=== PATIENT | female | born 1960 | race Caucasian/White ===

== ENCOUNTER → 2016-06-21 | Outpatient (CLI) | payer OTHER ==
[2016-06-21 13:00] LABS: INR 2.33
== END ==
LOC: M LAB 12:28
PROVIDERS: ATTEND Physician Assistant
DX: I48.4 Atypical atrial flutter (principal); Z51.81 Encounter for therapeutic drug level monitoring; Z79.01 Long term (current) use of anticoagulants

== ENCOUNTER → 2016-07-22 | Outpatient (CLI) | payer OTHER ==
[2016-07-22 12:26] LABS: INR 3.17
== END ==
LOC: M LAB 11:38
PROVIDERS: ATTEND Physician Assistant
DX: I48.4 Atypical atrial flutter (principal); Z51.81 Encounter for therapeutic drug level monitoring; Z79.01 Long term (current) use of anticoagulants

== ENCOUNTER → 2016-08-25 | Outpatient (CLI) | payer OTHER ==
[2016-08-25 11:58] LABS: INR 3.76
== END ==
LOC: M LAB 11:05
PROVIDERS: ATTEND Nurse Practitioner Family
DX: I48.4 Atypical atrial flutter (principal)

== ENCOUNTER → 2016-09-07 | Outpatient (CLI) | payer OTHER ==
[2016-09-07 10:10] LABS: INR 2.37
== END ==
LOC: M LAB 09:21
PROVIDERS: ATTEND Physician Assistant
DX: Z79.899 Other long term (current) drug therapy (principal)

== ENCOUNTER → 2016-10-06 | Outpatient (CLI) | payer OTHER ==
[2016-10-06 09:27] LABS: INR 2.83
== END ==
LOC: M LAB 08:21
PROVIDERS: ATTEND Nurse Practitioner Family
DX: I48.4 Atypical atrial flutter (principal)

== ENCOUNTER → 2016-10-13 | Outpatient (REF) | payer OTHER | LOC: M LAB REF 16:21 | PROVIDERS: ATTEND Surgery | DX: L03.031 Cellulitis of right toe (principal) ==

== ENCOUNTER → 2016-10-31 | Outpatient (CLI) | payer OTHER ==
[2016-10-31 12:32] LABS: INR 2.29
== END ==
LOC: M LAB 11:38
PROVIDERS: ATTEND Nurse Practitioner Family
DX: I48.4 Atypical atrial flutter (principal); Z51.81 Encounter for therapeutic drug level monitoring; Z79.01 Long term (current) use of anticoagulants

== ENCOUNTER 2016-11-09 22:07 | Inpatient (IN) | payer OTHER ==
[~2016-11-09] VITALS: Ht 162.6 cm; Wt 81.2 kg
[2016-11-09] MEDS ORDERED: AMIO200T PO (22:16)
[2016-11-09] MEDS ORDERED: ASPI1TAB15 (22:16)
[2016-11-09] MEDS ORDERED: SPIR25TA2 PO (22:16)
[2016-11-09] MEDS ORDERED: FURO20TA2 PO (22:16)
[2016-11-09] MEDS ORDERED: WARF-58 PO (22:16)
[2016-11-09] MEDS ORDERED: NITR0.4S14 SL (22:16)
[2016-11-09] MEDS ORDERED: LISI-538 PO (22:16)
[2016-11-09] MEDS ORDERED: CARV6.25 PO (22:16)
[2016-11-09] MEDS ORDERED: ATOR80TA59 PO (22:16)
[2016-11-09] MEDS ORDERED: IPRATROPIUM 0.5MG/ALBUTEROL 2.5MG INH SOL UD 3ML (DUONEB)(J7620) NEB ONE (23:00)
[2016-11-09] MEDS ORDERED: NS 500 ML IV ONE (23:00)
[2016-11-09 23:10] LABS: VENOUS BASE EXCESS -9.4 (-2.0-2.0); VENOUS O2 SATURATION 72.2 % (60.0-80.0); VENOUS PARTIAL PRESSURE CO2 40.2 mmHg (38.0-50.0); VENOUS PARTIAL PRESSURE O2 42.1 mmHg (30.0-50.0); VENOUS STANDARD HCO3 16.5 MEQ/L; VENOUS TOTAL CO2 18.5 MEQ/L (24.0-28.0)
[2016-11-09 23:12] LABS: BASO % 0.3 % (0.0-1.0); EOS % 0.2 % (0.0-3.0); LARGE UNSTAINED CELL # 0.2 K/mm3 (0.0-0.4); LARGE UNSTAINED CELL % 1.3 % (0.0-4.0); LYMPH # 1.9 K/mm3 (1.5-4.5); LYMPH % 13.3 % (24.0-44.0); MEAN CORPUSCULAR HEMOGLOBIN 30.7 pg (27.0-33.0); MEAN CORPUSCULAR HGB CONC 32.4 g/dl (32.0-36.5); MONO # 1.1 K/mm3 (0.0-0.8); MONO % 7.3 % (0.0-5.0); NEUTROPHILS # 11.2 K/mm3 (1.8-7.7); NEUTROPHILS % 77.6 % (36.0-66.0); PLATELET COUNT, AUTOMATED 220 k/mm3 (150-450); RED CELL DISTRIBUTION WIDTH 13.1 % (11.5-14.5); WHITE BLOOD COUNT 14.5 K/mm3 (4.0-10.0)
[2016-11-09 23:35] LABS: CALCIUM LEVEL 8.7 MG/DL (8.5-10.1); CREATININE FOR GFR 2.72 MG/DL (0.55-1.02); GLOMERULAR FILTRATION RATE 19.1 (>51)
[2016-11-10] VITALS (34 sets, daily range): BP systolic 66–123; BP diastolic 30–57
[2016-11-10 00:13] LABS: POTASSIUM SERUM 5.8 MEQ/L (3.5-5.1)
--- NOTE | 2016-11-10 01:08 | REP ---
Clinical: Dyspnea and cough. Comparison: 07/06/2015. Technique: PA and lateral. Findings: Mediastinum and cardiac silhouette are stable with pacemaker in satisfactory position. Subtle right lower lobe atelectasis cannot be excluded and should be correlated with auscultation and presentation. No effusion. No pneumothorax. Skeletal structures intact. Impression: Cannot exclude subtle right lower lobe atelectasis. Signed by Juve Myles MD 11/10/2016 12:59 A
[2016-11-10] MEDS ORDERED: methylPREDNISolone INJ 125 MG/2 ML VIAL (J2930) IV ONE (02:30)
[2016-11-10] MEDS ORDERED: COUM1TAB19 PO (03:14)
[2016-11-10] MEDS ORDERED: ASPI81TAEC PO (03:14)
[2016-11-10] MEDS ORDERED: NITROGLYCERIN 0.4 MG SUBL TABLET SL PRN (03:15)
[2016-11-10] MEDS ORDERED: BISACODYL 5 MG TAB PO PRN (03:30)
[2016-11-10] MEDS ORDERED: SOD POLYSTYRENE SULFONATE SUSP 15 GM/60 ML UD PO ONE (03:30)
[2016-11-10] MEDS ORDERED: ONDANSETRON 4MG/2ML VIAL (J2405) IV PRN (03:30)
[2016-11-10] MEDS ORDERED: IPRATROPIUM 0.5MG/ALBUTEROL 2.5MG INH SOL UD 3ML (DUONEB)(J7620) NEB PRN (03:30)
--- NOTE | 2016-11-10 04:30 | REPUSA ---
CLINICAL HISTORY: Acute renal failure. TECHNIQUE: Realtime sonographic images were obtained in multiple projections. COMMENTS: The right kidney measures 9.1x5.1x5.5 cm and the left kidney measures 10.8x5.3x5 cm. Both kidneys are free of hydronephrosis. There is no evidence of solid or cystic mass. There is no perinephric fluid. There is no left renal calculus. Simple cyst in the upper pole of the right kidney measuring 1.9 cm. 7 mm nonobstructing stone of the right kidney. There is a large complex cystic lesion in the midline arising from the pelvis measuring 5.6x10.7x11.9 cm. This can be arising from the ovaries. IMPRESSION: No evidence hydronephrosis. Right renal simple cyst. Nonobstructing right nephrolithiasis. Complex cystic lesion arising from the pelvis. Possibly from the ovaries. Thank you for your kind referral of this patient.
[2016-11-10] MEDS ORDERED: NS 500 ML IV ONE (05:00)
[2016-11-10 05:54] LABS: INR 3.9
[2016-11-10 05:59] LABS: RETIC HEMOGLOBIN CONTENT CHr 30.3 PG (24-36); RETICULOCYTE % 2.2 % (0.5-1.5)
[2016-11-10 06:25] LABS: CALCIUM LEVEL 7.6 MG/DL (8.5-10.1); CREATININE FOR GFR 2.68 MG/DL (0.55-1.02); GLOMERULAR FILTRATION RATE 19.4 (>51); MAGNESIUM LEVEL 1.6 MG/DL (1.8-2.4); PERCENT SATURATION 4.8 % (13.2-37.4)
[2016-11-10] MEDS: NS 1,000 ML IV SCH ×4 (06:29→20:14)
[2016-11-10] MEDS ORDERED: NS 1,000 ML IV ONE (06:30)
[2016-11-10] MEDS: PIPERACILLIN/TAZOBACTAM SOD 3.375 GM in D5W MINI-BAG PLUS 50 ML IV SCH ×3 (06:34→21:47)
[2016-11-10] MEDS ORDERED: DEXTROSE 50% 50 ML SYRINGE IV STA (07:31)
[2016-11-10] MEDS ORDERED: HumuLIN R (REGULAR) INSULIN (NovoLIN R) **100U/ML** PER UNIT SC STA (07:31)
[2016-11-10] MEDS ORDERED: ALBUTEROL SULFATE 2.5 MG/0.5 ML INH NEB SOLN NEB ONE (08:00)
[2016-11-10] MEDS: IPRATROPIUM 0.5MG/ALBUTEROL 2.5MG INH SOL UD 3ML (DUONEB)(J7620) NEB SCH ×3 (08:17→19:34)
[2016-11-10 08:22] LABS: DIGOXIN LEVEL 0.2 NG/ML (0.5-2.0)
[2016-11-10] MEDS: AMIODARONE 200 MG TAB (PACERONE) PO SCH (08:41)
[2016-11-10] MEDS: ASPIRIN 81 MG ENTERIC TAB PO SCH (08:41)
[2016-11-10] MEDS ORDERED: CARVedilol 6.25 MG TAB PO SCH (09:00)
--- NOTE | 2016-11-10 09:05 | ECGEPIP ---
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
[2016-11-10] MEDS: VANCOMYCIN HCL 750 MG, VIAL MATE ADAPTER 1 EACH in D5W 250 ML IV SCH ×2 (10:04→20:14)
[2016-11-10] MEDS: methylPREDNISolone INJ 125 MG/2 ML VIAL (J2930) IV SCH ×2 (10:05→17:50)
[2016-11-10 10:38] LABS: ALBUMIN 2.4 GM/DL (3.2-5.2); ALBUMIN/GLOBULIN RATIO 0.77 (1.00-1.93); BILIRUBIN,TOTAL 0.2 MG/DL (0.2-1.0); CALCIUM LEVEL 6.8 MG/DL (8.5-10.1); CREATININE FOR GFR 2.31 MG/DL (0.55-1.02); GLOMERULAR FILTRATION RATE 23.1 (>51); POTASSIUM SERUM 5.1 MEQ/L (3.5-5.1); TOTAL PROTEIN 5.5 GM/DL (6.4-8.2)
[2016-11-10] MEDS ORDERED: MAG SULF 1GM/100ML (MAG RUN) 1 GM in APPROPRIATE DILUENT 1 EA IV ONE (11:30)
[2016-11-10] MEDS ORDERED: CALCIUM GLUCONATE 1,000 MG in D5W MINI-BAG PLUS 100 ML IV ONE (11:30)
--- NOTE | 2016-11-10 13:34 | CR ---
DATE OF CONSULTATION: 11/10/2016 REQUESTING PHYSICIAN: Dr. Ulices Carcamo CONSULTING PHYSICIAN: Dr. Rendon REASON FOR CONSULTATION: Management of acute kidney injury and hyperkalemia. CHIEF COMPLAINT: The patient presented to the emergency room overnight with a runny nose, diarrhea and weakness. HISTORY OF PRESENT ILLNESS: Celina Vallejo is a 56-year-old female with past medical history of ischemic cardiomyopathy, paroxysmal atrial fibrillation, systolic congestive heart failure, and hypertension. Apparently, she has a normal renal function as of labs done at the hospital last year. She presented to the emergency room overnight with a runny nose, cough, some shortness of breath, pain in abdomen, loose stools for the last two days. The patient kept on taking her carvedilol, lisinopril and spironolactone at home while she was having diarrhea. She had about 3 episodes of diarrhea every day. It was all watery. When the patient arrived in the emergency room she was found to be hypotensive, systolic blood pressure was in the 80s, along with leukocytosis. The patient was aggressively hydrated with IV fluids. She was empirically covered with vancomycin and Zosyn. On initial labs, she was found to have a creatinine of 2.7 with a potassium of 5.8. Later on, her potassium got worse despite aggressive hydration. Her potassium was 6 this morning. Bicarbonate had dropped to 19. Nephrology service was called for further help in the management of this patient with acute kidney injury along with hyperkalemia and metabolic acidosis. When I examined the patient, she was in the intensive care unit (ICU). She was being hydrated. Her systolic blood pressure was 190s. She was otherwise awake, alert and oriented times three in no apparent distress. PAST MEDICAL HISTORY: 1. History of ischemic cardiomyopathy. 2. Chronic systolic congestive heart failure. 3. Paroxysmal atrial fibrillation. 4. Hypertension. 5. Hyperlipidemia. PAST SURGICAL HISTORY: The patient reports that she has a defibrillator. No other significant past surgical history. ALLERGIES: No known drug allergies. FAMILY HISTORY: No significant family history of end stage renal disease requiring hemodialysis. SOCIAL HISTORY: The patient denies any smoking, alcohol abuse or illicit drug abuse. HOME MEDICATIONS: - amiodarone 100 mg by mouth daily - aspirin 81 mg by mouth daily - atorvastatin 80 mg at bedtime - Coreg 6.25 mg by mouth twice a day - Lasix 10 mg by mouth twice a day - lisinopril 20 mg by mouth daily - nitroglycerin 0.4 mg sublingual as needed - spironolactone 37.5 mg by mouth daily - warfarin 3 mg by mouth three times a week and 4.5 mg by mouth four times a week REVIEW OF SYSTEMS: Constitutional: The patient reports some chills, feeling weak and tired. Eyes: She denies any blurry vision or double vision. ENT: She denies any dysphagia or ear discharge. She does report nasal discharge and some cough with no phlegm. Cardiovascular: She denies any chest pain or palpitations, but she does report history of congestive heart failure. Respiratory: She denies any shortness of breath or wheezing. Gastrointestinal (GI): The patient reports nausea, decreased appetite and loose watery stools. Genitourinary: She denies any dysuria, hematuria or cloudy urine, but she does report that her urine output is decreased. Musculoskeletal: She denies any muscle aches and pains. Central Nervous System (PRECISION LATHE OPERATOR): She denies any history of strokes or seizures. Psychiatric: She denies any history of depression or anxiety. Skin: She denies any rashes or ulcers. Hematologic/Oncologic: She denies any easy bruising or anemia in the past. All other review of systems is negative. PHYSICAL EXAMINATION: General: The patient is awake, alert, oriented times three, sitting in the bed in no apparent distress at this time. Vital Signs: Temperature 98.7 degrees Fahrenheit, blood pressure 90/46, pulse 71, respiratory rate 16, saturating 93% on nasal cannula. Intake and Output: Urine output recorded so far is only 25 mL. Weight on the bed scale is 73.6 kg. Head and Neck Exam: Extraocular muscles intact. Pupils equally round and reactive to light. Mucous membranes are moist. Neck is supple. There is no jugular venous distention (JVD). Cardiovascular: S1, S2. No murmur, rub or gallop. Respiratory: Chest is clear to auscultation bilaterally. Bilaterally equal air entry. No rales or rhonchi. Abdomen: Soft. Positive bowel sounds. Nontender. No ascites. No organomegaly. Extremities: No clubbing or cyanosis. Pulses are 2+. Central Nervous System (PRECISION LATHE OPERATOR): No focal neurological deficit. Power is 5/5 in all extremities. Skin: No rashes or ulcers. Psychiatric: Normal mood and affect. Lymph Nodes: No supraclavicular, axillary, or inguinal lymphadenopathy. LAB REVIEW: CBC showed a WBC of 14.5, hemoglobin 9.5 and platelets of 220. Urinalysis showed it was cloudy, protein 1+, 3+ leukocyte esterase, 81 WBCs, RBCs 5. ABG done yesterday showed a venous pH of 7.25. BMP done today morning showed sodium 139, potassium 6, chloride 110, bicarbonate 19, BUN 56, creatinine 2.6, calcium 7.6, magnesium 1.6. Iron level 11. TIBC 230. Transferrin saturation 4.8. Ferritin 135. Total CK 1126. Troponin I was 0.28. Albumin 2.4. MICROBIOLOGY: Respiratory viral panel is positive for human rhinovirus, Enterovirus. IMAGING: Renal ultrasound done today morning showed no evidence of hydronephrosis, right simple renal cyst, nonobstructing right nephrolithiasis, which was 7 mm in size, complex cystic lesion arising from the pelvis, possibly from the ovaries. CURRENT INPATIENT MEDICATIONS: The patient's inpatient medications were reviewed. She was given fluid boluses. I have started the patient on normal saline at 125 mL/hr. I have also ordered calcium gluconate 1 gram IV times one dose, magnesium sulfate 1 gram IV times one dose. She is on Zosyn 3.375 IV every 8 hours, vancomycin 750 mg IV every 12 hours, amiodarone 100 mg by mouth daily, aspirin 81 mg by mouth daily, Lipitor 80 mg at bedtime. I have started the patient on Bicitra 30 mL by mouth every 8 hours. She is on Solu-Medrol 60 mg IV every 8 hours, Zofran as needed, oxycodone as needed, and she was given one dose of Kayexalate 15 grams by mouth times one. ASSESSMENT: 56-year-old female with past medical history of paroxysmal atrial fibrillation, ischemic cardiomyopathy, chronic systolic congestive heart failure , hypertension, hyperlipidemia, admitted at this time because of acute rhinovirus associated diarrhea, hypotension, volume depletion, and acute renal failure. PLAN: 1. Acute renal failure. Most likely secondary to diarrhea, dehydration, volume depletion, use of LANEY inhibitors and diuretic at home while she was having diarrhea. The patient is to be aggressively hydrated. Continue IV fluids at this time. Systolic blood pressures are in the high 80s to low 90s. I would try to maintain a MAP of above 60. If patient's blood pressure does not improve, she will probably need a central line for CVP monitoring, IV fluid hydration and pressors if needed. No urgent need of hemodialysis at this time. Renal function is expected to improve with improvement in the blood pressure and hydration. However, I am going to get a Mathew catheter for accurate measurement of urine output. 2. Hyperkalemia. Secondary to acute renal failure and metabolic acidosis. The patient was already given a dose of Kayexalate. I will not give the patient more Kayexalate at this time. Potassium is improved to 5.1. Potassium is expected to improve with improvement in the renal function and metabolic acidosis. 3. Metabolic acidosis. The patient's bicarbonate level is down to 16 now. It is secondary to a combination of acute renal failure and diarrhea. Continue IV fluid hydration. We are short of sodium bicarbonate in the hospital at this time. I have started the patient on oral Bicitra 30 mL by mouth every 8 hours. The dose will be adjusted as needed. 4. Hypocalcemia. Calcium level is 6.8. I have given the patient a dose of calcium gluconate 1 gram IV times one. 5. Hypomagnesemia. The patient will get magnesium sulfate 1 gram IV times one dose. 6. Iron deficiency anemia. The patient is iron deficient, however, she is acutely sick and has leukocytosis. I will not give IV iron at this time. Hemoglobin is 9.5, which is acceptable. IV iron will be given once acute issues are over. 7. Chronic systolic congestive heart failure. Diuretics are on hold because of volume depletion and hypotension. We shall closely monitor patient's intake and output and adjust the IV fluids as needed. Carvedilol and lisinopril are on hold. 8. Paroxysmal atrial fibrillation. The patient continues to be on amiodarone 100 mg by mouth daily. Heart rate is well controlled at this time. Coumadin is on hold. INR is supratherapeutic at 3.9. Thank you involving us in the care of this patient. We shall be happy to follow the patient along with you tomorrow morning. Plan of care was discussed with the hospitalist team, Dr. Ulices Carcamo. JOELLEN
[2016-11-10 13:51] LABS: VENOUS BASE EXCESS -12.1 (-2.0-2.0); VENOUS O2 SATURATION 87.3 % (60.0-80.0); VENOUS PARTIAL PRESSURE CO2 46.3 mmHg (38.0-50.0); VENOUS PARTIAL PRESSURE O2 62.3 mmHg (30.0-50.0); VENOUS STANDARD HCO3 14.6 MEQ/L; VENOUS TOTAL CO2 17.3 MEQ/L (24.0-28.0)
[2016-11-10] MEDS ORDERED: BICITRA 30ML SOLN UDC PO SCH (14:00)
[2016-11-10 14:13] LABS: CALCIUM LEVEL 7.9 MG/DL (8.5-10.1); CREATININE FOR GFR 2.09 MG/DL (0.55-1.02); GLOMERULAR FILTRATION RATE 25.9 (>51); MAGNESIUM LEVEL 2.4 MG/DL (1.8-2.4); POTASSIUM SERUM 5.1 MEQ/L (3.5-5.1)
[2016-11-10] MEDS: BICITRA 30ML SOLN UDC PO SCH ×2 (14:16→21:47)
[2016-11-10 14:17] LABS: MEAN CORPUSCULAR HEMOGLOBIN 30.2 pg (27.0-33.0); MEAN CORPUSCULAR HGB CONC 30.6 g/dl (32.0-36.5); MEAN CORPUSCULAR VOLUME 98.7 fl (80.0-96.0)
[2016-11-10] MEDS ORDERED: SLF 3 ML SYR IV PRN (17:30)
[2016-11-10 17:34] LABS: ABG BASE EXCESS -9.2 (-2.0-2.0); ABG HCO3 17.2 MEQ/L (22.0-26.0); ABG PARTIAL PRESSURE CO2 39.5 mmHg (35.0-45.0); ABG PARTIAL PRESSURE O2 91.5 mmHg (75.0-100.0); ABG STANDARD HCO3 16.9 MEQ/L (22.0-26.0); ABG TOTAL CO2 18.4 MEQ/L (22.0-29.0); ABG pH (ARTERIAL) 7.256 UNITS (7.350-7.450)
[2016-11-10 19:46] LABS: BASO % 0.1 % (0.0-1.0); EOS % 0.2 % (0.0-3.0); LARGE UNSTAINED CELL # 0.1 K/mm3 (0.0-0.4); LARGE UNSTAINED CELL % 0.6 % (0.0-4.0); LYMPH # 1.3 K/mm3 (1.5-4.5); LYMPH % 11.4 % (24.0-44.0); MEAN CORPUSCULAR HEMOGLOBIN 30.9 pg (27.0-33.0); MEAN CORPUSCULAR HGB CONC 31.3 g/dl (32.0-36.5); MEAN CORPUSCULAR VOLUME 98.7 fl (80.0-96.0); MONO # 0.3 K/mm3 (0.0-0.8); MONO % 2.6 % (0.0-5.0); NEUTROPHILS # 9.5 K/mm3 (1.8-7.7); NEUTROPHILS % 85.1 % (36.0-66.0); PLATELET COUNT, AUTOMATED 178 k/mm3 (150-450); RED CELL DISTRIBUTION WIDTH 13.1 % (11.5-14.5); WHITE BLOOD COUNT 11.1 K/mm3 (4.0-10.0)
[2016-11-10 20:04] LABS: INR 5.31
[2016-11-10] MEDS: ATORVASTATIN 20 MG TAB PO SCH (20:14)
--- NOTE | 2016-11-10 20:52 | ECGEPIP ---
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 Poor R-wave progression. Borderline low voltages. Possible LATERAL MYOCARDIAL INFARCTION, OF INDETERMINATE AGE Electronically Signed On 11-10-2016 20:52:04 EDT by Dimas Núñez
[2016-11-10] MEDS: SLF 3 ML SYR IV SCH (21:27)
[2016-11-10] MEDS ORDERED: PHYTONADIONE 5 MG TAB PO ONE (21:30)
--- NOTE | 2016-11-10 22:34 | HPE ---
DATE OF ADMISSION: 11/10/2016 PRIMARY CARE PHYSICIAN: Dr. Hester. VASCULAR SURGEON: Dr. Meyers. FOOD CHECKERS AND CASHIERS SUPERVISOR: Dr. Núñez. ORACLE IDENTITY MANAGEMENT CONSULTANT: Dr. Moralez. CHIEF COMPLAINT: Cough, runny nose, feeling weak. HISTORY OF PRESENT ILLNESS: The patient is a 56-year-old female who for the past two days has been having progressively worsening cough associated with shortness of breath and increased sputum production. The patient has never been formally diagnosed with chronic pulmonary obstructive disease (COPD) she has been told she likely has some emphysema after having smoked chronically for many decades. She quit smoking 15 months ago. The patient denies sick contacts and feels improved with breathing treatments on arrival this evening in the emergency room. The patient was seen by Dr. Meyers for the first time earlier today in his office for a right cold great toe. She was told that she needed to have surgery to open up blood flow to the toe and Dr. Meyers was planning for this potentially as early as November 11. In the emergency room the patient's creatinine was found to be abnormal and the hospitalist service was called for admission. At the present time the patient denies fevers, chills, lightheadedness, dizziness. She reports improvement in her shortness of breath, no nausea or vomiting. She has had some associated diarrhea for the last several days as well, stating her by mouth intake has not been very good. She has been taking her Lasix and lisinopril. PAST MEDICAL HISTORY: 1. Ischemic cardiomyopathy. 2. Systolic congestive heart failure with last known ejection fraction to be approximately 10%. 3. Coronary artery disease. 4. Hypertension. 5. Sick sinus syndrome. 6. Atrial flutter. ALLERGIES: No known drug allergies. PAST SURGICAL HISTORY: 1. Biventricular automatic implantable cardio converter-defibrillator (AICD) placement. 2. Removal of her right great toenail. SOCIAL HISTORY: She quit smoking 15 months ago but has significant tobacco history prior to this. She lives with her daughters. She denies alcohol or illicit drug use. HOME MEDICATIONS: - Lasix 10 mg twice a day - Seroquel 20 mg daily - Aldactone 37.5 mg daily - Coumadin 4-1/2 mg four times a week, 3 mg three times a week - amiodarone 100 mg daily - aspirin 81 mg daily - atorvastatin 80 mg nightly - carvedilol 6.25 mg by mouth twice a day - nitroglycerin as needed chest pain REVIEW OF SYSTEMS: Negative other than as in the history of present illness (HPI). FAMILY HISTORY: Noncontributory. OBJECTIVE/PHYSICAL EXAM: VITAL SIGNS: Temperature 98.4, pulse 70, respirations 16, blood pressure 88/50, Oxygen sat 98% on 2 liters. GENERAL: She is a very pleasant, morbid obese female sitting up in the stretcher. She does not appear to be in any acute distress. She is comfortable. She is not using any accessory muscle use. HEENT: Cranial nerves II-XII are grossly intact. I do not appreciate any elevation of central venous pressure (CVP) but this is difficult to assess secondary to body habitus and a large neck. CARDIOVASCULAR: S1, S2 regular. I do note distal heart sounds appreciated. RESPIRATORY EXAM: She does have some scattered bibasilar rales. I do not appreciate any wheezing at this time but the emergency room (ER) provider reported that he had heard this earlier prior nebulizer treatments. ABDOMEN: Grossly obese. EXTREMITIES: No clubbing. There appears to be cyanosis, a cold right great toe. There is an ulcerative nail. Pulses are palpable proximally but not distally on the right. LABORATORY DATA: WBC 14.5, hemoglobin 9.5, hematocrit 29.3, platelet count 220. Chemistry panel: Sodium 140, potassium 5.8, chloride 108, bicarbonate 21, BUN 58 , creatinine 2.7. CK 1,029, Troponin 0.42 trending down to 0.39. BNP is slightly elevated at 651. MICROBIOLOGY: Blood cultures are pending. The respiratory panel returned positive for rhino virus/enterovirus. IMAGING: A chest x-ray cannot exclude right lower lobe atelectasis. ASSESSMENT AND PLAN: This is a 56-year-old female presenting with what appears to be decompensated chronic pulmonary obstructive disease (COPD) secondary to a rhinovirus infection. PROBLEMS: 1. Decompensated COPD secondary to rhinovirus. The patient's symptoms include increased cough increased sputum in the setting of history significant tobacco use and clinically decompensated COPD. She will be admitted and treated with intravenous (IV) Solu-Medrol nebulizer treatments. Admit as a viral infection, I do not see any role for antibacterials at this time. She currently has an oxygen requirement which she normally does not; however, I suspect that she will improve with treatment. This is a viral infection but also likely the etiology for her associated diarrhea in the last two days as well. 2. Cold, right great toe. The patient's vp production is Dr. Núñez and she was seen by Dr. Meyers on November 09. I have reached out to Dr. Meyers and hope he will see the patient in consultation while she is here in the hospital. He is planning an operative procedure for November 11. Maybe this can at this time during this hospitalization also. She recently completed a course of Keflex. If her diarrhea is not improved or worsened consider checking the stool for Clostridium difficile. At the present time it appears to be resolving for the patient. 3. Acute renal failure. This is likely secondary to dehydration. The patient is on Aldactone, lisinopril, and Lasix with poor by mouth intake in the setting of a rhino infection with diarrhea. At this time we will hold these medications and I will gently hydrate her. Will also provide her with Kayexalate to help with her potassium. She does not have any concerning EKG changes at this time. I will recheck her potassium and BNP this morning and trend. Also evaluate her sodium and a renal ultrasound as we do not have other recent blood work regarding her kidney function. 4. Elevated creatinine kinase. This is likely related to dry gangrene of her right great toe. Will continue to hydrate the patient, continue to monitor. 5 Systolic congestive heart failure and elevated BNP. On exam she has dry mucous membranes and she does not appear to be fluid overloaded at all. My concern at the present time was for dehydration and providing her with intravenous fluids, will have to monitor her fluid status closely. Could not get any weights, intake and outputs. We are holding her Lasix, Aldactone and lisinopril for the time being, will continue her Coreg with holding parameters. Blood pressure is soft, she will also continue on amiodarone. 6. Coronary artery disease. The patient will be continued on aspirin and a statin and her beta linda with holding parameters as outlined above. The patient has an equivocal troponin. I would continue to trend this. She has ischemic cardiomyopathy and known coronary artery disease. She may be having some demand ischemia as her blood pressure is low secondary to dehydration and her kidney disease. Will hydrate her and trend. 7. Sick sinus syndrome. The patient is status post a pacer but I would check her automatic implantable cardio converter-defibrillator (AICD). She is normally anticoagulated with Coumadin. I will hold her Coumadin as it appears that Dr. Meyers may have been planning her surgery within the next 48 to 72 hours. I will check an INR. 8. Deep venous thrombosis (DVT) prophylaxis. Check the patient's INR. She has been on Coumadin and antibiotics, it is thought she is therapeutic. DISPOSITION: The patient admitted to the progressive care unit to Dr. Carcamo's service. Will continue following the patient at 7 a.m. [facility]
--- NOTE | 2016-11-10 23:52 | CR ---
DATE OF CONSULTATION: 11/10/2016 REFERRING PHYSICIAN: Dr. Ulices Carcamo REASON FOR CONSULTATION: Ischemic cardiomyopathy, chronic systolic heart failure, hypotension. HISTORY OF PRESENT ILLNESS: Celina Vallejo is a 56-year-old woman with coronary artery disease with ischemic cardiomyopathy and chronic systolic heart failure. She is status post implant of a Medtronic dual-chamber implantable cardioverter defibrillator (ICD) 08/12/2015 for sick sinus syndrome/tachycardia/bradycardia syndrome and ischemic cardiomyopathy. She has a history of paroxysmal atrial flutter (atypical flutter) with rapid ventricular response. She is known to have an abnormal ECG and hypercholesterolemia. No systemic hypertension. The patient was admitted to hospital 11/09/2016 after presenting with complaints of runny nose, diarrhea, weakness, and decreased appetite. These symptoms were for about 2 days prior to her presentation. She continued to take her diuretics despite decrease oral intake for 2 days. She on this hospitalization was found to have acute kidney injury and hyperkalemia, for which nephrology has been consulted. She was having periods of hypotension with at times blood pressures in the 70s systolic. Her cardiac drugs were held, and she received some intravenous (IV) fluids. Patient reports that for about 2 days prior to admission she was having episodes of lightheadedness and some shortness of breath with minimal activity. No leg or ankle swelling. No orthopnea or paroxysmal nocturnal dyspnea (PND). No chest, neck, jaw, or upper extremity pain, pressure, tightness, squeezing, or heaviness. No syncope. No palpitations. No ICD shocks. No embolic events. Echocardiogram Doppler 12/09/2015 ([facility]) reported normal left ventricular (LV) wall thickness and cavity size with severe reduction in systolic function with estimated ejection fraction of 20-25%. Severe, diffuse global LV hypokinesis. Abnormal diastolic function, consistent with grade 1 diastolic dysfunction (impaired relaxation filling pattern). Right ventricular (RV) size and systolic function appeared normal. Presence of an ICD lead in the RV cavity. Mild mitral regurgitation. Trace to mild tricuspid regurgitation. No evidence of pulmonary hypertension. No pericardial effusion. Patient underwent a thallium viability cardiac nuclear stress test in [place] 07/09/2015, which reported global decreased wall motion with LV ejection fraction of 23%. Presence of a large infarct. No evidence for viable myocardium. This large fixed myocardial perfusion defect was anterolateral, extending from base to apex with a smaller defect over the inferior apex. No known adverse drug reactions. MEDICATIONS PRIOR TO ADMISSION: - amiodarone 100 mg daily - aspirin 81 mg daily - atorvastatin 80 mg at bedtime - carvedilol 6.25 mg twice a day - furosemide 10 mg twice a day - lisinopril 20 mg daily - nitroglycerine 0.4 mg sublingual as needed - spironolactone 37.5 mg daily - warfarin as directed CURRENT MEDICATIONS IN HOSPITAL: Consist of: - DuoNeb every 6 hours and every 2 hours as needed - amiodarone 100 mg daily - aspirin 81 mg daily - atorvastatin 80 mg at bedtime - Dulcolax 5 mg by mouth daily as needed - citric acid/sodium citrate 30 mL every 8 hours by mouth - Solu-Medrol 60 mg IV every 8 hours - Nitrostat 0.4 mg sublingual every 5 minutes as needed - Zofran 4 mg IV every 6 hours as needed - Percocet one every 4 hours as needed - piperacillin/tazobactam 3.375 grams IV every 8 hours - normal saline 125 mL per hour IV - vancomycin 750 mg IV every 12 hours PAST MEDICAL HISTORY: 1. Paroxysmal atrial flutter (atypical flutter). 2. Ischemic cardiomyopathy. 3. Chronic systolic heart failure. 4. Status post dual-chamber Medtronic ICD implanted 08/12/2015. 5. Abnormal ECG. 6. Hypercholesterolemia. 7. Prior cardiac catheterization 07/08/2015. 8. Prior smoking history, for which she quit 07/07/2015. Prior to that she had a smoking history of one pack per day for 30 years. No diabetes. No systemic hypertension. SURGICAL HISTORY: ICD implanted 08/12/2015, left pectoral region. FAMILY HISTORY: Father had coronary artery disease with myocardial infarct in his 70s. Mother had coronary artery disease with a heart attack in her 70s. One sister with coronary artery disease with a heart attack at age 45. SOCIAL HISTORY: . Lives with daughter. Not presently employed. Independent with activities of daily living. Prior smoking history of one pack per day times 30 years, for which she quit 07/07/2015. No alcohol. Limited by exertional dyspnea if she attempts above ordinary physical activity. REVIEW OF SYSTEMS: Two days prior to admission she was feeling generalized fatigue and weakness. No fevers. She was having nasal discharge and nonproductive cough. She was having some mild shortness of breath with light activity, but this has since resolved. She was having nausea, decreased appetite, and loose, watery stools. No anxiety, panic attacks, or depression. All other 10-point review of systems negative. PHYSICAL EXAMINATION: A pleasant, overweight woman who appears her chronological age, not in any respiratory or psychologic distress. Height 64 inches, weight 73.6 kg, body mass index 27.9. Temperature 97.7, pulse 68, respiratory rate 13, blood pressure (BP) 111/51, oxygen 97% on oxygen 2 liters per minute by nasal cannula. No gross head, facial, or skeletal deformities. Not in an y respiratory or psychologic distress. No conjunctival pallor, scleral icterus, or xanthomas. Oral mucosa was moist and without pallor or cyanosis. Trachea midline. No palpable thyroid. Jugular venous pulsation at 3 cm. Respiratory expansion effort was good. No crackles or wheezes. No left parasternal lifts, heaves, thrills, or palpable heart sounds. Well-healed ICD incision, left pectoral region. First heart sound normal. Second heart sound normal. No S3 or S4. No pericardial friction rubs. No heart murmurs appreciated. Carotids were normal in volume and contour and without bruits. No palpable abdominal aorta. No abdominal bruits. Pedal pulses normal. No lower extremity edema. No varicose veins. No clubbing, nailbed cyanosis, or splinter hemorrhages. Bowel sounds positive. Abdomen was soft, nontender with abnormal bowel sounds. No hepatosplenomegaly or other organomegaly. No abdominal masses. Liver span difficult to assess due to abdominal obesity. Stool for occult blood not presently indicated. Gait not presently tested, as the patient is on bed rest in the ICU. No kyphosis or scoliosis. No skin icterus, lesions, or pallor. Patient is oriented to person, place, and time. Mood and affect were normal. Posterior-anterior (PA) and lateral chest x-ray acquired 11/09/2016 was reported to show "cannot exclude subtle right lower lobe atelectasis." Although the report indicates that a pacemaker is present, it is actually dual-chamber ICD over left pectoral region. Leads were in satisfactory position. No pleural effusions. ECG 11/10/2016 showed atrial paced rhythm, poor R-wave progression, borderline low voltages, possible lateral myocardial infarct, age undetermined. Laboratory work 11/10/2016 at 1940 hours showed WBC 11.1, hemoglobin 9.3, hematocrit 29.7, platelets 178. Laboratory work 11/10/2016 showed PT/INR 5.31. Laboratory work 11/11/2016 at 1337 hours shows sodium 139, potassium 5.1, chloride 113, CO2 of 19, BUN 51, creatinine 2.09, estimated GFR 25.9, glucose 203, magnesium 2.4. Troponin I 11/10/2016 at 5:39 a.m. was 0.28. Laboratory work 11/10/2016 showed total protein low at 5.5 and albumin low at 2.4. Laboratory work 11/09/2016 showed BNP 661. ASSESSMENT AND RECOMMENDATIONS: 1. Coronary artery disease (CAD) without angina. Patient is known to have ischemic cardiomyopathy and has evidence of extensive prior anterolateral myocardial infarct without viability. Continue aspirin and atorvastatin at the current dosages. Continue Nitrostat as needed. Agree with holding carvedilol and lisinopril during this time of recent hypotension and acute kidney injury. At some point, once the acute kidney injury has resolved and blood pressure has improved, it would be good to get some lisinopril and beta linda back on board. 2. Ischemic cardiomyopathy. [place] Heart Association (NYHA) functional class 2, presently compensated on examination. Hypotension has not resolved with intravenous (IV) fluids. Agree with holding carvedilol, furosemide, lisinopril, spironolactone for now while we await the sustained return of normal blood pressure and improvement in acute kidney injury and hypokalemia. 3. Chronic systolic heart failure. As per ischemic cardiomyopathy category above. 4. Hypotension. I suspect the patient was dehydrated with ongoing intake to furosemide and spironolactone while she had decreased appetite during her viral-type illness prior to admission. Hypotension has now resolved with administration of IV fluids. I would not place this patient on vasopressors at this time. Agree with continuing to hold furosemide, carvedilol, lisinopril, spironolactone for now. Some of these medications will need to be introduced gradually, depending upon return of kidney function and sustained improvement in blood pressure. 5. History of paroxysmal atypical atrial flutter. No palpitations. She is atrially paced. 6. Abnormal ECG, stable. 7. Status post Medtronic dual-chamber pacemaker in situ for management of sick sinus syndrome/tachycardia/bradycardia syndrome and ischemic cardiomyopathy with chronic systolic heart failure. No ICD shocks. Stable. Regular followup via our office. 8. Hypercholesterolemia. Recommend patient be on a DASH diet. Agree with continuation of intensive statin therapy (atorvastatin 80 mg at bedtime).
[2016-11-11] VITALS (27 sets, daily range): BP systolic 83–137; BP diastolic 43–66; O2SAT 94
[2016-11-11] MEDS: IPRATROPIUM 0.5MG/ALBUTEROL 2.5MG INH SOL UD 3ML (DUONEB)(J7620) NEB SCH ×5 (02:00→23:37)
[2016-11-11] MEDS: methylPREDNISolone INJ 125 MG/2 ML VIAL (J2930) IV SCH ×3 (02:22→22:00)
[2016-11-11] MEDS: NS 1,000 ML IV SCH (04:20)
[2016-11-11 05:15] LABS: CALCIUM LEVEL 7.4 MG/DL (8.5-10.1); CREATININE FOR GFR 1.34 MG/DL (0.55-1.02); GLOMERULAR FILTRATION RATE 43.2 (>51); MAGNESIUM LEVEL 2.1 MG/DL (1.8-2.4); PHOSPHORUS LEVEL 2.7 MG/DL (2.5-4.9); POTASSIUM SERUM 4.4 MEQ/L (3.5-5.1)
[2016-11-11 05:27] LABS: INR 6.02
[2016-11-11] MEDS: SLF 3 ML SYR IV SCH ×3 (05:58→21:58)
[2016-11-11] MEDS: PIPERACILLIN/TAZOBACTAM SOD 3.375 GM in D5W MINI-BAG PLUS 50 ML IV SCH ×2 (05:58→16:59)
[2016-11-11] MEDS: BICITRA 30ML SOLN UDC PO SCH ×3 (05:58→21:56)
[2016-11-11 08:05] LABS: VENOUS O2 SATURATION 99.6 % (60.0-80.0); VENOUS PARTIAL PRESSURE CO2 42.1 mmHg (38.0-50.0); VENOUS PARTIAL PRESSURE O2 147.8 mmHg (30.0-50.0); VENOUS STANDARD HCO3 17.9 MEQ/L; VENOUS TOTAL CO2 19.8 MEQ/L (24.0-28.0)
[2016-11-11 08:07] LABS: MEAN CORPUSCULAR HEMOGLOBIN 31.1 pg (27.0-33.0); MEAN CORPUSCULAR HGB CONC 31.9 g/dl (32.0-36.5); MEAN CORPUSCULAR VOLUME 97.5 fl (80.0-96.0); RED CELL DISTRIBUTION WIDTH 13.4 % (11.5-14.5); WHITE BLOOD COUNT 10.3 K/mm3 (4.0-10.0)
[2016-11-11] MEDS ORDERED: CALCIUM GLUCONATE 1,000 MG in D5W MINI-BAG PLUS 100 ML IV ONE (08:45)
[2016-11-11 09:21] LABS: REASON FOR REVIEW ANEMIA / RBC MORPH
[2016-11-11] MEDS: ASPIRIN 81 MG ENTERIC TAB PO SCH (09:58)
[2016-11-11] MEDS: AMIODARONE 200 MG TAB (PACERONE) PO SCH (09:58)
[2016-11-11] MEDS: guaiFENesin ER 600 MG TAB PO SCH ×2 (09:59→21:51)
[2016-11-11] MEDS: VANCOMYCIN HCL 750 MG, VIAL MATE ADAPTER 1 EACH in D5W 250 ML IV SCH ×2 (10:02→21:52)
--- NOTE | 2016-11-11 10:35 | REP ---
CT abdomen pelvis without IV and oral contrast: Studies compared to the renal ultrasound performed last night. There are no comparison CT studies. The visualized lung jolley are unremarkable. The unenhanced hepatic parenchyma is homogeneous. The gallbladder, pancreas and spleen are normal size unremarkable. The adrenals are unremarkable. There is no renal hydronephrosis. There are small calcifications in each kidney, likely vascular calcified atheroma. There is a 1.9 cm right renal cortical cyst posteriorly at the upper pole. There is ectasia of the infrarenal abdominal aorta measuring up to 2.9 cm in diameter. There is no retroperitoneal or mesenteric adenopathy. There is no bowel distension. Pelvis: There is a Mathew catheter in the bladder and the bladder appears collapsed. However, there is a large cyst in the midline of the pelvis of the collapsed bladder maximally measuring 12 cm in diameter. There is a large crescentic shaped low density structure along the right lateral wall of this cyst, possibly a hematoma or abscess in the of the cyst, neoplasm is not entirely discounted. This entire complex appears to arise from the right adnexa. This may represent a giant cyst adenoma with hemorrhage or abscess. MRI follow-up might be useful for further evaluation. The uterus and left adnexa are otherwise unremarkable. There is no pelvic adenopathy or ascites. The pelvic bowel loops are unremarkable except for sigmoid colon diverticulosis without diverticulitis. The appendix has a normal appearance. Impression: There is a large cystic mass in the pelvis as described. Along the right lateral wall of this mass ,there is a crescentic shaped structure. This could be a hemorrhage, abscess or neoplasm in the wall of the mass. There are small calcifications in the wall of the cyst. This entire complex appears to arise from the right adnexa and may represent a complex cyst adenoma. MRI follow-up might be useful for further evaluation. There is no adenopathy or ascites. There is ectasia of the infrarenal abdominal aorta. Signed by Aleksandr Shaver MD 11/11/2016 10:26 A
--- NOTE | 2016-11-11 10:40 | REP ---
CT CHEST WITHOUT IV CONTRAST: CT chest is performed without IV contrast. Sagittal and coronal reconstruction images are performed. There are no prior CT exams for comparison. Scattered interstitial fibrotic changes are seen. There is bullous change in the left upper lobe medially and anteriorly. Consolidation is seen in the right posterior costophrenic sulculus. There is patchy infiltrate or fibroatelectasis in the lingula inferiorly. No suspicious nodular opacities are seen in either lung. Mildly enlarged subcarinal lymph node measures 1.2 cm in short axis dimension with no other gross adenopathy. There are mild to moderate atherosclerotic calcifications of the thoracic aorta without aneurysm. The heart is mildly enlarged. There are degenerative changes of the spine. There is a 1.5 cm hypodense nodule in the upper pole of the left lobe of thyroid probably representing a cyst. This could be better evaluated with ultrasound if desired. IMPRESSION: Focal consolidation in the right posterior costophrenic sulcus in the right lower lobe. Mild patchy infiltrate or fibroatelectasis in the lingula. Mildly enlarged subcarinal lymph node. No pleural or pericardial effusion. Mild cardiomegaly. Signed by Aleksandr Lopez MD 11/11/2016 01:40 P
[2016-11-11] MEDS ORDERED: FUROSEMIDE 20 MG/2 ML VIAL (J1940) IV SCH (11:15)
[2016-11-11] MEDS ORDERED: PHYTONADIONE 10MG/ML INJECTION (J3430) SC ONE (11:15)
--- NOTE | 2016-11-11 11:22 | IPNPDOC ---
Text Note Date of Service The patient was seen on 11/11/16. NOTE Subjective: Pt states that she still feels congested. Denies CP/Palpitation/SOB. Objective: Vitals: (see below) General: No acute distress, laying comfortably in bed. HEENT: Moist mucous membranes. Neck: No JVD or lymphadenopathy Cardiac: RRR, No murmurs Pulm: Diminished breath sounds at the bases b/l. Mild exp wheezing and rhonchi Abd: NT/ND + BS Ext: No edema or cyanosis Labs (see below) Images: CT Chest 11/11/16 Scattered interstitial fibrotic changes are seen. There is bullous change in the left upper lobe medially and anteriorly. Consolidation is seen in the right posterior costophrenic sulculus. There is patchy infiltrate or fibroatelectasis in the lingula inferiorly. No suspicious nodular opacities are seen in either lung. Mildly enlarged subcarinal lymph node measures 1.2 cm in short axis dimension with no other gross adenopathy. There are mild to moderate atherosclerotic calcifications of the thoracic aorta without aneurysm. The heart is mildly enlarged. There are degenerative changes of the spine. There is a 1.5 cm hypodense nodule in the upper pole of the left lobe of thyroid probably representing a cyst. This could be better evaluated with ultrasound if desired. IMPRESSION: Focal consolidation in the right posterior costophrenic sulcus in the right lower lobe. Mild patchy infiltrate or fibroatelectasis in the lingula. Mildly enlarged subcarinal lymph node. No pleural or pericardial effusion. Mild cardiomegaly. CT Abd/pelvis 11/11/16 CT abdomen pelvis without IV and oral contrast: Studies compared to the renal ultrasound performed last night. There are no comparison CT studies. The visualized lung jolley are unremarkable. The unenhanced hepatic parenchyma is homogeneous. The gallbladder, pancreas and spleen are normal size unremarkable. The adrenals are unremarkable. There is no renal hydronephrosis. There are small calcifications in each kidney, likely vascular calcified atheroma. There is a 1.9 cm right renal cortical cyst posteriorly at the upper pole. There is ectasia of the infrarenal abdominal aorta measuring up to 2.9 cm in diameter. There is no retroperitoneal or mesenteric adenopathy. There is no bowel distension. Pelvis: There is a Mathew catheter in the bladder and the bladder appears collapsed. However, there is a large cyst in the midline of the pelvis of the collapsed bladder maximally measuring 12 cm in diameter. There is a large crescentic shaped low density structure along the right lateral wall of this cyst, possibly a hematoma or abscess in the of the cyst, neoplasm is not entirely discounted. This entire complex appears to arise from the right adnexa. This may represent a giant cyst adenoma with hemorrhage or abscess. MRI follow-up might be useful for further evaluation. The uterus and left adnexa are otherwise unremarkable. There is no pelvic adenopathy or ascites. The pelvic bowel loops are unremarkable except for sigmoid colon diverticulosis without diverticulitis. The appendix has a normal appearance. Impression: There is a large cystic mass in the pelvis as described. Along the right lateral wall of this mass ,there is a crescentic shaped structure. This could be a hemorrhage, abscess or neoplasm in the wall of the mass. There are small calcifications in the wall of the cyst. This entire complex appears to arise from the right adnexa and may represent a complex cyst adenoma. MRI follow-up might be useful for further evaluation. There is no adenopathy or ascites. There is ectasia of the infrarenal abdominal aorta. Assessment/Plan 1. Severe Hypotension 2/2 dehydration, diuretics, diarrhea, pneumonia. Blood pressure is improving with IV fluid hydration. Appreciate nephrology input. Map greater than 65 now. Continue to hold diuretics/lisinopril. CT chest (see above) . Positive for rhinitis/enterovirus, which can predispose the patient to the getting a bacterial pneumonia. On broad-spectrum antibiotics. We will start Mucinex as well as obtain a sputum sample. Nebulizer treatments. Decrease steroid dose. 2. Coumadin coagulopathy - s/p vit K, repeat vit K, 1 U FFP, 1 U PRBC will be given today. 2. Ischemic cardiomyopathy use of 10% s/p AICD 08/2015. Compensated. Diuretics on hold given the above. We'll restart patient's blood pressure stabilizes. Cardio consulted 3. Acute kidney injury/NAGMA- likely prerenal secondary to 1. On IV fluids. Improving. On bicitra. 4. Iron deficiency anemia- hemoglobin stable. No acute bleeding. ?large cystic mass is contributing. Will need further MRI to better differentiate. 5. Large pelvix mass - ? Ovarian cancer. Will need further MRI to better differentiate. 5. CAD - on ASA/statin. BB and ACEi on hold for now. 6. H/o PAF- will need anticoagulation addressed by cardio. On ASA and Amiodarone. 7. HLD on statin 8. H/o tobacco abuse, quit. Full code. DVT prophy - Heparin SQ VS,Fishbone, I+O VS, Fishbone, I+O Laboratory Tests 11/10/16 13:37 Red Blood Count 2.61 L, Mean Corpuscular Volume 98.7 H, Mean Corpuscular Hemoglobin 30.2, Mean Corpuscular Hemoglobin Concent 30.6 L, Red Cell Distribution Width 13.0, Calcium Level 7.9 #L 11/10/16 19:40 Red Blood Count 3.00 L, Mean Corpuscular Volume 98.7 H, Mean Corpuscular Hemoglobin 30.9, Mean Corpuscular Hemoglobin Concent 31.3 L, Red Cell Distribution Width 13.1, Neutrophils (%) (Auto) 85.1 H, Lymphocytes (%) (Auto) 11.4 L, Monocytes (%) (Auto) 2.6, Eosinophils (%) (Auto) 0.2, Basophils (%) ( Auto) 0.1, Neutrophils # (Auto) 9.5 H, Lymphocytes # (Auto) 1.3 L, Monocytes # ( Auto) 0.3, Eosinophils # (Auto) 0.0, Basophils # (Auto) 0.0 11/11/16 04:25 Anion Gap 7 L 11/11/16 07:43 Red Blood Count 2.53 L, Mean Corpuscular Volume 97.5 H, Mean Corpuscular Hemoglobin 31.1, Mean Corpuscular Hemoglobin Concent 31.9 L, Red Cell Distribution Width 13.4 Vital Signs Date Time Temp Pulse Resp B/P (MAP) Pulse Ox O2 Delivery O2 Flow Rate FiO2 11/11/16 09:28 94 Nasal Cannula 1.0 11/11/16 08:00 97.8 67 20 96/46 (63) I&O- Last 24 Hours up to 6 AM 11/11/16 06:00 Intake Total 5675 ml Output Total 1590 ml Balance 4085 ml AMBER HAN MD Nov 11, 2016 11:22
[2016-11-11] MEDS: PANTOPRAZOLE 40MG INJ (PROTONIX) (C9113) IV SCH (11:46)
[2016-11-11] MEDS ORDERED: HEPARIN SOD (PORCINE) 5000 UNITS/ML VIAL SQ SCH (14:00)
[2016-11-11 14:50] LABS: MEAN CORPUSCULAR HEMOGLOBIN 30.8 pg (27.0-33.0); MEAN CORPUSCULAR HGB CONC 31.6 g/dl (32.0-36.5); MEAN CORPUSCULAR VOLUME 97.5 fl (80.0-96.0); RED CELL DISTRIBUTION WIDTH 13.3 % (11.5-14.5); WHITE BLOOD COUNT 12.4 K/mm3 (4.0-10.0)
[2016-11-11 15:05] LABS: INR 2.19
--- NOTE | 2016-11-11 16:49 | ECHO ---
DATE OF PROCEDURE: 11/10/2016 REFERRING PHYSICIAN: Ulices Carcamo MD INDICATION: Heart failure, unspecified. HEIGHT: 163 cm WEIGHT: 74 kg 2D MEASUREMENTS: Left atrium: 3.8 cm Aortic root: 2.5 cm LVOT: 1.8 cm Ventricular septum: 0.75 cm Posterior wall: 0.75 cm Left ventricle diastole: 4.6 cm Inferior vena cava: 2.4 cm (more than 50% respiratory variation). DOPPLER MEASUREMENTS: Aortic valve velocity: 174 cm/s LVOT velocity: 122 cm/s LVOT VTI: 28.2 cm Mild mitral regurgitation. Mitral E velocity: 53.8 cm/s Mitral A velocity: 88.4 cm/s Mitral deceleration time: 173 ms Mild tricuspid regurgitation. Estimated right ventricle systolic pressure 40-45 mmHg assuming a right atrial pressure of 5-10 mmHg. Pulmonary artery acceleration time: 215 ms MITRAL ANNULAR TISSUE DOPPLER: E prime septal: 6.5 cm/s E prime lateral: 5.5 cm/s DESCRIPTION: Rhythm appeared to be atrial paced. This was a moderately technically difficult echocardiogram. No pericardial effusion. CONCLUSIONS: 1. Normal left ventricle size and wall thickness. Extensive and multiple regional wall motion abnormalities with severe reduction overall left ventricle (LV) systolic function. Left ventricular ejection fraction (LVEF) 25% by visual estimate. No LV thrombus. Grade 1 LV diastolic dysfunction (impaired relaxation filling pattern). The basal and mid antral septal, inferoseptal, anterior, and anterolateral segments were hypokinetic. The basal and mid inferior segments and basal inferolateral segment were normokinetic. The mid inferolateral segment was hypokinetic. The apical cap segment was akinetic. The apical anterior and apical septal segments were akinetic and the apical inferior and apical lateral segments were severely hypokinetic. 2. Mild left atrial dilatation. 3. Mild aortic valve sclerosis. 4. Presence of endocardial, right atrial pacing lead and right ventricle ICD lead. 5. Normal right ventricle size and systolic function. Suggestive of moderate elevation of estimated right ventricle systolic pressure. Mild tricuspid regurgitation. Although the inferior vena cava was dilated, it had normal respiratory variation. Suggestive of central venous pressure of 5-10 mmHg at the time of this study.
--- NOTE | 2016-11-11 17:49 | IPN ---
DATE: 11/11/2016 SUBJECTIVE: The patient was seen and examined at the bedside today in the morning. She feels slightly better as compared with yesterday. However, she continues to have some loose stools. She had one loose bowel movement so far today since overnight. Renal function is significantly getting better. Creatinine is down to 1.3. She continues to be on intravenous (IV) fluids with the systolic blood pressures running into high 90s to low 100s. Potassium has improved to 4.4 now. REVIEW OF SYSTEMS: The patient denies any fever, chills, rigors, headache, nausea, vomiting, chest pain or shortness of breath. She does report some swelling of her extremities, and the patient reports persistent loose stools, one soft bowel movement so far today in the morning. Otherwise, the patient has a good appetite. She was getting ready to eat her breakfast when I saw her. The rest of the review of systems is negative. OBJECTIVE: VITAL SIGNS: Temperature is 97.8 degrees Fahrenheit. Blood pressure is 96/46, pulse is 67, respiratory rate of 18, saturating 95% on nasal cannula at 1 liter. INTAKE/OUTPUT: Urine output recorded as 1.2 liters yesterday, 510 mL so far today since overnight. The patient is in positive fluid balance for the last 2 days. Weight on the bed scale is 78.1 kg. PHYSICAL EXAMINATION: GENERAL: The patient is awake, alert, oriented times three, sitting on the sofa, in no apparent distress. HEAD AND NECK EXAM: Extraocular muscles intact. Pupils equally round and reactive to light. Mucous membranes are moist. Neck is supple. There is no jugular venous distention (JVD). CARDIOVASCULAR: S1, S2, regular rate. No murmur, rub or gallop. RESPIRATORY: Chest is clear to auscultation bilaterally. Bilateral equal air entry. No rales or rhonchi. The patient has slightly decreased breath sounds at the bases. ABDOMEN: Abdomen is soft. Positive bowel sounds. Nontender. No ascites. No organomegaly. EXTREMITIES: No clubbing or cyanosis. Pulses are 2+. CENTRAL NERVOUS SYSTEM: No focal neurological deficit. Power is 5/5 in all extremities. SKIN: No rashes or ulcers. PSYCHIATRIC: Normal mood and affect. LAB REVIEW: CBC showed a WBC of 10.3, hemoglobin 7.9, platelets are 169. INR is 6.02. VBG showed a venous pH of 7.26. BMP showed sodium 145, potassium 4.4, chloride 117, bicarbonate is 21, BUN is 40, creatinine is 1.34. It was 2.09 yesterday. Calcium 7.4, phosphorus 2.7, magnesium 2.1. LDH is 230. Albumin is 2. Total creatinine kinase is 915. Troponin is 0.20. Microbiology: Stool for occult blood is positive. IMAGING: A CT scan of the chest was done today in the morning, which showed focal consolidation in the right posterior costophrenic sulcus in the right lower lobe. CT scan of the abdomen and pelvis showed large cystic mass in the pelvis, along with right lateral wall of this mass, there was a crescentic shaped structure which could be hemorrhage, abscess or neoplasm. An MRI was recommended. CURRENT INPATIENT MEDICATIONS: The patient's medications were all reviewed by me. I have ordered another dose of calcium gluconate 1 gram IV times one dose. I have stopped the IV fluids. The patient continues to be on IV vancomycin and IV Zosyn. I have stopped the aspirin because of positive fecal occult blood and dropping hemoglobin. Solu-Medrol dose has been decreased to 60 mg every 12 hours. The patient was given a dose of vitamin K 5 mg subcutaneously times one dose. ASSESSMENT: A 56-year-old female with past medical history of paroxysmal atrial fibrillation, ischemic cardiomyopathy, chronic systolic congestive heart failure, hypertension, hyperlipidemia, admitted at this time because of acute rhinovirus associated diarrhea, hypotension, volume depletion and acute renal failure. PLAN: 1. Acute renal failure. It was secondary to volume depletion and hypotension. The patient was on IV fluids. Angiotensin-converting enzyme (LANEY) inhibitors and diuretics have been held. Renal function is significantly better. Creatinine is down to 1.3. I have stopped the IV fluids. Continue to encourage oral hydration at this time. 2. Hyperkalemia. It was secondary to metabolic acidosis and acute renal failure. Potassium is significantly better. It is down to 4.4 today. 3. Metabolic acidosis. Metabolic acidosis was secondary to diarrhea and acute renal failure. The patient was started on Bicitra 30 mL by mouth every 8 hours. Bicarbonate level has improved to 21 now. Continue current dose of Bicitra. Dose will be adjusted tomorrow according to the bicarbonate level. 4. Hypocalcemia. I am going to give the patient another dose of calcium gluconate 1 gram IV. 5. Iron deficiency anemia and positive fecal occult blood. I have taken the consent from the patient. She will be given one unit of packed red blood cell transfusion. Given the history of congestive heart failure, after the packed red blood cell transfusion, the patient will be given a small dose of Lasix 20 mg IV times one dose. 6. Supratherapeutic international normalized ratio (INR) . The patient was given vitamin K 5 mg by mouth times one dose yesterday. She will be given another dose of vitamin K 5 mg subcutaneous one dose today. I have also ordered one unit of fresh frozen plasma transfusion because the patient's hemoglobin is dropping. She is fecal occult positive and mass in the pelvis is also suspicious for developing hematoma. 7. Right-sided adnexal mass. The mass was seen on the CT scan done today. Malignancy needs to be ruled out. Please get surgical service on board. 8. Chronic systolic congestive heart failure. The patient's diuretics, beta blockers and angiotensin-converting enzyme (LANEY) inhibitors are all on hold because the patient came in with hypotension, acute renal failure. I have stopped the IV fluids. Continue to hold the medication at this time. 9. Paroxysmal atrial fibrillation. Continue the amiodarone at this time. Heart rate is well controlled. INR is supratherapeutic. Management is as mentioned above. The plan of care was discussed with the hospitalist, Dr. Ulices Carcamo.
[2016-11-11 20:18] LABS: MEAN CORPUSCULAR HEMOGLOBIN 31.1 pg (27.0-33.0); MEAN CORPUSCULAR HGB CONC 32.5 g/dl (32.0-36.5); MEAN CORPUSCULAR VOLUME 95.7 fl (80.0-96.0); RED CELL DISTRIBUTION WIDTH 13.4 % (11.5-14.5); WHITE BLOOD COUNT 15.2 K/mm3 (4.0-10.0)
[2016-11-11] MEDS: ATORVASTATIN 20 MG TAB PO SCH (21:50)
[2016-11-12] VITALS (23 sets, daily range): BP systolic 100–151; BP diastolic 48–104; O2SAT 96–98
[2016-11-12] MEDS: PIPERACILLIN/TAZOBACTAM SOD 3.375 GM in D5W MINI-BAG PLUS 50 ML IV SCH ×4 (00:01→22:46)
[2016-11-12 02:25] LABS: MEAN CORPUSCULAR HEMOGLOBIN 30.2 pg (27.0-33.0); MEAN CORPUSCULAR HGB CONC 31.8 g/dl (32.0-36.5); RED CELL DISTRIBUTION WIDTH 13.7 % (11.5-14.5); WHITE BLOOD COUNT 13.6 K/mm3 (4.0-10.0)
[2016-11-12] MEDS: IPRATROPIUM 0.5MG/ALBUTEROL 2.5MG INH SOL UD 3ML (DUONEB)(J7620) NEB SCH ×5 (04:00→20:48)
[2016-11-12 05:43] LABS: MEAN CORPUSCULAR HEMOGLOBIN 30.8 pg (27.0-33.0); MEAN CORPUSCULAR HGB CONC 32.4 g/dl (32.0-36.5); MEAN CORPUSCULAR VOLUME 95.2 fl (80.0-96.0); RED CELL DISTRIBUTION WIDTH 13.7 % (11.5-14.5); WHITE BLOOD COUNT 11.7 K/mm3 (4.0-10.0)
[2016-11-12 05:48] LABS: INR 1.46
[2016-11-12 06:00] LABS: ALBUMIN 2.2 GM/DL (3.2-5.2); CALCIUM LEVEL 7.8 MG/DL (8.5-10.1); CREATININE FOR GFR 1.21 MG/DL (0.55-1.02); GLOMERULAR FILTRATION RATE 48.7 (>51); MAGNESIUM LEVEL 2.1 MG/DL (1.8-2.4); PHOSPHORUS LEVEL 2.3 MG/DL (2.5-4.9); POTASSIUM SERUM 4.1 MEQ/L (3.5-5.1)
[2016-11-12] MEDS: BICITRA 30ML SOLN UDC PO SCH ×3 (06:19→21:20)
[2016-11-12] MEDS: SLF 3 ML SYR IV SCH ×3 (06:19→21:21)
[2016-11-12 08:37] LABS: MEAN CORPUSCULAR HEMOGLOBIN 30.2 pg (27.0-33.0); MEAN CORPUSCULAR VOLUME 94.4 fl (80.0-96.0); RED CELL DISTRIBUTION WIDTH 13.7 % (11.5-14.5); WHITE BLOOD COUNT 11.8 K/mm3 (4.0-10.0)
[2016-11-12] MEDS: PANTOPRAZOLE 40MG INJ (PROTONIX) (C9113) IV SCH (09:00)
[2016-11-12] MEDS: AMIODARONE 200 MG TAB (PACERONE) PO SCH (09:53)
[2016-11-12] MEDS: guaiFENesin ER 600 MG TAB PO SCH ×2 (09:53→21:20)
[2016-11-12] MEDS: VANCOMYCIN HCL 750 MG, VIAL MATE ADAPTER 1 EACH in D5W 250 ML IV SCH ×2 (09:55→21:20)
[2016-11-12] MEDS: methylPREDNISolone INJ 125 MG/2 ML VIAL (J2930) IV SCH ×2 (09:55→21:21)
[2016-11-12] MEDS ORDERED: FUROSEMIDE 20 MG/2 ML VIAL (J1940) IV ONE (10:45)
[2016-11-12] MEDS: HEPARIN DRIP 25,000 UNITS in APPROPRIATE DILUENT 1 EA IV SCH ×2 (11:00→19:46)
--- NOTE | 2016-11-12 11:05 | IPNPDOC ---
Text Note Date of Service The patient was seen on 11/12/16. NOTE Subjective: Pt feeling well. Denies any complaints. Denies hematochezia/ melanotic stools. Denies CP/Palpitation/SOB. Objective: Vitals: (see below) General: No acute distress, laying comfortably in bed. HEENT: Moist mucous membranes. Neck: No JVD or lymphadenopathy Cardiac: RRR, No murmurs Pulm: Diminished breath sounds at the bases b/l. Mild exp wheezing and rhonchi Abd: NT/ND + BS Ext: No edema or cyanosis Labs (see below) Images: CT Chest 11/11/16 Scattered interstitial fibrotic changes are seen. There is bullous change in the left upper lobe medially and anteriorly. Consolidation is seen in the right posterior costophrenic sulculus. There is patchy infiltrate or fibroatelectasis in the lingula inferiorly. No suspicious nodular opacities are seen in either lung. Mildly enlarged subcarinal lymph node measures 1.2 cm in short axis dimension with no other gross adenopathy. There are mild to moderate atherosclerotic calcifications of the thoracic aorta without aneurysm. The heart is mildly enlarged. There are degenerative changes of the spine. There is a 1.5 cm hypodense nodule in the upper pole of the left lobe of thyroid probably representing a cyst. This could be better evaluated with ultrasound if desired. IMPRESSION: Focal consolidation in the right posterior costophrenic sulcus in the right lower lobe. Mild patchy infiltrate or fibroatelectasis in the lingula. Mildly enlarged subcarinal lymph node. No pleural or pericardial effusion. Mild cardiomegaly. CT Abd/pelvis 11/11/16 CT abdomen pelvis without IV and oral contrast: Studies compared to the renal ultrasound performed last night. There are no comparison CT studies. The visualized lung jolley are unremarkable. The unenhanced hepatic parenchyma is homogeneous. The gallbladder, pancreas and spleen are normal size unremarkable. The adrenals are unremarkable. There is no renal hydronephrosis. There are small calcifications in each kidney, likely vascular calcified atheroma. There is a 1.9 cm right renal cortical cyst posteriorly at the upper pole. There is ectasia of the infrarenal abdominal aorta measuring up to 2.9 cm in diameter. There is no retroperitoneal or mesenteric adenopathy. There is no bowel distension. Pelvis: There is a Mathew catheter in the bladder and the bladder appears collapsed. However, there is a large cyst in the midline of the pelvis of the collapsed bladder maximally measuring 12 cm in diameter. There is a large crescentic shaped low density structure along the right lateral wall of this cyst, possibly a hematoma or abscess in the of the cyst, neoplasm is not entirely discounted. This entire complex appears to arise from the right adnexa. This may represent a giant cyst adenoma with hemorrhage or abscess. MRI follow-up might be useful for further evaluation. The uterus and left adnexa are otherwise unremarkable. There is no pelvic adenopathy or ascites. The pelvic bowel loops are unremarkable except for sigmoid colon diverticulosis without diverticulitis. The appendix has a normal appearance. Impression: There is a large cystic mass in the pelvis as described. Along the right lateral wall of this mass ,there is a crescentic shaped structure. This could be a hemorrhage, abscess or neoplasm in the wall of the mass. There are small calcifications in the wall of the cyst. This entire complex appears to arise from the right adnexa and may represent a complex cyst adenoma. MRI follow-up might be useful for further evaluation. There is no adenopathy or ascites. There is ectasia of the infrarenal abdominal aorta. Echo 11/10/16 CONCLUSIONS: 1. Normal left ventricle size and wall thickness. Extensive and multiple regional wall motion abnormalities with severe reduction overall left ventricle (LV) systolic function. Left ventricular ejection fraction (LVEF) 25% by visual estimate. No LV thrombus. Grade 1 LV diastolic dysfunction (impaired relaxation filling pattern). The basal and mid antral septal, inferoseptal, anterior, and anterolateral segments were hypokinetic. The basal and mid inferior segments and basal inferolateral segment were normokinetic. The mid inferolateral segment was hypokinetic. The apical cap segment was akinetic. The apical anterior and apical septal segments were akinetic and the apical inferior and apical lateral segments were severely hypokinetic. 2. Mild left atrial dilatation. 3. Mild aortic valve sclerosis. 4. Presence of endocardial, right atrial pacing lead and right ventricle ICD lead. 5. Normal right ventricle size and systolic function. Suggestive of moderate elevation of estimated right ventricle systolic pressure. Mild tricuspid regurgitation. Although the inferior vena cava was dilated, it had normal respiratory variation. Suggestive of central venous pressure of 5-10 mmHg at the time of this study. Assessment/Plan 1. Severe Hypotension 2/2 dehydration, diuretics, diarrhea, pneumonia. Improved. S/p IV fluid hydration. Appreciate nephrology input. Receiving Lasix IV periodically. Will restart home PO diuretics tomorrow if renal function continues to improve. Cont to hold lisinopril. CT chest (see above). Positive for rhinitis/enterovirus, which can predispose the patient to the getting a bacterial pneumonia. On broad-spectrum antibiotics, sputum cx pending.. Cont Mucinex, Nebulizer treatments, steroid dose. 2. Coumadin coagulopathy - s/p vit K, repeat vit K, 1 U FFP, 1 U PRBC will be given 11/11. 2. Ischemic cardiomyopathy use of 10% s/p AICD 08/2015. Compensated. Diuretics on hold given the above. We'll restart patient's blood pressure stabilizes. Cardio consulted 3. Acute kidney injury/NAGMA- likely prerenal secondary to 1. On IV fluids. Improving. On bicitra. 4. Iron deficiency anemia- hemoglobin stable. No acute bleeding. ?large cystic mass is contributing. Will need CT with contrast to better differentiate. + FOBT. Will consult surgery. Hb decreased 12.9--> 7.9 since June 2015. 5. Large pelvix mass - ? Ovarian cancer. Will need CT Abd/pelvis with contrast when renal function is stable, to better differentiate. Will consult Surgery. 5. CAD - on ASA/statin. BB and ACEi on hold for now. 6. H/o PAF- Off of coumadin for now. On Heparin drip in case we need to stop anticoag abruptly. On ASA and Amiodarone. 7. HLD on statin 8. H/o tobacco abuse, quit. Full code. DVT prophy - Heparin SQ VS,Fishbone, I+O VS, Fishbone, I+O Laboratory Tests 11/11/16 13:52 Red Blood Count 2.66 L, Mean Corpuscular Volume 97.5 H, Mean Corpuscular Hemoglobin 30.8, Mean Corpuscular Hemoglobin Concent 31.6 L, Red Cell Distribution Width 13.3 11/11/16 20:00 Red Blood Count 3.15 L, Mean Corpuscular Volume 95.7, Mean Corpuscular Hemoglobin 31.1, Mean Corpuscular Hemoglobin Concent 32.5, Red Cell Distribution Width 13.4 11/12/16 02:04 Red Blood Count 2.93 L, Mean Corpuscular Volume 95.0, Mean Corpuscular Hemoglobin 30.2, Mean Corpuscular Hemoglobin Concent 31.8 L, Red Cell Distribution Width 13.7 11/12/16 05:31 Red Blood Count 2.79 L, Mean Corpuscular Volume 95.2, Mean Corpuscular Hemoglobin 30.8, Mean Corpuscular Hemoglobin Concent 32.4, Red Cell Distribution Width 13.7, Anion Gap 5 L 11/12/16 08:12 Red Blood Count 2.93 L, Mean Corpuscular Volume 94.4, Mean Corpuscular Hemoglobin 30.2, Mean Corpuscular Hemoglobin Concent 32.0, Red Cell Distribution Width 13.7 Vital Signs Date Time Temp Pulse Resp B/P (MAP) Pulse Ox O2 Delivery O2 Flow Rate FiO2 11/12/16 08:37 61 16 11/12/16 08:00 98.5 131/56 (81) 100 Nasal Cannula 1.0 I&O- Last 24 Hours up to 6 AM 11/12/16 06:00 Intake Total 4395 ml Output Total 1360 ml Balance 3035 ml AMBER HAN MD Nov 12, 2016 11:05
--- NOTE | 2016-11-12 19:36 | IPN ---
DATE: 11/12/2016 Ms. Vallejo is seen this morning in intensive care unit on her bedside. She is sitting in the chair at the time of my visit. She continues to feel short of breath. She denies any shivering or chills. She has no nausea or vomiting. PHYSICAL EXAMINATION: Temperature is 98.5 degrees Fahrenheit, heart rate 72 per minute, respiratory rate 20 per minute, blood pressure 132/59 mm of mercury, and oxygen saturation between 89-93%. Intake and output records from yesterday are positive by about 3300 mL. Total she has been in positive fluid balance of about 8.3 liters since admission. Her head is atraumatic. Neck veins are mildly distended, even sitting upright. Pupils are equal and reactive to light, and sclerae are anicteric. Nose and throat are unremarkable. Heart sounds are regular. Lungs with diminished breath sounds bilaterally. Abdomen: Soft, nontender, and without any palpable organomegaly. Extremities: Without any cyanosis or clubbing. Skin has no rash or ulcers. Neurologically she is awake, alert, and oriented times three. Today's labs show WBC count 11.8, hemoglobin 8.8, hematocrit 27.6, platelets 184. Sodium 143, potassium 4.1, BUN 40, creatinine 1.21. PROBLEM: 1. Acute kidney injury. Kidney function is improving nicely. Her electrolytes are within normal range, and we will continue to monitor her kidney function on a daily basis. 2. Sepsis. Is much more stable now and not hypotensive. She has been in significant positive fluid balance. Diuretic dose has already been given this morning. We will monitor her urine output and consider to diurese her more aggressively if indicated. 3. Anemia. Her anemia is stable at this point and does not need any urgent intervention. 4. Pelvic mass. This will be investigated further with CT scan with intravenous (IV) contrast once her kidney function is improved.
[2016-11-12 19:52] LABS: ADD MANUAL DIFFER YES; MEAN CORPUSCULAR HGB CONC 31.8 g/dl (32.0-36.5); MEAN CORPUSCULAR VOLUME 94.4 fl (80.0-96.0); PLATELET COUNT, AUTOMATED 211 k/mm3 (150-450); RED CELL DISTRIBUTION WIDTH 13.6 % (11.5-14.5); WHITE BLOOD COUNT 14.6 K/mm3 (4.0-10.0)
[2016-11-12 20:15] LABS: CALCIUM LEVEL 7.6 MG/DL (8.5-10.1); CREATININE FOR GFR 1.3 MG/DL (0.55-1.02); GLOMERULAR FILTRATION RATE 44.8 (>51); POTASSIUM SERUM 4.1 MEQ/L (3.5-5.1)
[2016-11-12 20:28] LABS: BANDS 7 % (< 11)
[2016-11-12 20:29] LABS: ANISOCYTOSIS 1+
[2016-11-12 20:30] LABS: HYPOCHROMASIA 1+; POIKILOCYTOSIS 1+
[2016-11-12] MEDS: ATORVASTATIN 20 MG TAB PO SCH (21:21)
[2016-11-13] VITALS (14 sets, daily range): BP systolic 124–164; BP diastolic 53–96; O2SAT 94–96
[2016-11-13] MEDS: IPRATROPIUM 0.5MG/ALBUTEROL 2.5MG INH SOL UD 3ML (DUONEB)(J7620) NEB SCH ×7 (00:13→23:35)
--- NOTE | 2016-11-13 02:54 | CR ---
DATE OF CONSULTATION: 11/12/2016 REASON FOR CONSULTATION: Pelvic cystic mass. HISTORY OF PRESENT ILLNESS: The patient is a very pleasant 56-year-old woman who was admitted on 11/10 with complaints of some upper respiratory infection type symptoms with some weakness and some shortness of breath. She reported a cough and runny nose. She did not describe specifically fevers or chills. She does have a history of respiratory problems associated with a long smoking history. She was ultimately diagnosed with a viral infection attributed to rhinovirus. She was requiring supplemental oxygen at the time of admission and was placed in the intensive care unit. In the course of her workup, she had a CT scan of the abdomen and pelvis obtained. This occurred on 11/11. The scan revealed a large cystic mass in the pelvis to the right of the midline. The CT scan was apparently done as a followup to a renal ultrasound done on 11/10, which identified a cystic lesion in the pelvis, possibly arising from the ovaries. Because of this finding, I was asked to evaluate the patient regarding his pelvic cystic mass. MEDICATIONS: The patient's current medications include: - Lipitor - nitroglycerin as needed - nebulizers as needed - Percocet as needed - Zosyn - vancomycin - every 4 hour nebulizer treatments - Protonix daily - Solu-Medrol 60 mg IV every 12 hours - amiodarone - heparin ALLERGIES: There are no reported drug allergies. MEDICAL HISTORY: Significant for severe ischemic cardiomyopathy. She has a report of a low ejection fraction of approximately 10% and has an implanted cardioverter defibrillator. She has a history of coronary artery disease. She has hypertension. She has history of sick sinus syndrome and atrial flutter. SURGICAL HISTORY: Significant for implantation of her cardioverter defibrillator. She apparently did have a tubal ligation at one time. She had a section 40 years ago. SOCIAL HISTORY: The patient apparently lives with a daughter. REVIEW OF SYSTEMS: Reveals no history of prior gynecologic or gastrointestinal problems of significance. She has had no surgery on the abdomen since her tubal ligation. Remainder of the review of systems is as noted by the admitting service. PHYSICAL EXAMINATION: Reveals a pleasant woman in no obvious discomfort sitting up in her hospital bed having salad for dinner. Her most recent vital signs show her pulse to be 72, with a temperature of 97.5, respiratory rate of 20, and a blood pressure of 151/65. She is alert, oriented and cooperative. Sclerae are anicteric. Mucous membranes are moist. Neck is supple. Her generator for the defibrillator is palpable in the left infraclavicular fossa. Heart exam shows a regular rhythm. The lungs are clear to auscultation anteriorly. The abdomen is mildly obese, slightly protuberant. She has active bowel sounds. The abdomen is soft and without tenderness. On palpation in the right lower quadrant, there is a suggestion of a mobile mass about 12 cm to 15 cm in diameter just to the right of the midline. This is nontender. There are no other areas of mass or tenderness. Extremity shows that she has loss of the right toenail with some dry eschar on the nail bed of the right great toe. The toe was slightly pink, but not particularly tender to palpation at this time and there is no sign of infection. LABORATORY STUDIES: Most recently show a white count of 14.6 with a hemoglobin of 10, hematocrit of 30 and a platelet count of 211,000. Differential count showed 73% neutrophils and 7 bands and 12 lymphocytes with 8 monocytes, although this is after she had started Solu-Medrol. Most recent chemistry profile showed a sodium of 143, potassium 4.1, chloride 109, CO2 27, BUN of 37, creatinine 1.3, and a glucose of 205. Her creatinine at the time of admission was 2.7. The CT scan from the second I reviewed independently and also reviewed the radiologist's report. There is a large, approximately 12 cm cyst to the right of the midline in the pelvis. This has some denser structure extending down the lateral aspect of this as a crescent along the lateral wall of the otherwise cystic mass. This has a very discrete and sharp outline. There are no areas to suggest metastatic disease. IMPRESSION: 1. Pelvic mass likely arising from the right adnexa. I suspect this is some sort of ovarian cyst. 2. Atherosclerotic peripheral vascular disease. 3. Ischemic cardiomyopathy status post defibrillator placement. 4. Coronary artery disease. 5. Hypertension. 6. Chronic obstructive pulmonary disease. 7. Acute rhinovirus infection. 8. Acute kidney injury, improving. RECOMMENDATIONS: At this point, there does not appear to be an urgent need to address this likely ovarian cyst. Once her acute issues are stable, certainly a gynecology evaluation would be most appropriate. Certainly, she would be a high risk for surgical intervention that would be required to remove this cystic mass , but the balancing of the risk versus reward for that procedure would need to come from the plasterer rough. There does not appear to be any need for general surgery intervention at this time. Thank you for this consultation. JOELLEN
[2016-11-13] MEDS: PIPERACILLIN/TAZOBACTAM SOD 3.375 GM in D5W MINI-BAG PLUS 50 ML IV SCH ×3 (05:39→21:13)
[2016-11-13] MEDS: BICITRA 30ML SOLN UDC PO SCH ×3 (05:39→21:15)
[2016-11-13] MEDS: SLF 3 ML SYR IV SCH ×3 (05:40→21:21)
[2016-11-13 06:50] LABS: MEAN CORPUSCULAR HEMOGLOBIN 30.6 pg (27.0-33.0); MEAN CORPUSCULAR HGB CONC 32.4 g/dl (32.0-36.5); MEAN CORPUSCULAR VOLUME 94.2 fl (80.0-96.0); RED CELL DISTRIBUTION WIDTH 13.6 % (11.5-14.5); WHITE BLOOD COUNT 13.5 K/mm3 (4.0-10.0)
[2016-11-13 07:06] LABS: INR 1.25
[2016-11-13 08:06] LABS: CREATININE FOR GFR 1.28 MG/DL (0.55-1.02); GLOMERULAR FILTRATION RATE 45.6 (>51); MAGNESIUM LEVEL 1.9 MG/DL (1.8-2.4); PHOSPHORUS LEVEL 2.4 MG/DL (2.5-4.9); POTASSIUM SERUM 3.7 MEQ/L (3.5-5.1)
[2016-11-13] MEDS: AMIODARONE 100MG TABLET (PACERONE) PO SCH (09:02)
[2016-11-13] MEDS: PANTOPRAZOLE 40MG INJ (PROTONIX) (C9113) IV SCH (09:02)
[2016-11-13] MEDS: guaiFENesin ER 600 MG TAB PO SCH ×2 (09:02→21:21)
[2016-11-13] MEDS: methylPREDNISolone INJ 125 MG/2 ML VIAL (J2930) IV SCH ×2 (09:03→21:14)
[2016-11-13] MEDS: VANCOMYCIN HCL 750 MG, VIAL MATE ADAPTER 1 EACH in D5W 250 ML IV SCH (09:03)
[2016-11-13] MEDS: HEPARIN DRIP 25,000 UNITS in APPROPRIATE DILUENT 1 EA IV SCH (11:54)
--- NOTE | 2016-11-13 14:04 | IPNPDOC ---
Text Note Date of Service The patient was seen on 11/13/16. NOTE Subjective: Pt feeling well. No hematochezia/melanotic stools. Denies CP/ Palpitation/SOB. Objective: Vitals: (see below) General: No acute distress, laying comfortably in bed. HEENT: Moist mucous membranes. Neck: No JVD or lymphadenopathy Cardiac: RRR, No murmurs Pulm: Diminished breath sounds at the bases b/l. Mild exp wheezing and rhonchi Abd: NT/ND + BS Ext: No edema or cyanosis Labs (see below) Images: CT Chest 11/11/16 Scattered interstitial fibrotic changes are seen. There is bullous change in the left upper lobe medially and anteriorly. Consolidation is seen in the right posterior costophrenic sulculus. There is patchy infiltrate or fibroatelectasis in the lingula inferiorly. No suspicious nodular opacities are seen in either lung. Mildly enlarged subcarinal lymph node measures 1.2 cm in short axis dimension with no other gross adenopathy. There are mild to moderate atherosclerotic calcifications of the thoracic aorta without aneurysm. The heart is mildly enlarged. There are degenerative changes of the spine. There is a 1.5 cm hypodense nodule in the upper pole of the left lobe of thyroid probably representing a cyst. This could be better evaluated with ultrasound if desired. IMPRESSION: Focal consolidation in the right posterior costophrenic sulcus in the right lower lobe. Mild patchy infiltrate or fibroatelectasis in the lingula. Mildly enlarged subcarinal lymph node. No pleural or pericardial effusion. Mild cardiomegaly. CT Abd/pelvis 11/11/16 CT abdomen pelvis without IV and oral contrast: Studies compared to the renal ultrasound performed last night. There are no comparison CT studies. The visualized lung jolley are unremarkable. The unenhanced hepatic parenchyma is homogeneous. The gallbladder, pancreas and spleen are normal size unremarkable. The adrenals are unremarkable. There is no renal hydronephrosis. There are small calcifications in each kidney, likely vascular calcified atheroma. There is a 1.9 cm right renal cortical cyst posteriorly at the upper pole. There is ectasia of the infrarenal abdominal aorta measuring up to 2.9 cm in diameter. There is no retroperitoneal or mesenteric adenopathy. There is no bowel distension. Pelvis: There is a Mathew catheter in the bladder and the bladder appears collapsed. However, there is a large cyst in the midline of the pelvis of the collapsed bladder maximally measuring 12 cm in diameter. There is a large crescentic shaped low density structure along the right lateral wall of this cyst, possibly a hematoma or abscess in the of the cyst, neoplasm is not entirely discounted. This entire complex appears to arise from the right adnexa. This may represent a giant cyst adenoma with hemorrhage or abscess. MRI follow-up might be useful for further evaluation. The uterus and left adnexa are otherwise unremarkable. There is no pelvic adenopathy or ascites. The pelvic bowel loops are unremarkable except for sigmoid colon diverticulosis without diverticulitis. The appendix has a normal appearance. Impression: There is a large cystic mass in the pelvis as described. Along the right lateral wall of this mass ,there is a crescentic shaped structure. This could be a hemorrhage, abscess or neoplasm in the wall of the mass. There are small calcifications in the wall of the cyst. This entire complex appears to arise from the right adnexa and may represent a complex cyst adenoma. MRI follow-up might be useful for further evaluation. There is no adenopathy or ascites. There is ectasia of the infrarenal abdominal aorta. Echo 11/10/16 CONCLUSIONS: 1. Normal left ventricle size and wall thickness. Extensive and multiple regional wall motion abnormalities with severe reduction overall left ventricle (LV) systolic function. Left ventricular ejection fraction (LVEF) 25% by visual estimate. No LV thrombus. Grade 1 LV diastolic dysfunction (impaired relaxation filling pattern). The basal and mid antral septal, inferoseptal, anterior, and anterolateral segments were hypokinetic. The basal and mid inferior segments and basal inferolateral segment were normokinetic. The mid inferolateral segment was hypokinetic. The apical cap segment was akinetic. The apical anterior and apical septal segments were akinetic and the apical inferior and apical lateral segments were severely hypokinetic. 2. Mild left atrial dilatation. 3. Mild aortic valve sclerosis. 4. Presence of endocardial, right atrial pacing lead and right ventricle ICD lead. 5. Normal right ventricle size and systolic function. Suggestive of moderate elevation of estimated right ventricle systolic pressure. Mild tricuspid regurgitation. Although the inferior vena cava was dilated, it had normal respiratory variation. Suggestive of central venous pressure of 5-10 mmHg at the time of this study. Assessment/Plan 1. Severe Hypotension 2/2 dehydration, diuretics, diarrhea, pneumonia. Improved. S/p IV fluid hydration. Appreciate nephrology input. Receiving Lasix IV periodically as renal function continues to improve. Cont to hold lisinopril. CT chest (see above). Positive for rhinitis/enterovirus, which can predispose the patient to the getting a bacterial pneumonia. On broad-spectrum antibiotics, sputum cx pending.. Cont Mucinex, Nebulizer treatments, steroid dose. 2. Coumadin coagulopathy - s/p vit K, repeat vit K, 1 U FFP, 1 U PRBC will be given 11/11. 2. Ischemic cardiomyopathy use of 10% s/p AICD 08/2015, now 25%. Compensated. Diuretics on hold given the above. We'll restart patient's blood pressure stabilizes. Cardio consulted 3. Acute kidney injury/NAGMA- likely prerenal secondary to 1. On IV fluids. Improving. On bicitra. 4. Iron deficiency anemia- hemoglobin stable. No acute bleeding. ?large cystic mass is contributing. Will need CT with contrast to better differentiate. + FOBT , repeat negative. Consulted surgery. Hb decreased 12.9--> 7.9 since June 2015. 5. Large pelvix mass - ? Ovarian cancer. Will need CT Abd/pelvis with contrast when renal function is stable, to better differentiate. Will consult Supervisor Pleating thereafter. 5. CAD - on ASA/statin. BB and ACEi on hold for now. 6. H/o PAF- Off of coumadin for now. On Heparin drip in case we need to stop anticoag abruptly. On ASA and Amiodarone. 7. HLD on statin 8. H/o tobacco abuse, quit. Full code. DVT prophy - Heparin SQ Prognosis guarded. VS,Fishbone, I+O VS, Fishbone, I+O Laboratory Tests 11/12/16 19:23 Red Blood Count 3.20 L, Mean Corpuscular Volume 94.4, Mean Corpuscular Hemoglobin 30.0, Mean Corpuscular Hemoglobin Concent 31.8 L, Red Cell Distribution Width 13.6, Calcium Level 7.6 L 11/13/16 06:40 Red Blood Count 2.90 L, Mean Corpuscular Volume 94.2, Mean Corpuscular Hemoglobin 30.6, Mean Corpuscular Hemoglobin Concent 32.4, Red Cell Distribution Width 13.6, Anion Gap 7 L Vital Signs Date Time Temp Pulse Resp B/P (MAP) Pulse Ox O2 Delivery O2 Flow Rate FiO2 11/13/16 12:00 Nasal Cannula 1.0 11/13/16 08:00 98.6 62 20 128/53 (37) 91 I&O- Last 24 Hours up to 6 AM 11/13/16 06:00 Intake Total 2119 ml Output Total 1245 ml Balance 874 ml AMBER HAN MD Nov 13, 2016 14:03
[2016-11-13] MEDS ORDERED: FUROSEMIDE 20 MG/2 ML VIAL (J1940) IV ONE (14:30)
[2016-11-13] MEDS ORDERED: POTASSIUM CHLORIDE 10 MEQ SR TABLET PO ONE (19:15)
[2016-11-13] MEDS ORDERED: FUROSEMIDE 40 MG/4 ML VIAL (J1940) IV ONE (19:15)
--- NOTE | 2016-11-13 20:11 | IPN ---
DATE: 11/13/2016 SUBJECTIVE: Ms. Vallejo is seen this morning on her bedside. She is feeling better today and still in the bed. She denies any nausea, vomiting, abdominal pain, diarrhea, dyspnea or chest pain. PHYSICAL EXAMINATION: VITAL SIGNS: Temperature 98.6 degrees Fahrenheit, heart rate 68 per minute and respiratory rate 20 per minute. Blood pressure 128/53 mmHg and oxygen saturation 91% on one liter oxygen. HEENT: Head is atraumatic. Ears, nose and throat are unremarkable. Pupils equal and reactive to light and sclerae are anicteric. NECK: Neck veins are mildly distended. She has no thyroid enlargement. HEART/LUNGS: Heart sounds are regular and lungs with diminished breath sounds bilaterally. ABDOMEN: Soft and nontender and without palpable organomegaly. EXTREMITIES: Without any cyanosis or clubbing. SKIN: Has no rash or ulcers. NEUROLOGIC: She is awake, alert and oriented times three. LABORATORY DATA: Today's labs show WBC count 13.5, hemoglobin 8.9 and hematocrit 27.3. Sodium 143 and potassium 3.7. BUN 35 and creatinine 1.28. Calcium level 8.0 and phosphorus 2.4. PROBLEM: 1. Acute kidney injury superimposed on chronic kidney disease. Only slight improvement in her blood urea nitrogen (BUN) and creatinine is noted since yesterday. At present we will monitor her renal function on once-a-day basis. 2. Hypervolemia. Her volume status remains decompensated. She did not diurese very well with 20 mg Lasix given intravenously. We will give her one dose of 40 mg Lasix today and monitor her urine output. 3. Sepsis. The patient remains on Zosyn and vancomycin. She is hemodynamically stable and afebrile. 4. Atrial fibrillation. The patient remains on amiodarone and anticoagulation. She is currently on heparin drip. Ventricular rate is well controlled. 5. Anemia. Her anemia is stable since she was transfused. No active blood loss at present. We will monitor closely as anemia is likely to improve as her kidney function is improving. There is no further need for transfusion at this point.
[2016-11-13] MEDS: ATORVASTATIN 20 MG TAB PO SCH (21:15)
[2016-11-13] MEDS: HEPARIN SOD (PORCINE) 5000 UNITS/ML VIAL IV PRN (21:24)
[2016-11-14] VITALS (11 sets, daily range): BP systolic 124–147; BP diastolic 58–64; O2SAT 92
[2016-11-14] MEDS: VANCOMYCIN HCL 1,000 MG, VIAL MATE ADAPTER 1 EACH in D5W 250 ML IV SCH ×2 (00:36→18:10)
--- NOTE | 2016-11-14 02:46 | PHACANCOPD ---
PHARMACY VANCOMYCIN DOSING Pt Demographics Demographics Patient Age:56 , Weight:80.200 , Gender: female Adjusted Body Weight Date: 11/14/16, Adjusted Body Weight: [64.9] Kg Vancomycin Vancomycin Target Ranges: 15-20 mcg/ml Vancomycin Load Y/N: No Load Dose Date Time Vancomycin Load Dose: Date: Time: Vancomycin Dose Date: 11/14/16. Current Vancomycin Dose: [1 GM Q18H] Intermittent Dosing?: No Labs Micro Microbiology 11/09/16 Blood Culture - Preliminary, Resulted No Growth after 72 hours. All specime... 11/09/16 Blood Culture - Preliminary, Resulted No Growth after 72 hours. All specime... 11/13/16 Stool Occult Blood (MUKESH), Ordered Pending 11/12/16 Stool Occult Blood (MUKESH) - Final, Complete 11/10/16 Clostridium difficile (PCR) - Final, Complete 11/10/16 Stool Occult Blood (MUKESH) - Final, Complete 11/11/16 Gram Stain - Final, Resulted 11/11/16 Sputum Culture, Resulted Pending 11/09/16 Respiratory Virus Panel (PCR) (MUKESH) - Final, Complete Human Rhinovirus/Enterovirus Creatinine Clearance Date:11/14/16. Creatinine Clearance: . Assessment and Plan Maintaining Current Dose?: No Reason for dose change: Trough too high Pharmacist Note Pharmacist Note Date: 11/14/16. Pharmacist note:TROUGH BACK THIS PM REPORTED 21.4 INDICATING ACCUMULATION:scr HAS NOT CHANGED APPRECIABLY FOR THE PAST 3 DAYS: crcl=[id number] CALCULATED TODAY:WILL ADJUST REGIMEN TO vANCOMYCIN 1 GM IV q18hTO BEGIN 11/14@0100 :. MONSE FITZGERLAD [facility] Nov 14, 2016 02:46
[2016-11-14] MEDS: IPRATROPIUM 0.5MG/ALBUTEROL 2.5MG INH SOL UD 3ML (DUONEB)(J7620) NEB SCH ×5 (03:56→19:41)
[2016-11-14 04:05] LABS: MEAN CORPUSCULAR HEMOGLOBIN 30.9 pg (27.0-33.0); MEAN CORPUSCULAR HGB CONC 33.1 g/dl (32.0-36.5); MEAN CORPUSCULAR VOLUME 93.5 fl (80.0-96.0); RED CELL DISTRIBUTION WIDTH 13.8 % (11.5-14.5); WHITE BLOOD COUNT 16.1 K/mm3 (4.0-10.0)
[2016-11-14 04:11] LABS: INR 1.15
[2016-11-14 04:25] LABS: ALBUMIN 2.1 GM/DL (3.2-5.2); CREATININE FOR GFR 1.4 MG/DL (0.55-1.02); GLOMERULAR FILTRATION RATE 41.1 (>51); MAGNESIUM LEVEL 1.9 MG/DL (1.8-2.4); PHOSPHORUS LEVEL 2.4 MG/DL (2.5-4.9); POTASSIUM SERUM 3.8 MEQ/L (3.5-5.1)
[2016-11-14] MEDS: SLF 3 ML SYR IV SCH ×3 (06:07→21:00)
[2016-11-14] MEDS: BICITRA 30ML SOLN UDC PO SCH ×3 (06:07→21:00)
[2016-11-14] MEDS: PIPERACILLIN/TAZOBACTAM SOD 3.375 GM in D5W MINI-BAG PLUS 50 ML IV SCH ×3 (06:07→21:00)
[2016-11-14] MEDS: AMIODARONE 100MG TABLET (PACERONE) PO SCH (07:56)
[2016-11-14] MEDS: PANTOPRAZOLE 40MG INJ (PROTONIX) (C9113) IV SCH (07:56)
[2016-11-14] MEDS: guaiFENesin ER 600 MG TAB PO SCH ×2 (07:56→21:01)
[2016-11-14] MEDS: methylPREDNISolone INJ 125 MG/2 ML VIAL (J2930) IV SCH ×2 (09:15→20:59)
[2016-11-14] MEDS ORDERED: POTASSIUM CHLORIDE 10 MEQ SR TABLET PO ONE (10:15)
[2016-11-14] MEDS ORDERED: FUROSEMIDE 100 MG/10 ML VIAL (J1940) IV ONE (10:15)
--- NOTE | 2016-11-14 13:18 | IPNPDOC ---
Text Note Date of Service The patient was seen on 11/14/16. NOTE Subjective:Minimal dyspnea and wheezing. Denies CP/Palpitation. Objective: Vitals: (see below) General: No acute distress, laying comfortably in bed. HEENT: Moist mucous membranes. Neck: No JVD or lymphadenopathy Cardiac: RRR, No murmurs Pulm: Diminished breath sounds at the bases b/l. Mild exp wheezing and rhonchi Abd: NT/ND + BS Ext: No edema or cyanosis Labs (see below) Images: CT Chest 11/11/16 Scattered interstitial fibrotic changes are seen. There is bullous change in the left upper lobe medially and anteriorly. Consolidation is seen in the right posterior costophrenic sulculus. There is patchy infiltrate or fibroatelectasis in the lingula inferiorly. No suspicious nodular opacities are seen in either lung. Mildly enlarged subcarinal lymph node measures 1.2 cm in short axis dimension with no other gross adenopathy. There are mild to moderate atherosclerotic calcifications of the thoracic aorta without aneurysm. The heart is mildly enlarged. There are degenerative changes of the spine. There is a 1.5 cm hypodense nodule in the upper pole of the left lobe of thyroid probably representing a cyst. This could be better evaluated with ultrasound if desired. IMPRESSION: Focal consolidation in the right posterior costophrenic sulcus in the right lower lobe. Mild patchy infiltrate or fibroatelectasis in the lingula. Mildly enlarged subcarinal lymph node. No pleural or pericardial effusion. Mild cardiomegaly. CT Abd/pelvis 11/11/16 CT abdomen pelvis without IV and oral contrast: Studies compared to the renal ultrasound performed last night. There are no comparison CT studies. The visualized lung jolley are unremarkable. The unenhanced hepatic parenchyma is homogeneous. The gallbladder, pancreas and spleen are normal size unremarkable. The adrenals are unremarkable. There is no renal hydronephrosis. There are small calcifications in each kidney, likely vascular calcified atheroma. There is a 1.9 cm right renal cortical cyst posteriorly at the upper pole. There is ectasia of the infrarenal abdominal aorta measuring up to 2.9 cm in diameter. There is no retroperitoneal or mesenteric adenopathy. There is no bowel distension. Pelvis: There is a Mathew catheter in the bladder and the bladder appears collapsed. However, there is a large cyst in the midline of the pelvis of the collapsed bladder maximally measuring 12 cm in diameter. There is a large crescentic shaped low density structure along the right lateral wall of this cyst, possibly a hematoma or abscess in the of the cyst, neoplasm is not entirely discounted. This entire complex appears to arise from the right adnexa. This may represent a giant cyst adenoma with hemorrhage or abscess. MRI follow-up might be useful for further evaluation. The uterus and left adnexa are otherwise unremarkable. There is no pelvic adenopathy or ascites. The pelvic bowel loops are unremarkable except for sigmoid colon diverticulosis without diverticulitis. The appendix has a normal appearance. Impression: There is a large cystic mass in the pelvis as described. Along the right lateral wall of this mass ,there is a crescentic shaped structure. This could be a hemorrhage, abscess or neoplasm in the wall of the mass. There are small calcifications in the wall of the cyst. This entire complex appears to arise from the right adnexa and may represent a complex cyst adenoma. MRI follow-up might be useful for further evaluation. There is no adenopathy or ascites. There is ectasia of the infrarenal abdominal aorta. Echo 11/10/16 CONCLUSIONS: 1. Normal left ventricle size and wall thickness. Extensive and multiple regional wall motion abnormalities with severe reduction overall left ventricle (LV) systolic function. Left ventricular ejection fraction (LVEF) 25% by visual estimate. No LV thrombus. Grade 1 LV diastolic dysfunction (impaired relaxation filling pattern). The basal and mid antral septal, inferoseptal, anterior, and anterolateral segments were hypokinetic. The basal and mid inferior segments and basal inferolateral segment were normokinetic. The mid inferolateral segment was hypokinetic. The apical cap segment was akinetic. The apical anterior and apical septal segments were akinetic and the apical inferior and apical lateral segments were severely hypokinetic. 2. Mild left atrial dilatation. 3. Mild aortic valve sclerosis. 4. Presence of endocardial, right atrial pacing lead and right ventricle ICD lead. 5. Normal right ventricle size and systolic function. Suggestive of moderate elevation of estimated right ventricle systolic pressure. Mild tricuspid regurgitation. Although the inferior vena cava was dilated, it had normal respiratory variation. Suggestive of central venous pressure of 5-10 mmHg at the time of this study. Assessment/Plan 1. Severe Hypotension 2/2 dehydration, diuretics, diarrhea, pneumonia. Improved. S/p IV fluid hydration. Appreciate nephrology input. Receiving Lasix IV periodically as renal function continues to improve. Cont to hold lisinopril. CT chest (see above). Positive for rhinitis/enterovirus, which can predispose the patient to the getting a bacterial pneumonia. On broad-spectrum antibiotics, sputum cx pending.. Cont Mucinex, Nebulizer treatments, steroid dose. 2. Coumadin coagulopathy - s/p vit K, repeat vit K, 1 U FFP, 1 U PRBC 11/11. 2. Ischemic cardiomyopathy use of 10% s/p AICD 08/2015, now 25%. Compensated. Diuretics reintroduced slowly given recent PNA and renal function. Cardio consulted 3. Acute kidney injury/NAGMA- likely prerenal secondary to 1. On IV fluids. Improving. On bicitra. Appreciate nephro input. 4. Iron deficiency anemia- hemoglobin stable. No acute bleeding. ?large cystic mass is contributing. Will need CT with contrast to better differentiate. + FOBT , repeat negative. Consulted surgery. Hb decreased 12.9--> 7.9 since June 2015. Stable after 1 U PRBC 11/11. 5. Large pelvix mass - ? Ovarian cancer. Will need CT Abd/pelvis with contrast when renal function is stable, to better differentiate. Will consult [employer] Income Trading Vice President thereafter. 5. CAD - on ASA/statin. BB and ACEi on hold for now. 6. H/o PAF- Off of coumadin for now. On Heparin drip in case we need to stop anticoag abruptly. On ASA and Amiodarone. 7. HLD on statin 8. H/o tobacco abuse, quit. Full code. DVT prophy - Heparin SQ Prognosis guarded. Downgrade to PCU VS,Shannen, I+O VS, Shannen, I+O Laboratory Tests 11/14/16 03:30 Red Blood Count 2.91 L, Mean Corpuscular Volume 93.5, Mean Corpuscular Hemoglobin 30.9, Mean Corpuscular Hemoglobin Concent 33.1, Red Cell Distribution Width 13.8, Anion Gap 8 Vital Signs Date Time Temp Pulse Resp B/P (MAP) Pulse Ox O2 Delivery O2 Flow Rate FiO2 11/14/16 12:00 98.1 87 18 127/60 (82) 92 Nasal Cannula 1.0 I&O- Last 24 Hours up to 6 AM 11/14/16 06:00 Intake Total 1967 ml Output Total 1600 ml Balance 367 ml AMBER HAN MD Nov 14, 2016 13:18
[2016-11-14] MEDS: HEPARIN SOD (PORCINE) 5000 UNITS/ML VIAL IV PRN (16:33)
--- NOTE | 2016-11-14 20:57 | IPN ---
DATE: 11/14/2016 Mrs. Vallejo is seen this morning on her bedside. She is eating her breakfast at the time of my visit. She reports feeling better today and her dyspnea is improving. She denies any nausea or vomiting. She has no abdominal pain or diarrhea. She still using oxygen via nasal cannula at 1 liter. PHYSICAL EXAMINATION: Temperature 98 degrees Fahrenheit, heart rate 85 per minute and respiratory rate 18 per minute. Blood pressure 127/60 mmHg and oxygen saturation 92%. Intake and output records from yesterday showed total intake 1766 and output 1485 mL. Her head is atraumatic. Ears, nose and throat are unremarkable. Neck veins are mildly distended. Neck is supple and without any thyroid enlargement. Pupils equal and reactive to light and sclera is anicteric. Heart sounds are irregular in rhythm. Lungs with moderate bilateral air entry and scattered rhonchi. Abdomen is soft and nontender. Bowel sounds are normal. Extremities have no cyanosis or clubbing. Skin has no rash or ulcers. Neurologically, she is awake, alert and oriented times three. Today's laboratories show WBC count 16.1, hemoglobin 9.0 and hematocrit 27.2. Platelets 199. Sodium 143 and potassium 3.8. BUN 35 and creatinine 1.40. Glucose 230, calcium 8.0 and albumin 2.1. PROBLEMS: 1. Acute kidney injury superimposed on chronic kidney disease. She has slight increase in creatinine again today while she was not in any negative fluid balance yesterday. We will recheck her renal profile tomorrow. 2. Hypoxemia and shortness of breath. Probably related to lung infection. Her volume status is only mildly decompensated. We will give her a trial of diuretic again with Lasix 60 mg and monitor her urine output. Yesterday she did not seem to have responded to Lasix very well. 3. Pelvic mass. At present, we will monitor without any further dye studies. Her kidney function has not improved over the last 48 hours. For further evaluation of her pelvic mass, we will consider a CT scan with IV contrast when her kidney function improves. 4. Anemia. Her anemia has been stable and does not need any intervention. 5. Pneumonia. The patient remains on IV vancomycin and Zosyn. We will check her vancomycin level tomorrow. 6. Atrial fibrillation. She is currently on amiodarone and ventricular rate seems to be well controlled.
[2016-11-14] MEDS: ATORVASTATIN 20 MG TAB PO SCH (21:01)
[2016-11-14] MEDS: HEPARIN DRIP 25,000 UNITS in APPROPRIATE DILUENT 1 EA IV SCH (21:30)
[2016-11-15 00:10] VITALS: BP 145/58
[2016-11-15] MEDS: IPRATROPIUM 0.5MG/ALBUTEROL 2.5MG INH SOL UD 3ML (DUONEB)(J7620) NEB SCH ×7 (00:39→23:23)
[2016-11-15 04:08] VITALS: BP 120/56
[2016-11-15 05:45] LABS: MEAN CORPUSCULAR HEMOGLOBIN 30.8 pg (27.0-33.0); MEAN CORPUSCULAR HGB CONC 32.6 g/dl (32.0-36.5); MEAN CORPUSCULAR VOLUME 94.5 fl (80.0-96.0); RED CELL DISTRIBUTION WIDTH 13.8 % (11.5-14.5); WHITE BLOOD COUNT 22.8 K/mm3 (4.0-10.0)
[2016-11-15 05:51] LABS: INR 1.17
[2016-11-15] MEDS: PIPERACILLIN/TAZOBACTAM SOD 3.375 GM in D5W MINI-BAG PLUS 50 ML IV SCH ×3 (05:53→21:44)
[2016-11-15] MEDS: BICITRA 30ML SOLN UDC PO SCH ×3 (05:53→21:44)
[2016-11-15] MEDS: SLF 3 ML SYR IV SCH ×3 (05:54→21:44)
[2016-11-15 06:07] LABS: ALBUMIN 2.2 GM/DL (3.2-5.2); CALCIUM LEVEL 8.4 MG/DL (8.5-10.1); CREATININE FOR GFR 1.45 MG/DL (0.55-1.02); GLOMERULAR FILTRATION RATE 39.5 (>51); PHOSPHORUS LEVEL 2.9 MG/DL (2.5-4.9); POTASSIUM SERUM 4.5 MEQ/L (3.5-5.1)
[2016-11-15 08:00] VITALS: BP 138/64
[2016-11-15] MEDS: methylPREDNISolone INJ 125 MG/2 ML VIAL (J2930) IV SCH ×2 (10:07→21:45)
[2016-11-15] MEDS: PANTOPRAZOLE 40MG TAB (PROTONIX) PO SCH (10:07)
[2016-11-15] MEDS: guaiFENesin ER 600 MG TAB PO SCH ×2 (10:07→21:44)
[2016-11-15] MEDS: AMIODARONE 100MG TABLET (PACERONE) PO SCH (10:09)
[2016-11-15 13:15] VITALS: BP 146/63
[2016-11-15] MEDS: VANCOMYCIN HCL 1,000 MG, VIAL MATE ADAPTER 1 EACH in D5W 250 ML IV SCH (13:26)
[2016-11-15 15:57] VITALS: BP 116/55
[2016-11-15] MEDS ORDERED: POTASSIUM CHLORIDE 10 MEQ SR TABLET PO ONE (16:15)
[2016-11-15] MEDS ORDERED: FUROSEMIDE 100 MG/10 ML VIAL (J1940) IV ONE (16:15)
--- NOTE | 2016-11-15 16:41 | IPN ---
DATE: 11/15/2016 SUBJECTIVE: The patient is seen and examined in the room today. The patient does complain about blood in the urine. There is some blood in the stool. Otherwise, no events are detected on telemetry. OBJECTIVE: VITAL SIGNS: Temperature is 97.4, pulse is 83, respiratory rate 20, blood pressure is 146/63, pulse oximetry is 93% in room air. GENERAL: No sign of acute distress, alert and oriented times three. HEENT: Normocephalic, atraumatic. Extraocular motor grossly intact. CARDIOVASCULAR: Positive S1, S2, regular rate. LUNGS: Decreased breath sounds bilaterally, some mild expiratory wheezes. ABDOMEN: Soft, nontender, nondistended. Bowel sounds present. No rebound. No guarding. EXTREMITIES: No edema. No sign of cyanosis. LABORATORY DATA: WBC is 22.8, hemoglobin is 9.6, hematocrit 29.5, platelet count is 228. Sodium is 145, potassium 4.5, chloride is 106, carbon dioxide 37, BUN 41, creatinine is 1.45, GFR is 39.6, fasting glucose 217, calcium is 8.4, phosphorus 2.9, magnesium 2, C-reactive protein is 1.41, albumin is 2.2. Stool occult blood test is positive. ASSESSMENT AND PLAN: 1. Severe hypotension secondary to dehydration, diuretic use and pneumonia. The patient's blood pressure has been stable at this moment. We appreciate nephrology and cardiology's assistance. The patient is receiving vancomycin and Zosyn for her infection. 2. History of ischemic cardiomyopathy, status post automatic implantable cardioverter defibrillator (AICD) in August 2015. We appreciate cardiology's assistance. 3. Acute kidney injury. We appreciate Dr. Alonso's assistance. 4. Leukocytosis, most likely secondary to steroid use. The patient is on antibiotics for infection. C-reactive protein continues to decrease. Initially, C-reactive protein was 5.15 and today it is 1.4. 5. Large pelvic mass. On the CT, it showed 12 cm cystic-like mass with wall calcifications. Malignancy cannot be ruled out. We will consider getting an MRI to better visualize the mass and once the patient is stable, we will consult gynecology. 6. History of coronary artery disease. On statin and aspirin. Beta linda and angiotensin-converting enzyme (LANEY) inhibitor are on hold per cardiology recommendations. 7. History of paroxysmal atrial fibrillation. The patient is on a heparin drip currently. The patient started having mild hematuria and positive stool occult blood test. On looking into the patient's partial thromboplastin time (PTT), the patient has multiple spikes that could explain the cause of her bleeding. We will discontinue the heparin push and we will increase the rate to maintain therapeutic PTT. Continue to monitor the patient's hemoglobin and hematocrit. 8. History of tobacco abuse. 9. Deep vein thrombosis (DVT) prophylaxis. The patient is on heparin drip.
[2016-11-15] MEDS: WARFARIN SOD 3 MG TAB PO SCH (16:43)
--- NOTE | 2016-11-15 18:19 | IPN ---
DATE: 11/15/2016 Mrs. Vallejo is seen this morning on her bedside. She is sitting at the edge of bed eating her breakfast. She continues to have some edema, but dyspnea has improved. She denies any nausea or vomiting. She remains in normal sinus rhythm on the monitor. She denies any fever, chills or sore throat. She has no diarrhea or vomiting. On physical examination, temperature 97 degrees Fahrenheit, heart rate 66 per minute and respiratory rate 20 per minute. Blood pressure 138/64 mmHg and oxygen saturation 94% on room air. Intake and output records from yesterday are almost even. Head is atraumatic. Ears, nose and throat are unremarkable. Neck is supple and without any jugular venous distention (JVD) or thyroid enlargement. Heart sounds are regular and without a pericardial friction rub. Lungs have diminished breath sounds at bases with bibasilar rales. Abdomen soft and nontender. Extremities without any cyanosis or clubbing. Skin without any rash or ulcers. Neurologically, she is awake, alert and oriented times three. Today's laboratories show WBC count 22.8, hemoglobin 9.6 and hematocrit 29.5. Sodium 145 and potassium 4.5. BUN 41 and creatinine 1.45. Glucose 217 and calcium 8.4. PROBLEMS: 1. Systolic congestive heart failure. The patient is known to have severely reduced left ventricular systolic function. We will continue to diurese her and try to maintain her volume status close to euvolemia. She also has grade 1 diastolic dysfunction. 2. Acute on chronic kidney disease. Kidney function is slightly worsened. She has not been in negative fluid balance. At present we are monitoring her kidney function on a daily basis. 3. Sepsis. The patient remains on vancomycin and Zosyn. I would suggest to stop the vancomycin at this point and continue with Zosyn. Blood cultures have been negative for any bacterial infection so far. Vancomycin could be causing nephrotoxicity, even though the level has been in therapeutic range. DISPOSITION: From a renal standpoint, patient can be transferred out of intensive care unit (ICU) to progressive care unit.
--- NOTE | 2016-11-15 19:02 | REP ---
Pelvic sonography: History: Pelvic mass. Findings: Transabdominal and transvaginal scanning are performed. Uterine dimensions are normal with the uterus measuring 6.6 x 3.1 x 3.8 cm. Endometrial echo 0.5 cm thick. No focal uterine mass is seen. A small sliver of endometrial fluid is seen. There is a 3 mm area polypoid thickening in the endometrium posteriorly question polyp. Bladder crane are smooth. Mathew catheter is seen. Neither ovary could be directly visualized. There is a large cystic mass in the pelvis with complex features. This has sonographic dimensions of 13.1 x 10.0 x 8.0 cm. There are septations and there and there are mural nodules. There is no visible ascites. Impression: Large 13 cm extrauterine cystic mass in the pelvis most likely ovarian in origin. Malignant ovarian cystic lesion cannot be excluded. Neither ovary could be directly visualized. Normal size uterus. Possible 3 mm endometrial polyp. Signed by Luis Lara MD 11/15/2016 07:14 P
[2016-11-15 20:00] VITALS: BP 128/56
[2016-11-15] MEDS: ATORVASTATIN 20 MG TAB PO SCH (21:44)
[2016-11-16] VITALS: BP 132/60
[2016-11-16] MEDS: IPRATROPIUM 0.5MG/ALBUTEROL 2.5MG INH SOL UD 3ML (DUONEB)(J7620) NEB SCH ×5 (03:50→19:48)
[2016-11-16 04:00] VITALS: BP 135/63
[2016-11-16 04:25] LABS: MEAN CORPUSCULAR VOLUME 93.6 fl (80.0-96.0); WHITE BLOOD COUNT 18.4 K/mm3 (4.0-10.0)
[2016-11-16 04:32] LABS: INR 1.1
[2016-11-16 04:51] LABS: ALBUMIN 2.3 GM/DL (3.2-5.2); CREATININE FOR GFR 1.37 MG/DL (0.55-1.02); GLOMERULAR FILTRATION RATE 42.2 (>51); POTASSIUM SERUM 3.8 MEQ/L (3.5-5.1)
[2016-11-16 05:10] LABS: PHOSPHORUS LEVEL 3.9 MG/DL (2.5-4.9)
[2016-11-16] MEDS: SLF 3 ML SYR IV SCH ×3 (05:36→20:48)
[2016-11-16] MEDS: BICITRA 30ML SOLN UDC PO SCH (05:36)
[2016-11-16] MEDS: PIPERACILLIN/TAZOBACTAM SOD 3.375 GM in D5W MINI-BAG PLUS 50 ML IV SCH (05:36)
[2016-11-16] MEDS: VANCOMYCIN HCL 1,000 MG, VIAL MATE ADAPTER 1 EACH in D5W 250 ML IV SCH (06:44)
[2016-11-16 08:27] VITALS: BP 129/60
[2016-11-16] MEDS: PANTOPRAZOLE 40MG TAB (PROTONIX) PO SCH (08:35)
[2016-11-16] MEDS: guaiFENesin ER 600 MG TAB PO SCH ×2 (08:35→20:48)
[2016-11-16] MEDS: AMIODARONE 100MG TABLET (PACERONE) PO SCH (08:36)
[2016-11-16] MEDS: HEPARIN DRIP 25,000 UNITS in APPROPRIATE DILUENT 1 EA IV SCH (08:39)
[2016-11-16] MEDS: methylPREDNISolone INJ 125 MG/2 ML VIAL (J2930) IV SCH ×2 (10:31→20:48)
[2016-11-16] MEDS ORDERED: POTASSIUM CHLORIDE 10 MEQ SR TABLET PO ONE (12:00)
[2016-11-16] MEDS ORDERED: FUROSEMIDE 100 MG/10 ML VIAL (J1940) IV ONE (12:00)
[2016-11-16 12:13] VITALS: BP 136/93
[2016-11-16 14:20] VITALS: BP 155/84
[2016-11-16] MEDS: WARFARIN SOD 3 MG TAB PO SCH (16:49)
[2016-11-16] MEDS ORDERED: LevoFLOXacin 750 MG TABLET PO SCH (17:00)
--- NOTE | 2016-11-16 17:03 | IPN ---
DATE: 11/16/2016 SUBJECTIVE: The patient seen and examined in the room today. The patient denies any acute complaint or acute changes. The patient still noted to have blood in the urine. No gross blood in the stool, but patient tested positive for hemoccult. No overnight events reported. OBJECTIVE: VITAL SIGNS: Temperature 97.7, pulse 87, respirations 20, blood pressure 129/60. Pulse oximetry is 94% on room air. GENERAL: No sign of acute distress. Alert and oriented times three. HEENT: Normocephalic, atraumatic. Extraocular movements grossly intact. CARDIOVASCULAR: Positive S1, S2, regular rate. LUNGS: Decreased breath sounds bilaterally. Some expiratory wheezes. No rhonchi. ABDOMEN: Soft, nontender, nondistended. Bowel sounds present. No rebound. No guarding. EXTREMITIES: No edema. No sign of cyanosis. LABORATORY DATA: WBC is 18.4, hemoglobin 9.9, hematocrit 30.8, hematocrit is 243. Sodium is 146, potassium 3.8, chloride is 103, carbon dioxide 36, BUN 41, creatinine 1.37. GFR is 42.2. Fasting glucose 160, calcium 8, phosphorous 3.89, magnesium 2, C-reactive protein 1.16. ASSESSMENT AND PLAN: 1. Severe hypotension secondary to dehydration, diuretic use and pneumonia. The patient's blood pressure has been stable. The patient has been receiving antibiotics for her infection. Diuretic usage is being adjusted by nephrology. Appreciate Dr. Alonso's assistance. 2. History of ischemic cardiomyopathy, status post automatic implantable cardioverter-defibrillator (AICD) in August 2015. 3. Acute kidney injury. Renal function improving. Appreciate Dr. Alonso's assistance. 4. Leukocytosis secondary to active infection and concurrent steroid use. C-reactive protein continues to improve. Shows the patient's infections are improving. 5. Large pelvic mass. The patient has AICD, therefore, the patient was not able to tolerate MRI. The patient still has acute kidney injury. The patient could not tolerate any contrast enhanced imaging. Gallbladder ultrasound was performed. Ob-Program Scheduler specialist is being consulted. I discussed with Dr. Wong. No immediate procedure or surgery is warranted at this moment. The patient should proceed with medical optimization. The patient can followup with Dr. Wong in the outpatient setting. 6. Coronary artery disease. On statin, aspirin. Beta linda and angiotensin-converting enzyme (LANEY) on hold due to cardiology recommendation. 7. History of paroxysmal atrial fibrillation. The patient is currently on heparin drip. The patient is put back on her warfarin. Will continue to monitor PT/INR on a daily basis. 8. History of tobacco abuse. 9. Deep venous thrombosis (DVT) prophylaxis. The patient is on heparin drip. [facility]
--- NOTE | 2016-11-16 17:58 | IPN ---
DATE: 11/16/2016 Ms. Vallejo is seen this morning on her bedside. She is sitting in the chair. She is feeling well and denies any nausea, vomiting, dyspnea, or chest pain. Her peripheral edema is slightly increased. She has no fever or chills. PHYSICAL EXAMINATION: Temperature 97.7 degrees Fahrenheit, heart rate 88 per minute, respiratory rate 20 per minute, blood pressure 129/60 mm of mercury and oxygen saturation 94% on room air. Intake and output records from yesterday show a negative fluid balance of about 1145 mL. Her neck is supple, and jugular venous distention (JVD) is not elevated sitting upright. Head is atraumatic. Ears, nose, and throat are unremarkable. Heart sounds are regular, and lungs with diminished breath sounds bilaterally with bibasilar rales. Abdomen: Soft and nontender. Extremities: Without any cyanosis or clubbing. There are multiple ecchymoses on her arms from intravenous (IV) lines. Lower extremity edema is 1+. Today's labs show WBC count 18.4, hemoglobin 9.9, hematocrit 30.8, platelets 243. Sodium 146, potassium 3.8, BUN 41, and creatinine 3.6. Rest of her chemistry is essentially unchanged. PROBLEMS: 1. Acute kidney injury superimposed on chronic kidney disease. The patient has slight improvement in her creatinine levels since yesterday. She did have negative fluid balance for first time. We will continue to monitor her renal function on a daily basis. 2. Systolic congestive heart failure, acute on chronic. She did respond to diuretics yesterday. Her volume status is still decompensated. We will give her another dose of Lasix 60 mg intravenously. 3. Hypernatremia. This is mild and most likely related to negative fluid balance yesterday. Electrolytes will be checked again tomorrow morning. 4. Anemia. Her anemia has been stable and does not need any intervention. 5. Pneumonia. The patient is being treated with Zosyn and vancomycin. I have discussed with Dr. Jett and suggested to stop vancomycin, as her pneumonia has been only mild and probably can be treated with oral antibiotic now. 6. Disposition. From a renal standpoint, the patient can be transferred out of intensive care unit. JOELLEN
[2016-11-16] MEDS: ATORVASTATIN 20 MG TAB PO SCH (20:48)
--- NOTE | 2016-11-16 21:53 | CR ---
DATE OF CONSULTATION: 11/15/2016 REASON FOR ADMISSION: Adnexal mass. HISTORY OF PRESENT ILLNESS: Ms. Vallejo is a 56-year-old menopausal female, 4 para 2, who initially presented November with upper respiratory infection with complaints along with weakness and loose stool. She was ultimately admitted and treated for decompensated chronic obstructive pulmonary disease (COPD) secondary to rhinovirus with acute renal failure secondary to dehydration. As a part of her work up, she underwent the CT scan of abdomen and pelvis and had an accidental finding of a 13 cm cystic pelvic mass. This was followed up by an ultrasound and it confirmed the 13 cm extrauterine cystic mass in the pelvis concerning for ovarian origin. Ms. Vallejo reports that she has not had any gynecology exam in over 10 years. On review of systems, she denies any gynecology complaints to include vaginal bleeding, vaginal discharge, any abdominal or pelvic bloating. She reports that she has been menopausal for 11 years. PAST MEDICAL HISTORY: 1. History of ischemic cardiomyopathy 2. Congestive heart failure. 3. Hyperlipidemia. 4. History of atrial flutter. 5. Sick sinus syndrome. PAST SURGICAL HISTORY: 1. She has had a section. 2. She had a cardioverter defibrillator placed PAST OBSTETRICAL AND GYNECOLOGICAL HISTORY: Para 2-1-1-2. She has had two term deliveries, one via section. She has had one delivery of twins that from prematurity. She has had one first trimester loss. She reports a history of normal Pap smears with no gynecological issues over the years. FAMILY HISTORY: She denies any history of gynecological cancers, breast cancer or colon cancer. SOCIAL HISTORY: She has a long history of smoking, stopped secondary to emphysema approximately 15 months ago. PHYSICAL EXAMINATION: VITAL SIGNS: Blood pressure is 128/56, pulse is 87, temperature 97.5. She is saturating 93% on room air. GENERAL APPEARANCE: Well appearing, in no acute distress. CARDIOVASCULAR: Heart regular rate and rhythm. LUNGS: Clear to auscultation bilaterally. ABDOMEN: Soft, nontender from previous delivery. PELVIC EXAM: Deferred. Ultrasound showed a 13 cm extrauterine cystic mass in the pelvis, neither ovary was visualized. Normal appearing uterus. Endometrium with a possible 3 mm endometrial polyp. IMPRESSION: 1. This is a 13 cm cystic right adnexal mass. My differential includes a mucinous cyst adenoma versus cyst adenoma, but cannot rule out although I feel less likely epithelial cell carcinoma. 2. Decompensated chronic obstructive pulmonary disease (COPD) secondary to rhinovirus. 3. Acute renal failure. 4. Systolic congestive heart failure. 5. Emphysema. RECOMMENDATIONS: Discussed these findings with the patient, as well as my list of differentials. I discussed the nonurgent surgical evaluation of this pelvic mass with removal. I feel that the patient will need to be optimized surgically, followed up prior to proceeding with this surgery. I have ordered CA-125 tumor markers. She can followup with me as an outpatient following her discharge from the hospital. She will need to complete a Pap smear and pelvic exam and possible endometrial biopsy prior to proceeding with likely hysterectomy and bilateral salpingo-oophorectomy. Thank you for this consultation.
[2016-11-16 22:00] VITALS: BP 138/63
[2016-11-17] MEDS: IPRATROPIUM 0.5MG/ALBUTEROL 2.5MG INH SOL UD 3ML (DUONEB)(J7620) NEB SCH ×7 (03:42→23:18)
[2016-11-17 06:00] VITALS: BP 152/69
[2016-11-17] MEDS: SLF 3 ML SYR IV SCH ×3 (06:06→21:05)
[2016-11-17 07:44] LABS: INR 1.3
[2016-11-17 08:19] LABS: ALBUMIN 2.3 GM/DL (3.2-5.2); CALCIUM LEVEL 8.2 MG/DL (8.5-10.1); CREATININE FOR GFR 1.22 MG/DL (0.55-1.02); GLOMERULAR FILTRATION RATE 48.2 (>51); MAGNESIUM LEVEL 2.2 MG/DL (1.8-2.4); PHOSPHORUS LEVEL 3.9 MG/DL (2.5-4.9); POTASSIUM SERUM 3.8 MEQ/L (3.5-5.1)
[2016-11-17] MEDS: methylPREDNISolone INJ 125 MG/2 ML VIAL (J2930) IV SCH ×2 (10:07→21:06)
[2016-11-17] MEDS: PANTOPRAZOLE 40MG TAB (PROTONIX) PO SCH (10:07)
[2016-11-17] MEDS: guaiFENesin ER 600 MG TAB PO SCH ×2 (10:07→21:05)
[2016-11-17] MEDS: AMIODARONE 100MG TABLET (PACERONE) PO SCH (10:07)
[2016-11-17] MEDS: PERCOCET 5MG/325MG TAB PO PRN (10:08)
[2016-11-17] MEDS ORDERED: FUROSEMIDE 40 MG TAB PO ONE (10:15)
[2016-11-17] MEDS ORDERED: POTASSIUM CHLORIDE 10 MEQ SR TABLET PO ONE (10:15)
--- NOTE | 2016-11-17 10:46 | IPN ---
DATE OF VISIT: 11/17/2016 Ms. Vallejo is seen this morning on her bedside. She is sitting in the bed and just finished eating her breakfast. She reports that her appetite has improved and denies any nausea, vomiting, diarrhea, or abdominal pain. She has no dyspnea or chest pain. Her antibiotics have been changed to Levaquin, and both Zosyn and vancomycin have been stopped. On physical examination, temperature 97.5 degrees Fahrenheit, heart rate 70 per minute, and respiratory rate 20 per minute. Blood pressure 152/69 mmHg and oxygen saturation 90% on room air. Head: Is atraumatic. Ears, nose, and throat are unremarkable. Pupils equal and reactive to light, and sclerae anicteric. Neck veins are mildly distended. There is no thyroid enlargement. Heart sounds are regular. Lungs with moderate bilateral air entry. There are few basilar rales on left side. Abdomen: Soft and nontender and bowel sounds are normal. Extremities have no cyanosis or clubbing. Skin has no rash or ulcers. Neurologically, she is awake, alert, and oriented times three. Today's laboratories show a sodium level 145 and potassium 3.8. CO2 is down to 33, BUN 38, and creatinine 1.22. Rest of her chemistry is essentially unchanged. PROBLEMS: 1. Acute kidney injury. Kidney function continues to improve, and now she has been off vancomycin and Zosyn. I feel that her acute kidney injury was probably related to infection and nephrotoxicity. We will continue to monitor her kidney function on a daily basis as long as she is here in the hospital. 2. Congestive heart failure and volume overload. She is known to have severe systolic dysfunction. Her volume status is still decompensated and oxygen saturations only 90% on room air. She is being started on oral Lasix 40 mg twice a day with first dose this morning. We will also add potassium chloride 20 mEq daily in order to prevent hypokalemia. 3. Anemia. Her anemia has been stable and does not need any intervention. 4. Hypertension. Blood pressure is reasonably well-controlled and likely to improve with further diuresis. 5. Metabolic alkalosis. This is mild and most likely related to the medications. I have stopped her Bicitra. Metabolic alkalosis is likely to improve over next couple of days.
[2016-11-17 14:00] VITALS: BP 137/65
[2016-11-17] MEDS: HEPARIN DRIP 25,000 UNITS in APPROPRIATE DILUENT 1 EA IV SCH (15:13)
--- NOTE | 2016-11-17 15:14 | IPN ---
DATE: 11/17/2016 SUBJECTIVE: The patient is seen and examined in the room today. The patient stated feels she is getting better. There is still some blood clot noted in her Mathew bag, but no significant bleeding has been noted. No overnight events reported. OBJECTIVE: VITAL SIGNS: Temperature 97.5, pulse is 69, respirations 20, blood pressure 152/69, pulse oximetry 90% on room air. GENERAL: No sign of acute distress. Alert and oriented times three. HEENT: Normocephalic, atraumatic. Extraocular movements grossly intact. CARDIOVASCULAR: Positive S1, S2, regular rate. LUNGS: Decreased breath sounds bilaterally. Some intermittent expiratory wheezes, but no rhonchi. ABDOMEN: Soft, nontender, nondistended. Bowel sounds present. No rebound. No guarding. EXTREMITIES: No edema. No sign of cyanosis. GENITOURINARY (): Mathew catheter in place. There are some blot clots noted in the Mathew bag. LABORATORY DATA: WBC 18.4, hemoglobin 9.9, hematocrit 30.8, platelet count is 243. Sodium is 145, potassium 3.8, chloride is 104, carbon dioxide 33, BUN is 38, creatinine is 1.22. GFR is 48.2. Fasting glucose 132. Calcium is 8.2. Phosphorous 3.9, magnesium 2.2, albumin 2.3. ASSESSMENT AND PLAN: 1. Severe hypotension secondary to dehydration, diuretic use and pneumonia. The patient's blood pressure has been stable. The patient has been recieving antibiotics for her infection. Diuretic usage is being adjusted by nephrology. We appreciate Dr. Alonso's assistance. On admission, the patient had a blood pressure of 76/37. Currently blood pressure is in the satisfactory range. 2. History of ischemic cardiomyopathy, status post automatic implantable cardioverter-defibrillator (AICD) in August 2015. 3. Acute kidney injury. Renal function continues to improve. Appreciate Dr. Alosno's assistance. 4. Leukocytosis secondary to active infection and concurrent steroid use. C-reactive protein continues to be improved and the patient's leukocytosis started to decrease. 5. Large pelvic mass. I had a change to discuss within Dr. Wong, the patient currently requires medical optimization for her current active disease process. The patient will have a scheduled followup with Dr. Wong in outpatient setting. No urgent procedure is needed at this moment. 6. Coronary artery disease, on statin and aspirin. Beta linda or angiotensin-converting enzyme (LANEY) inhibitor on hold due to cardiology recommendations. 7. History of paroxysmal atrial fibrillation. The patient is currently on heparin drip per protocol. The patient was started on warfarin. Continue to monitor PT/INR. 8. History of tobacco abuse. 9. Deep venous thrombosis (DVT) prophylaxis. The patient on heparin drip.
[2016-11-17] MEDS: WARFARIN SOD 3 MG TAB PO SCH (18:34)
[2016-11-17] MEDS: FUROSEMIDE 40 MG TAB PO SCH (18:34)
[2016-11-17] MEDS: ATORVASTATIN 20 MG TAB PO SCH (21:06)
[2016-11-17 22:00] VITALS: BP 140/63
[2016-11-18] MEDS: IPRATROPIUM 0.5MG/ALBUTEROL 2.5MG INH SOL UD 3ML (DUONEB)(J7620) NEB SCH ×5 (04:00→20:00)
[2016-11-18] MEDS: SLF 3 ML SYR IV SCH ×3 (05:36→21:07)
[2016-11-18 06:00] VITALS: BP 135/66
[2016-11-18 06:59] LABS: INR 1.7
[2016-11-18 08:23] LABS: MEAN CORPUSCULAR HEMOGLOBIN 30.7 pg (27.0-33.0); MEAN CORPUSCULAR HGB CONC 32.1 g/dl (32.0-36.5); MEAN CORPUSCULAR VOLUME 95.4 fl (80.0-96.0); RED CELL DISTRIBUTION WIDTH 14.1 % (11.5-14.5); WHITE BLOOD COUNT 21.2 K/mm3 (4.0-10.0)
[2016-11-18] MEDS: methylPREDNISolone INJ 125 MG/2 ML VIAL (J2930) IV SCH (09:07)
[2016-11-18] MEDS: PANTOPRAZOLE 40MG TAB (PROTONIX) PO SCH (09:07)
[2016-11-18] MEDS: POTASSIUM CHLORIDE 10 MEQ SR TABLET PO SCH (09:07)
[2016-11-18] MEDS: AMIODARONE 100MG TABLET (PACERONE) PO SCH (09:08)
[2016-11-18] MEDS: guaiFENesin ER 600 MG TAB PO SCH ×2 (09:08→21:06)
[2016-11-18] MEDS: FUROSEMIDE 40 MG TAB PO SCH ×2 (09:08→18:16)
[2016-11-18] MEDS: PERCOCET 5MG/325MG TAB PO PRN (09:09)
[2016-11-18 09:32] LABS: CALCIUM LEVEL 8.4 MG/DL (8.5-10.1); CREATININE FOR GFR 1.16 MG/DL (0.55-1.02); GLOMERULAR FILTRATION RATE 51.1 (>51); POTASSIUM SERUM 3.7 MEQ/L (3.5-5.1)
[2016-11-18 14:00] VITALS: BP 106/57
--- NOTE | 2016-11-18 16:28 | IPN ---
DATE: 11/18/2016 SUBJECTIVE: Patient seen and examined in the room today. Patient does not have any acute complaint or acute changes. Patient still seeing some pinkish color in her urine. Patient is not sure whether there is blood in the stool. No overnight events reported. OBJECTIVE: VITAL SIGNS: Temperature is 96.9, pulse is 68, respirations 15, blood pressure is 135/66, pulse oximetry is 95% in room air. GENERAL: No sign of acute distress, alert and oriented times three. HEENT: Normocephalic, atraumatic. Extraocular motor grossly intact. CARDIOVASCULAR: Positive S1, S2, regular rate. LUNGS: Clear to auscultation bilaterally. ABDOMEN: Soft, nontender, nondistended. Bowel sounds present. No rebound. No guarding. EXTREMITIES: No edema. No sign of cyanosis. LABORATORY DATA: WBC 21.2, hemoglobin 9.9, hematocrit 30.7, platelet count is 233. Sodium is 145, potassium 3.7, chloride is 106, carbon dioxide 34, BUN is 39, creatinine 1.16, GFR is 51.1, fasting glucose 134, calcium is 8.4. PT is 21.1, INR is 1.7. ASSESSMENT AND PLAN: 1. Severe hypotension secondary to dehydration, diuretic use, and pneumonia. Patient's blood pressure has been stable. Will continue to wean off patient's steroids. Patient finished a court of antibiotic treatment. 2. Acute kidney injury. Renal function continues to improve. Patient's diuretic regimen has been adjusted by the archival studies professor. We appreciate Dr. Alonso's assistance. 3. History of ischemic cardiomyopathy, status post automatic implantable cardioverter-defibrillator (AICD) in August 2015. 4. Leukocytosis, most likely secondary to steroid use. Patient's C-reactive protein continues to improve. Will discontinue the steroid today. 5. Large pelvic mass. Dr. Wong recommends outpatient followup. No urgent procedures required during this hospitalization. Imaging study showed patient has approximately 12 cm pelvic mass. 6. Coronary artery disease, on aspirin and statin. Beta linda or angiotensin-converting enzyme (LANEY) inhibitor are on hold due to the cardiology recommendations. 7. History of paroxysmal atrial fibrillation. The patient is on heparin drip per protocol. Patient's warfarin has been restarted. Today's INR is 1.7. Will continue to monitor. 8. History of tobacco abuse. 9. Deep vein thrombosis (DVT) prophylaxis. On heparin drip.
--- NOTE | 2016-11-18 17:36 | IPN ---
DATE: 11/18/2016 SUBJECTIVE: Ms. Vallejo is seen this morning on her bedside. She is feeling well and currently sitting in the chair. She denies any nausea, vomiting, dyspnea or chest pain. She is feeling generally well. PHYSICAL EXAMINATION: VITAL SIGNS: Temperature 96.9 degrees Fahrenheit, heart rate 68 per minute and respiratory rate 18 per minute. Blood pressure 135/66 mmHg, oxygen saturation is 95% on room air. Intake and output records are probably incomplete from yesterday. She weighed 84.4 kg today which is essentially unchanged. HEENT: Her head is atraumatic. NECK: Supple and without jugular venous distention (JVD) or thyroid enlargement. LUNGS: Have slightly diminished breath sounds at bases. HEART: Sounds are irregular in rhythm. ABDOMEN: Soft and nontender. EXTREMITIES: Without any cyanosis or clubbing. Lower extremity edema has improved slightly. LABORATORY DATA: Today's labs show WBC count 21.2, hemoglobin 9.9 and hematocrit 30.7. Sodium 145, potassium 3.7. BUN 39 and creatinine 1.16. Calcium level 8.4. PROBLEMS: 1. Acute kidney injury. Kidney function is improving and we will continue to monitor her until she is discharged or kidney function returns to normal. 2. Congestive heart failure. Her volume status is only slightly decompensated. I have started her on Lasix 40 mg twice a day and we will monitor her intake and output along with her kidney function. 3. Hypokalemia. Potassium level is slightly low. The patient is currently receiving 20 mEq of potassium chloride every day. Electrolytes will be checked again tomorrow morning. All other issues are being addressed by hospitalist service.
[2016-11-18] MEDS: WARFARIN SOD 3 MG TAB PO SCH (18:16)
[2016-11-18] MEDS: ATORVASTATIN 20 MG TAB PO SCH (21:06)
[2016-11-18 22:00] VITALS: BP 134/59
[2016-11-19] MEDS: IPRATROPIUM 0.5MG/ALBUTEROL 2.5MG INH SOL UD 3ML (DUONEB)(J7620) NEB SCH ×6 (04:00→20:47)
[2016-11-19 06:00] VITALS: BP 127/67
[2016-11-19] MEDS: SLF 3 ML SYR IV SCH ×3 (06:12→21:11)
[2016-11-19 07:00] LABS: MEAN CORPUSCULAR HEMOGLOBIN 30.5 pg (27.0-33.0); MEAN CORPUSCULAR HGB CONC 31.7 g/dl (32.0-36.5); MEAN CORPUSCULAR VOLUME 96.1 fl (80.0-96.0); RED CELL DISTRIBUTION WIDTH 14.2 % (11.5-14.5); WHITE BLOOD COUNT 21.6 K/mm3 (4.0-10.0)
[2016-11-19 07:02] LABS: ANION GAP 4 MEQ/L (8-16); BLOOD UREA NITROGEN 33 MG/DL (7-18); CALCIUM LEVEL 8.1 MG/DL (8.5-10.1); CARBON DIOXIDE LEVEL 35 MEQ/L (21-32); CHLORIDE LEVEL 107 MEQ/L (98-107); CREATININE FOR GFR 0.96 MG/DL (0.55-1.02); GLOMERULAR FILTRATION RATE > 60.0 (>51); GLUCOSE, FASTING 117 MG/DL (70-105); POTASSIUM SERUM 3.5 MEQ/L (3.5-5.1); SODIUM LEVEL 146 MEQ/L (136-145)
[2016-11-19 07:54] LABS: INR 2.37
[2016-11-19] MEDS: HEPARIN DRIP 25,000 UNITS in APPROPRIATE DILUENT 1 EA IV SCH (08:02)
[2016-11-19] MEDS: POTASSIUM CHLORIDE 10 MEQ SR TABLET PO SCH (08:20)
[2016-11-19] MEDS: FUROSEMIDE 40 MG TAB PO SCH ×2 (08:20→17:18)
[2016-11-19] MEDS: AMIODARONE 100MG TABLET (PACERONE) PO SCH (08:21)
[2016-11-19] MEDS: guaiFENesin ER 600 MG TAB PO SCH ×2 (08:21→21:09)
[2016-11-19] MEDS: PANTOPRAZOLE 40MG TAB (PROTONIX) PO SCH (08:21)
[2016-11-19] MEDS: PERCOCET 5MG/325MG TAB PO PRN ×2 (08:21→16:30)
[2016-11-19] MEDS ORDERED: predniSONE 20 MG TAB PO SCH (09:00)
--- NOTE | 2016-11-19 12:37 | IPN ---
DATE: 11/19/2016 SUBJECTIVE: Patient seen and examined in the room today. Patient stated that she still sees some blood in the urine. Mathew catheter has been discontinued. Patient is not sure if she is still seeing blood in the stool. Patient feels she is getting better. No overnight events reported. OBJECTIVE: VITAL SIGNS: Temperature is 98.1, pulse is 68, respirations 20, blood pressure is 127/67, pulse oximetry is 94% in room air. GENERAL: No sign of acute distress, alert and oriented times three. HEENT: Normocephalic, atraumatic. Extraocular motor grossly intact. CARDIOVASCULAR: Positive S1, S2, regular rate. LUNGS: Positive intermittent expiratory wheezes appreciated. ABDOMEN: Soft, nontender, nondistended. Bowel sounds present. No rebound. No guarding. EXTREMITIES: No edema. No sign of cyanosis. LABORATORY DATA: WBC 21.6, hematocrit 27, platelet count is 195. Sodium is 146, potassium 3.5, chloride is 107, carbon dioxide 35, BUN is 33, creatinine 0.96, GFR is 60, fasting glucose 170, calcium is 8.1. ASSESSMENT AND PLAN: 1. Acute kidney injury. Patient's diuretic regimen has been adjusted by Dr. Alonso. Today, patient's renal returned to normal range. 2. Severe hypotension secondary to dehydration, diuretic use, and pneumonia. Patient's blood pressure has been stable. Patient finished a course of antibiotic treatment. 3. History of ischemic cardiomyopathy, status post automatic implantable cardioverter-defibrillator (AICD) in August 2015. 4. Leukocytosis, secondary to steroid use. Steroid was discontinued on 11/18/2016. 5. Large pelvic mass. Dr. Wong recommends outpatient followup. No urgent procedures required during this hospitalization. Patient had a 12 cm pelvic mass on CT scan. 6. Coronary artery disease, on aspirin and statin. Beta linda and angiotensin-converting enzyme (LANEY) inhibitor are on hold due to the cardiology recommendations. 7. History of paroxysmal atrial fibrillation. The patient is on heparin drip adjusted by protocol. Patient's was started on warfarin. Today warfarin is therapeutic. Heparin drip will be discontinued in the next 24-48 hours. Will continue to monitor the bleeding. 8. History of tobacco abuse. 9. Deep vein thrombosis (DVT) prophylaxis. On heparin drip.
[2016-11-19 14:00] VITALS: BP 117/56
--- NOTE | 2016-11-19 14:10 | IPN ---
DATE: 11/19/2016 SUBJECTIVE: The patient was seen and examined at the bedside today in the morning. Her renal function continues to improve. The patient is afebrile, hemodynamically stable. REVIEW OF SYSTEMS: The patient denies any fever, chills, rigors, headaches, nausea. She does report one episode of vomiting yesterday, which was mucoid. She denies any cough, shortness of breath. The patient denies any pain in abdomen, constipation, or diarrhea. The rest of review of system is negative. OBJECTIVE: VITAL SIGNS: Temperature is 98.1 degrees Fahrenheit. Blood pressure is 127/67, pulse is 68, respiratory rate of 18, saturating 94% on room air. Intake and output: Urine output recorded as 1 liter yesterday and 1 liter so far today. Weight in the bed scale is 84.5 kg. The patient was 90 mL negative yesterday and 760 mL negative so far today since overnight. PHYSICAL EXAMINATION: GENERAL: The patient is awake, alert and oriented times three. Sitting on the bed. No apparent distress. HEAD/NECK: Extraocular muscles intact. Left pupil is slightly more dilated than the right. Mucous membranes are moist. Neck is supple. There is no jugular venous distention (JVD). CARDIOVASCULAR: S1, S2, regular rate. No murmur, rub or gallop. RESPIRATORY: Chest is clear to auscultation bilaterally. Bilateral equal air entry. No rales or rhonchi. ABDOMEN: Soft. Positive bowel sounds. Nontender. No ascites. No organomegaly. EXTREMITIES: No clubbing or cyanosis. Pulses are 1+. The patient has 1+ pitting edema of the bilateral lower extremities. CENTRAL NERVOUS SYSTEM: No focal neurological deficit. Power is 5/5 in all extremities. PSYCHIATRIC: Normal mood and affect. SKIN: No rashes or ulcers at this time. LABORATORY REVIEW: CBC showed a WBC of 21.6, hemoglobin 8.5, platelets of 195. INR is 2.37. BMP showed sodium 146, potassium 3.5, chloride 107, bicarbonate is 35, BUN is 33, creatinine is 0.96. Calcium is 8.1. CURRENT MEDICATIONS: The patient's current medications are all reviewed by me. Her prednisone has been stopped at this time. She continues to be on furosemide 40 mg by mouth twice a day. There are no other change in the medications today as compared with yesterday. ASSESSMENT: 56-year-old female with past medical history of paroxysmal atrial fibrillation, ischemic cardiomegaly with chronic systolic congestive heart failure and hypertension admitted this time because of acute rhinovirus associated diarrhea and hypotension causing acute renal failure. PLAN: 1. Acute renal failure. The patient's renal function continues to improve. She is actually on diuretics at this time because of volume overload. Creatinine is down to 0.9. Continue to monitor for now. 2. Systolic congestive heart failure. The patient's edema continues to improve. Continue Lasix 40 mg by mouth twice a day. Continue to monitor intake and output. Shortness of breath is better. The patient reports that her upper extremity edema is improved now. She still has edema in the lower extremities at this time. 3. Hypernatremia. Hypernatremia is secondary to diuresis at this time. Sodium is 146. Continue to monitor for now. I will not change the dose of diuretics today. 4. Iron deficiency anemia. The patient was given one unit of packed red blood cells transfusion during this admission. Hemoglobin is down to 8.5. Continue to monitor for now. If hemoglobin drops to below 8, the patient can be given packed red blood cells transfusion. 5. Paroxysmal atrial fibrillation. The patient continues to be on amiodarone. Heparin and Coumadin management is as per primary team. Heart rate is controlled at this time.
[2016-11-19] MEDS: WARFARIN SOD 3 MG TAB PO SCH (17:18)
[2016-11-19] MEDS: ATORVASTATIN 20 MG TAB PO SCH (21:09)
[2016-11-19 22:00] VITALS: BP 130/56
[2016-11-20 02:49] LABS: INR 2.3
[2016-11-20 06:00] VITALS: BP 137/60
[2016-11-20] MEDS: SLF 3 ML SYR IV SCH ×3 (06:24→20:59)
[2016-11-20 07:04] LABS: MEAN CORPUSCULAR HEMOGLOBIN 31.4 pg (27.0-33.0); MEAN CORPUSCULAR HGB CONC 33.7 g/dl (32.0-36.5); MEAN CORPUSCULAR VOLUME 93.4 fl (80.0-96.0); RED CELL DISTRIBUTION WIDTH 14.2 % (11.5-14.5); WHITE BLOOD COUNT 21.1 K/mm3 (4.0-10.0)
[2016-11-20 07:22] LABS: INR 2.4
[2016-11-20 07:50] LABS: ANION GAP 9 MEQ/L (8-16); BLOOD UREA NITROGEN 28 MG/DL (7-18); CALCIUM LEVEL 7.7 MG/DL (8.5-10.1); CARBON DIOXIDE LEVEL 33 MEQ/L (21-32); CHLORIDE LEVEL 103 MEQ/L (98-107); CREATININE FOR GFR 0.96 MG/DL (0.55-1.02); GLOMERULAR FILTRATION RATE > 60.0 (>51); GLUCOSE, FASTING 97 MG/DL (70-105); POTASSIUM SERUM 3.7 MEQ/L (3.5-5.1); SODIUM LEVEL 145 MEQ/L (136-145)
[2016-11-20] MEDS: IPRATROPIUM 0.5MG/ALBUTEROL 2.5MG INH SOL UD 3ML (DUONEB)(J7620) NEB SCH ×5 (08:00→22:20)
[2016-11-20] MEDS: PANTOPRAZOLE 40MG TAB (PROTONIX) PO SCH (09:10)
[2016-11-20] MEDS: guaiFENesin ER 600 MG TAB PO SCH ×2 (09:10→20:58)
[2016-11-20] MEDS: AMIODARONE 100MG TABLET (PACERONE) PO SCH (09:10)
[2016-11-20] MEDS: POTASSIUM CHLORIDE 10 MEQ SR TABLET PO SCH (09:11)
[2016-11-20] MEDS: FUROSEMIDE 40 MG TAB PO SCH ×2 (09:11→17:00)
--- NOTE | 2016-11-20 12:55 | IPN ---
DATE: 11/20/2016 SUBJECTIVE: Patient seen and examined in the room today. Patient stated she has not noticed any blood in the urine. Patient denies any blood in the stool. No overnight events reported. The patient stated her breathing has been fine and she does not require any oxygen support. OBJECTIVE: VITAL SIGNS: Temperature is 98, pulse is 63, respirations 18, blood pressure is 137/60, pulse oximetry is 93% in room air. GENERAL: No sign of acute distress, alert and oriented times three. HEENT: Normocephalic, atraumatic. Extraocular motor grossly intact. CARDIOVASCULAR: Positive S1, S2, regular rate. LUNGS: Intermittent expiratory wheezes. ABDOMEN: Soft, nontender, nondistended. Bowel sounds present. No rebound. No guarding. EXTREMITIES: No edema. No sign of cyanosis. LABORATORY DATA: WBC 21.1, hemoglobin 8.6, hematocrit 25.5, platelet count is 175. Sodium is 145, potassium 3.7, chloride is 103, carbon dioxide 33, BUN is 28, creatinine 0.96, GFR greater than 60, fasting glucose 97, calcium is 7.7. ASSESSMENT AND PLAN: 1. Acute kidney injury. Patient's diuretic regimen has been adjusted. Patient's renal function has returned to normal range. 2. Severe hypotension secondary to dehydration from diuretic use and pneumonia. Patient's blood pressure has been stable. Patient has finished a course of antibiotic treatment. 3. History of ischemic cardiomyopathy, status post automatic implantable cardioverter-defibrillator (AICD) in August 2015. 4. Leukocytosis secondary to steroid use. Steroid was discontinued on 11/18/2016. 5. Large pelvic mass. OB-PORTRAIT CONSULTANT, Dr. Wong, was consulted while the patient was inpatient. Recommends outpatient followup. No immediate procedures recommended at this time. The patient had a 12 cm pelvic mass on CT scan. 6. Coronary artery disease, on aspirin and statin. Beta linda and angiotensin-converting enzyme (LANEY) inhibitor were on hold due to the cardiology's recommendations. 7. History of paroxysmal atrial fibrillation. The patient has been on a heparin drip adjusted by the protocol. Patient was restarted on warfarin. Today is day 2 with therapeutic INR. Heparin drip will be discontinued today. The patient does not show any sign of active bleeding. Continue to monitor. 8. History of tobacco abuse. 9. Deep vein thrombosis (DVT) prophylaxis. On heparin drip.
--- NOTE | 2016-11-20 13:41 | IPN ---
DATE: 11/20/2016 SUBJECTIVE: The patient was seen and examined at the bedside today in the morning. She feels much better. She was sitting on the sofa. Her renal function is improving and she had good urine output with the Lasix dose. REVIEW OF SYSTEMS: The patient denies any fever, chills, rigors, headaches, nausea, vomiting, chest pain, shortness of breath, pain in abdomen, constipation or diarrhea. The rest of review of systems is negative. OBJECTIVE: VITAL SIGNS: Temperature is 98 degrees Fahrenheit. Blood pressure is 137/60. Pulse is 63. Respiratory rate of 18. Saturating 93% on room air. Intake and Output: Urine output recorded as 1.7 liter yesterday and 600 mL so far today. Weight in the bed scale is 84.9 kg. PHYSICAL EXAMINATION: GENERAL: The patient is awake, alert and oriented times three. Sitting on the sofa in no apparent distress. HEAD/NECK: Extraocular muscles intact. Pupils equally round and reactive to light. Mucous membranes are moist. Neck is supple. There is no jugular venous distention (JVD). CARDIOVASCULAR: S1, S2, regular rate. No murmur, rub or gallop. RESPIRATORY: Chest is clear to auscultation bilaterally. Bilateral equal air entry. No rales or rhonchi. ABDOMEN: Soft. Positive bowel sounds. Nontender. No ascites. No organomegaly. EXTREMITIES: No clubbing or cyanosis. Pulses are 1+. She has 1+ pitting edema of the bilateral lower extremities. CENTRAL NERVOUS SYSTEM: No focal neurological deficit. Power is 5/5 in all extremities. LABORATORY REVIEW: CBC showed a WBC of 21.1, hemoglobin 8.6, platelets of 175. BMP showed sodium 145, potassium 3.7, chloride 103, bicarbonate is 33, BUN is 28, creatinine is 0.96. Calcium is 7.7. CURRENT MEDICATIONS: The patient's medications were all reviewed by me. She continues to be on Lasix 40 mg by mouth twice a day. There are no other changes in the medications today. ASSESSMENT: 56-year-old female with past medical history of paroxysmal atrial fibrillation, ischemic cardiomyopathy with chronic systolic congestive heart failure and hypertension admitted at this time because of acute rhinovirus associated diarrhea and hypotension causing acute renal failure. PLAN: 1. Acute renal failure. The patient's renal function is improved back to baseline. Creatinine is down to 0.9. 2. Chronic systolic congestive heart failure. The patient has significant edema after initial resuscitation with fluids and holding diuretics. The patient continues to be on Lasix 40 mg by mouth twice a day. I would continue the current dose. She can followup with cardiology as an outpatient on discharge and diuretic dose can be adjusted. 3. Hypernatremia. Sodium level is improved to 145 now. 4. Iron deficiency anemia. The patient's hemoglobin is around 8.6 at this time. I am going to start the patient on oral iron. The patient also got one unit of PRBC transfusion during this admission as well. The patient's renal function has improved back to the baseline. Nephrology service will sign off at this moment. Please call nephrology service as needed for any help in the management of this patient.
[2016-11-20 14:00] VITALS: BP 149/68
[2016-11-20] MEDS: WARFARIN SOD 3 MG TAB PO SCH (17:00)
[2016-11-20] MEDS: ATORVASTATIN 20 MG TAB PO SCH (20:58)
[2016-11-20] MEDS: PERCOCET 5MG/325MG TAB PO PRN (20:59)
[2016-11-20 22:00] VITALS: BP 110/54
[2016-11-21] MEDS: IPRATROPIUM 0.5MG/ALBUTEROL 2.5MG INH SOL UD 3ML (DUONEB)(J7620) NEB SCH ×6 (01:29→21:57)
[2016-11-21] MEDS: SLF 3 ML SYR IV SCH ×3 (05:53→20:33)
[2016-11-21 06:00] VITALS: BP 121/56
[2016-11-21 06:34] LABS: MEAN CORPUSCULAR HEMOGLOBIN 31.6 pg (27.0-33.0); MEAN CORPUSCULAR HGB CONC 34.1 g/dl (32.0-36.5); MEAN CORPUSCULAR VOLUME 92.6 fl (80.0-96.0); RED CELL DISTRIBUTION WIDTH 14.5 % (11.5-14.5); WHITE BLOOD COUNT 22.3 K/mm3 (4.0-10.0)
[2016-11-21 06:38] LABS: INR 2.21
[2016-11-21 06:57] LABS: CALCIUM LEVEL 8.1 MG/DL (8.5-10.1); CREATININE FOR GFR 1.05 MG/DL (0.55-1.02); GLOMERULAR FILTRATION RATE 57.3 (>51); POTASSIUM SERUM 3.8 MEQ/L (3.5-5.1)
[2016-11-21] MEDS: PANTOPRAZOLE 40MG TAB (PROTONIX) PO SCH (08:26)
[2016-11-21] MEDS: AMIODARONE 100MG TABLET (PACERONE) PO SCH (08:26)
[2016-11-21] MEDS: POTASSIUM CHLORIDE 10 MEQ SR TABLET PO SCH (08:26)
[2016-11-21] MEDS: guaiFENesin ER 600 MG TAB PO SCH ×2 (08:26→20:33)
[2016-11-21] MEDS: FUROSEMIDE 40 MG TAB PO SCH (08:26)
[2016-11-21 14:00] VITALS: BP 120/56
--- NOTE | 2016-11-21 14:25 | IPN ---
DATE: 11/21/2016 SUBJECTIVE: Patient seen and examined in the room today. Patient stated yesterday afternoon during her movements that she thinks that she experienced an acute stretch of the lower abdomen and since then she has started having discomfort at the lower abdomen and the discomfort has persisted and every time she tried to move or ambulate she will feel a stretch like discomfort in the lower abdomen and then it resolves. The patient was noted to have elevated temperature since yesterday evening time. Temperature has been around 100 or above. The patient denies any complaint about difficulty breathing. No issue with urination. OBJECTIVE: VITAL SIGNS: Temperature is 100.1, pulse is 79, respirations 18, blood pressure is 121/56, pulse oximetry is 90% in room air. GENERAL: No sign of acute distress, alert and oriented times three. HEENT: Normocephalic, atraumatic. Extraocular motor grossly intact. CARDIOVASCULAR: Positive S1, S2, regular rate. LUNGS: Clear to auscultation bilaterally. ABDOMEN: Soft, nondistended. Bowel sounds present. No rebound. No guarding. EXTREMITIES: Pitting edema bilaterally. There is sign of poor perfusion of bilateral lower extremities. The right big toe has dried blood. LABORATORY DATA: WBC 22.3, hemoglobin is 8.3, hematocrit 24.3, platelet count is 153. Sodium is 141, potassium 3.8, chloride is 100, carbon dioxide 34, BUN is 25, creatinine 1.05, GFR is 57.3, fasting glucose 110, calcium is 8.1, C-reactive protein is 11.5. ASSESSMENT AND PLAN: 1. Persistent leukocytosis now with a low grade fever. The patient was previously treated for her lung symptoms with antibiotic. The patient finished a course of antibiotic; however, steroids were discontinued multiple days ago. Initially, the patient's leukocytosis may be contributed to the high dose steroid use but now the patient has continued to have elevation of leukocytosis with new fevers. We will obtain a new set of cultures. We will look for other possible source of infection. The patient does have cyst like lesion located in the pelvis. We will reevaluate the cyst-like lesion in the abdomen. We will follow with a UA. The patient does not have any significant findings in the lung. 2. History of severe hypotension secondary to dehydration from diuretic use and pneumonia. Patient's blood pressure has been stable. Patient has finished a course of antibiotic treatment for her lung infection. 3. History of ischemic cardiomyopathy, status post automatic implantable cardioverter-defibrillator (AICD) in August 2015. 4. Large pelvic mass. OB-TIRE SERVICE TECHNICIAN, Dr. Wong, was consulted initially and the patient had a 12 cm pelvic mass on the CT scan. It was recommended that the patient receive no immediate procedure at this time. The patient was recommended outpatient followup. Currently, there is acute change in the patient's condition. We will follow with ultrasound, if there is any change that requires EDUCATIONAL TECHNOLOGY COORDINATOR assistance, we will contact Dr. Wong again. 5. Coronary artery disease, on aspirin and statin. Beta linda and angiotensin-converting enzyme (LANEY) inhibitor were on hold due to the cardiology's recommendations. 6. History of paroxysmal atrial fibrillation. The patient has therapeutic INR for more than 2 days. The patient has been off heparin drip. No active sign of bleeding. Continue to monitor. 7. History of tobacco abuse. 8. Deep vein thrombosis (DVT) prophylaxis. The patient has therapeutic INR.
[2016-11-21] MEDS ORDERED: WARFARIN SOD 3 MG TAB PO SCH (17:00)
--- NOTE | 2016-11-21 17:09 | REP ---
PELVIC ULTRASOUND: Real-time sonographic evaluation of the pelvis was performed utilizing transabdominal technique. Comparison made with prior study of 11/15/2016. Once again there is a complex cystic mass in the pelvis, similar to the prior exam. It measures 13.5 x 9.9 x 13.2 cm. Along the anterior aspect of the main cystic mass is a complex solid and cystic area at 6.8 x 1.8 x 6.2 cm. On real-time scanning this did not appear to be connected to the main cystic mass. This is not definitely seen on the prior ultrasound of 11/15/2016. I am uncertain whether this represents an adjacent bowel loop. Further evaluation may be made with CT with contrast if desired. Please note that the urinary bladder measures 5.5 x 2.8 x 4.8 cm. Signed by Aleksandr Lopez MD 11/21/2016 05:15 P
[2016-11-21] MEDS: ATORVASTATIN 20 MG TAB PO SCH (20:33)
[2016-11-21] MEDS ORDERED: LevoFLOXacin IV 750 MG in APPROPRIATE DILUENT 1 EA IV SCH (21:00)
[2016-11-21 22:00] VITALS: BP 124/58
[2016-11-22] MEDS: IPRATROPIUM 0.5MG/ALBUTEROL 2.5MG INH SOL UD 3ML (DUONEB)(J7620) NEB SCH ×6 (04:00→20:00)
[2016-11-22] MEDS: SLF 3 ML SYR IV SCH ×3 (05:37→22:00)
[2016-11-22 06:00] VITALS: BP 112/55
[2016-11-22] MEDS ORDERED: NS 1,000 ML IV SCH (06:45)
[2016-11-22 07:14] LABS: MEAN CORPUSCULAR HEMOGLOBIN 31.4 pg (27.0-33.0); MEAN CORPUSCULAR VOLUME 95.1 fl (80.0-96.0); RED CELL DISTRIBUTION WIDTH 14.2 % (11.5-14.5); WHITE BLOOD COUNT 17.1 K/mm3 (4.0-10.0)
[2016-11-22 07:18] LABS: INR 2.53
[2016-11-22 07:29] LABS: CALCIUM LEVEL 8.3 MG/DL (8.5-10.1); CREATININE FOR GFR 1.12 MG/DL (0.55-1.02); GLOMERULAR FILTRATION RATE 53.2 (>51)
[2016-11-22] MEDS ORDERED: GASTROGRAFIN SOLUTION 30ML PO ONE (07:30)
[2016-11-22] MEDS ORDERED: READI-CAT 2 PO ONE (07:30)
[2016-11-22] MEDS ORDERED: cefTRIAXone SOD 2 GM in D5W MINI-BAG PLUS 50 ML IV SCH (08:00)
[2016-11-22] MEDS ORDERED: GASTROGRAFIN SOLUTION 30ML (Q9963) PO ONE (08:00)
[2016-11-22] MEDS: AMIODARONE 100MG TABLET (PACERONE) PO SCH (08:34)
[2016-11-22] MEDS: guaiFENesin ER 600 MG TAB PO SCH ×2 (08:34→21:35)
[2016-11-22] MEDS ORDERED: ISOVUE-370 76% 100ML VIAL (Q9967) As Ordered ONE (08:35)
[2016-11-22] MEDS: PANTOPRAZOLE 40MG TAB (PROTONIX) PO SCH (08:35)
[2016-11-22] MEDS: LACTOBACILLUS ACIDOPHILUS CAP (BACID) PO SCH ×2 (08:35→17:55)
[2016-11-22] MEDS: FUROSEMIDE 40 MG TAB PO SCH (08:35)
[2016-11-22] MEDS: POTASSIUM CHLORIDE 10 MEQ SR TABLET PO SCH (08:35)
--- NOTE | 2016-11-22 11:40 | REP ---
CHEST, TWO VIEWS: COMPARISON: 11/09/2016 There is mild cardiomegaly. There is no acute infiltrate. There is some calcification of the thoracic aorta. The mediastinal silhouette is unchanged. Left pacemaker is again noted. There are mild degenerative changes of the spine. IMPRESSION: Mild cardiomegaly. No acute infiltrate. Signed by Aleksandr Lopez MD 11/22/2016 01:49 P
[2016-11-22 14:00] VITALS: BP 111/53
[2016-11-22] MEDS ORDERED: WARFARIN SOD 3 MG TAB PO SCH ×2 (17:00)
--- NOTE | 2016-11-22 20:17 | REP ---
CT ABDOMEN AND PELVIS WITH IV AND ORAL CONTRAST: 11/22/2016. Comparison: CT without contrast 11/11/2016, ultrasound pelvis 11/21/2016, 11/15/2016. Clinical history: Cystic and solid mass in the pelvis for further evaluation. Technique: Oral Gastrografin mixture 10 ml in 250 ml of flavored water for two doses per our bowel contrast protocol. 100 ml of Isovue 370 for IV contrast with coronal and sagittal reconstructions after scanning through both abdomen and pelvis. CT abdomen: Lung bases show no infiltrate. There is some mild cylindrical bronchiectatic change. No nodule or pleural thickening. Heart size borderline with left ventricular configuration. No pericardial thickening or effusion and a dual lead pacer evident with leads in the right atrium and ventricle. There is no hepatosplenomegaly, focal hepatic or splenic mass nor biliary dilatation. No adjacent ascites. Gallbladder shows no calcified stone or mass. Pancreas without mass, ductal dilatation, stone or adjacent inflammatory change. Stomach is empty and no hiatal hernia evident. Right kidney shows exophytic cyst in the posterior upper pole, unchanged. No stone, hydronephrosis or solid mass in either kidney. No calcified gallstones. The aorta has atherosclerotic calcifications with soft and calcific plaque. No periaortic or other retroperitoneal pathologic sized lymphadenopathy. Lung window review of all CT slices of the abdomen and pelvis shows no perforation or free air. No generalized ascites in the abdomen. The bone windows are unchanged from the previous study with some degenerative changes lower lumbar spine and facets. No spondylolysis or spondylolisthesis. Visualized ribs are intact. There are abdominal wall changes in the infraumbilical midline, left lower quadrant likely related to laparoscopic surgery, new since the previous CT. Small bowel loops and colon in the abdomen proper grossly intact. CT pelvis: Sacrum, SI joints, iliac bones, hips, acetabuli and symphysis pubis/pubic rami all grossly symmetric and intact. There is again noted to be a complex predominantly cystic mass in the pelvis centered just toward the right of midline. It has maximum diameters of 12 cm transverse by 13.2 cm long x 9.3 cm deep. There is a predominant cystic component to this lesion with some areas of calcification at its margins. A solid component is noted peripherally in a hemicircumferential fashion with thickness up to 2.3 cm. This is highly likely to be an ovarian cystic neoplasm. Malignancy not excluded. Appears separate from the uterus, but sits on its posterior fundus and body. The left ovary difficult to define. There is no generalized ascites. The bladder is only partially filled. There is no renal, ureteral or bladder stone. Course of the ureters is followed without dilatation or stone. The distal left colon, sigmoid and rectum were unremarkable and without colitis or diverticulitis. No ventral hernia, inguinal hernia or pathologic inguinal adenopathy. Impression: 1. Complex, predominately cystic ovarian mass in the pelvis centered towards the right of midline. It measures 13.2 x 12 x 9.3 cm with a lateral rim of soft tissue. 2. Postoperative changes from laparoscopy with swelling of the right rectus, left obliques and some midline periumbilical tissues likely from laparoscopy port. 3. No ascites, adenopathy of pathologic size or other mass. There is no mesenteric or omental cake/ascites/adenopathy. Solid organs upper abdomen unremarkable. 4. Kidneys show only a simple cyst upper pole posteriorly on the right. Bones without acute finding. Signed by Santiago Delatorre MD 11/23/2016 11:46 A
[2016-11-22] MEDS: ATORVASTATIN 20 MG TAB PO SCH (21:36)
[2016-11-22 22:00] VITALS: BP 124/56
--- NOTE | 2016-11-22 23:12 | IPN ---
DATE: 11/22/2016 Overnight, the patient had low-grade temperatures, maximal temperature of 100.1. Currently still complains of pelvic discomfort. Repeat ultrasound of the pelvis shows cystic mass with complex solid and cystic area, 6.8 x 1.8 x 6.2 cm. Not definitively seen on prior ultrasound. Whether this is adjacent bowel loop is uncertain. CT contrast if needed. Repeat CT of the abdomen and pelvis pending official report. White count is decreasing, 17.1 from peak of 22.3. Currently ceftriaxone. Repeat chest x-ray showed no acute infiltrate. Previous CT chest showed right lower lobe focal consolidation, atelectasis in the lingula. Vital signs: Maximal temperature 100.1, current temperature 97.6, pulse 69, respiratory rate 14, blood pressure 112/55, 94% on room air. Generally, patient is awake, alert, oriented times three, answering questions appropriately. Lungs are clear to auscultation. No wheezes, rales, or rhonchi. Heart S1, S2, sinus rhythm. Abdomen soft, nondistended. Positive bowel sounds. No rebound, guarding. Extremities: No cyanosis or clubbing. 1+ pitting edema. LABORATORY DATA: White count 17.1, hemoglobin 7.8, hematocrit 23, platelet count 134. Creatinine 1.12, C-reactive protein of 11.5. ASSESSMENT AND PLAN: This is a 56-year-old female with history of ischemic cardiomyopathy, chronic systolic heart failure, and hypotension with dual-chamber implantable cardioverter defibrillator 08/12/2015 for sick sinus, tachycardia/bradycardia syndrome, and ischemic cardiomyopathy with paroxysmal atrial flutter, rapid ventricular response, ejection fraction in June 2015 of 23%, on chronic Coumadin for coronary artery disease (CAD) without angina, ischemic cardiomyopathy, paroxysmal atrial flutter, admitted on 11/10/2016 with repeat echo showing ejection fraction (EF) of 25%, grade 1 left ventricular diastolic and systolic dysfunction with akinetic apical left ventricular (LV) thrombus, admitted for evaluation of shortness of breath. Patient had acute on chronic renal failure, and diuretics and angiotensin-converting enzyme (LANEY) inhibitors were withheld, and Dr. Rendon was consulted for renal failure management secondary to volume depletion and hypotension. With oral hydration and intravenous (IV) fluids, patient had improved significantly. For her metabolic acidosis secondary to diarrhea and acute renal failure, patient was given Bicitra 30 mL every 8 hours with improvement of bicarbonate. She was found to have fecal occult blood positive and iron deficiency anemia, and due to heart failure was given blood transfusion to reduce the demand-mediated ischemia with leukocyte reduced red blood cells (RBCs) and one fresh frozen plasma (FFP) to reverse INR that was 6.09 to current INR of 2.53. She developed abdominal complaint and was found to have a midline pelvic cyst. Neoplasm could not be discounted. Ultrasound showed large 13 cm cystic mass, most likely ovarian, and possible endometrial polyp. Dr. Wong, optical element coater, was consulted. Recommended outpatient followup. Patient continued to have ongoing anemia with hemoglobin of 7.8. Repeat transfusion for a total of 2 units of red blood cells currently with low-grade temperatures of 100. Sputum culture grew out Pseudomonas fluorescens and yeast-like organism with human rhinovirus and enterovirus. Repeat chest x-ray showed no acute infiltrate, and antibiotics were then discontinued. CURRENT ISSUES: 1. Persistent low-grade temperature, most likely secondary to steroid use with low-grade temperature. At this time will discontinue intravenous (IV) antibiotics if there appears to be no signs of infection. Chest x-ray remains negative with no acute infiltrate. Microbiology, repeat blood culture, on November 21 was negative. Sputum culture on November 11 showed Pseudomonas fluorescens. She would be at risk of Clostridium (C) difficile. Repeat CT abdomen and pelvis was to rule out hemorrhagic cyst; therefore, patient's warfarin has been held temporarily until this could be further evaluated. 2. Anemia, status post 1 unit of red blood cell transfusion. Currently with hemoglobin less than 8. Complains of fatigue and weakness; therefore, 1 unit of blood will be given. Will check hemoglobin and hematocrit after the blood transfusion. Per Dr. Comer, despite heme-positive stool, no acute indication for intervention at this time, as the patient has higher risk for any surgeries or intervention due to current comorbidities. 3. Large pelvic mass. Dr. Wong was consulted initially. Recommended patient receive no immediate procedure at this time and outpatient followup. Repeat CT of the abdomen and pelvis performed today. Will await the results and reconsult if needed. Due to ongoing anemia with Coumadin on board, will hold today's dose of Coumadin in case hemorrhagic cyst is noted on repeat CT abdomen and pelvis. 4. History of paroxysmal atrial fibrillation. Coumadin is held temporarily today due to worsening anemia, hemoglobin of 7.8. Repeat hemoglobin and hematocrit after blood transfusion. Rule out hemorrhagic bleed from the ovarian cyst and resume anticoagulation if no hemorrhage found on repeat imaging. 5. Renal failure secondary to over-diuresis. Resume back on her home dose of Lasix for her chronic systolic heart failure. 6. Chronic systolic heart failure. Patient is put back on Lasix and monitor patient's creatinine.
[2016-11-23] MEDS: IPRATROPIUM 0.5MG/ALBUTEROL 2.5MG INH SOL UD 3ML (DUONEB)(J7620) NEB SCH ×6 (04:00→20:00)
[2016-11-23 06:00] VITALS: BP 116/58
[2016-11-23] MEDS: SLF 3 ML SYR IV SCH ×3 (06:00→20:22)
[2016-11-23 06:59] LABS: MEAN CORPUSCULAR HEMOGLOBIN 30.9 pg (27.0-33.0); MEAN CORPUSCULAR VOLUME 93.6 fl (80.0-96.0); WHITE BLOOD COUNT 13.5 K/mm3 (4.0-10.0)
[2016-11-23 07:02] LABS: INR 2.67
[2016-11-23 07:35] LABS: ANION GAP 7 MEQ/L (8-16); BLOOD UREA NITROGEN 17 MG/DL (7-18); CALCIUM LEVEL 7.8 MG/DL (8.5-10.1); CARBON DIOXIDE LEVEL 29 MEQ/L (21-32); CHLORIDE LEVEL 105 MEQ/L (98-107); GLOMERULAR FILTRATION RATE > 60.0 (>51); GLUCOSE, FASTING 117 MG/DL (70-105); POTASSIUM SERUM 3.8 MEQ/L (3.5-5.1); SODIUM LEVEL 141 MEQ/L (136-145)
[2016-11-23] MEDS: LACTOBACILLUS ACIDOPHILUS CAP (BACID) PO SCH ×2 (08:18→17:42)
[2016-11-23] MEDS: POTASSIUM CHLORIDE 10 MEQ SR TABLET PO SCH (08:18)
[2016-11-23] MEDS: guaiFENesin ER 600 MG TAB PO SCH ×2 (08:18→20:21)
[2016-11-23] MEDS: AMIODARONE 100MG TABLET (PACERONE) PO SCH (08:19)
[2016-11-23] MEDS: FUROSEMIDE 40 MG TAB PO SCH (08:19)
[2016-11-23] MEDS: PANTOPRAZOLE 40MG TAB (PROTONIX) PO SCH (08:19)
[2016-11-23 18:09] LABS: INR 2.03
[2016-11-23] MEDS ORDERED: MOM 30ML SUSPENSION UDC PO ONE (18:30)
--- NOTE | 2016-11-23 19:52 | CR ---
DATE OF CONSULTATION: 11/23/2016 INPATIENT REQUESTING PHYSICIAN: Dr. Oglesby, hospitalist service. REASON FOR CONSULTATION: Anemia, heme-positive stool. HISTORY OF PRESENT ILLNESS: Ms. Celina aVllejo is a 56-year-old female with an extensive cardiac medical history including ischemic cardiomyopathy, atrial fibrillation, congestive heart failure, ventricular arrhythmia who presents to emergency room with shortness of breath and weakness. She was found to have amongst other things heme-positive stools and anemia. The patient tells me that she has been having frequent loose stools at home, but she denies any melena or bright red blood per rectum or any significant abdominal pain. Notable is that her INR on presentation was supratherapeutic, and she received fresh frozen plasma to correct this. It is also note that even during her elevated PT/INR, she denies having any melanotic stools or any bright red blood per rectum. During her hospital stay, she was also diagnosed with a pelvic mass, which is in the process of evaluation. Consultation was requested for evaluation of persistent anemia. PAST MEDICAL HISTORY: Congestive heart failure, coronary artery disease, paroxysmal atrial fibrillation, hypertension, ischemic cardiomyopathy. PAST SURGICAL HISTORY: ICD placement with pacemaker. ALLERGIES: No known drug allergies. SOCIAL HISTORY: Negative for tobacco. Negative for alcohol. MEDICATIONS AT HOME: Amiodarone, aspirin, Coumadin, spironolactone nitroglycerin. PHYSICAL EXAMINATION: Temperature 98.6, T-max 100.1, heart rate is 72. Blood pressure 116/58. She is 95% on room air. GENERAL: She is awake, alert and oriented times three in no acute distress. She is nontoxic in appearance, comfortably sitting at bedside. HEAD, EYES, EARS, NOSE AND THROAT: Grossly without abnormality. There is no mucosal pallor. No oral thrush. NECK: Supple. No lymphadenopathy, thyromegaly. CHEST: Distant breath sounds without rhonchi or crackles or any wheezing. HEART: Regular rate and rhythm, S1-S2. There is a 1-2/6 systolic ejection murmur at the aortic area. ABDOMEN: Is obese, soft, nontender. Good bowel sounds. No masses palpable. EXTREMITIES: There is 1 to 2+ pedal edema. RECTAL EXAMINATION: has been deferred. LABORATORY FINDINGS: PT/INR is 2.67, hemoglobin 8.6, WBCs 13.5, platelet count is 125, MCV is 93.6. Iron studies from 2 weeks ago reveal a iron level of 11, TIBC of 230, iron saturation 4.8, ferritin 135, BUN and creatinine are 17 and 0.9 respectively. C- reactive 11.5, hemoglobin 10.0/8.[address] ABDOMEN AND PELVIS 11/22/2016 IMPRESSION: 1. Complex predominantly cystic ovarian mass in the pelvis centered towards the right midline. It measures 13.25 x 9.3 cm. 2. Postoperative changes from laparoscopy with swelling of the right rectus, left oblique, and midline periumbilical tissues likely from laparoscopy port. 3. No ascites, adenopathy or pathologic size or other mass. There is no mesenteric or omental caking, ascites or adenopathy. Solid organs upper abdomen unremarkable. kidney show a fullness simple cyst upper fall posteriorly on the right. IMPRESSION: 1. Anemia of a mixed type including iron deficiency and low TIBC/chronic disease. 2. Heme-positive stool. 3. Supratherapeutic INR. 4. Pelvic mass. 5. Ischemic cardiomyopathy with ICD in place. DISCUSSION: Despite her supratherapeutic INR on presentation, the patient did not have any bright red blood per rectum or any melanotic stools. She has clear mucousy diarrheal stools. Despite her heme-positive stool test, I am not convinced that this patient has an acute GI bleed, ongoing. Certainly the fact that she actually does have heme-positive stools will require a GI workup including upper endoscopy and colonoscopy after Coumadin hold with a goal of INR between 1.5-1.6 and approval from cardiology via clearance to proceed with endoscopic evaluations. RECOMMENDATIONS: 1. Upper endoscopy and colonoscopy. 2. Correct INR to a goal of less than 1.5-1.6. 3. Cardiac clearance and address ICD management during procedures.
[2016-11-23 20:16] VITALS: BP 139/61
[2016-11-23] MEDS: ATORVASTATIN 20 MG TAB PO SCH (20:22)
[2016-11-23 22:00] VITALS: BP 139/61
[2016-11-24] MEDS: IPRATROPIUM 0.5MG/ALBUTEROL 2.5MG INH SOL UD 3ML (DUONEB)(J7620) NEB SCH ×7 (03:17→19:21)
[2016-11-24 06:00] VITALS: BP 102/53
[2016-11-24] MEDS ORDERED: HEPARIN DRIP 25,000 UNITS in APPROPRIATE DILUENT 1 EA IV SCH (06:29)
[2016-11-24] MEDS ORDERED: HEPARIN SOD (PORCINE) 5000 UNITS/ML VIAL IV PRN (06:30)
[2016-11-24] MEDS: SLF 3 ML SYR IV SCH ×3 (06:56→21:41)
[2016-11-24 07:29] LABS: MEAN CORPUSCULAR HEMOGLOBIN 30.8 pg (27.0-33.0); MEAN CORPUSCULAR VOLUME 93.3 fl (80.0-96.0); RED CELL DISTRIBUTION WIDTH 14.3 % (11.5-14.5); WHITE BLOOD COUNT 10.9 K/mm3 (4.0-10.0)
[2016-11-24 07:42] LABS: ANION GAP 4 MEQ/L (8-16); BLOOD UREA NITROGEN 17 MG/DL (7-18); CALCIUM LEVEL 8.2 MG/DL (8.5-10.1); CARBON DIOXIDE LEVEL 32 MEQ/L (21-32); CHLORIDE LEVEL 106 MEQ/L (98-107); CREATININE FOR GFR 0.87 MG/DL (0.55-1.02); GLOMERULAR FILTRATION RATE > 60.0 (>51); GLUCOSE, FASTING 118 MG/DL (70-105); SODIUM LEVEL 142 MEQ/L (136-145)
[2016-11-24 08:21] LABS: INR 1.75
[2016-11-24] MEDS: PANTOPRAZOLE 40MG TAB (PROTONIX) PO SCH (08:23)
[2016-11-24] MEDS: LACTOBACILLUS ACIDOPHILUS CAP (BACID) PO SCH ×2 (08:23→18:32)
[2016-11-24] MEDS: AMIODARONE 100MG TABLET (PACERONE) PO SCH (08:23)
[2016-11-24] MEDS: FUROSEMIDE 40 MG TAB PO SCH (08:23)
[2016-11-24] MEDS: guaiFENesin ER 600 MG TAB PO SCH ×2 (08:23→20:11)
[2016-11-24] MEDS: POTASSIUM CHLORIDE 10 MEQ SR TABLET PO SCH (08:24)
[2016-11-24] MEDS: PERCOCET 5MG/325MG TAB PO PRN ×2 (08:24→18:32)
--- NOTE | 2016-11-24 13:23 | IPN ---
DATE OF SERVICE: 11/23/2016 The patient seen and examined at the bedside. Chart has been reviewed. This morning, the patient has no new complaints. Ambulating well without much difficulty. No chest pain, pressure, or tightness. Denies any bright red blood per rectum, melena, black melanotic stool, hematemesis, coffee-ground emesis. Temperature 98.6, pulse 72, respiratory rate 18, blood pressure 116/58, 94% on room air. Generally, awake, alert, oriented times three, answering questions appropriately. Lungs are diminished but clear to auscultation. No wheezing, rales, or rhonchi. Heart: S1, S2, irregularly irregular. Abdomen is soft, nontender, nondistended. Positive bowel sounds. Extremities: No cyanosis or clubbing. Skin: [place] color. LABORATORY DATA: White count 13, hemoglobin 8.6, hematocrit 26, platelet count 125. Sodium 141, potassium 3.8, chloride 105, bicarbonate 29, BUN 17, creatinine 0.9, glucose 117. INPUT: 480. OUTPUT: 900 Negative 420. Current weight is 81.7 kg. MICROBIOLOGY: Hemoccult stool positive on 11/16/2016. ASSESSMENT AND PLAN: This is a 56-year-old female with history of ischemic cardiomyopathy, ejection fraction (EF) of 23% - 25%, automatic implantable cardioverter-defibrillator (AICD) for sick sinus tachybrady syndrome, paroxysmal atrial flutter with rapid ventricular response on chronic Coumadin, coronary artery disease (CAD) with angina, akinetic left ventricular thrombus, admitted for shortness of breath, had acute on chronic renal failure secondary to hypotension and diuretics, angiotensin-converting enzyme (LANEY) inhibitor, which have been withheld. The patient was found to be anemic, was transfused a unit of blood, and received fresh frozen plasma (FFP) for reversal. Evaluation of anemia included CT abdomen and pelvis, which showed a pelvic mass, evaluated by ultrasound once kidneys were improved from hypotension and renal failure, CT with contrast was performed, showing a solid component to the pelvic mass with possible malignancy. The patient had to receive 2 units of red blood cell transfusion with ongoing anemia. CURRENT ISSUES: Are as follows: 1. Persistent low-grade temperature. Microbiology is unremarkable as far as human rhinovirus and enterovirus. Rahnella, yeast, and pseudomonas fluorescens on sputum culture with chest x-ray showing no acute infiltrate. Therefore, all antibiotics have been discontinued due to risk of Clostridium (C) difficile. 2. Pelvic mass. Per Dr. Juve Brizuela, gynecology (GRINDING ROOM INSPECTOR) oncology in [place], [place], outpatient followup and CA-125 to be obtained. Optimize as much as possible and refer as outpatient. 3. Heme positive stool on 11/16/2016. On Coumadin. Requiring 2 units of red blood cell transfusion. No signs of retroperitoneal hematoma. Defer to Dr. Russo, has been consulted for colonoscopy due to recurrent requirement for blood transfusion. 4. Ischemic cardiomyopathy. AICD. EF 25%. Currently, compensated. 5. Acute kidney injury secondary to hypotension from overdiuresis. Currently, with normal creatinine. Appreciate nephrology's management of current issue. DISPOSITION: Stabilize the patient's potential gastrointestinal (GI) bleed. Evaluate with colonoscopy. If negative findings, may resume the patient's warfarin. Once therapeutic, may discharge home with outpatient followup with her electronics research engineer for optimization. Followup with Dr. oWng for the pelvic mass. Referral to Dr. Brizuela, GRINDING ROOM INSPECTOR oncology.
[2016-11-24 14:00] VITALS: BP 116/58
[2016-11-24] MEDS ORDERED: GOLYTELY SOLN 4000 ML BTL PO ONE (18:00)
[2016-11-24] MEDS: ATORVASTATIN 20 MG TAB PO SCH (20:11)
--- NOTE | 2016-11-24 21:36 | IPN ---
DATE: 11/24/2016 The patient seen and examined at the bedside. Chart has been reviewed. This morning, the patient has no complaints of chest pain, pressure or tightness, shortness of breath, fever, chills. The patient denies any bright red blood, melena, hematemesis, coffee-ground emesis, or black tarry stools. VITAL SIGNS: Temperature 99, pulse 81, respiratory rate 18, blood pressure 102/53, 91% on room air. GENERAL: Awake, alert, oriented times three, answering questions appropriately. LUNGS: Clear to auscultation. No wheezing, rales, or rhonchi. HEART: S1, S2, regular rate and rhythm. ABDOMEN: Obese, soft, nontender, nondistended. EXTREMITIES: Chronic edema. LABORATORY DATA: White count 10.9, hemoglobin 8.4, hematocrit 25, platelet count 144. Sodium 142, potassium 4, chloride 106, bicarbonate 32, BUN 17, creatinine 0.87, glucose of 118. INR of 1.75. ASSESSMENT AND PLAN: This is a 56-year-old female with history of ischemic cardiomyopathy, chronic systolic heart failure, hypertension with dual chamber implantable cardioverter-defibrillator 08/12/2015 for sick sinus syndrome, tachybrady, ischemic cardiomyopathy with paroxysmal atrial flutter with rapid ventricular response, ejection fraction (EF) in June of 2015 was 23%, on chronic Coumadin, coronary artery disease (CAD) with angina, admitted on 11/10/2016 with complaints of hypotension, acute on chronic renal failure secondary to overdiuresis and complaints of shortness of breath. At that time, repeat echocardiogram showed EF of 25%, grade 1 left ventricular diastolic dysfunction with no left ventricular thrombus, The patient's angiotensin-converting enzyme (LANEY) inhibitor and diuretics were withheld and Dr. Rendon of nephrology had been managing her renal failure and volume depletion which has now improved back to normal. The patient was having diarrhea and had metabolic acidosis, given Bicitra 30 mL every eight hours with improvement of bicarbonate level. She was found to have fecal occult blood positive and iron deficiency anemia, symptomatic anemia requiring two units of red blood cell transfusion with elevated international normalized ratio (INR) of 6.09, to reverse this received fresh frozen plasma (FFP), abdominal complaint evaluated by CT abdomen showing a pelvic mass, evaluated by health administration teacher, Dr. Wong, who recommended outpatient followup, repeat CT abdomen and pelvis showed a solid component. Dr. Brizuela in [place], gynecological oncologist, recommended outpatient followup. The patient had been on antibiotics for presumed pneumonia but chest x-ray remained negative. Sputum culture grew out Pseudomonas fluorescens and yeast-like organism with positive human rhinovirus and enterovirus. CURRENT ISSUES: 1. Persistent anemia with heme-positive stool. The patient has received two units red blood cells, held the patient's Coumadin at this time. Dr. Russo has been consulted for colonoscopy and esophagogastroduodenoscopy (EGD). She has been reversed with fresh frozen plasma (FFP). Check hemoglobin and hematocrit, appears to be stable. No overt bleeding. The patient will need to resumed back on Coumadin. 2. Ischemic cardiomyopathy. Ejection fraction (EF) of 25%. Per Dr. Núñez, since atrial fibrillation is paroxysmal and currently sinus rhythm, no immediate requirement to bridge with heparin therapy as there is no left ventricular thrombus found on repeat echocardiogram. 3. Large pelvic mass. Per Dr. Wong, outpatient followup. Per Dr. Juve Brizuela, [place] gynecological oncologist, outpatient followup, obtain CA-125 and optimize. No lymphadenopathy or significant ascites on CT abdomen and pelvis with contrast. 4. History of paroxysmal atrial fibrillation. Coumadin is held due to planned EGD and colonoscopy. The patient received fresh frozen plasma. Current international normalized ratio (INR) is 1.75. 5. Renal failure, secondary to overdiuresis. Currently stable. 6. Chronic systolic heart failure. Currently on Lasix.
[2016-11-24 22:00] VITALS: BP 138/54
[2016-11-25] MEDS ORDERED: GOLYTELY SOLN 4000 ML BTL PO ONE (05:00)
[2016-11-25] MEDS: SLF 3 ML SYR IV SCH ×3 (05:31→21:52)
[2016-11-25 07:11] LABS: INR 1.46
[2016-11-25 07:22] LABS: ANION GAP 5 MEQ/L (8-16); BLOOD UREA NITROGEN 15 MG/DL (7-18); CALCIUM LEVEL 8.7 MG/DL (8.5-10.1); CARBON DIOXIDE LEVEL 30 MEQ/L (21-32); CHLORIDE LEVEL 100 MEQ/L (98-107); CREATININE FOR GFR 0.78 MG/DL (0.55-1.02); GLOMERULAR FILTRATION RATE > 60.0 (>51); GLUCOSE, FASTING 96 MG/DL (70-105); POTASSIUM SERUM 4.2 MEQ/L (3.5-5.1); SODIUM LEVEL 135 MEQ/L (136-145)
[2016-11-25 07:23] LABS: MEAN CORPUSCULAR HEMOGLOBIN 31.5 pg (27.0-33.0); MEAN CORPUSCULAR HGB CONC 33.2 g/dl (32.0-36.5); RED CELL DISTRIBUTION WIDTH 14.4 % (11.5-14.5); WHITE BLOOD COUNT 9.3 K/mm3 (4.0-10.0)
[2016-11-25] MEDS: IPRATROPIUM 0.5MG/ALBUTEROL 2.5MG INH SOL UD 3ML (DUONEB)(J7620) NEB SCH ×5 (08:00→23:29)
[2016-11-25] MEDS: POTASSIUM CHLORIDE 10 MEQ SR TABLET PO SCH (08:55)
[2016-11-25] MEDS: AMIODARONE 100MG TABLET (PACERONE) PO SCH (08:55)
[2016-11-25] MEDS: FUROSEMIDE 40 MG TAB PO SCH (08:55)
[2016-11-25] MEDS: LACTOBACILLUS ACIDOPHILUS CAP (BACID) PO SCH ×2 (08:55→22:56)
[2016-11-25] MEDS: guaiFENesin ER 600 MG TAB PO SCH ×2 (08:55→21:51)
[2016-11-25] MEDS: PANTOPRAZOLE 40MG TAB (PROTONIX) PO SCH (08:55)
[2016-11-25 14:00] VITALS: BP 137/79
[2016-11-25] MEDS ORDERED: LIDOCAINE 2% INJ 100 MG/5 ML SDV (FOR ANES.) As Ordered ONE (19:55)
[2016-11-25] MEDS ORDERED: PROPOFOL 200 MG/20 ML VIAL As Ordered ONE (19:55)
[2016-11-25] MEDS ORDERED: PHENYLephrine HCL 500 MCG/5 ML (100MCG/ML) SYRINGE (J2370) As Ordered ONE (19:59)
--- NOTE | 2016-11-25 20:17 | ROOR ---
Patient Name: Celina Vallejo Procedure Date: 11/25/2016 7:32 PM Date of : 1960 Age: 56 Room: Main OR Gender: Female Note Status: Finalized Procedure: Upper GI endoscopy Indications: Heme positive stool Providers: Dimas RUSSO MD Referring MD: Selvin STEPHENSON MD, 2. Inpatient 2. Inpatient Requesting Provider: Medicines: Monitored Anesthesia Care Complications: No immediate complications. Procedure: Pre-Anesthesia Assessment: - The heart rate, respiratory rate, oxygen saturations, blood pressure, adequacy of pulmonary ventilation, and response to care were monitored throughout the procedure. The Endoscope was introduced through the mouth, and advanced to the third part of duodenum. The upper GI endoscopy was accomplished without difficulty. The patient tolerated the procedure well. Findings: A large hiatal hernia was present. The esophagus was normal. The stomach was normal. The examined duodenum was normal. Impression: - Moderate to large hiatal hernia. - Normal esophagus. - Normal stomach. - Normal examined duodenum. - No specimens collected. Recommendation: - Continue present medications. Dimas Russo MD Dimas RUSSO MD 11/25/2016 8:16:55 PM This report has been signed electronically. Number of Addenda: 0 Note Initiated On: 11/25/2016 7:32 PM Estimated Blood Loss: Estimated blood loss: none.
--- NOTE | 2016-11-25 20:21 | ROOR ---
Patient Name: Celina Vallejo Procedure Date: 11/25/2016 7:32 PM Date of : 1960 Age: 56 Room: Main OR Gender: Female Note Status: Finalized Procedure: Colonoscopy Indications: Heme positive stool Providers: Dimas RUSSO MD Referring MD: Selvin STEPHENSON MD, 2. Inpatient 2. Inpatient Requesting Provider: Medicines: Monitored Anesthesia Care Complications: No immediate complications. Procedure: Pre-Anesthesia Assessment: - The heart rate, respiratory rate, oxygen saturations, blood pressure, adequacy of pulmonary ventilation, and response to care were monitored throughout the procedure. The Colonoscope was introduced through the anus and advanced to 5 cm into the ileum. The colonoscopy was performed without difficulty. The patient tolerated the procedure well. The quality of the bowel preparation was good. Findings: The perianal and digital rectal examinations were normal. Internal hemorrhoids were found during retroflexion. The hemorrhoids were moderate. A patchy area of mildly erythematous mucosa was found in the ascending colon. This was biopsied with a cold forceps for histology. The exam was otherwise without abnormality on direct and retroflexion views. Impression: - Internal hemorrhoids. - A few small scattered patches of erythematous mucosa in the ascending colon (dubious significance). Biopsied. - The examination of the colon and terminal ileum was otherwise normal on direct and retroflexion views. Recommendation: - Await pathology results. - Telephone endoscopist for pathology results in 2 weeks. - Resume previous diet. - [facility] care. Dimas Russo MD Dimas RUSSO MD 11/25/2016 8:21:48 PM This report has been signed electronically. Number of Addenda: 0 Note Initiated On: 11/25/2016 7:32 PM Estimated Blood Loss: Estimated blood loss: none.
[2016-11-25] MEDS ORDERED: LR 1,000 ML IV SCH (20:45)
[2016-11-25] MEDS ORDERED: fentaNYL 100 MCG/2 ML INJECTION (J3010) IV PRN (20:45)
[2016-11-25] MEDS ORDERED: ONDANSETRON 4MG/2ML VIAL (J2405) IV PRN (20:45)
[2016-11-25 21:15] VITALS: BP 164/69
[2016-11-25 21:45] VITALS: BP 160/64
--- NOTE | 2016-11-25 21:45 | IPN ---
DATE: 11/25/2016 SUBJECTIVE: Patient seen and examined at the bedside. Chart has been reviewed. This morning the patient has no complaints. She denies any bright red blood per rectum, hematemesis, melena, coffee-grain emesis, black tarry stools. Denies any chest pain, pressure, tightness, shortness of breath, fever, chills or cough. No other issues per nursing overnight. OBJECTIVE: VITAL SIGNS: Temperature 97.6, pulse 73, respiratory rate 18, blood pressure 138/54, 96% on room air. LUNGS: Clear to auscultation. No wheezes, rales, or rhonchi. HEART: S1, S2. Sinus rhythm. ABDOMEN: Soft, nontender, nondistended. EXTREMITIES: No pitting edema. LABORATORY DATA: White count 9.3, hemoglobin 8.6, hematocrit 25.9, platelet count 140. Sodium 135, potassium 4, chloride 100, bicarbonate 30, BUN 15, creatinine 0.78. ASSESSMENT AND PLAN: This is a 56-year-old female, history of ischemic cardiomyopathy, chronic systolic failure, hypertension, dual-chamber implantable cardioverter defibrillator 08/12/2015, for sick sinus syndrome and tachy-radha, ischemic cardiomyopathy, paroxysmal atrial flutter, rapid ventricular response, ejection fraction (EF) of 23%, coronary artery disease (CAD), angina, admitted due to hypotension, acute on chronic renal failure secondary to over diuresis with Lasix with complaints of shortness of breath. She was found to have symptomatic anemia for which she received one unit of blood. INR was six, and was transfused fresh frozen plasma (FFP) for emergent Coumadin reversal. Evaluation for shortness of breath and anemia included CT abdomen and pelvis which showed a pelvic mass evaluated by Dr. Wong, POND SCALER, who felt that this was more cystic, recommended ultrasound which showed a solid component with recommendations for intravenous (IV) contrast CT study which showed solid component. No lymphadenopathy or pelvic ascites. At this time, the patient remained anemic with continued drop in her hemoglobin, heme-positive stool. Gastroenterology (GI) Dr. Russo has been consulted for colonoscopy and esophagogastroduodenoscopy (EGD). She has been placed proton pump inhibitor (PPI) to undergo EGD and colonoscopy today with holding her warfarin. CURRENT ISSUES: 1. Persistent anemia, heme-positive stool. Received two units of red blood cells. Held the patient's Coumadin. Dr. Russo has been consulted for EGD and colonoscopy. The patient's warfarin has been reversed with FFP. Check hemoglobin and hematocrit, appears to be stable. No overt signs of bleeding. We need to resume back on Coumadin for paroxysmal atrial flutter to decrease risk of cerebrovascular accident (CVA). 2. Pelvic mass. Per Dr. Wong, outpatient followup. Per Dr. Juve Brizuela, [facility]ne[facility] oncologist, outpatient followup. Await CA-125. No lymphadenopathy or ascites CT abdomen and pelvis, which if present would point towards ovarian malignancy. 3. Ischemic cardiomyopathy, EF 25%. Continue with all her home medications. No need for bridge therapy as the patient had no thrombus on the repeat echocardiogram. 4. History of paroxysmal atrial fibrillation. Coumadin reversed due to EGD and colonoscopy. 5. Persistent anemia of unknown etiology. 6. Renal failure secondary to over diuresis. Currently stable. 7. Chronic systolic failure. Currently on Lasix.
[2016-11-25] MEDS: ATORVASTATIN 20 MG TAB PO SCH (21:51)
[2016-11-25 22:45] VITALS: BP 157/62
[2016-11-25 23:45] VITALS: BP 139/60
[2016-11-26 02:00] VITALS: BP 138/62
[2016-11-26] MEDS: IPRATROPIUM 0.5MG/ALBUTEROL 2.5MG INH SOL UD 3ML (DUONEB)(J7620) NEB SCH ×5 (04:00→20:00)
[2016-11-26] MEDS: SLF 3 ML SYR IV SCH ×3 (05:46→20:44)
[2016-11-26 06:00] VITALS: BP 104/44
[2016-11-26 06:24] LABS: INR 1.39
[2016-11-26] MEDS: AMIODARONE 100MG TABLET (PACERONE) PO SCH (08:48)
[2016-11-26] MEDS: POTASSIUM CHLORIDE 10 MEQ SR TABLET PO SCH (08:48)
[2016-11-26] MEDS: PANTOPRAZOLE 40MG TAB (PROTONIX) PO SCH (08:48)
[2016-11-26] MEDS: LACTOBACILLUS ACIDOPHILUS CAP (BACID) PO SCH ×2 (08:48→18:30)
[2016-11-26] MEDS: guaiFENesin ER 600 MG TAB PO SCH ×2 (08:48→20:44)
[2016-11-26] MEDS: FUROSEMIDE 40 MG TAB PO SCH (08:49)
[2016-11-26] MEDS ORDERED: FUROSEMIDE 40 MG/4 ML VIAL (J1940) IV ONE (12:30)
--- NOTE | 2016-11-26 12:39 | REP ---
Chest x-ray: Two views. History: Cough. History of CHF. Comparison chest x-ray November 22, 2016. Findings: A bipolar pacemaker is seen in the right heart via the left side as before. Heart is not felt to be enlarged. There is mild linear scarring in the retrosternal clear space on lateral film. This is related to bullous formation in the left upper lobe on recent CT study. No infiltrate is seen. Impression: Bipolar pacemaker in place. Bullous formation left upper lobe in the retrosternal clear space. No active disease. Signed by Luis Lara MD 11/26/2016 12:45 P
[2016-11-26 14:00] VITALS: BP 137/64
--- NOTE | 2016-11-26 20:41 | IPN ---
DATE: 11/26/2016 Patient seen and examined at the bedside. Chart has been reviewed. Did not see any bright red blood per rectum, melena, hematemesis. Denies any abdominal pain, nausea, vomiting. She has a cough this morning, nonproductive. No fevers or chills overnight. Increasing lower extremity edema. VITAL SIGNS: Temperature 98.8, pulse 71, respiratory rate 18, blood pressure 104/44, 91% on room air. GENERAL: Patient is awake, alert, oriented times three. No pallor. No icterus. No jaundice. LUNGS: diminished but clear to auscultation in the upper lobes. HEART: S1, S2, regular rate and rhythm. ABDOMEN: Soft, nontender, nondistended. Positive bowel sounds. EXTREMITIES: Positive 1+ pitting edema. ASSESSMENT AND PLAN: A 56-year-old female with history of ischemic cardiomyopathy, chronic systolic failure, ejection fraction (EF) of 23%, hypertension, dual-chamber implantable cardioverter defibrillator 08/12/2015 for sick sinus syndrome, tachycardia/bradycardia, ischemic cardiomyopathy, paroxysmal atrial flutter with rapid ventricular response, coronary artery disease (CAD), angina, admitted due to hypotension, acute on chronic renal failure secondary to overdiuresis with Lasix with complaints of shortness of breath. She was found to have symptomatic anemia with hemoglobin of 7, for which she received 1 units of packed red blood cells. INR was 6 and was transfused fresh frozen plasma for emergent Coumadin reversal. Evaluation shortness of breath and anemia included CT abdomen and pelvis, which showed a pelvic mass, evaluated by both general surgeon as well as Dr. Wong, ART OBJECTS SALESPERSON, who felt that the pelvic mass was more cystic and recommended ultrasound, which showed solid component. Recommendations for intravenous (IV) contrast, CT study, which continues to show a solid component concerning for possible ovarian malignancy. There is no lymphadenopathy or pelvic ascites. Patient remained anemic with decreasing hemoglobin and heme-positive stool. She underwent esophagogastroduodenoscopy (EGD)/colonoscopy by Dr. Russo, which found internal hemorrhoids with a small patch of erythema, which was biopsied. EGD showed large hiatal hernia but no ulcers, gastritis, or esophagitis noted. Patient's warfarin has been discontinued for a planned EGD/colonoscopy. Will continue to be held for 7 days due to recent drop in hemoglobin, severe anemia, requiring 2 units of red blood cell transfusion. CURRENT ISSUES: 1. Anemia with heme-positive stool, positive internal hemorrhoids with small patch of erythematous lesion, which was biopsied. There are no upper gastrointestinal (GI) findings. EGD showed large hiatal hernia. No gastritis, duodenitis, or esophagitis. Continue withholding patient's Coumadin for 7 days. Monitor patient's hemoglobin and hematocrit for now. 2. Pelvic mass. Per Dr. Wong, outpatient followup, possible laparoscopy, and pelvic examination. Per Dr. Juve Brizuela in [place], outpatient followup and referral to him. Awaiting CA-125. No lymphadenopathy of ascites on CT abdomen and pelvis, which, if present, would point toward ovarian malignancy. May still be cystic lesions of the ovary. 3. Ischemic cardiomyopathy. EF of 25%. Continue on home medications. No need for bridge therapy, as patient has no thrombus on repeat echocardiogram. 4. History of paroxysmal atrial flutter. Coumadin had to be reversed due to elevated INR of 6 on admission. Received FFP at that time due to ongoing anemia with heme-positive stool. Coumadin has been withheld and will continue to be held for the next 7 days. Monitor hemoglobin and hematocrit and ongoing bleeding. 5. Renal failure secondary to over-diuresis. Dr. Rendon and Celeste have been managing. She currently has normal creatinine but complains of cough and increase in fluid retention. Will obtain a chest x-ray today, and aside from the 40 mg of Lasix daily, will add one dose of intravenous Lasix for some diuresis. DISPOSITION: Discharge plans are for Monday. She will need followup with Dr. Wong as well as Dr. Juve Brizuela for the pelvic mass. She will need followup with her print shop assistant, Dr. Núñez, regarding the ischemic cardiomyopathy and diuretic use. She will need home care referral for her congestive heart failure to monitor intake and output and respiratory and volume status.
[2016-11-26] MEDS: ATORVASTATIN 20 MG TAB PO SCH (20:44)
[2016-11-26 22:00] VITALS: BP 138/62
[2016-11-27] MEDS: IPRATROPIUM 0.5MG/ALBUTEROL 2.5MG INH SOL UD 3ML (DUONEB)(J7620) NEB SCH ×7 (04:00→23:09)
[2016-11-27] MEDS: SLF 3 ML SYR IV SCH ×3 (05:41→21:38)
[2016-11-27 06:00] VITALS: BP 19/54
[2016-11-27 06:37] LABS: INR 1.19
[2016-11-27] MEDS: LACTOBACILLUS ACIDOPHILUS CAP (BACID) PO SCH ×2 (10:10→17:34)
[2016-11-27] MEDS: AMIODARONE 100MG TABLET (PACERONE) PO SCH (10:11)
[2016-11-27] MEDS: PANTOPRAZOLE 40MG TAB (PROTONIX) PO SCH (10:11)
[2016-11-27] MEDS: guaiFENesin ER 600 MG TAB PO SCH ×2 (10:11→21:37)
[2016-11-27] MEDS: FUROSEMIDE 40 MG TAB PO SCH (10:11)
[2016-11-27] MEDS: POTASSIUM CHLORIDE 10 MEQ SR TABLET PO SCH (10:12)
[2016-11-27 14:00] VITALS: BP 142/64
[2016-11-27] MEDS: ATORVASTATIN 20 MG TAB PO SCH (21:37)
[2016-11-27 22:00] VITALS: BP 139/63
[2016-11-27] MEDS: FUROSEMIDE 40 MG/4 ML VIAL (J1940) IV ONE ×2 (23:19)
[2016-11-28] MEDS: SLF 3 ML SYR IV SCH (00:57)
[2016-11-28] MEDS: IPRATROPIUM 0.5MG/ALBUTEROL 2.5MG INH SOL UD 3ML (DUONEB)(J7620) NEB SCH ×3 (01:27→11:10)
--- NOTE | 2016-11-28 01:38 | REP ---
Clinical: Shortness of breath . Comparison: 11/26/2016 . Findings: The mediastinum and cardiac silhouette are stable and within normal limits for portable technique. Pacemaker in satisfactory position. The lung jolley are clear without acute consolidation, effusion, or pneumothorax. Skeletal structures are intact. Impression: Normal portable chest x-ray Signed by Juve Myles MD 11/28/2016 01:30 A
[2016-11-28] MEDS ORDERED: FUROSEMIDE 40 MG TAB PO ONE ×2 (02:00→10:00)
[2016-11-28 06:00] VITALS: BP 122/59
[2016-11-28 07:23] LABS: INR 1.15
[2016-11-28 07:34] LABS: ANION GAP 4 MEQ/L (8-16); BLOOD UREA NITROGEN 11 MG/DL (7-18); CALCIUM LEVEL 8.4 MG/DL (8.5-10.1); CARBON DIOXIDE LEVEL 32 MEQ/L (21-32); CHLORIDE LEVEL 104 MEQ/L (98-107); CREATININE FOR GFR 0.72 MG/DL (0.55-1.02); GLOMERULAR FILTRATION RATE > 60.0 (>51); GLUCOSE, FASTING 99 MG/DL (70-105); POTASSIUM SERUM 3.5 MEQ/L (3.5-5.1); SODIUM LEVEL 140 MEQ/L (136-145)
[2016-11-28] MEDS: guaiFENesin ER 600 MG TAB PO SCH (09:41)
[2016-11-28] MEDS: LACTOBACILLUS ACIDOPHILUS CAP (BACID) PO SCH (09:41)
[2016-11-28] MEDS: PANTOPRAZOLE 40MG TAB (PROTONIX) PO SCH (09:41)
[2016-11-28] MEDS: POTASSIUM CHLORIDE 10 MEQ SR TABLET PO SCH (09:42)
[2016-11-28] MEDS: FUROSEMIDE 40 MG TAB PO SCH (09:42)
[2016-11-28] MEDS: AMIODARONE 100MG TABLET (PACERONE) PO SCH (09:48)
--- NOTE | 2016-12-23 06:33 | DSES ---
DATE OF ADMISSION: 11/10/2016 DATE OF DISCHARGE: 11/28/2016 PRIMARY DISCHARGE DIAGNOSES: 1. Anemia with heme-positive stool. Colonoscopy positive for internal hemorrhoids. 2. Large hiatal hernia. 3. Pelvic mass. 4. Ischemic cardiomyopathy, ejection fraction (EF) of 25%. 5. History of paroxysmal atrial flutter. 6. Renal failure secondary to overdiuresis. 7. Right lower lobe pneumonia. CONSULTANTS DURING THIS ADMISSION: 1. Dr. Rendon and Dr. Alonso from nephrology. 2. Dr. Wong, obstetrics/gynecology (CUSTOMER SERVICE REPRESENTATIVE). 3. Dr. Russo, manager documentation. 4. General surgeon, Dr. Martinez. PROCEDURES DURING THIS ADMISSION: Esophagogastroduodenoscopy (EGD), colonoscopy 11/24/[address] Dimas Russo. DISCHARGE MEDICATIONS: - amiodarone 100 mg daily - atorvastatin 80 mg nightly - Coreg 6.25 mg twice a day - lisinopril 20 mg daily - nitroglycerin 0.4 mg sublingual as needed for chest pains - spironolactone 37.5 mg daily Patient's aspirin and warfarin were held due to active gastrointestinal (GI) bleed from internal hemorrhoids to be resumed by her outpatient providers. IMMEDIATE FOLLOWUP ISSUES: 1. Cardiology, Dr. Núñez regarding congestive heart failure, EF of 25% and resumption of Coumadin once patient's GI bleeding has subsided for 1 week. 2. Pelvic mass, to followup with Dr. Wong for further workup. Dr. Brizuela had been consulted and would gladly see the patient on referral if needed. 3. GI bleed, followup with Dr. Russo as needed. HOSPITAL COURSE: This is a 56-year-old female with history of ischemic cardiomyopathy, chronic systolic failure, EF of 25%, hypertension, dual-chamber implantable cardioverter defibrillator 09/01/2015, for sick sinus syndrome, tachy-radha, ischemic cardiomyopathy, paroxysmal atrial flutter with rapid ventricular response, coronary artery disease (CAD), angina, admitted due to low blood pressure with acute on chronic renal failure secondary to overdiuresis with Lasix with complaints of shortness of breath. She was found to have acute on chronic renal failure and symptomatic anemia with hemoglobin of 7 for which she received 1 unit of red blood cell transfusion. International normalized ratio (INR) was 6, then she was transfused fresh frozen plasma for emergent Coumadin reversal. Evaluation of shortness of breath and anemia included CT abdomen and pelvis, which showed a pelvic mass. Evaluated by Dr. Martinez, general surgeon, who recommended no surgical intervention and for gynecology (PAPER GUILLOTINE OPERATOR) evaluation. Dr. Wong, CUSTOMER SERVICE REPRESENTATIVE felt that the pelvic mass was more cystic, recommended ultrasound which showed a solid component. Recommendation for intravenous (IV) contrast CT study was made by the radiologist. Contrast study continues to show solid component concerning for possible ovarian malignancy. However, no lymphadenopathy or pelvic ascites were seen. Patient remained anemic. Her Coumadin, as well as aspirin were held due to heme-positive stool. After blood transfusion, she underwent EGD, colonoscopy, Dr. Russo with findings of internal hemorrhoids and a small patch of erythema, which was biopsied. EGD showed large hiatal hernia with no ulcers, gastritis or esophagitis. Patient's warfarin was to be discontinued for 7 days due to recent GI bleed requiring 2 units of red blood cell transfusion. During her hospital stay, CA-125 was obtained and was normal at 24.6. Dr. Brizuela, PAPER GUILLOTINE OPERATOR oncologist in [place] was contacted for possible referral. Immediate followup with Dr. Wong to determine the need for further PAPER GUILLOTINE OPERATOR oncology referral to be made as outpatient. Patient, on CT chest, was found to have a right lower lobe pneumonia and treated with full course of 7 days of intravenous antibiotics. Patient was stable at discharge after passing home safety evaluation. Hemoglobin and hematocrit remained stable at 9 and 28 at discharge. LABORATORIES ON DISCHARGE: White count 9.3, hemoglobin 9, hematocrit 28, platelet count 140. Sodium 140, potassium 3.5, chloride 104, bicarbonate 32, BUN 11, creatinine 0.72, glucose 99. Microbiology: Sputum culture on 11/22, yeast-like organism. 11/09/2016 RSV panel, human rhinovirus and enterovirus. Blood culture 11/09 no growth. Hemoccult stool 11/10 positive. Clostridium (C) difficile by PCR on 11/10 negative. Sputum culture 11/11, Rahnella yeast and Pseudomonas fluorescens. Sputum culture 11/22, yeast-like organism. IMAGING STUDIES: Chest CT 11/11 shows focal consolidation in the right lower lobe, mild patchy infiltrate in the lingula. CT abdomen and pelvis on 11/11/2016 shows large cyst in the midline of the pelvis of the collapsed bladder, large crescentic shaped low density structure along the right lateral wall of the cyst, possibly hematoma or abscess. Neoplasm is not discounted. May be represent a giant cell adenoma with hemorrhage or abscess. MRI might be useful. Pelvic ultrasound shows once again a complex cystic mass measuring 13.5 x 9.9 x 13.2 cm. Along the anterior aspect of the main cystic mass, there is a complex solid and cystic area of 6.8 x 1.[address] abdomen and pelvis with IV contrast on 11/22 shows complex, predominantly cystic ovarian mass in the pelvis centered towards the right of midline measuring 3.2 x 12 x 9.3 cm, bilateral rim of soft tissue, postoperative changes from laparoscopy with swelling of the right rectus, left obliques and some midline periumbilical tissue likely from laparoscopy port. Solid organs upper abdomen unremarkable. No ascites, adenopathy of pathologic size or other mass. Kidneys show only a simple cyst upper pole posteriorly on the right. Bones without acute findings. Time spent on discharge 30 minutes.
[2017-01-10] MEDS ORDERED: FURO20TA2 PO (08:27)
[2017-01-10] MEDS ORDERED: WARF-58 PO ×2 (08:27)
[2017-01-10] MEDS ORDERED: FERR1TAB8 PO (08:27)
== END 2016-11-28 12:00 | disposition home or self-care (01) | DRG 140 ==
LOC: M ED 22:45 → M ED INP 11-10 03:23 → M ICU 11-10 05:13 → M MS5PR 11-16 14:20
PROVIDERS: ADMIT Internal Medicine; ATTEND General Practice
PROC: 30233N1 Transfusion of Nonautologous Red Blood Cells into Peripheral Vein, Percutaneous Approach (ICD-10-PCS; principal; 2016-11-11)
PROC: 30233K1 Transfusion of Nonautologous Frozen Plasma into Peripheral Vein, Percutaneous Approach (ICD-10-PCS; 2016-11-11)
PROC: 0DJ08ZZ Inspection of Upper Intestinal Tract, Via Natural or Artificial Opening Endoscopic (ICD-10-PCS; 2016-11-25)
PROC: 0DBH8ZX Excision of Cecum, Via Natural or Artificial Opening Endoscopic, Diagnostic (ICD-10-PCS; 2016-11-25)
DX: J44.1 Chronic obstructive pulmonary disease with (acute) exacerbation (principal); I50.23 Acute on chronic systolic (congestive) heart failure; N17.9 Acute kidney failure, unspecified; J18.9 Pneumonia, unspecified organism; D68.4 Acquired coagulation factor deficiency; E87.0 Hyperosmolality and hypernatremia; E87.2 Acidosis; I11.0 Hypertensive heart disease with heart failure; I48.92 Unspecified atrial flutter; E87.5 Hyperkalemia; E83.51 Hypocalcemia; I48.0 Paroxysmal atrial fibrillation; E87.70 Fluid overload, unspecified; Z79.01 Long term (current) use of anticoagulants; I25.10 Atherosclerotic heart disease of native coronary artery without angina pectoris; Z95.810 Presence of automatic (implantable) cardiac defibrillator; Z87.891 Personal history of nicotine dependence; Z79.899 Other long term (current) drug therapy; Z79.82 Long term (current) use of aspirin; I25.5 Ischemic cardiomyopathy; E78.00 Pure hypercholesterolemia, unspecified; D50.9 Iron deficiency anemia, unspecified; E78.5 Hyperlipidemia, unspecified; I35.0 Nonrheumatic aortic (valve) stenosis; B97.89 Other viral agents as the cause of diseases classified elsewhere; E87.6 Hypokalemia; K44.9 Diaphragmatic hernia without obstruction or gangrene; K64.8 Other hemorrhoids; N94.89 Other specified conditions associated with female genital organs and menstrual cycle

== ENCOUNTER 2017-01-25 13:46 | Day surgery (SDC) | payer OTHER ==
[~2017-01-25] VITALS: Ht 160 cm; Wt 72.1 kg
[~2017-01-25 13:46] MED LIST: AMIO200T PO; ASPI1TAB15; ASPI81TAEC PO; ATOR80TA59 PO; BUPIVACAINE HCL 0.25% 30 ML VIAL As Ordered ONE; CARV6.25 PO; COUM1TAB19 PO; FERR1TAB8 PO; FURO20TA2 PO; LIDOCAINE 2% INJ 100 MG/5 ML SDV (FOR ANES.) As Ordered ONE; LISI-538 PO; MIDAZOLAM INJ 2 MG/2 ML VIAL (J2250) As Ordered ONE; NITR0.4S14 SL; PROPOFOL 200 MG/20 ML VIAL As Ordered ONE; ROCURONIUM BROMIDE 50 MG/5 ML VIAL/SYRINGE As Ordered ONE; SPIR25TA2 PO; WARF-58 PO; dexameTHASONE 4 MG/ML 1ML VIAL (J1100) As Ordered ONE; fentaNYL 250 MCG/5 ML INJECTION (J3010) As Ordered ONE
[2017-01-25] MEDS ORDERED: LIDOCAINE 1% SDV 5 ML VIAL SQ ONE (14:00)
[2017-01-25] MEDS ORDERED: LR 1,000 ML IV ONE (14:00)
[2017-01-25 14:32] LABS: INR 1.22
[2017-01-25] MEDS ORDERED: HYDROmorphone HCL 2 MG/ML 1ML VIAL (J1170) As Ordered ONE ×2 (14:37→16:34)
[2017-01-25] MEDS ORDERED: NEOSTIGMINE 1MG/ML 5 ML SYRINGE (J2710) As Ordered ONE ×2 (14:37→16:38)
[2017-01-25] MEDS ORDERED: ONDANSETRON 4MG/2ML VIAL (J2405) As Ordered ONE (14:37)
[2017-01-25] MEDS ORDERED: KETOROLAC 60 MG/2 ML VIAL (J1885) As Ordered ONE ×2 (14:37→17:07)
[2017-01-25] MEDS ORDERED: GLYCOPYRROLATE INJ 0.2 MG/ML 2 ML VIAL As Ordered ONE ×2 (14:37→16:38)
[2017-01-25] MEDS ORDERED: PHENYLEPHRINE INJ 10MG/ML VIAL (J2370) As Ordered ONE (16:23)
[2017-01-25] MEDS ORDERED: fentaNYL 100 MCG/2 ML INJECTION (J3010) As Ordered ONE (16:29)
[2017-01-25] MEDS ORDERED: MIDAZOLAM INJ 2 MG/2 ML VIAL (J2250) As Ordered ONE (16:29)
[2017-01-25] MEDS ORDERED: PERCOCET 5MG/325MG TAB As Ordered ONE (17:34)
[2017-01-25] MEDS ORDERED: PERCOCET 5MG/325MG TAB PO PRN ×2 (18:00)
[2017-01-25] MEDS ORDERED: fentaNYL 100 MCG/2 ML INJECTION (J3010) IV PRN (18:00)
[2017-01-25] MEDS ORDERED: ONDANSETRON 4MG/2ML VIAL (J2405) IV PRN (18:00)
[2017-01-25] MEDS ORDERED: LR 1,000 ML IV SCH (18:00)
[2017-01-25] MEDS ORDERED: PERCOCET PO (18:10)
[2017-01-25 18:50] VITALS: BP 121/55
--- NOTE | 2017-01-26 13:21 | RO ---
DATE OF PROCEDURE: 01/25/2017 PREOPERATIVE DIAGNOSIS: Ovarian mass. POSTOPERATIVE DIAGNOSIS: Left ovarian cyst. PROCEDURE PERFORMED: Laparoscopic bilateral salpingo-oophorectomy. SURGEON: Kelly Wong MD HIGH SCHOOL SOCIAL SCIENCE TEACHER: Jacek Yang MD ANESTHESIA: General endotracheal anesthesia. ESTIMATED BLOOD LOSS: 5 mL. INTRAVENOUS FLUID: 300 mL of Lactated Ringer's solution. URINE OUTPUT: 200 mL. SPECIMENS: Bilateral adnexa. OPERATIVE FINDINGS: Patient with approximately 15 cm left ovarian cyst. PREOPERATIVE ANTIBIOTICS: None. DESCRIPTION OF OPERATION: After informed consent was obtained and written consent was reviewed, the patient was brought to the operating room where general endotracheal anesthesia was obtained. She was then placed in lithotomy position and was prepped and draped in a normal sterile fashion. A time out in the operating room was then performed identifying the patient, procedure to be performed, as well as drug allergies. A Mathew catheter was then placed and set to gravity. A bivalve speculum was then placed in the vagina revealing the cervix. A Pap smear was then performed. Next, a sponge stick was placed into the patient's vagina. The speculum was removed and gloves were changed. Attention was turned to the patient's abdomen where 0.25% Marcaine was infused in the umbilical region. This area was incised and an 11 mm trocar and sleeve was advanced through this incision. Intra-abdominal placement was confirmed. A pneumoperitoneum was then obtained with CO2 gas. Two additional port sites were placed, left and to the right of the umbilicus. These areas were infused with 0.25% Marcaine and incisions were made in these areas. 5 mm Trocars and sleeves were advanced through each one of these incisions under direct visualization. Next, the patient's abdomen was then surveyed with the above noted findings. First lysis of adhesions was performed involving omental adhesions on the anterior abdominal wall. Next, there was intraoperative rupture and drainage of the left ovarian cyst with copious amounts of serous fluid obtained. Next, the left adnexa was then placed on traction. Using the harmonic alexander device, the infundibulopelvic ligament was then cauterized and ligated followed by cauterization and ligation of the uterine ovarian ligament. This specimen was then brought out through the umbilica port site. In a similar fashion the right infundibulopelvic ligament was then placed on traction and was then cauterized and ligated with good hemostasis noted. The uterine ovarian ligament was then cauterized and ligated with good hemostasis noted and the specimen was brought out through the umbilical port site. The surgical areas were inspected and noted to be hemostatic. The abdomen was then irrigated and suctioned. The pneumoperitoneum was then released. Instruments were removed from the patient's abdomen. Trocars were removed from the patient's abdomen. The umbilical port site was closed with #0 Vicryl. All three skin incisions were closed with #4-0 Monocryl and dressed with DERMABOND. The sponge stick was then taken out of the vagina as well as the Mathew catheter removed from the patient's bladder. The patient was then taken out of lithotomy position, was awakened from general anesthesia and taken to recovery in stable condition. Count were correct. MTDD
== END 2017-01-25 19:15 | disposition home or self-care (01) ==
LOC: M SDC 13:46
PROVIDERS: ATTEND Obstetrics & Gynecology
DX: N83.202 Unspecified ovarian cyst, left side (principal); I25.10 Atherosclerotic heart disease of native coronary artery without angina pectoris; I25.2 Old myocardial infarction; Z95.810 Presence of automatic (implantable) cardiac defibrillator; Z79.01 Long term (current) use of anticoagulants; I10 Essential (primary) hypertension; E78.4 Other hyperlipidemia; D64.9 Anemia, unspecified; Z79.899 Other long term (current) drug therapy
CPT/HCPCS: 36415; 58661; 85610; 86850; 86900; 86901; 87624; 88307; G0123

== ENCOUNTER → 2017-02-28 | Outpatient (CLI) | payer OTHER ==
[~2017-02-28] MED LIST changes: -BUPIVACAINE HCL 0.25% 30 ML VIAL As Ordered ONE; +HEPARIN 1,000 UNITS/ML 10ML VIAL (FOR RADIOLOGY& DIALYSIS ONLY) As Ordered ONE; +ISOVUE-300 61% 50ML VIAL (Q9967) As Ordered ONE; +ISOVUE-370 76% 100ML VIAL (Q9967) As Ordered ONE; -LIDOCAINE 2% INJ 100 MG/5 ML SDV (FOR ANES.) As Ordered ONE; +LIDOCAINE 2% MDV 20 ML VIAL As Ordered ONE; +PERCOCET PO; -PROPOFOL 200 MG/20 ML VIAL As Ordered ONE; -ROCURONIUM BROMIDE 50 MG/5 ML VIAL/SYRINGE As Ordered ONE; -dexameTHASONE 4 MG/ML 1ML VIAL (J1100) As Ordered ONE; +fentaNYL 100 MCG/2 ML INJECTION (J3010) As Ordered ONE; -fentaNYL 250 MCG/5 ML INJECTION (J3010) As Ordered ONE
--- NOTE | 2017-02-28 11:20 | RO ---
DATE OF PROCEDURE: 02/28/2017 PREPROCEDURE DIAGNOSIS: Right lower extremity claudication. POSTPROCEDURE DIAGNOSIS: Right lower extremity claudication. ATTENDING SURGEON: Chano Meyers MD ART SPECIALIST: ERICA Yee, and Tracie Osborne ANESTHESIA: PROCEDURE: Left femoral artery cannulation, left iliofemoral angiogram. INDICATION: The patient is a 56-year-old female with claudication, which is severely debilitating, in the right lower extremity and no pulses in the right femoral popliteal or dorsalis pedis and posterior tibial regions, which are palpable. The patient does have Doppler signals in both lower extremities and a weakly palpable left femoral pulse. The patient will undergo an angiogram with possible angioplasty and/or stent. Risks, benefits, and alternative treatment options were discussed with the patient. Benefits included but were not limited to intervention with resolution of her symptoms. Alternative treatment options included but were not limited to no intervention. Risks included but were not limited to infection, bleeding, renal failure requiring hemodialysis, possible need for open surgical intervention, retroperitoneal hematoma, complications from sedation, cerebrovascular accident, myocardial infarction, pulmonary embolus, deep venous thrombosis (DVT), loss of limb, loss of life, and poor outcome. The patient's questions were answered. The patient voices understanding of the risks, benefits, and alternative treatment options. The patient agrees to proceed with a right lower extremity angiogram with the associated risks. ANESTHESIA: Local with sedation with 10.5 mg of Versed and 25 mcg of Fentanyl and 10 mL of 2% lidocaine. FLUORO TIME: 1.3 minutes. CONTRAST: 1 mL. SEDATION TIME: From 9:26 a.m. to 9:52 a.m. with the sedation and cardiopulmonary monitoring performed by the registered nurse (RN) in the room under my direct supervision and direction. I was present for and directed the entire case. HEPARIN: None. COMPLICATION: None. DRAINS: None. SPECIMENS: None. IMPLANTS: None. DESCRIPTION OF PROCEDURE: The patient was taken to the angiography suite, placed supine on the angiography room table, and then prepped and draped in a standard surgical fashion. A time-out was then completed confirming the correct patient, procedure, and laterality. The left femoral artery was then cannulated with a micropuncture needle after anesthetizing the overlying skin with 1% lidocaine. The micropuncture wire was advanced through the micropuncture needle but with some difficulty entering into the external and common iliac arteries. The micropuncture sheath was then upsized over the wire from the micropuncture needle, and a Bentson wire was used to attempt passage through the iliac arteries without success. An angled glidewire was used to attempt passage without success, and then an iliofemoral angiogram was performed, showing the left common and external iliac arteries to be occluded. The procedure was aborted at this point. The sheath was removed and manual compression applied for hemostasis, which was noted. All instrument, sponge, and needle counts were correct at the end of the case. There were no complications. Dr. Meyers was present for and directed the entire case. The patient was transferred to the holding area and subsequently home in stable condition. RADIOLOGIC SUPERVISION INTERPRETATION: The initial iliac femoral angiogram was performed after inability to pass the wire through the external iliac artery into the common iliac artery and the aorta, and this showed occlusion of the common iliac and external iliac arteries with filling of the common femoral artery via collaterals. The patient will undergo a CT angiogram to evaluate for possible aortic and bilateral iliac artery occlusion.
--- NOTE | 2017-02-28 12:11 | REP ---
CT angiogram of the abdominal aorta and bilateral lower extremity runoff: Scanning is performed with intravenous contrast. There is non calcified atheroma throughout the abdominal aorta, iliac and femoral arteries or popliteal arteries and trifurcation arteries. There is occasional calcified atheroma. There is ectasia of the distal abdominal aorta above the bifurcation measuring up to 2.9 cm in AP diameter. There is no periaortic hematoma. There is no stenosis of the aorta. There is stenosis at the proximal celiac artery. There is no stenosis of the superior mesenteric artery. The inferior mesenteric artery is not appear to be opacified. No renal artery stenosis is identified. There is complete occlusion of the right iliac artery at its origin. There is a occlusion of the right common femoral artery and the superficial and deep femoral arteries are occluded. There is reconstitution of the right popliteal artery by collateral flow. There is flow across the right ankle through the anterior posterior tibial arteries. The right peroneal artery is patent to just above the ankle. The left common iliac artery is patent. There is no occlusion of the left external iliac artery. The right internal iliac artery appears patent. The left superficial and profunda arteries are occluded. The left popliteal artery is reconstituted via collateral flow. There is flow across the left ankle through the anterior tibial artery. The posterior tibial artery and peroneal artery are patent to just above the ankle. CT of the abdomen and pelvis: Comparison is 11/22/2016. The visualized lung jolley are unremarkable. The hepatic parenchyma, gallbladder, pancreas and spleen are unremarkable. The adrenals and kidneys are unremarkable except for right renal cortical cyst. This is unchanged. There is no bowel distension. Mesentery is unremarkable. Pelvis: The previous ovarian cystic mass is no longer present. The bladder is unremarkable. There is no adenopathy or ascites. Pelvic bowel loops are unremarkable. Impression: Severe bilateral lower extremity stenoses as described. The popliteal arteries are reconstituted via collateral flow bilaterally with flow across the ankles as described. Stenosis of the proximal celiac artery. The inferior mesenteric artery is not visualized. No renal artery stenosis. No superior mesenteric artery stenosis. The atheromatous plaque is predominately noncalcified. There are occasional small calcified atheromatous plaques. Signed by Aleksandr Shaver MD 02/28/2017 12:02 P
== END | disposition home or self-care (01) ==
LOC: M IRPRO 08:02
PROVIDERS: ATTEND Surgery Vascular Surgery
DX: I73.9 Peripheral vascular disease, unspecified (principal)
CPT/HCPCS: 36140; 75635; 75710; 99152; 99153; C1769; C1887; C1894; J2250; J3010; Q9967

== ENCOUNTER 2017-03-16 09:03 | Inpatient (IN) | payer OTHER ==
[~2017-03-16] VITALS: Ht 160 cm; Wt 75.6 kg
[~2017-03-16 09:03] MED LIST changes: -HEPARIN 1,000 UNITS/ML 10ML VIAL (FOR RADIOLOGY& DIALYSIS ONLY) As Ordered ONE; -ISOVUE-300 61% 50ML VIAL (Q9967) As Ordered ONE; -ISOVUE-370 76% 100ML VIAL (Q9967) As Ordered ONE; -LIDOCAINE 2% MDV 20 ML VIAL As Ordered ONE; -MIDAZOLAM INJ 2 MG/2 ML VIAL (J2250) As Ordered ONE; +SPIRONOLACTONE 25 MG TAB PO SCH; -fentaNYL 100 MCG/2 ML INJECTION (J3010) As Ordered ONE
[2017-03-16] MEDS ORDERED: LR 1,000 ML IV SCH ×3 (09:15→15:00)
[2017-03-16 09:50] LABS: MEAN CORPUSCULAR HEMOGLOBIN 29.3 pg (27.0-33.0); MEAN CORPUSCULAR HGB CONC 31.4 g/dl (32.0-36.5); MEAN CORPUSCULAR VOLUME 93.4 fl (80.0-96.0); RED CELL DISTRIBUTION WIDTH 15.4 % (11.5-14.5); WHITE BLOOD COUNT 9.1 10^3/uL (4.0-10.0)
[2017-03-16 10:02] LABS: INR 2.22
[2017-03-16] MEDS ORDERED: PROTAMINE SULF INJ 50 MG/5 ML VIAL (J2720) As Ordered ONE ×2 (10:19→13:52)
[2017-03-16] MEDS ORDERED: HEPARIN SOD (PORCINE) 5000 UNITS/ML VIAL As Ordered ONE ×3 (10:19→13:00)
[2017-03-16] MEDS ORDERED: THROMBIN SOLN 20,000 UNITS KIT As Ordered ONE (10:19)
[2017-03-16] MEDS ORDERED: ceFAZolin 2 GM/D5W 50 ML IV BAG (J0690) As Ordered ONE (11:26)
[2017-03-16] MEDS ORDERED: LIDOCAINE 1% SDV INJ 30 ML VIAL As Ordered ONE (11:27)
[2017-03-16] MEDS ORDERED: BUPIVACAINE HCL 0.5% 30 ML VIAL As Ordered ONE (11:28)
[2017-03-16] MEDS ORDERED: MIDAZOLAM INJ 2 MG/2 ML VIAL (J2250) As Ordered ONE (12:00)
[2017-03-16] MEDS ORDERED: LIDOCAINE 2% INJ 100 MG/5 ML SDV (FOR ANES.) As Ordered ONE (12:00)
[2017-03-16] MEDS ORDERED: PROPOFOL 200 MG/20 ML VIAL As Ordered ONE ×3 (12:00→13:07)
[2017-03-16] MEDS ORDERED: fentaNYL 100 MCG/2 ML INJECTION (J3010) As Ordered ONE (12:00)
[2017-03-16] MEDS ORDERED: BISACODYL 10 MG SUPP PR PRN (14:15)
[2017-03-16] MEDS ORDERED: ACETAMINOPH W/CODEINE #3 TAB UD PO PRN (14:15)
[2017-03-16] MEDS ORDERED: WARFARIN SOD 3 MG TAB PO SCH (14:15)
[2017-03-16] MEDS ORDERED: ONDANSETRON 4MG/2ML VIAL (J2405) IV PRN ×2 (14:15→15:00)
[2017-03-16] MEDS ORDERED: MOM 30ML SUSPENSION UDC PO PRN (14:15)
[2017-03-16] MEDS ORDERED: METOCLOPRAMIDE INJ 10MG/2ML VIAL (J2765) IV PRN (14:15)
[2017-03-16] MEDS ORDERED: NITROGLYCERIN 0.4 MG SUBL TABLET SL PRN (14:15)
[2017-03-16] MEDS ORDERED: PHENYLephrine HCL 500 MCG/5 ML (100MCG/ML) SYRINGE (J2370) As Ordered ONE (14:24)
--- NOTE | 2017-03-16 14:30 | ROOPDOC ---
[facility] Report Of Operation Report of Operation DATE OF PROCEDURE: 03/16/17 PREOPERATIVE DIAGNOSES: Bilateral lower extremity claudication. Right common iliac, external iliac and common femoral arterial occlusion. Left external iliac artery and common femoral arterial occlusion. POSTOPERATIVE DIAGNOSES: Same. PROCEDURE: Right axillobifemoral bypass graft with 8 mm heparin bonded PTFE bifurcated graft. Right common femoral endarterectomy. Ultrasound-guided right basilic vein micropuncture catheter placement. SURGEON: Dr. Nargis Meyers MD GROUP THERAPIST: [None] INDICATION: Patient is a 56-year-old female with bilateral lower extremity claudication which is severely debilitating low underwent angiography and CT angiography showing occlusion of her right common iliac external iliac and common femoral arteries as well as left external iliac and common femoral artery occlusion [Risks, benefits and alternative treatment options were discussed with the patient. Benefits included but were not limited to congregational of blood flow to the lower extremities with improved arterial inflow and relief of symptoms. Alternative treatment options included, but were not limited to no intervention with continued conservative management. Risks included but were not limited to infection, bleeding, renal failure requiring hemodialysis, possible need for further open surgical intervention, cerebrovascular accident, myocardial infarction, pulmonary embolus, DVT, loss of limb, loss of life and poor outcome. Patient's questions were answered. Patient understands and accepts these risks and consents to proceed with right axillobifemoral bypass graft patient's questions were answered. Patient voices understanding of these risks benefits and alternative treatment options. Patient consents to proceed with right axillobifemoral bypass graft with acceptance of the associated risks of the procedure.] ANESTHESIA: Local Mac. IVF: 1400 mL ESTIMATED BLOOD LOSS:Approximately 600 mL. HEPARIN: 7000 units followed by 3000 unit bolus 1 hour later PROTAMINE: 50 mg COMPLICATIONS: None. DRAINS: None SPECIMENS: Right common femoral plaque IMPLANTS: Axillobifemoral bifurcated graft with a an 8 mm heparin bonded PTFE graft. FINDINGS: Right axillary artery was widely patent wound without disease. The right common femoral artery had an approximate 90% stenosis with posterior plaque and was endarterectomized. The left common femoral artery had approximate 20% stenosis with posterior plaque noted. DESCRIPTION OF PROCEDURE: [Patient was taken to operating room, placed supine on the operating room table and the patient was prepped and draped in a standard surgical fashion. A time-out was then performed with myself and all the surgical team members in the room confirming the correct patient, procedure and laterality. Prior to prepping and draping the patient had poor IV access and underwent placement of a micropuncture sheath in the right basilic vein under ultrasound guidance. The ultrasound showed the basilic vein to be widely patent easily compressible and free of thrombus. Ultrasound guidance was used to cannulate the right basilic vein with real time concurrent visualization of entry of the Colten puncture needle into the right basilic vein. Micropuncture wire was advanced through micropuncture needle which is then upsized to micropuncture sheath which was then used as an IV in the right basilic vein.] The bilateral femoral arteries were then exposed through oblique incisions in the inguinal regions the common femoral arteries were sharply dissected and encircled with Vesseloops. The right axillary artery was then exposed through a transverse incision and in the infraclavicular region. The patient was then given's heparin after the graft had been tunneled from the axillary incision to both femoral incisions. The graft was then anastomosed to the x-ray artery and and and decide fashion using 6-0 Prolene suture. The right common femoral artery was then clamped proximally and distally an arteriotomy was made and there was a large amount of plaque a high-grade stenosis in the right common femoral artery and endarterectomy was performed with removal of plaque which was passed for pathologic evaluation after which the graft was anastomosed to the right common femoral artery and an end-to-side fashion using 6-0 Prolene suture. The graft was then anastomosed to the left common femoral artery and and decide fashion using 6-0 Prolene suture. Flow was reestablished through the graft into both common femoral arteries and was noted to be triphasic with Doppler ultrasound evaluation of the femoral arteries distal to the anastomoses. Hemostasis was then obtained using thrombin and Gelfoam. The incisions were then closed using 2-0 Vicryl approximate the deep layers and wanda to approximate the skin. Dressings were then applied. Dr. Meyers was present for and directed the entire case. Patient was transferred to the recovery room awake, alert, and in stable condition. Chano Meyers MD Mar 16, 2017 14:29
[2017-03-16] MEDS ORDERED: fentaNYL 100 MCG/2 ML INJECTION (J3010) IV PRN (15:00)
[2017-03-16 15:45] VITALS: BP 122/51
[2017-03-16 16:15] VITALS: BP 124/53
[2017-03-16] MEDS: WARFARIN SOD 3 MG TAB PO SCH (16:20)
[2017-03-16 17:19] VITALS: BP 103/46
--- NOTE | 2017-03-16 19:36 | ECGEPIP ---
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
[2017-03-16 20:01] VITALS: BP 131/54
[2017-03-16] MEDS: DOCUSATE SODIUM 100 MG CAP PO SCH (20:37)
[2017-03-16] MEDS: ATORVASTATIN 20 MG TAB PO SCH (20:38)
[2017-03-16] MEDS: FERROUS SULFATE 325MG TAB PO SCH (20:39)
[2017-03-16] MEDS: SENOKOT S TAB PO SCH (20:39)
[2017-03-16] MEDS: CARVedilol 6.25 MG TAB PO SCH (20:39)
[2017-03-16] MEDS: FUROSEMIDE 20 MG TAB PO SCH (20:39)
[2017-03-17] VITALS: BP 106/55
[2017-03-17 04:00] VITALS: BP 119/56
[2017-03-17] MEDS: ACETAMINOPHEN TAB 650MG DOSE (2X325MG) PO PRN (04:46)
[2017-03-17 06:08] LABS: BASO # 0.1 10^3/uL (0.0-0.2); BASO % 0.4 % (0.0-1.0); EOS % 0.1 % (0.0-3.0); IMMATURE GRANULOCYTE % 0.4 % (0-0); LYMPH # 2.1 10^3/uL (1.5-4.5); LYMPH % 16.1 % (24.0-44.0); MEAN CORPUSCULAR HEMOGLOBIN 29.8 pg (27.0-33.0); MEAN CORPUSCULAR HGB CONC 32.5 g/dl (32.0-36.5); MEAN CORPUSCULAR VOLUME 91.7 fl (80.0-96.0); MONO % 8.8 % (0.0-5.0); NEUTROPHILS # 9.5 10^3/uL (1.8-7.7); NEUTROPHILS % 74.2 % (36.0-66.0); PLATELET COUNT, AUTOMATED 216 10^3/uL (150-450); RED CELL DISTRIBUTION WIDTH 15.2 % (11.5-14.5); WHITE BLOOD COUNT 12.8 10^3/uL (4.0-10.0)
[2017-03-17 06:23] LABS: INR 2.38
[2017-03-17 06:40] LABS: CALCIUM LEVEL 7.9 MG/DL (8.5-10.1); CREATININE FOR GFR 1.11 MG/DL (0.55-1.02); GLOMERULAR FILTRATION RATE 53.7 (>51)
[2017-03-17 06:41] LABS: MONO # 1.1 10^3/uL (0.0-0.8)
[2017-03-17 06:44] LABS: POTASSIUM SERUM 6.9 MEQ/L (3.5-5.1)
[2017-03-17 08:00] VITALS: BP 101/50
[2017-03-17] MEDS ORDERED: LISINOPRIL 20 MG TAB PO SCH (09:00)
[2017-03-17] MEDS ORDERED: SOD POLYSTYRENE SULFONATE SUSP 15 GM/60 ML UD PO ONE (09:00)
[2017-03-17] MEDS: FUROSEMIDE 20 MG TAB PO SCH (09:09)
[2017-03-17] MEDS: FERROUS SULFATE 325MG TAB PO SCH ×2 (09:09→20:43)
[2017-03-17] MEDS: AMIODARONE 100MG TABLET (PACERONE) PO SCH (09:10)
[2017-03-17] MEDS: CARVedilol 6.25 MG TAB PO SCH (09:10)
[2017-03-17] MEDS: SENOKOT S TAB PO SCH ×2 (09:10→20:47)
[2017-03-17] MEDS: DOCUSATE SODIUM 100 MG CAP PO SCH ×2 (09:10→20:46)
[2017-03-17] MEDS: CALCIUM GLUCONATE 1,000 MG in D5W MINI-BAG PLUS 100 ML IV SCH ×2 (09:11→10:28)
[2017-03-17] MEDS ORDERED: D5W MINI IV ONE (10:00)
[2017-03-17] MEDS ORDERED: CALCIUM GLUCONATE IV ONE (10:00)
[2017-03-17] MEDS ORDERED: NS 1,000 ML IV SCH (10:00)
[2017-03-17 12:00] VITALS: BP 112/58
[2017-03-17 13:50] LABS: CALCIUM LEVEL 9.2 MG/DL (8.5-10.1); CREATININE FOR GFR 1.59 MG/DL (0.55-1.02); GLOMERULAR FILTRATION RATE 35.5 (>51)
[2017-03-17 13:53] LABS: POTASSIUM SERUM 5.8 MEQ/L (3.5-5.1)
[2017-03-17 16:00] VITALS: BP 118/56
--- NOTE | 2017-03-17 16:30 | REP ---
Portable chest: Single view: History: CHF. Comparison study: 02/28/2017. Findings: EKG monitoring electrodes overlie the chest. A dual lead pacemaker remains in the right heart via the left side. There are skin clips and wanda in the subclavicular soft tissues on the right with some adjacent soft tissue emphysema. Heart is not enlarged. There is no evidence of pneumothorax or hydrothorax on either side. Mediastinum is not widened. Pulmonary vasculature is not increased. Impression: Pacemaker in place. Otherwise no acute disease. Skin wanda are seen in the subclavicular fossa on the right. Signed by Luis Lara MD 03/17/2017 04:50 P
--- NOTE | 2017-03-17 17:13 | CR ---
DATE OF CONSULTATION: 03/17/2017 REQUESTING PHYSICIAN: Dr. Chano Meyers REASON FOR CONSULTATION: Hyperkalemia and acute kidney injury status post right axillobifemoral bypass. HISTORY OF THE PRESENT ILLNESS: Ms. Celina Vallejo is a 56-year-old female with a past medical history of ischemic systolic cardiomyopathy with last known ejection fraction of approximately 10%, coronary artery disease, hypertension, sick sinus syndrome and atrial flutter. She is status post biventricular automatic implantable cardioverter defibrillator (AICD). She was recently found to have bilateral lower extremity claudication and is postoperative day #0 from right axillobifemoral bypass graft. She received 1.4 liters of lactated Ringer's intraoperatively with estimated blood loss of 600 mL. Her postoperative labs are significant for hyperkalemia and acute kidney injury and nephrology was consulted for the same. The patient does have a history of hyperkalemic acute kidney injury. Most recent episode was during hospitalization in November after which her home spironolactone dose was decreased. The patient is seen this morning at the bedside. She denies any chest pain, shortness of breath, nausea, vomiting or diarrhea. She remains on intravenous (IV) fluids, and her blood pressure is soft,. She received calcium gluconate and a dose of Kayexalate by Dr. Meyers for her hyperkalemia. PAST MEDICAL HISTORY: 1. Ischemic cardiomyopathy. 2. Systolic congestive heart failure with last known ejection fraction approximately 10%. 3. Coronary artery disease. 4. Hypertension. 5. Sick sinus syndrome. 6. Atrial flutter. 7. Peripheral vascular disease. ALLERGIES: No known drug allergies. PAST SURGICAL HISTORY: 1. Biventricular automatic implantable cardioverter defibrillator placement. 2. Right axillary bifemoral bypass, postoperative day #0. SOCIAL HISTORY: She is an ex-smoker, quit about 1-1/2 years ago but has significant tobacco use prior to this. She denies alcohol or illicit drugs. HOME MEDICATIONS: - amiodarone 100 mg daily - atorvastatin 80 mg at bedtime - carvedilol 6.25 mg twice a day - iron tablet twice a day - Lasix 10 mg twice a day - lisinopril 20 mg in the morning - spironolactone 25 mg - Coumadin FAMILY HISTORY: No significant family history of renal failure. REVIEW OF SYSTEMS: Negative for headache, dizziness, chest pain, palpitations, shortness of breath, nausea, vomiting, diarrhea, lower extremity edema. Remainder of review of systems is negative. VITAL SIGNS: Temperature 98.6, pulse 65, respiratory rate 18, blood pressure 101/50, saturating 97% on room air. INTAKE/OUTPUT: Intake- received 1.5 liters intraoperatively with a blood loss of 600 mL, urine output 550 mL. Weight on the bed scale 74.1 kg. PHYSICAL EXAMINATION: General: The patient is awake, alert, oriented times three, lying in bed in no acute distress. Neck is supple. No prominence to neck veins. Respiratory: Comfortable on room air. Clear to auscultation bilaterally. Abdomen is soft, nontender. bowel sounds present Extremities are without edema in the periphery and no dependent edema. Neurologic: No focal deficits. Psychiatric: Appropriate mood and affect. LABORATORY: Hemoglobin 9.0, decreased from 11.1 yesterday. White count 12.8, platelets 216, potassium 6.9 this morning, currently 5.8, creatinine 1.1 this morning, currently 1.5. BUN 29, bicarbonate 27. IMAGING: Chest x-ray pending. INPATIENT MEDICATIONS: Reviewed by myself. - The patient's Aldactone is discontinued. - Her lisinopril is discontinued. - She received a one-time dose of Kayexalate. - Her oral Lasix is discontinued. - Her carvedilol dose is reduced to 3.125 mg by mouth twice a day. - She received 2 grams of calcium gluconate. She is currently on: - NS at 50 mL an hour - amiodarone 100 mg by mouth every morning - atorvastatin 80 mg by mouth nightly - ferrous 325 mg by mouth twice a day - Coumadin ASSESSMENT AND PLAN: This is a 56-year-old female with severe ischemic systolic cardiomyopathy, ejection fraction of 10%, hypertension, atrial flutter - on Coumadin and right lower extremity claudication, status post postoperative day # 0 from axillobifemoral bypass, now with hyperkalemic acute kidney injury. 1. Acute kidney injury. The patient's baseline creatinine is around 1. She currently has hemodynamic-mediated tubular injury in the perioperative setting with concomitant angiotensin-converting enzyme (LANEY) inhibitor dysautoregulation. She currently has no signs of hypervolemia; however, given her severe ischemic cardiomyopathy, she is receiving IV fluids by myself with caution. She unfortunately did receive her dose of lisinopril this morning and it is held going forward. Her Aldactone is also held. Her blood pressures remain on the soft side. Her Lasix is on hold. Her creatinine is up trending rather quickly, and she may have tubular necrosis. She will need close monitoring of her urine output and her electrolytes. We will repeat another basic metabolic panel (BMP) in the evening. Avoid nephrotoxins. Avoid hypotension and borderline hypotension. 2. Ischemic systolic cardiomyopathy. Ejection fraction 10%. Currently no signs of decompensated heart failure and not in any overt hypervolemia. We will continue normal saline for 50 mL an hour and have a BMP drawn in the evening. Check chest x-ray. Close attention to respiratory and volume status. Her lisinopril and Aldactone are both currently on hold for hyperkalemic acute kidney injury, as is her Lasix. 3. Postoperative day #0 from right axillobifemoral bypass per Dr. Meyers. The patient has not had any contrast studies in at least 1 week. 4. Atrial flutter. On Coumadin anticoagulation with international normalized ratio (INR) of 2.3. Thank you for involving us in the care of this patient. We will be happy to follow the patient along with you. JOELLEN
--- NOTE | 2017-03-17 17:38 | ECGEPIP ---
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
[2017-03-17] MEDS: WARFARIN SOD 3 MG TAB PO SCH (17:57)
[2017-03-17 19:04] LABS: CALCIUM LEVEL 8.7 MG/DL (8.5-10.1); CREATININE FOR GFR 1.63 MG/DL (0.55-1.02); GLOMERULAR FILTRATION RATE 34.5 (>51)
[2017-03-17 19:05] LABS: POTASSIUM SERUM 5.3 MEQ/L (3.5-5.1)
[2017-03-17 20:00] VITALS: BP 109/51
[2017-03-17] MEDS: ATORVASTATIN 20 MG TAB PO SCH (20:43)
[2017-03-17] MEDS: CARVedilol 3.125 MG TAB PO SCH (20:46)
[2017-03-18] VITALS (7 sets, daily range): BP systolic 96–113; BP diastolic 44–58
[2017-03-18] MEDS: ACETAMINOPHEN TAB 650MG DOSE (2X325MG) PO PRN ×2 (04:26→22:10)
[2017-03-18 05:40] LABS: MEAN CORPUSCULAR HEMOGLOBIN 29.4 pg (27.0-33.0); MEAN CORPUSCULAR HGB CONC 32.2 g/dl (32.0-36.5); MEAN CORPUSCULAR VOLUME 91.4 fl (80.0-96.0); RED CELL DISTRIBUTION WIDTH 15.7 % (11.5-14.5); WHITE BLOOD COUNT 17.9 10^3/uL (4.0-10.0)
[2017-03-18 06:15] LABS: ALBUMIN 2.2 GM/DL (3.2-5.2); ALBUMIN/GLOBULIN RATIO 0.73 (1.00-1.93); BILIRUBIN,TOTAL 0.4 MG/DL (0.2-1.0); CALCIUM LEVEL 8.2 MG/DL (8.5-10.1); CREATININE FOR GFR 1.84 MG/DL (0.55-1.02); MAGNESIUM LEVEL 1.5 MG/DL (1.8-2.4); TOTAL PROTEIN 5.2 GM/DL (6.4-8.2)
[2017-03-18 06:21] LABS: POTASSIUM SERUM 5.3 MEQ/L (3.5-5.1)
[2017-03-18] MEDS: AMIODARONE 100MG TABLET (PACERONE) PO SCH ×2 (09:00→09:18)
[2017-03-18] MEDS: CARVedilol 3.125 MG TAB PO SCH ×2 (09:00→20:41)
[2017-03-18] MEDS: DOCUSATE SODIUM 100 MG CAP PO SCH ×2 (09:18→20:41)
[2017-03-18] MEDS: FERROUS SULFATE 325MG TAB PO SCH ×2 (09:18→20:41)
[2017-03-18] MEDS: SENOKOT S TAB PO SCH ×2 (09:19→20:42)
[2017-03-18] MEDS: NS 1,000 ML IV SCH ×2 (11:00→19:47)
[2017-03-18] MEDS ORDERED: MAG SULF 1GM/100ML (MAG RUN) 1 GM in APPROPRIATE DILUENT 1 EA IV ONE (11:30)
[2017-03-18] MEDS: WARFARIN SOD 3 MG TAB PO SCH (16:22)
[2017-03-18] MEDS: ATORVASTATIN 20 MG TAB PO SCH (20:41)
[2017-03-18 21:39] LABS: ALBUMIN 2.3 GM/DL (3.2-5.2); ALBUMIN/GLOBULIN RATIO 0.72 (1.00-1.93); BILIRUBIN,TOTAL 1.2 MG/DL (0.2-1.0); CALCIUM LEVEL 7.7 MG/DL (8.5-10.1); CREATININE FOR GFR 1.37 MG/DL (0.55-1.02); GLOMERULAR FILTRATION RATE 42.2 (>51); POTASSIUM SERUM 4.7 MEQ/L (3.5-5.1); TOTAL PROTEIN 5.5 GM/DL (6.4-8.2)
[2017-03-19 04:00] VITALS: BP 100/63
[2017-03-19 06:02] LABS: ALBUMIN 2.2 GM/DL (3.2-5.2); ALBUMIN/GLOBULIN RATIO 0.69 (1.00-1.93); BILIRUBIN,TOTAL 0.9 MG/DL (0.2-1.0); CALCIUM LEVEL 8.5 MG/DL (8.5-10.1); CREATININE FOR GFR 1.17 MG/DL (0.55-1.02); GLOMERULAR FILTRATION RATE 50.6 (>51); MAGNESIUM LEVEL 1.9 MG/DL (1.8-2.4); POTASSIUM SERUM 4.5 MEQ/L (3.5-5.1); TOTAL PROTEIN 5.4 GM/DL (6.4-8.2)
[2017-03-19 07:41] LABS: MEAN CORPUSCULAR HEMOGLOBIN 29.9 pg (27.0-33.0); MEAN CORPUSCULAR HGB CONC 33.6 g/dl (32.0-36.5); MEAN CORPUSCULAR VOLUME 89.1 fl (80.0-96.0); WHITE BLOOD COUNT 13.2 10^3/uL (4.0-10.0)
[2017-03-19 08:21] VITALS: BP 128/46
[2017-03-19] MEDS: AMIODARONE 100MG TABLET (PACERONE) PO SCH (09:00)
[2017-03-19] MEDS: SENOKOT S TAB PO SCH ×2 (09:00→21:00)
[2017-03-19] MEDS: DOCUSATE SODIUM 100 MG CAP PO SCH ×2 (09:00→21:00)
[2017-03-19] MEDS: CARVedilol 3.125 MG TAB PO SCH ×2 (09:00→21:11)
[2017-03-19] MEDS: FERROUS SULFATE 325MG TAB PO SCH ×2 (09:53→21:10)
--- NOTE | 2017-03-19 11:38 | IPN ---
DATE OF SERVICE: 03/18/2017 SUBJECTIVE: The patient is seen this morning at the bedside. She denies any complaints and feels well, has no shortness of breath or chest pain. Her hemoglobin fell to 7.5. She is pending transfusion of 2 units packed red blood cells (PRBC). Her white count yanet to 17.9. I have ordered her for blood cultures. She spiked a low-grade temperature of 100.5. She is hemodynamically stable and comfortable on room air. REVIEW OF SYSTEMS: Negative for chest pain, palpitations, shortness of breath, nausea, vomiting, diarrhea. VITAL SIGNS: Temperature 97.3, pulse 66, respiratory rate 14, blood pressure 104/44, saturating 95% on room air. Intake and output: Oral intake yesterday 1840, intravenous (IV) intake 1 liter. Urine output 1300 mL. Weight on the bed scale today 75 kg. Three recorded bowel movements. PHYSICAL EXAMINATION: The patient is awake, alert, oriented times four sitting up in bed in no acute distress. Neck is supple . The neck veins are not prominent. Extraocular muscles are intact. Tongue is moist. Respiratory: She is comfortable on room air. Lungs are fairly clear to auscultation bilaterally with the exception of a faint crackle at the left base. Abdomen is soft, nontender. Cardiovascular: S1, S2. 2+ radial pulse. No edema in the extremities. Genitourinary: No suprapelvic fullness. Neurologic: No focal deficits. Psychiatric: Appropriate mood and affect. Skin: No rash or lesions. LABORATORIES: White count 17.9, hemoglobin 7.5, platelets 162. Sodium 136, potassium 5.3, bicarbonate 24, creatinine 1.8, magnesium 1.5. Corrected calcium 9.7. Microbiology: Blood cultures pending. INPATIENT MEDICATIONS: Reviewed by myself. The patient received 1 gram of magnesium sulfate. Her remainder of medications are unchanged from prior. ASSESSMENT AND PLAN: 56-year-old female with severe ischemic systolic cardiomyopathy, ejection fraction 10%, hypertension and atrial flutter on Coumadin, with right lower extremity claudication status postoperative day #1 from right axillobifemoral bypass with perioperative hyperkalemic acute kidney injury. 1. Acute kidney injury. The patient's baseline creatinine is around 1. She currently has hemodynamic mediated tubular injury in the perioperative setting with concomitant angiotensin converting enzyme inhibitor dysautoregulation. Her lisinopril is on hold. Her renal function is recovering. She has no signs of hypervolemia at present. Her oral Lasix is on hold. She is hemodynamically stable at present and her anemia is being corrected with 2 units packed red blood cells (PRBC). 2. Postoperative anemia. Patient to receive 2 units PRBC. Will hold intravenous (IV) fluids as she is going to receive packed red blood cells. 3. Ischemic systolic cardiomyopathy, ejection fraction 10%. Currently without signs of decompensation of heart failure and not in overt hypervolemia. Will opt to transfuse blood products rather than IV fluids. She will be assessed daily for resumption of home diuretic regimen. Her lisinopril and Aldactone are both currently on hold for hyperkalemic acute kidney injury, but can be resumed once the acute issues resolve. 4. Atrial flutter on Coumadin with a therapeutic international normalized ratio (INR). 5. Leukocytosis. Blood cultures are sent and pending. Plan of care is discussed with Dr. Meyers.
[2017-03-19 12:09] VITALS: BP 146/52
[2017-03-19] MEDS: WARFARIN SOD 3 MG TAB PO SCH (16:22)
[2017-03-19] MEDS: FUROSEMIDE 20 MG TAB PO SCH (16:23)
[2017-03-19] MEDS ORDERED: FUROSEMIDE 10MG PER 1/2 TABLET PO SCH (17:00)
[2017-03-19 19:18] VITALS: BP 145/63
[2017-03-19 21:00] VITALS: BP 128/52
[2017-03-19] MEDS: ATORVASTATIN 20 MG TAB PO SCH (21:11)
[2017-03-20 00:20] VITALS: BP 108/40
[2017-03-20 04:00] VITALS: BP 110/40
[2017-03-20 07:48] VITALS: BP 100/46
[2017-03-20 09:00] VITALS: BP 100/46
[2017-03-20] MEDS: CARVedilol 3.125 MG TAB PO SCH (09:00)
[2017-03-20] MEDS: DOCUSATE SODIUM 100 MG CAP PO SCH (09:00)
[2017-03-20] MEDS: SENOKOT S TAB PO SCH (09:00)
[2017-03-20] MEDS: FERROUS SULFATE 325MG TAB PO SCH (09:21)
[2017-03-20] MEDS: AMIODARONE 100MG TABLET (PACERONE) PO SCH (09:21)
[2017-03-20] MEDS: FUROSEMIDE 20 MG TAB PO SCH (09:22)
--- NOTE | 2017-03-20 10:14 | IPN ---
DATE OF SERVICE: 03/19/2017 SUBJECTIVE: The patient is seen this morning at the bedside. She is out of bed to chair she feels well. She is tolerating oral intake. She has no complaints. No shortness of breath. No dyspnea on exertion. She is ambulating. She received 2 units packed red blood cells (PRBC) last night without issue. She has been off of IV fluids and is hemodynamically stable. REVIEW OF SYSTEMS: Negative for headache, palpitations, chest pain, shortness of breath, nausea, vomiting, diarrhea, dyspnea on exertion, abdominal pain. Remainder of review of systems is negative. VITAL SIGNS: Temperature 97.5, pulse 62, respiratory rate 18, blood pressure 146/52, saturating 97% on room air. Intake and output: Urine output yesterday is 1350 mL. Weight on the bed scale today 74.5 kg. PHYSICAL EXAMINATION: The patient is awake, alert, oriented times four, comfortable, out of bed to chair, she is eating breakfast. Head and neck: Extraocular muscles are intact, moist mucous membranes. Neck is supple. Jugular veins are not prominent. Respiratory: Superiorly clear to auscultation with fine crackle at base. She is comfortable on room air. Cardiovascular: S1, S2. 2+ radial pulse. No peripheral edema. No dependent edema. Genitourinary: No suprapelvic fullness. Neurologic: No focal deficits. Psychiatric: Appropriate mood and affect. Skin: No rash or lesions. LABORATORIES: White count 13.2, hemoglobin 9.3, platelets 127. Sodium 137, potassium 4.5, bicarbonate 26, creatinine 1.1, corrected calcium 10, magnesium 1.9. Microbiology: Blood cultures - no growth 24 hours. Patient is resumed on her home diuretic regiment by myself today, Lasix 10 mg by mouth twice a day, there are no other changes in the medications in the past 24 hours. ASSESSMENT AND PLAN: 56-year-old female with severe ischemic systolic cardiomyopathy, ejection fraction 10%, hypertension and atrial flutter on Coumadin, with right lower extremity claudication status postoperative day #2 from right axillobifemoral bypass with perioperative hyperkalemic acute kidney injury (WES). 1. Acute kidney injury. The patient's baseline creatinine has returned to normal baseline. She is off of IV fluids. She is tolerating oral intake well. She has a very fine crackle at the base and I am resuming her on her home diuretic regimen of a Lasix 10 mg by mouth daily. 2. Postoperative anemia. Stable. Status post 2 units PRBC. 3. Ischemic systolic cardiomyopathy, ejection fraction 10%. Postoperatively the patient's diuretic regimen withheld, today she will resume on her home regimen of Lasix 10 mg by mouth twice a day. We will resume her lisinopril and aldactone tomorrow as well, but we will start at a lower dose and titrate as tolerated by hemodynamics. 4. Postoperative leukocytosis. White count has improved. Blood cultures are negative. Chest x-ray did not show any acute pneumonic process.
[2017-03-20 10:40] LABS: CALCIUM LEVEL 8.5 MG/DL (8.5-10.1); CREATININE FOR GFR 1.02 MG/DL (0.55-1.02); GLOMERULAR FILTRATION RATE 59.3 (>51); MAGNESIUM LEVEL 2.3 MG/DL (1.8-2.4)
[2017-03-20 12:00] VITALS: BP 125/58
[2017-03-20] MEDS ORDERED: LISI-538 PO (13:33)
--- NOTE | 2017-03-20 13:58 | DS.PDOC ---
Discharge Summary General Date of Admission Mar 16, 2017 at 09:03 Date of Discharge March 20, 2017 Attending Physician: Chano Meyers MD Specialist/Consultants Involve: DONOVAN DOUGHERTY DO Discharge Summary PROCEDURES PERFORMED DURING STAY: Right axillobifemoral bypass grafting. ADMITTING DIAGNOSES: 1. Bilateral iliac artery atherosclerotic occlusive disease with bilateral lower extremity claudication. 2. Chronic renal insufficiency. 3. Anemia secondary to acute blood loss. 4. Hyperkalemia 5. Hypertension 6. Ischemic cardiomyopathy 7. Atrial flutter 8. Congestive heart failure. DISCHARGE DIAGNOSES: 1. Bilateral iliac artery atherosclerotic occlusive disease with bilateral lower extremity claudication. 2. Chronic renal insufficiency. 3. Anemia secondary to acute blood loss. 4. Hyperkalemia 5. Hypertension 6. Ischemic cardiomyopathy 7. Atrial flutter 8. Congestive heart failure. COMPLICATIONS/CHIEF COMPLAINT: Aortic Iliac Occlusive Disease. HISTORY OF PRESENT ILLNESS: Patient is a 56-year-old female with bilateral iliac artery occlusion and aorta iliac arterial atherosclerotic occlusive disease with bilateral lower extremity claudication. HOSPITAL COURSE: Patient was admitted on 03/16/2017 and underwent a right axillofemoral bypass graft. Patient had hyperkalemia postoperatively and her spironolactone and fosinopril were held and the patient was seen in consultation by nephrology. Patient also had acute blood loss secondary to her surgery and required 2 units of transfusion of packed red blood cells. Patient is now stabilized and will be discharged home with discontinuation of her spironolactone and decreasing her lisinopril to 5 mg daily. DISCHARGE MEDICATIONS: Please see below. ALLERGIES: Please see below. PHYSICAL EXAMINATION ON DISCHARGE: VITAL SIGNS: Please see below. GENERAL: Sitting in the chair comfortably HEENT: Normal NECK: Supple with no carotid bruits CARDIOVASCULAR EXAMINATION: Irregular RESPIRATORY EXAMINATION: To auscultation bilaterally with decreased breath sounds at the bases ABDOMINAL EXAMINATION: Soft nontender nondistended EXTREMITIES: Bilateral lower extremity is are well-perfused incisions are healing well. SKIN: Warm well perfused with no ulcerations or lesions noted NEUROLOGICAL EXAMINATION: Alert, awake and oriented 3 with no focal deficits PSYCHIATRIC EXAMINATION: Normal LABORATORY DATA: Please see below. IMAGING: None PROGNOSIS: Good ACTIVITY: As tolerated. DIET: Low-fat low-cholesterol. DISCHARGE PLAN: Discharge to home DISPOSITION: . DISCHARGE INSTRUCTIONS: 1. No heavy lifting of more than 5 pounds. 2. Follow-up for EVALUATION in 7-10 days. 3. May shower. ITEMS TO FOLLOWUP ON ON OUTPATIENT: 1. Blood pressure. DISCHARGE CONDITION: Stable. TIME SPENT ON DISCHARGE: Greater than 45 minutes. Vital Signs/I&Os Vital Signs Date Time Temp Pulse Resp B/P (MAP) Pulse Ox O2 Delivery O2 Flow Rate FiO2 03/20/17 12:00 96.7 65 18 125/58 (80) 96 Room Air 03/16/17 17:19 1.0 Laboratory Data Labs 24H Laboratory Tests 2 03/20/17 10:00: Anion Gap 4L, Glomerular Filtration Rate 59.3, Blood Urea Nitrogen 34H, Creatinine 1.02, Sodium Level 139, Potassium Level 4.0, Chloride Level 107, Carbon Dioxide Level 28, Calcium Level 8.5, Magnesium Level 2.3 CBC/BMP Laboratory Tests 03/20/17 10:00 Calcium Level 8.5 Microbiology Microbiology 03/18/17 Blood Culture - Preliminary, Resulted No Growth after 48 hours. All Specime... Discharge Medications Scheduled Amiodarone HCl (Amiodarone HCl) 200 Mg Tab, 100 MG PO QAM, (Reported) Atorvastatin Calcium (Atorvastatin Calcium) 80 Mg Tab, 80 MG PO QHS, (Reported) Carvedilol (Carvedilol) 6.25 Mg Tab, 6.25 MG PO BID, (Reported) Ferrous Sulfate (Ferrous Sulfate) 325 Mg Tab, 325 MG PO BID, (Reported) Furosemide (Furosemide) 20 Mg Tab, 10 MG PO BID, (Reported) Lisinopril (Lisinopril) 20 Mg Tab, 5 MG PO QAM Warfarin Sod (Warfarin Sodium) 3 Mg Tab, 3 MG PO 3XW, (Reported) Tu, th sat at 1600 Warfarin Sod (Warfarin Sodium) 3 Mg Tab, 4.5 MG PO 4XWK, (Reported) Mon, Wed, Fri and Sun at 1600 Scheduled PRN Nitroglycerin (Nitroglycerin) 0.4 Mg Sub, 0.4 MG SL NITRO PRN for CHEST PAIN, ( Reported) Allergies Coded Allergies: No Known Allergies (Unverified , 01/25/17) Chano Meyers MD Mar 20, 2017 13:58
--- NOTE | 2017-03-21 06:11 | IPN ---
DATE: 03/20/2017 SUBJECTIVE: The patient is seen this morning at the bedside. She feels well. No complaints. She resumed her oral Lasix yesterday. She is discharge pending today. Her systolic blood pressure this morning at 7 a.m. and again at 9 a.m. was 100/46. She denies any complaints at this time. REVIEW OF SYSTEMS: Negative for headache, dizziness, lightheadedness, chest pain, palpitations, shortness of breath, nausea, vomiting, diarrhea, abdominal pain, dysuria. Remainder of review of systems is negative. OBJECTIVE: VITAL SIGNS: Temperature 97.0, pulse 61, respiratory rate 18, blood pressure 100/46, saturating 97% on room air. INTAKE AND OUTPUT: Urine output 1325 mL. Weight in the bed scale today 75.6 kg. PHYSICAL EXAMINATION: GENERAL: The patient is seen out of bed to the chair, awake, alert, and oriented times four in no acute distress. HEAD/NECK: Extraocular muscles are intact. Moist mucous membranes. There is no jugular venous distention. CARDIAC: S1, S2. Irregular. 2+ radial pulse. No edema in the extremities. RESPIRATORY: Clear to auscultation bilaterally. ABDOMEN: Soft, nontender. EXTREMITIES: No edema in the lower extremities. The extremities are warm to touch. NEUROLOGIC: No focal deficits. Appropriately interactive, conversational. PSYCHIATRIC: Normal mood and affect. LABORATORY DATA: White count 13, hemoglobin 9.3, platelets 127. Sodium 139, potassium 4.0, bicarbonate 28, creatinine 1.0, BUN 34. INPATIENT MEDICATIONS: The patient is resumed on her oral Lasix 10 mg by mouth twice a day. There are no other changes in her medications. ASSESSMENT AND PLAN: A 56-year-old female with severe ischemic systolic cardiomyopathy, ejection fraction 10%, hypertension, and atrial flutter on Coumadin with right lower extremity claudication, status post right axillobifemoral bypass with perioperative hyperkalemic acute kidney injury. 1. Acute kidney injury: The patient's creatinine has returned close to baseline. She was resumed yesterday on her oral Lasix. Her electrolytes are stable at this time. 2. Ischemic systolic cardiomyopathy, ejection fraction 10%: The patient is fairly euvolemic on exam. Has been off intravenous (IV) fluids for two days. She was resumed on her oral Lasix yesterday. Her blood pressure this morning taken two hours apart, was 100/40s. As her renal function has returned to baseline, it is okay to resume her angiotension-converting enzyme (LANEY) inhibitor. However, I would start at lisinopril 5 mg instead of her prior home dose which was lisinopril 20 mg. As her blood pressure is soft, I would only reintroduce lisinopril at this time and hold spironolactone for the time being, and then resume as tolerated by he hemodynamics in the outpatient setting. The patient has an appointment with her primary polo coach in one week and her medication dosages can be further titrated as an outpatient. JOELLEN
== END 2017-03-20 14:38 | disposition home or self-care (01) | DRG 173 ==
LOC: M OR 09:03 → M PCU 15:26
PROVIDERS: ADMIT Surgery Vascular Surgery; ATTEND Surgery Vascular Surgery
PROC: 04CK0ZZ Extirpation of Matter from Right Femoral Artery, Open Approach (ICD-10-PCS; 2017-03-16)
PROC: 03150J8 Bypass Right Axillary Artery to Bilateral Upper Leg Artery with Synthetic Substitute, Open Approach (ICD-10-PCS; principal; 2017-03-16 10:45)
PROC: 30233N1 Transfusion of Nonautologous Red Blood Cells into Peripheral Vein, Percutaneous Approach (ICD-10-PCS; 2017-03-18)
DX: I70.213 Atherosclerosis of native arteries of extremities with intermittent claudication, bilateral legs (principal); N17.9 Acute kidney failure, unspecified; I50.22 Chronic systolic (congestive) heart failure; D62 Acute posthemorrhagic anemia; E87.5 Hyperkalemia; I48.92 Unspecified atrial flutter; I12.9 Hypertensive chronic kidney disease with stage 1 through stage 4 chronic kidney disease, or unspecified chronic kidney disease; I25.5 Ischemic cardiomyopathy; Z79.899 Other long term (current) drug therapy; I25.10 Atherosclerotic heart disease of native coronary artery without angina pectoris; Z95.810 Presence of automatic (implantable) cardiac defibrillator; Z87.891 Personal history of nicotine dependence; Z79.01 Long term (current) use of anticoagulants; D72.829 Elevated white blood cell count, unspecified

== ENCOUNTER → 2017-04-27 | Outpatient (CLI) | payer OTHER ==
[~2017-04-27] MED LIST changes: +LISI-542 PO; -SPIRONOLACTONE 25 MG TAB PO SCH
--- NOTE | 2017-04-27 16:24 | REP ---
Clinical: Chronic systolic/diastolic heart failure. Technique: PA and lateral. Comparison: 03/17/2017. Findings: The cardiac silhouette is normal. Pacemaker in stable satisfactory position. Lung jolley demonstrate mild chronic changes without acute consolidation, effusion, or pneumothorax. Skeletal structures are intact. Impression: Chronic stable changes. No acute cardiopulmonary process. Signed by Juev Myles MD 04/27/2017 04:16 P
== END ==
LOC: M RAD 15:46
PROVIDERS: ATTEND Family Medicine Addiction Medicine
DX: I50.42 Chronic combined systolic (congestive) and diastolic (congestive) heart failure (principal)

== ENCOUNTER 2017-05-07 21:54 | Inpatient (IN) | payer OTHER ==
[~2017-05-07] VITALS: Ht 160 cm; Wt 80.0 kg
[~2017-05-07 21:54] MED LIST changes: -LISI-542 PO
[2017-05-07] MEDS ORDERED: IPRATROPIUM 0.5MG/ALBUTEROL 2.5MG INH SOL UD 3ML (DUONEB)(J7620) As Ordered ONE (22:03)
[2017-05-07] MEDS: IPRATROPIUM 0.5MG/ALBUTEROL 2.5MG INH SOL UD 3ML (DUONEB)(J7620) NEB PRN ×2 (22:20→22:21)
[2017-05-07 22:22] LABS: ABG BASE EXCESS -4.2 (-2.0-2.0); ABG TOTAL CO2 29.7 MEQ/L (22.0-29.0)
[2017-05-07 22:25] LABS: ABG PARTIAL PRESSURE CO2 86.3 mmHg (35.0-45.0); ABG pH (ARTERIAL) 7.114 UNITS (7.350-7.450)
[2017-05-07 22:27] LABS: MEAN CORPUSCULAR HEMOGLOBIN 29.7 pg (27.0-33.0); MEAN CORPUSCULAR HGB CONC 30.7 g/dl (32.0-36.5); MEAN CORPUSCULAR VOLUME 96.7 fl (80.0-96.0); PLATELET COUNT, AUTOMATED 226 10^3/uL (150-450)
[2017-05-07 22:28] LABS: ADD MANUAL DIFFER YES; DIFF SLIDE NUMBER 172; POSITIVE DIFF POS FLAG; POSITIVE MORPH POS FLAG; WHITE BLOOD COUNT 15.1 10^3/uL (4.0-10.0)
[2017-05-07] MEDS ORDERED: methylPREDNISolone INJ 125 MG/2 ML VIAL (J2930) IV ONE (22:30)
[2017-05-07 22:37] LABS: INR 1.71
[2017-05-07 22:58] LABS: BASOPHILS 2 % (0-4); EOSINOPHILS 3 % (0-5)
[2017-05-07 23:03] LABS: CALCIUM LEVEL 8.5 MG/DL (8.5-10.1); CREATININE FOR GFR 1.32 MG/DL (0.55-1.02)
[2017-05-07] MEDS ORDERED: LISI-542 PO (23:06)
[2017-05-07] MEDS ORDERED: SODIUM CHLORIDE IV ONE (23:15)
[2017-05-07] MEDS ORDERED: PIPERACILLIN/TAZOBACTAM SOD 3.375 GM in APPROPRIATE DILUENT 1 EA IV ONE (23:15)
[2017-05-07] MEDS ORDERED: ISOVUE-370 76% 100ML VIAL (Q9967) As Ordered ONE (23:18)
[2017-05-07 23:53] LABS: ABG BASE EXCESS -0.9 (-2.0-2.0); ABG HCO3 26.6 MEQ/L (22.0-26.0); ABG PARTIAL PRESSURE CO2 58.2 mmHg (35.0-45.0); ABG PARTIAL PRESSURE O2 84.7 mmHg (75.0-100.0); ABG STANDARD HCO3 23.7 MEQ/L (22.0-26.0); ABG TOTAL CO2 28.4 MEQ/L (22.0-29.0); ABG pH (ARTERIAL) 7.278 UNITS (7.350-7.450)
[2017-05-08] VITALS (11 sets, daily range): BP systolic 94–128; BP diastolic 48–59
--- NOTE | 2017-05-08 00:50 | REPUSA ---
CLINICAL HISTORY: Dyspnea, exclude PE. TECHNIQUE: Multiple incremental axial, coronal and oblique images are obtained from the thoracic inle t to the upper abdomen. Intravenous contrast material was administered as per pulmonary embolism prot ocol. COMMENTS: Small right pleural effusion. Minimal left pleural effusion. Passive atelectatic airspace disease in the lower lobes. Moderate paraseptal emphysema. Diffuse bilateral ground glass densities of the lungs. Pacemaker wires are in good position. There is excellent opacification of pulmonary arterial system without evidence for pulmonary embolism . Aorta is of normal caliber without evidence for dissection or aneurysm. There is no evidence of pleural or parenchymal mass. There is no evidence of hilar or mediastinal lym phadenopathy. The heart is moderately enlarged. Images of the upper abdomen demonstrate no evidence of adrenal mass. The bony structures are free of lytic or blastic lesions. IMPRESSION: No evidence for pulmonary embolism. Bilateral pleural effusions. Passive atelectatic airspace disease in the lower lobes. Moderate changes of paraseptal pulmonary emphysema. Diffuse groundglass opacities of the lungs. This can be secondary to pulmonary edema and/or superimpo sed infection. Thank you for your kind referral of this patient.
[2017-05-08] MEDS ORDERED: VANCOMYCIN HCL 1,000 MG, VIAL MATE ADAPTER 1 EACH in D5W 250 ML IV ONE (01:45)
[2017-05-08] MEDS ORDERED: NITROGLYCERIN 0.4 MG SUBL TABLET SL PRN (03:15)
[2017-05-08] MEDS ORDERED: IPRATROPIUM 0.5MG/ALBUTEROL 2.5MG INH SOL UD 3ML (DUONEB)(J7620) NEB PRN (03:15)
[2017-05-08] MEDS ORDERED: VANCOMYCIN HCL 500 MG, VIAL MATE ADAPTER 1 EACH in D5W 250 ML IV ONE (03:15)
[2017-05-08 03:58] LABS: INR 1.89
[2017-05-08] MEDS ORDERED: GLUCAGON FOR INJ 1 MG VIAL (J1610) SC PRN (04:00)
[2017-05-08] MEDS ORDERED: DEXTROSE 50% 50 ML SYRINGE IV PRN (04:00)
[2017-05-08] MEDS: FUROSEMIDE 40 MG/4 ML VIAL (J1940) IV SCH ×5 (04:00→16:00)
[2017-05-08] MEDS ORDERED: GLUCOSE 4 GM CHEW TABLET PO PRN (04:00)
--- NOTE | 2017-05-08 04:01 | HPE ---
DATE OF ADMISSION: 05/07/2017 The patient, Celina Vallejo, is a 56-year-old female. Patient comes in with a chief complaint of severe shortness of breath. Patient has a previous medical history of ischemic cardiomyopathy, chronic obstructive pulmonary disease (COPD), systolic congestive heart failure with last known echocardiogram heart showing a left ventricular ejection fraction (LVEF) of 25% by visual estimation. Patient also with a history of COPD. Patient's home medications include amiodarone, atorvastatin, carvedilol, ferrous sulfate, furosemide, lisinopril, nitroglycerin, warfarin. Patient with no known allergies. Patient's family history is noncontributory. Patient is a nonsmoker, non-drinker, does not use drugs. Patient was a former smoker, at this point quit almost 2 years ago. Other medical history, patient with a history of hypertension, sick sinus syndrome, atrial flutter, biventricular automatic implanted cardioverter defibrillator placement and removal of her right great toenail, also patient with femoral-popliteal (fem-pop) bypass. HISTORY OF PRESENT ILLNESS: Patient notes that she was out shopping for the holidays and she felt short of breath. After she was done shopping on her way home, it got significantly worse. Thereafter, she came to the emergency department (ED). While in the ED, patient was found to be extremely hypoxic, as well as hypercapnic with significant acidemia. Patient started on bilevel positive airway pressure (BiPAP) and being admitted to the intensive care unit (ICU) for further management of COPD exacerbation plus congestive heart failure exacerbation and pneumonia. PHYSICAL EXAMINATION: Vital signs on admission show temperature of 96.6, pulse 93, respiratory rate 24, blood pressure 129/58, pulse oximetry was 62% on room air. Patient was immediately placed on nonrebreather then on BiPAP. Patient now saturating at 98. Patient was alert and oriented times three, resting comfortably when I came in. Patient did not appear overly burdened by the BiPAP and was able to answer questions appropriately. The patient with defibrillator, poor heart sounds. Patient with good inspiratory, expiratory effort. No abdominal tenderness. No wheezes or rales at this time. Abdomen was soft, nontender to palpation. Patient able to move arms and legs with strength 5/5. Skin is warm and dry. No apparent lymphadenopathy. No meningeal signs. LABORATORY RESULTS: Sodium 138, potassium 4.0, chloride 100, carbon dioxide 30, BUN/creatinine is 19/1.32, fasting glucose 276, lactic acid 4.0, calcium 8.5. Troponin 0.03. Cardiac enzymes within normal limits. NT-proBNP 5180. Initial blood gas bicarbonate 21, pH 7.114 with a pCO2 of 86.3. Followup after BiPAP 7.278 pH with a pCO2 of 58.2, pO2 of 84.7 and bicarbonate of 26.6. Coagulation: PT 20.6, INR 1.71, aPTT 34.6. IMAGING: CT angiography shows no evidence of pulmonary embolism, bilateral pleural effusions, passive atelectasis, air-space disease in lower lobes, moderate changes of paraseptal pulmonary emphysema, diffuse ground-glass opacities secondary to pulmonary edema and/or superimposed infections. ASSESSMENT AND PLAN: Patient is a 56-year-old female with significant cardiac, pulmonary history as noted above. Patient comes in with complaints of shortness of breath, found to be in hypercapnic respiratory failure. Patient on bilevel positive airway pressure (BiPAP). Contract Forester informed. Placing orders and following the patient as needed. Patient to be on vancomycin, Zosyn for broad-spectrum antibiotic coverage as patient with recent admission, therefore meeting criteria for healthcare-associated pneumonia (HCAP). For congestive heart failure, continue patient's cardiac medications excepting carvedilol. If chronic obstructive pulmonary disease (COPD) exacerbation, carvedilol is a nonselective beta linda, which can cause more bronchospasms. Also if this is related more to congestive heart failure (CHF), this would be considered a severe CHF exacerbation and therefore, discontinuing the beta linda at this time would be appropriate. COPD exacerbation. DuoNebs. Oral prednisone. For atrial fibrillation, continue patient's anticoagulation which will also serve as deep venous thrombosis (DVT) prophylaxis. Gastrointestinal (GI) prophylaxis. Proton pump inhibitors (PPIs). Patient was first seen by myself 05/08/2017. Given the significant symptomatology of the patient, I believe patient almost certainly likely to be here greater than two midnights. Patient requires intensive care unit (ICU) monitoring at this time. However, patient does appear improved, which is supported by followup blood gases; nevertheless, patient's condition is severe and requires very close monitoring at this time.
--- NOTE | 2017-05-08 05:55 | PHACANCOPD ---
PHARMACY VANCOMYCIN DOSING Pt Demographics Demographics Patient Age:56 , Weight:78.100 , Gender: female Adjusted Body Weight Date: 05/08/17, Adjusted Body Weight: Kg Events Past 24 Hours Events Past 24 Hours: NO: Dialysis, Diuretic Therapy, Change in CrCl, Fever, Elevation in WBC, Pending Diagnostics, Pending Procedures, Other Vancomycin Vancomycin Target Ranges: 15-20 mcg/ml Vancomycin Load Y/N: Yes Load Dose Date Time Vancomycin Load Dose: 1500mg Date: 05-08 Time: 0500 Vancomycin Dose Date: 05/08/17. Current Vancomycin Dose: [750mg q12h] Intermittent Dosing?: No Labs Labs Item Value Date Time White Blood Count 15.1 10^3/uL H 05/07/172216 Creatinine 1.32 MG/DL H 05/07/172216 Blood Urea Nitrogen 19 MG/DL H 05/07/172216 Vital Signs Label Value Date Time Patient Temperature 96.6 degrees F 05/07/172201 Temperature Source Temporal 05/07/172201 Micro Microbiology 05/07/17 Blood Culture, Received Pending 05/07/17 Blood Culture, Received Pending 05/07/17 Respiratory Virus Panel (PCR) ([facility]UK[facility]) - Final, Complete 05/07/17 Influenza Virus Type A Antigen - Final, Complete 05/07/17 Influenza Virus Type B Antigen - Final, Complete Creatinine Clearance Date:05/08/17. Creatinine Clearance: [43]. Pending Labs trough 05-09 @1600 Assessment and Plan Maintaining Current Dose?: Yes Reason for dose change: No Dose Change Pharmacist Note Pharmacist Note Date: 05/08/17. Pharmacist note:Dosed at 750mg q12h with a trough ordered for @1600. Will continue to monitor and make adjustments as needed. NELLI SUERO PHARMACY May 08, 2017 05:55
[2017-05-08] MEDS ORDERED: PIPERACILLIN/TAZOBACTAM SOD 3.375 GM in APPROPRIATE DILUENT 1 EA IV SCH ×2 (06:00→10:00)
[2017-05-08 06:22] LABS: ABG BASE EXCESS -3.2 (-2.0-2.0); ABG HCO3 23.7 MEQ/L (22.0-26.0); ABG PARTIAL PRESSURE O2 268.4 mmHg (75.0-100.0); ABG STANDARD HCO3 21.9 MEQ/L (22.0-26.0); ABG TOTAL CO2 25.2 MEQ/L (22.0-29.0); ABG pH (ARTERIAL) 7.293 UNITS (7.350-7.450)
[2017-05-08] MEDS: HumaLOG INSULIN (NovoLOG) PER UNIT SC SCH ×3 (07:30→17:17)
--- NOTE | 2017-05-08 08:09 | REP ---
Clinical: Dyspnea and cough. Comparison: 04/27/2017. Findings: Mediastinum and cardiac silhouette are stable. Pacemaker is again identified in satisfactory position. Lung jolley demonstrate increased interstitial markings along with perihilar and lower lobe opacities (right greater than left). No obvious effusion or pneumothorax. Skeletal structures intact. Impression: Differential diagnosis includes multifocal pneumonia / atelectasis and pulmonary edema. Signed by Juve Myles MD 05/08/2017 08:00 A
[2017-05-08] MEDS: FERROUS SULFATE 325MG TAB PO SCH ×2 (08:39→20:56)
[2017-05-08] MEDS: ATORVASTATIN 20 MG TAB PO SCH ×2 (08:40→20:56)
[2017-05-08] MEDS: CARVedilol 6.25 MG TAB PO SCH ×2 (08:45→21:01)
[2017-05-08] MEDS: AMIODARONE 200 MG TAB (PACERONE) PO SCH (08:45)
[2017-05-08] MEDS ORDERED: predniSONE 20 MG TAB PO SCH (09:00)
[2017-05-08] MEDS: LISINOPRIL 5 MG TAB PO SCH (09:00)
[2017-05-08] MEDS ORDERED: FUROSEMIDE 20 MG TAB PO SCH (09:00)
--- NOTE | 2017-05-08 09:17 | ECGEPIP ---
Stationary ECG Study [facility] - ED Test Date: 2017-05-07 Pat Name: VIMAL BERNSTEIN Department: Room: [place] [address] Gender: F Baller Tender: gagan : 1960 Requested By: NATALYA Wright Order Number: [id number] Reading MD: Bg Galicia Measurements Intervals [place] Rate: 102 P: 86 UT: 187 QRS: 7 QRSD: 130 T: 109 QT: 358 QTc: 467 Interpretive Statements SINUS TACHYCARDIA MODERATE INTRAVENTRICULAR CONDUCTION DELAY NSTTW ABNORMALITIES BASELINE ARTIFACT AFFECTS INTERPRETATION SIMILAR TO 03/17/17 Electronically Signed On 05-08-2017 9:16:51 EST by Bg Galicia
--- NOTE | 2017-05-08 09:25 | ECGEPIP ---
Stationary ECG Study [facility] Test Date: 2017-05-08 Pat Name: VIMAL BERNSTEIN Department: Room: [place] [address] Gender: F Valet Attendant: VIVIENNE : 1960 Requested By: CLAYTON RAHMAN Order Number: [id number] Reading MD: Jihan Diane Measurements Intervals [place] Rate: 60 P: 100 AR: 183 QRS: 10 QRSD: 118 T: -4 QT: 442 QTc: 442 Interpretive Statements ELECTRONIC ATRIAL PACEMAKER LATERAL MYOCARDIAL INFARCTION, OF INDETERMINATE AGE similar to 03/17/16 except now ATRIAL paced and QT longer Electronically Signed On 05-08-2017 9:25:02 EST by Jihan Diane
--- NOTE | 2017-05-08 09:26 | ECGEPIP ---
Stationary ECG Study [facility] - ED Test Date: 2017-05-08 Pat Name: VIMAL BERNSTEIN Department: Room: [place] [address] Gender: F Advanced Quality Engineer: maurice : 1960 Requested By: NATALYA Wright Order Number: [id number] Reading MD: Bg Galicia Measurements Intervals [place] Rate: 59 P: 263 MT: 128 QRS: 3 QRSD: 117 T: 22 QT: 447 QTc: 446 Interpretive Statements SINUS BRADYCARDIA INCOMPLETE RIGHT BUNDLE BRANCH BLOCK PRIOR LATERAL INFARCTION Electronically Signed On 05-08-2017 9:25:54 EST by Bg Galicia
--- NOTE | 2017-05-08 12:45 | REP ---
PORTABLE CHEST X-RAY: Sitting AP view. HISTORY: Evaluate for vascular congestion. Comparison chest x-ray May 07, 2017 and April 27, 2017. FINDINGS: A bipolar pacemaker remains in the right heart via the left side as before. EKG monitoring electrodes are seen. Increased density persists in the right base consistent with a infiltrate or pneumonia. There is pulmonary vascular cephalization bilaterally but vascular congestion and interstitial edema pattern is improved. Heart size is unchanged. No pleural effusion is seen. IMPRESSION: Improved pulmonary vascular congestion and cephalization pattern. Persistent asymmetric density right base consistent with infiltrate or pneumonia. Cardiomegaly with pacemaker persists. Signed by Luis Lara MD 05/08/2017 01:04 P
--- NOTE | 2017-05-08 13:13 | CR ---
DATE OF CONSULTATION: 05/08/2017 We were emergently called to evaluate Mrs. Vallejo for acute hypoxemic and hypercapnic respiratory failure. Mrs. Vallejo is a 56-year-old female with a significant past medical history of congestive heart failure and coronary artery disease, who was brought to the emergency department by emergency medical services (EMS) and found to be 62% on room air. Arterial blood gas done in the emergency department showed a pH of 7.114 and PCO2 of 86.3. The patient has been experiencing shortness of breath since last Monday; and last night while she was coming out of the store when she hit the cold air, all of a sudden felt like she could not breathe. She was gasping for breath. She sat down and her shortness of breath got worse. She describes the feeling as being hungry for air. She has had baseline shortness of breath since her heart attack in June of 2015. This is normally exertional and is relieved by rest. She has also had a bad cough for about 2 weeks, producing clear and white sputum. Her cough does get worse when laying down. She has been having increased leg swelling that started in March, 1-2 weeks after getting an axillobifemoral bypass. Her swelling is better in the morning, and she has noticed that her socks are making indentations in her legs when she takes them off at night. The patient was started on noninvasive ventilation. Adjustments were made overnight. She demonstrated marked improvement; and eventually, bilateral positive airway pressure (BiPAP) was discontinued. After discontinuation of BiPAP, the following history became available. REVIEW OF SYSTEMS: The patient denies wheezing, paroxysmal nocturnal dyspnea, fevers, chills, nausea, vomiting, diarrhea. She does admit to some constipation, as she has recently began iron. She admits to numbness in her right thigh that developed after her bypass surgery, and she states that she has had a runny nose as long as she has been coughing. On her last admission, her spironolactone 37.5 mg was discontinued, and her lisinopril was decreased from 20 to 5 mg by mouth daily. The patient has no history of breathing problems. She has never been diagnosed with asthma or had spirometry to diagnose chronic obstructive pulmonary disease (COPD). She quit smoking after she had her heart attack, previously smoked one pack per day for 35 years. She has had recent sick contacts as her 8-year-old granddaughter has been ill recently. MEDICAL HISTORY: 1. High cholesterol. 2. Anemia. 3. Hypertension. 4. Congestive heart failure (CHF), chronic systolic and diastolic failure. 5. Atrial fibrillation. 6. Coronary artery disease with history of ischemic cardiomyopathy. The patient had a heart attack in June of 2015. 7. Chronic renal insufficiency. MEDICATIONS: - atorvastatin - iron - lisinopril 5 mg daily - Lasix 10 mg twice a day - amiodarone 100 mg daily - Coumadin 3 mg four days a week and 4.5 mg three days a week - carvedilol FAMILY HISTORY: The patient has a significant cardiac family history. Both her parents from heart attacks. She also has two older brothers and one older sister who from heart attacks, as well. SOCIAL HISTORY: The patient quit smoking 2 years ago but prior to that had smoked about one pack per day for 35 years. She denies alcohol or drug use. She states that she does have a cat. She denies any recent travel or ever travel, stating that she has only been around [place]. 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 The patient also states that over the , she was not very strict with her diet and ate a lot of salty foods. ALLERGIES: No known drug allergies or seasonal allergies. PHYSICAL EXAMINATION: Vital signs on admission: Temperature 96.6, pulse 93, respiratory rate 24, blood pressure 129/58, with a mean arterial pressure (MAP) of 81, 62% on room air. This morning, her vital signs are temperature 97.2, pulse 61, blood pressure 128/57, with a MAP of 80, 98% on 4 liters of oxygen, respiratory rate is 20. General: Mrs. Vallejo is pleasant, alert and oriented times three. Resting comfortably. HEENT: Pupils equal, round, and reactive to light bilateral. Mucous membranes are moist. The patient has fair dentition. There is no erythema in the posterior pharynx. However, there is some postnasal drip. Neck: No lymphadenopathy is appreciated. Trachea is midline. There are no carotid bruits. Lungs: No accessory muscle use or retractions. There is symmetric excursion with normal I:E ratio. I do appreciate diminished air entry but do not appreciate wheezes, rhonchi, or crackles. There is some dullness to percussion at the right lower base. Heart: I appreciate the patient to be in normal sinus rhythm at the moment. Heart sounds are distant. Abdomen: Normoactive bowel sounds. Nontender to palpation. Extremities: The patient has bilateral edema in her lower extremities, right worse than left with pitting edema appreciated to the midshin. She has good lower extremity pulses bilaterally. Capillary refill is less than 2 seconds in all four extremities. LABORATORIES: Chemistries: Sodium 138, potassium 4.0, chloride 100, CO2 30, BUN 19, creatinine 1.32, glucose 276, lactic acid 4.0, pro-BNP 5180, CK 197, CK-MB 18.3, troponin 3.97. CBC: White count 15.1, hemoglobin 11.8, hematocrit 38.4, platelets 226, neutrophil 36%, lymphocytes 49%, monocytes 6%, eosinophils 2%, basophils 2%, atypical lymphocytes 4%. Coagulation studies: PT 22.3, INR 1.89. Arterial blood gas (05/08/2017): pH 7.293, PCO2 50.0, pO2 268.4, HCO3 23.7. IMAGING: Chest x-ray: Enlarged cardiac silhouette, normal mediastinal region. Diffuse faint pulmonary infiltrates bilaterally, no consolidated region. CT angiography: Cardiomegaly, diffuse emphysematous changes with atelectasis. Right pleural effusion with right lower lobe consolidation and small left upper lobe consolidation. No mediastinal or hilar lymphadenopathy. No pulmonary embolism. MICROBIOLOGY: Respiratory panel negative. Influenza A and B negative. Blood cultures times two pending. IMPRESSION: Mrs. Vallejo is a 56-year-old female brought to the emergency department by EMS for shortness of breath. She was subsequently found to be in acute hypoxic and hypercapnic respiratory failure, was started on noninvasive ventilation, and transferred to the ICU. 1. Acute hypoxemic and hypercapnic respiratory failure, most likely secondary to congestive heart failure with decreased perfusion. 2. Abnormal chest x-ray and CT angiogram with bilateral ground-glass opacities. Differential diagnoses includes pulmonary edema, infection, amiodarone toxicity , or other. Of these, favor pulmonary edema. 3. Acute on chronic congestive heart failure (CHF), systolic and diastolic. 4. Chronic renal insufficiency. 5. Coronary artery disease. 6. Emphysema without clear evidence of chronic obstructive pulmonary disease (COPD). RECOMMENDATIONS: 1. Continue diuresis. 2. Recheck chest x-ray due to marked improvement of respiratory function. 3. We have discontinued her pulmonary medications. 4. Recommend discontinuation of antibiotics. Will defer to primary team. A total of 40 minute of critical care time was used with an additional 15 minutes spent obtaining past medical history and review of systems. My faculty preceptor for this patient encounter was physically present during the encounter and was fully available. All aspects of the patient interview, examination, medical decision-making process, and medical care plan development were reviewed and approved by the faculty preceptor. The faculty preceptor is aware and concurs with the plan as stated in the body of this note and will attest to such by his/her cosignature. JOELLEN
[2017-05-08 15:45] LABS: BASO % 0.1 % (0.0-1.0); IMMATURE GRANULOCYTE % 0.4 % (0-0); LYMPH # 1.1 10^3/uL (1.5-4.5); LYMPH % 10.2 % (24.0-44.0); MEAN CORPUSCULAR HEMOGLOBIN 29.5 pg (27.0-33.0); MEAN CORPUSCULAR HGB CONC 31.8 g/dl (32.0-36.5); MONO # 0.2 10^3/uL (0.0-0.8); MONO % 1.9 % (0.0-5.0); NEUTROPHILS # 9.2 10^3/uL (1.8-7.7); NEUTROPHILS % 87.4 % (36.0-66.0); PLATELET COUNT, AUTOMATED 176 10^3/uL (150-450); WHITE BLOOD COUNT 10.6 10^3/uL (4.0-10.0)
[2017-05-08] MEDS ORDERED: VANCOMYCIN HCL 750 MG, VIAL MATE ADAPTER 1 EACH in D5W 250 ML IV SCH (17:00)
[2017-05-08] MEDS: FUROSEMIDE 20 MG TAB PO SCH (17:16)
[2017-05-08] MEDS: WARFARIN SOD 3 MG TAB PO SCH (17:16)
--- NOTE | 2017-05-08 18:10 | CR ---
DATE OF CONSULTATION: 05/08/2017 REFERRING PHYSICIAN: Hawk Peres MD REASON FOR CONSULTATION: [id number] myocardial infarction (NSTEMI), acute on chronic systolic and diastolic heart failure. HISTORY OF PRESENT ILLNESS: Celina Vallejo is a pleasant 56-year-old woman with coronary disease, ischemic cardiomyopathy, chronic systolic and diastolic heart failure. She is status post implantation of Medtronic dual chamber implantable cardioverter defibrillator (ICD) 08/12/2015 for sick sinus syndrome (tachycardia-bradycardia syndrome) with ischemic cardiomyopathy. She has history of paroxysmal atypical atrial flutter with rapid ventricular response. She is known to have an abnormal ECG and hypercholesterolemia. No systemic hypertension. She has a history of prior acute kidney injury. Yesterday the patient had abrupt onset of rapidly progressive exertional dyspnea to the point of dyspnea at rest. This transpired within an hour. She came to the emergency room promptly. She had a 10 minute episode of sudden onset of dyspnea similar to this that occurred a few days prior. In her usual state of health she experiences exertional dyspnea with less than ordinary activities of daily living such as walking short distances while shopping. No orthopnea or paroxysmal nocturnal dyspnea (PND). She reports that she has been having some mild edema in her right leg following some vascular surgical procedure. No chest, neck, jugular, or upper extremity pain, pressure, tightness, wheezing or heaviness with or without exertion. No presyncope or syncope. No palpitations. No embolic events. No implantable cardioverter defibrillator (ICD) shocks. Echocardiogram Doppler 12/09/2015 ([facility])[place] reported normal left ventricle (LV) wall thickness and cavity size with severe reduction in overall LV systolic function with left ventricular ejection fraction (LVEF) estimated to be 20%-25%. Severe diffuse global LV hypokinesis. Abnormal diastolic function consisting with grade 1 LV diastolic dysfunction (impaired relaxation filling pattern). Normal right ventricle size and systolic function. The presence of ICD lead in the right ventricle (RV) cavity. Mild mitral regurgitation. Trace to mild tricuspid regurgitation. No evidence of pulmonary hypertension. No pericardial effusion. Thallium cardiac nuclear viability stress test at [facility] 07/09/2015 reported global decreased wall motion and LVEF of 23%. The presence of a large infarct. No evidence of viable myocardium. Fixed large perfusion defect was anterolateral and extending from base to apex with a smaller defect over the inferior apical portion. Cardiac catheterization 07/08/2015 at [facility], (Dr. Leonel Steele) showed left main to be patent. Left anterior descending (LAD) had some mild plaque in its proximal portion. First diagonal branch which extended to the left ventricle apex had 99% stenosis. Left circumflex had mild plaque but no significant stenosis. The right coronary artery was dominant and large and was chronically occluded in its mid portion. Well-developed collaterals were present supplying the distal right coronary artery (RCA). An attempt was made to revascularize the diagonal branch, but this was not successful. The left ventriculogram showed a dilated left ventricle with global hypokinesis and LVEF of 16%. Echocardiogram Doppler 11/10/2016 reported normal LV size and wall thickness. Extensive and multiple regional wall motion abnormalities of the left ventricle with severe reduction overall LV systolic function. LVEF 25% by visual estimate. No LV thrombus. Grade 1 LV diastolic dysfunction. The basal and mid anteroseptal, inferoseptal, anterior and anterolateral segments were hypokinetic. Basal and mid inferior segments and basal inferolateral segments were normokinetic. The mid inferolateral segment was hypokinetic. The apical cap segments were akinetic. The apical anterior and apical septal segments were akinetic and the apical inferior and apical lateral segments were severely hypokinetic. Mild left atrial dilatation. Mild aortic valve sclerosis. The presence of endocardial right atrial pacing lead and right ventricle ICD lead. Normal RV size and systolic function. Suggestive of moderate elevation of estimated right ventricle systolic pressure. Moderate tricuspid regurgitation. Dilated inferior vena cava with normal respiratory variation suggestive of central venous pressure (CVP) 5-10 mmHg at the time of the study. No known adverse drug reactions. MEDICATIONS PRIOR TO ADMISSION: - amiodarone 100 mg daily - atorvastatin 80 mg at bedtime - carvedilol 6.25 mg twice a day - ferrous sulfate 325 mg twice a day - furosemide 10 mg twice a day - lisinopril 5 mg daily - nitroglycerin 0.4 mg sublingual as needed - warfarin 3 mg four times a week (Monday, Monday, Monday, Monday) and 4.5 mg three times per week (Monday, , Monday) CURRENT MEDICATIONS IN HOSPITAL: - amiodarone 100 mg daily - atorvastatin 80 mg at bedtime - carvedilol 6.25 mg twice a day - ferrous sulfate 325 mg twice a day - furosemide 40 mg IV every 4 hours - Humalog insulin four times a day per sliding scale - lisinopril 5 mg daily - nitroglycerin 0.4 mg sublingual as needed - warfarin 3 mg 4 days a week and 4.5 mg 3 days a week OTHER PAST MEDICAL AND SURGICAL HISTORY: Paroxysmal atypical atrial flutter. Ischemic cardiomyopathy. Sick sinus syndrome/tachycardia bradycardia syndrome. Status post dual chamber Medtronic ICD 08/12/2015. Chronic systolic and diastolic heart failure. Abnormal ECG. Hypercholesterolemia. Prior smoking history for which she has smoked 1 pack per day for 30 years and quit 07/07/2015. Anemia. Chronic kidney disease. Peripheral arterial disease. Bilateral lower extremity claudication history with history of right common iliac, external iliac and common femoral arterial occlusion and left external iliac artery and common femoral artery occlusion. She underwent right axillobifemoral bypass graft and right common femoral arterectomy performed by Dr. Ray Meyers 03/16/2017. FAMILY HISTORY: Father had CAD with myocardial infarction in his 70s. Mother had CAD with heart attack in her 70s. One sister with CAD and heart attack at age 45. SOCIAL HISTORY: . Lives with daughter. Not presently employed. Independent with activities of daily living. Prior smoking history of 1 pack per day times 30 years for which she quit 07/07/2015. No alcohol. Limited by exertional dyspnea when she attempts above ordinary physical activity. REVIEW OF SYSTEMS: The patient reports cough with small amounts of whitish occasionally yellow tinged sputum. No hemoptysis. No wheezing. No fever or chills. Constipation since being on iron. Numbness right thigh. COPD. No anxiety attacks or depression. All other 10 point review of system questions negative. PHYSICAL EXAMINATION: Pleasant overweight woman who appears older than chronological age who was not in any respiratory or psychological distress. Temperature 97.8, pulse 60 (regular), respiratory rate 20, blood pressure 94/48, pulse oximetry 94% on high flow oxygen 3 liters per minute by nasal cannula. No gross head, facial or skeletal deformities. Not in any respiratory or psychological distress. No conjunctival pallor, icterus or xanthelasmas. Oral mucosa was moist. No conjunctiva, pallor or cyanosis. Upper and lower dentures present. Oral mucosa was moist and without pallor or cyanosis. Trachea midline. No palpable thyroid. Jugular venous pulsations 3 cm. Respiratory expansion effort was fair. No crackles or wheezes. No left parasternal lifts, heaves, thrills or palpable heart sounds. ICD incision healed over the left pectoral region. First heart sound normal. Second heart sound normal. No S3 or S4. No murmurs appreciated. No pericardial friction rubs. Carotids are normal in volume and contour without bruits. No palpable abdominal aorta. No abdominal bruits. Pedal pulses normal. 1-2 mm of pitting edema present in the legs at mid and distal tibia level. No varicose veins. No clubbing. No nailbed clubbing, cyanosis or splinter hemorrhages. Bowel sounds positive. Abdomen soft and nontender with normal bowel sounds. Abdominal obesity. Difficult to assess for hepatosplenomegaly or other organomegaly due to abdominal obesity. No abdominal masses. Liver span difficult to assess due to abdominal obesity. Stool for occult blood not presently indicated. Gait not appropriate to test at this time as the patient is in the ICU on bedrest. No kyphosis or scoliosis. No skin lesions, skin pallor or icterus. Oriented to person, place and time. Mood and affect normal. ECG 05/08/2017 at 04:27 a.m. shows atrial paced rhythm at 59 BPM, low precordial voltages, moderate QRS widening. Lateral Q waves, consider old lateral wall myocardial infarct. Nonspecific T wave abnormalities. I have independently visualized the patient's portable AP sitting chest x-ray acquired 05/08/2017 at 12:18 p.m. The presence of bilateral pleural effusions of mild size. The presence of a dual chamber ICD with a dual coil ICD shock lead implanting into the right ventricle apex. The presence of pulmonary vascular redistribution. Peribronchial cuffing. No apparent alveolar edema. Portable sitting chest x-ray 05/07/2017 at 10:41 p.m. shows a dual chamber ICD. Cardiomegaly despite the portable technique. Pulmonary vascular redistribution. Interstitial pulmonary edema bilaterally. Small bilateral pleural effusions. LABORATORY WORK, 05/07/2017 at 2217 hours: Shows WBC 15.1, hemoglobin 18.8, hematocrit 38.4, platelets 226, PT/INR 1.71. Sodium 138, potassium 4.0, chloride 100, CO2 30, BUN 19, creatinine 1.32. Estimated GFR 44.0. Glucose 276. Lactic acid 4.0. CPK 89, CPK MB 2.5, troponin I 0.03, NT pro-BMP 5180. LABORATORY WORK, 05/08/2017 at 0937 hours: Shows troponin I 4.83. LABORATORY WORK, 05/08/2017 at 0330 hours: Shows CPK 197, CPK MB 18.3, % CPK MB 9.28%. Troponin I 3.97. ASSESSMENT AND PLAN: 1. CAD ([place] vessel): The patient is not bothered by angina. She has ischemic cardiomyopathy with chronic systolic/diastolic heart failure. She has two vessel CAD with previous cardiac catheterization 07/08/2015 showing 99% stenosis of a first diagonal branch for which an attempted coronary vascularization was successful and she has a large dominant chronically occluded right coronary artery which fills by collaterals. She has evidence of myocardial necrosis with a mildly elevated troponin I level and elevated CPK MB percent. I believe that this patient's NSTEMI is secondary to severe decompensated heart failure combined with transient respiratory failure and hypoxemia rather than a primary acute coronary plaque event. Recommend medical therapy. Continue warfarin. Continue carvedilol and lisinopril. 2. [id number] myocardial infarction. As per problem #1. 3. Ischemic cardiomyopathy. The patient has chronic systolic and diastolic heart failure. She has two vessel CAD which are nonamenable to percutaneous coronary artery intervention. Prior thallium myocardial viability study did not show any reversible or viable myocardium. Recommend continued medical therapy. Evaluation and management as per systolic and diastolic heart failure category below. 4. Acute on chronic, systolic and diastolic heart failure. Agree with IV furosemide. Continue carvedilol 6.25 mg twice a day. Agree with lisinopril 5 mg daily. At some point I would like to see her switched over to sacubitril/valsartan instead of lisinopril. Although, mineralocorticoid receptor antagonist would be an option for this patient, I would like to optimize her on sacubitril/valsartan prior to further consideration of adding a mineralocorticoid receptor antagonist. Recommend cardiac rehabilitation. Recommend an 1800 mL oral fluid restriction and a 2.5 gram sodium diet. 5. Paroxysmal atypical atrial flutter. The patient is atrial paced rhythm. 6. Sick sinus syndrome/tachycardia/bradycardia syndrome. Status post dual chamber ICD in situ. Stable. She is atrial paced. 7. Abnormal ECG. Stable. ECG as described above. 8. Hypercholesterolemia. Recommend a DASH diet. Continue intensive statin therapy with atorvastatin 80 mg at bedtime Thank you kindly for asking me to participate in the cardiac care of Celina Vallejo.
[2017-05-08] MEDS ORDERED: HumaLOG INSULIN (NovoLOG) PER UNIT SC SCH (21:00)
[2017-05-09] VITALS (7 sets, daily range): BP systolic 118–141; BP diastolic 56–71
[2017-05-09 05:12] LABS: BASO % 0.2 % (0.0-1.0); IMMATURE GRANULOCYTE % 0.6 % (0-0); LYMPH # 1.3 10^3/uL (1.5-4.5); LYMPH % 12.3 % (24.0-44.0); MEAN CORPUSCULAR HGB CONC 30.9 g/dl (32.0-36.5); MEAN CORPUSCULAR VOLUME 93.8 fl (80.0-96.0); MONO # 0.5 10^3/uL (0.0-0.8); MONO % 4.5 % (0.0-5.0); NEUTROPHILS # 8.7 10^3/uL (1.8-7.7); NEUTROPHILS % 82.4 % (36.0-66.0); PLATELET COUNT, AUTOMATED 164 10^3/uL (150-450); RED CELL DISTRIBUTION WIDTH 15.3 % (11.5-14.5); WHITE BLOOD COUNT 10.6 10^3/uL (4.0-10.0)
[2017-05-09 05:23] LABS: INR 2.17
[2017-05-09 05:56] LABS: ABG HCO3 28.7 MEQ/L (22.0-26.0); ABG PARTIAL PRESSURE CO2 55.5 mmHg (35.0-45.0); ABG PARTIAL PRESSURE O2 119.4 mmHg (75.0-100.0); ABG STANDARD HCO3 26.3 MEQ/L (22.0-26.0); ABG TOTAL CO2 30.4 MEQ/L (22.0-29.0); ABG pH (ARTERIAL) 7.332 UNITS (7.350-7.450)
[2017-05-09 06:31] LABS: ALBUMIN 2.3 GM/DL (3.2-5.2); ALBUMIN/GLOBULIN RATIO 0.66 (1.00-1.93); ALKALINE PHOSPHATASE 87 U/L (45-117); ALT/SGPT 17 U/L (12-78); ANION GAP 7 MEQ/L (8-16); AST/SGOT 21 U/L (7-37); BILIRUBIN,TOTAL 0.2 MG/DL (0.2-1.0); BLOOD UREA NITROGEN 24 MG/DL (7-18); CALCIUM LEVEL 8.3 MG/DL (8.5-10.1); CARBON DIOXIDE LEVEL 28 MEQ/L (21-32); CHLORIDE LEVEL 107 MEQ/L (98-107); CREATININE FOR GFR 0.93 MG/DL (0.55-1.02); GLOMERULAR FILTRATION RATE > 60.0 (>51); GLUCOSE, FASTING 129 MG/DL (70-105); SODIUM LEVEL 142 MEQ/L (136-145); TOTAL PROTEIN 5.8 GM/DL (6.4-8.2)
[2017-05-09] MEDS: HumaLOG INSULIN (NovoLOG) PER UNIT SC SCH ×2 (07:36→12:00)
[2017-05-09] MEDS: FERROUS SULFATE 325MG TAB PO SCH ×2 (08:16→20:44)
[2017-05-09] MEDS: FUROSEMIDE 20 MG TAB PO SCH ×2 (08:16→17:21)
[2017-05-09] MEDS: AMIODARONE 200 MG TAB (PACERONE) PO SCH (08:17)
[2017-05-09] MEDS: LISINOPRIL 5 MG TAB PO SCH ×2 (08:17→20:44)
[2017-05-09] MEDS: CARVedilol 6.25 MG TAB PO SCH ×2 (08:18→20:45)
--- NOTE | 2017-05-09 11:04 | IPN ---
DATE OF EXAMINATION: 05/09/2017 SUBJECTIVE: The patient tells me that she is feeling better. She does not feel back to normal. She does feel a little bit weak, and she also has a bit of a cough but otherwise has no other specific complaints and tells me that she is feeling significantly improved. She denies chest pain, shortness of breath, nausea, vomiting, or diarrhea. She has not gotten up and moved out of bed yet today. OBJECTIVE: Vital signs: Temperature 97.8, pulse 61, respiratory rate 20, blood pressure (BP) 126/57, oxygen (O2) saturation 96% on 1 liter nasal cannula. In general, she is a pleasant female sitting up in bed, wearing nasal cannula. She did not appear to be in any acute distress. HEENT: She has mild elevation in central venous pressure (CVP). Cranial nerve II-XII are grossly intact. CARDIOVASCULAR EXAMINATION: S1, S2. Appears to be regular. RESPIRATORY EXAMINATION: She has scattered bibasilar rales, some mild wheeze. ABDOMINAL EXAMINATION: Bowel sounds are present. The abdomen is soft. EXTREMITIES: There is no clubbing, cyanosis. There is trace edema bilaterally. LABORATORY STUDIES: Today, WBC 10.6, hemoglobin 9.8, platelet count 164. Chemistry panel: Sodium 142, potassium 4.0, chloride 107, bicarbonate 28, BUN 24, creatinine 0.9, troponin 2.9 down from a peak of 4.83. Arterial blood gas reveals a pH of 7.3, PCO2 55.5, pO2 119.4. INR is 2.1. MICROBIOLOGY: A respiratory PCR panel is negative. Influenza swab is negative. Blood culture is negative at 24 hours. No new imaging. ASSESSMENT AND PLAN: This is a 56-year-old female with acute on chronic diastolic and systolic heart failure. PROBLEMS: 1. Decompensated heart failure. Dr. Núñez's help has been greatly appreciated. She was initially on intravenous (IV) diuresis. However, she was diuresed, she improved significantly, and was transitioned to by mouth Lasix to double her home dose. Appears to be improved. Continues to improve quite well at this time. She is now on 1 liter nasal cannula. Will continue to wean )2. I will actually transfer her to the medical-surgical floor. We will hold telemetry. It is felt that her troponin elevation and ST depression are secondary to decompensated heart failure combined with transient hypoxemia. 2. Coronary artery disease. The patient is on a beta linda, angiotensin-converting enzyme (LANEY) inhibitor, and a statin. Will defer aspirin to cardiology. She is anticoagulated with Coumadin. Dr. Núñez recommends continued medical therapy. He is also considering changing the patient to sacubitril/valsartan instead of lisinopril in the future versus mineralocorticoid receptor antagonist. For the time being, she has remained on 1800 mL fluid-restricted diet and a 2.5-gram sodium diet. Will continue to check daily weights and intake and output (I and O). 3. Paroxysmal atypical atrial flutter. She is atrial paced. The patient is on amiodarone. 4. Sick sinus syndrome. She has an automatic implantable cardioverter-defibrillator (AICD) and pacer. Remains in a paced rhythm. 5. Dyslipidemia. She is on a statin. 6. Hypoxic and hypercarbic respiratory failure secondary to decompensated heart failure. Appears to be improving and resolving at this time. Pulmonary's help is appreciated. 7. Diabetes. She is continued on a sliding scale insulin. 8. Iron-deficiency anemia. She is continued on supplementation. 9. Deep venous thrombosis (DVT) prophylaxis. The patient is anticoagulated therapeutically with Coumadin. DISPOSITION: Will transfer to the medical-surgical floor. She appears to be improving. Will need further outpatient cardiology followup. MTDD
[2017-05-09] MEDS ORDERED: WARFARIN SOD 3 MG TAB PO SCH (17:00)
[2017-05-09] MEDS: ATORVASTATIN 20 MG TAB PO SCH (20:44)
[2017-05-10 06:00] VITALS: BP 139/61
[2017-05-10 06:06] LABS: MEAN CORPUSCULAR HEMOGLOBIN 29.3 pg (27.0-33.0); MEAN CORPUSCULAR HGB CONC 30.8 g/dl (32.0-36.5); MEAN CORPUSCULAR VOLUME 95.2 fl (80.0-96.0); PLATELET COUNT, AUTOMATED 195 10^3/uL (150-450); RED CELL DISTRIBUTION WIDTH 15.9 % (11.5-14.5); WHITE BLOOD COUNT 9.5 10^3/uL (4.0-10.0)
[2017-05-10 06:07] LABS: ADD MANUAL DIFFER YES; DIFF SLIDE NUMBER 45; POSITIVE MORPH POS FLAG
[2017-05-10 06:19] LABS: INR 2.06
[2017-05-10 08:02] LABS: EOSINOPHILS 1 % (0-5)
[2017-05-10] MEDS: FERROUS SULFATE 325MG TAB PO SCH ×2 (08:34→20:03)
[2017-05-10] MEDS: LISINOPRIL 5 MG TAB PO SCH ×2 (08:34→20:03)
[2017-05-10] MEDS: CARVedilol 6.25 MG TAB PO SCH ×2 (08:35→20:07)
[2017-05-10] MEDS: AMIODARONE 200 MG TAB (PACERONE) PO SCH (08:35)
[2017-05-10] MEDS: FUROSEMIDE 20 MG TAB PO SCH ×2 (08:35→17:26)
[2017-05-10 14:00] VITALS: BP 138/56
[2017-05-10] MEDS ORDERED: FUROSEMIDE 20 MG/2 ML VIAL (J1940) IV ONE (17:00)
--- NOTE | 2017-05-10 17:13 | IPN ---
DATE: 05/10/2017 SUBJECTIVE: The patient tells me that she is feeling well. She has no specific complaints. She tells me that she still has some mild shortness of breath but is certainly improving. She denies fevers, chills, chest pain, nausea, vomiting, or diarrhea. She has a mild cough which is improving as well. OBJECTIVE: VITAL SIGNS: Temperature is 98.3, pulse 63, respiratory rate 16, blood pressure 139/61, oxygen saturation 91% on room air. GENERAL: She is a very pleasant, female sitting on the edge of her bed. She does not appear to be in any acute distress. NEUROLOGIC: Cranial nerves II-XII are grossly intact. HEENT: I feel as though I do appreciate some mild elevation in her central venous pressure. CARDIOVASCULAR: S1, S2, regular. RESPIRATORY: She has mild bibasilar rales. ABDOMINAL: Obese. EXTREMITIES: There is 1+ edema bilaterally. LABORATORY STUDIES: Today, WBC 9.5, hemoglobin 10.3, and platelet count 195. Chemistry panel: Sodium 142, potassium 4.0, chloride 107, bicarbonate 27, BUN 24, creatinine 0.9, INR is 2.0. MICROBIOLOGY: Respiratory PCR panel is negative. Influenza swab is negative. Blood culture is negative for 48 hours. No new imaging. ASSESSMENT AND PLAN: This is a 56-year-old female with acute on chronic combined diastolic and systolic heart failure. PROBLEMS: 1. Decompensated heart failure. Dr. Núñez's help is greatly appreciated. She does appear to be improving with oral Lasix. However, she does have some significant edema remaining. I will provide her with additional dose of 20 mg of IV Lasix in addition to the oral that she is receiving. I have asked the nurse to ambulate her without oxygen to see if she meets any oxygen requirement. I suspect that if she continues to improve she will likely be medically stable for discharge home tomorrow. I have spoken with Dr. Núñez who is in agreement with the plan of care and will address adjusting her congestive heart failure medications further in the outpatient setting. The patient has an automatic implantable cardioverter defibrillator (AICD) in place. 2. Coronary artery disease. Se is on a beta linda, angiotensin-converting enzyme (LANEY) inhibitor, and a statin. 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 She is anticoagulated with Coumadin. She is therapeutic. She is on 1800 mL fluid restricted, 2.5 gram sodium diet. We are monitoring her intake and output and daily weights. 3. Paroxysmal atypical atrial flutter. She is atrial paced status post a pacer and she is on amiodarone. 4. Dyslipidemia. She is on a statin. 5. Hypoxic and hypercarbic respiratory failure secondary to decompensated heart failure, appears to be resolving at this time. 6. Diabetes. She is continued on sliding scale insulin. 7. Iron-deficiency anemia. She is on supplementation. 8. Deep venous thrombosis (DVT) prophylaxis. She is therapeutic on Coumadin. DISPOSITION: I suspect that she will be medically stable for discharge over the next 24-48 hours.
[2017-05-10] MEDS: WARFARIN SOD 3 MG TAB PO SCH (17:25)
[2017-05-10] MEDS: ATORVASTATIN 20 MG TAB PO SCH (20:03)
[2017-05-10 22:00] VITALS: BP 132/62
[2017-05-11 05:56] LABS: BASO # 0.1 10^3/uL (0.0-0.2); BASO % 0.9 % (0.0-1.0); EOS # 0.6 10^3/uL (0.0-0.50); EOS % 7.3 % (0.0-3.0); IMMATURE GRANULOCYTE % 0.2 % (0-0); LYMPH # 3.8 10^3/uL (1.5-4.5); MEAN CORPUSCULAR HEMOGLOBIN 29.5 pg (27.0-33.0); MEAN CORPUSCULAR HGB CONC 31.6 g/dl (32.0-36.5); MEAN CORPUSCULAR VOLUME 93.3 fl (80.0-96.0); MONO # 0.9 10^3/uL (0.0-0.8); MONO % 10.3 % (0.0-5.0); NEUTROPHILS # 3.2 10^3/uL (1.8-7.7); NEUTROPHILS % 37.3 % (36.0-66.0); PLATELET COUNT, AUTOMATED 198 10^3/uL (150-450); RED CELL DISTRIBUTION WIDTH 15.4 % (11.5-14.5); WHITE BLOOD COUNT 8.7 10^3/uL (4.0-10.0)
[2017-05-11 06:00] VITALS: BP 164/70
[2017-05-11 06:19] LABS: INR 2.03
[2017-05-11] MEDS: LISINOPRIL 5 MG TAB PO SCH (09:07)
[2017-05-11] MEDS: FERROUS SULFATE 325MG TAB PO SCH (09:07)
[2017-05-11] MEDS: FUROSEMIDE 20 MG TAB PO SCH (09:07)
[2017-05-11 09:08] VITALS: BP 144/78
[2017-05-11] MEDS: CARVedilol 6.25 MG TAB PO SCH (09:08)
[2017-05-11] MEDS: AMIODARONE 200 MG TAB (PACERONE) PO SCH (09:08)
[2017-05-11] MEDS ORDERED: LISI-542 PO (10:02)
[2017-05-11] MEDS ORDERED: FURO20TA2 PO (10:02)
--- NOTE | 2017-05-11 18:21 | DSES ---
DATE OF ADMISSION: 05/08/2017 DATE OF DISCHARGE: 05/11/2017 DISCHARGE DIAGNOSIS: Acute on chronic combined diastolic and systolic heart failure. SECONDARY DIAGNOSES: 1. Coronary artery disease. 2. Paroxysmal atypical atrial flutter. 3. Dyslipidemia. 4. Hypoxia and hypercarbic respiratory failure. 5. Diabetes. 6. Iron deficiency anemia. CONSULTATIONS: 1. Dr. Núñez, cardiology. 2. Dr. Rogers, critical care. HOSPITAL COURSE: The patient is a 56-year-old female who presented in combined hypercarbic hypoxic respiratory failure and reportedly briefly needed bilevel positive airway pressure (BiPAP). There was initially some concern for pneumonia. However, the diagnosis was made for congestive heart failure. She was diuresed and she did have significant improvement in her symptoms and returned to her baseline respiratory status. She admitted that she had overdid it with her salt and fluid restriction over the weekend. SUBJECTIVE: This morning, the patient tells me that she is feeling great. She has no shortness of breath and is eager to go home. OBJECTIVE: VITAL SIGNS: Temperature is 96.8, pulse 64, respiratory rate 16, blood pressure 144/78, oxygen saturation 98% on room air. GENERAL: She is a pleasant, female sitting on the edge of her bed. She does not appear to be in any acute distress. NEUROLOGIC: Cranial nerves II-XII are grossly intact. HEENT: She has moist mucous membranes. I do not appreciate any elevation in her central venous pressure. CARDIOVASCULAR: S1, S2, regular. RESPIRATORY: Clear. ABDOMINAL: Benign. EXTREMITIES: No clubbing, cyanosis, or edema. LABORATORY STUDIES: WBC 8.7, hemoglobin 10.5, platelet count 198. Chemistry panel: Sodium 142, potassium 4.0, chloride 107, bicarbonate 28, BUN 24, creatinine 0.9. She did have a troponin peak of 4.83 which then trended downward promptly. INR 2.0. MICROBIOLOGY: Blood cultures and influenza respiratory PCR panel were all negative. IMAGING STUDIES: The patient did have a CT angiography of her chest at the time of admission on 05/08/2017 which revealed bilateral pleural effusions, moderate changes of the paraseptal pulmonary emphysema and diffuse ground glass opacities secondary to pulmonary edema. ASSESSMENT AND PLAN: This is a 56-year-old female with acute on chronic combined diastolic and systolic heart failure. PROBLEMS: 1. Decompensated heart failure. Dr. Núñez's help has been greatly appreciated. She has been improving on oral Lasix which she will be discharged on. We will titrate up her home dose. Her shortness of breath has resolved. She is able to ambulate and has no oxygen requirement. She has an automatic implantable cardioverter defibrillator (AICD) in place for a low ejection fraction. She is continued on lisinopril, Lasix, Coreg. 2. Coronary artery disease. She is on a beta linda, angiotensin-converting enzyme (LANEY) inhibitor, statin. She is anticoagulated with Coumadin and not on aspirin. She is on an 1800 mL fluid restricted, and 2.5 gram sodium diet. Her symptoms are resolved. 3. Paroxysmal atypical atrial flutter. She is atrial paced status post pacer. She is on amiodarone and carvedilol. 4. Dyslipidemia. She is on a statin. 5. Hypoxic and hypercarbic respiratory failure, resolved. 6. Diabetes. She is continued on sliding scale insulin while in the hospital. 7. Iron-deficiency anemia. She is on supplementation. DISPOSITION: The patient is being discharged home. She is independent of her activities of daily living (ADLs). She is at her functional baseline and her clinical syndrome has resolved. She is to followup with her primary care provider (PCP) within seven days and followup with Dr. Núñez within two weeks. Her activity is prior to admission. Her diet is 2.5 gram sodium, 1800 mL fluid restricted diet. She is to check her daily weights and call Dr. Núñez if greater than three pounds weight gain and to return to the emergency room (ER) if her symptoms worsen. MEDICATIONS AT THE OF DISCHARGE: - furosemide 20 mg by mouth twice a day - lisinopril 5 mg twice a day - amiodarone 100 mg daily - atorvastatin 80 mg at bedtime - carvedilol 6.25 mg twice a day - ferrous sulfate 325 mg twice a day - nitroglycerine 0.4 mg sublingually every five minutes as needed chest pain times three doses - Coumadin 3 mg four times a week, 4.5 mg three times a week Greater than 30 minutes was spent organizing disposition.
== END 2017-05-11 14:05 | disposition home or self-care (01) | DRG 190 ==
LOC: M ED 21:54 → M ED INP 05-08 03:27 → M ICU 05-08 05:57 → M MSPAV 05-09 13:20
PROVIDERS: ADMIT Internal Medicine; ATTEND Internal Medicine
DX: I21.4 Non-ST elevation (NSTEMI) myocardial infarction (principal); J96.01 Acute respiratory failure with hypoxia; I50.43 Acute on chronic combined systolic (congestive) and diastolic (congestive) heart failure; J18.9 Pneumonia, unspecified organism; J96.02 Acute respiratory failure with hypercapnia; I11.0 Hypertensive heart disease with heart failure; J44.0 Chronic obstructive pulmonary disease with (acute) lower respiratory infection; J44.1 Chronic obstructive pulmonary disease with (acute) exacerbation; I48.0 Paroxysmal atrial fibrillation; D50.9 Iron deficiency anemia, unspecified; E78.00 Pure hypercholesterolemia, unspecified; Z79.899 Other long term (current) drug therapy; Z79.01 Long term (current) use of anticoagulants; Z87.891 Personal history of nicotine dependence; Z95.810 Presence of automatic (implantable) cardiac defibrillator; Y95 Nosocomial condition; I25.2 Old myocardial infarction

== ENCOUNTER → 2017-05-15 | Outpatient (CLI) | payer OTHER ==
[~2017-05-15] MED LIST changes: +LISI-542 PO
--- NOTE | 2017-05-18 13:43 | REP ---
RIGHT LOWER EXTREMITY BYPASS GRAFT ULTRASOUND: 05/15/2017 Study presented for my review today. An earlier dictation could not be retrieved from the voice bank. CLINICAL HISTORY: Status post right axillary bifemoral bypass. The right brachial artery shows velocity 142 cm/s. The left brachial artery 152 cm/s. Dorsalis pedis velocity 90 cm/s. ARTIFICIAL FOLIAGE ARRANGER 106 cm/s. The MEREDITH on the right is 0.70. The axillary bifemoral graft proximal to its anastomosis shows 105 cm/s and biphasic flow at the anastomosis, velocity 120 cm/s and biphasic. RIGHT PEAK SYSTOLIC VELOCITY PHASICITY CSA distal to graft 184 cm/s MonophasicProfunda 118 cm/s MonophasicSFA proximal 33 cm/s MonophasicSFA mid 13 cm/s with reversal of flow MonophasicSFA distal 49 cm/s MonophasicPopliteal 44 cm/s MonophasicATA proximal 19 cm/s MonophasicTibioperoneal trunk 15 cm/s ARTIFICIAL FOLIAGE ARRANGER proximal 15 cm/s MonophasicPTA distal 30 cm/s MonophasicPTA distal 17 cm/s Monophasic The graft is patent to the right common femoral artery of the left side not evaluated. There is mild stenosis just distal to the graft anastomoses at the CO FOUNDER AND DIRECTOR. The right SFA is very small with extensive plaque and reversal of flow seen in the mid SFA. There is normal flow direction below a revascularized vessel in the mid SFA. Slow flow is throughout the lower SFA and calf vessels with abnormal ankle brachial index. Calf vessels are very small. Signed by Santiago Delatorre MD 05/18/2017 08:40 P
== END ==
LOC: M RAD 08:08
PROVIDERS: ATTEND Surgery Vascular Surgery
DX: I70.235 Atherosclerosis of native arteries of right leg with ulceration of other part of foot (principal)

== ENCOUNTER → 2017-10-31 | Outpatient (REF) | payer OTHER ==
[2017-10-31 14:27] LABS: TOTAL T3 120.6 NG/DL (60.0-181.0)
== END ==
LOC: M LABDRAW1 11:38
DX: E05.00 Thyrotoxicosis with diffuse goiter without thyrotoxic crisis or storm (principal)
CPT/HCPCS: 84480

== ENCOUNTER → 2017-11-02 | Outpatient (CLI) | payer OTHER | LOC: M RAD 08:50 | DX: I65.23 Occlusion and stenosis of bilateral carotid arteries (principal) | CPT/HCPCS: 93880 ==

== ENCOUNTER → 2018-01-01 | Outpatient (REF) | payer OTHER ==
[2018-01-01 14:37] LABS: FREE T4 1.13 NG/DL (0.76-1.46)
== END ==
LOC: M LABDRAW1 13:20
DX: E05.00 Thyrotoxicosis with diffuse goiter without thyrotoxic crisis or storm (principal)

== ENCOUNTER → 2019-01-17 | Outpatient (CLI) | payer MEDICARE, MEDICAID ==
[~2019-01-17] MED LIST changes: +SPIR-10 PO; -SPIR25TA2 PO
--- NOTE | 2019-01-17 16:36 | REP ---
BILATERAL LOWER EXTREMITY DUPLEX DOPPLER ARTERIAL ULTRASOUND: Real-time ultrasound examination and duplex Doppler interrogation of bilateral lower extremity arterial systems is performed. The patient also has a right axillary to common femoral artery bypass graft with femoral to femoral bypass graft, which is imaged as well. The bypass graft is patent. Normal velocities are seen throughout the axillary to common femoral artery bypass graft ranging between 88.2 cm/s and 111.3 cm/s. Femoral to femoral bypass graft is also patent with normal flow velocities ranging between 25.8 cm/s to 30 cm/s. Both lower extremities demonstrate diffuse monophasic waveforms. MEREDITH on the right is 0.6 and left 0.5. Mild fluid is seen surrounding the femoral to femoral bypass graft at its mid to left lateral aspect. Bilateral superficial femoral arteries are thin with plaquing. There appears to be stenosis of the right profunda artery with elevated peak systolic velocity. There is reversal of flow in the mid and distal right superficial femoral artery suggesting stenosis or occlusion proximal to that with reconstitution. There is occlusion of the mid left superficial femoral artery with reconstitution distally. RIGHT PSV LEFT PSV Femoral artery 100 cm/s 35.5 cm/s Profunda 347 cm/s 37.4 cm/s Proximal SFA 50 cm/s 59.3 cm/s Mid SFA reversed flow 15.8 cm/s reversed flow 35.5 cm/s Distal SFA reversed flow 54.4 cm/s 26.5 cm/s Popliteal 39 cm/s 33.7 cm/s Proximal WYATT 17 cm/s 10.5 cm/s Tibial peroneal trunk 52 cm/s 29.5 cm/s Proximal TRANSIT SPECIALIST 35 cm/s 16 cm/s Distal TRANSIT SPECIALIST 37.8 cm/s 19 cm/s Distal WYATT 23.9 cm/s 18.6 cm/s Electronically Signed by Aleksandr Lopez MD 01/18/2019 09:31 A
--- NOTE | 2019-01-17 16:56 | REP ---
CAROTID ULTRASOUND: Real-time ultrasound evaluation and duplex Doppler interrogation of the extracranial carotid vasculature is performed and compared to prior study of 11/02/2017. Moderate diffuse plaquing and narrowing is seen throughout the common carotid arteries and carotid bulbs extending into the internal and external carotid arteries. There is elevated peak systolic velocity in the left internal carotid artery suggesting stenosis 60-79%. Luminal narrowing of the right ICA is consistent with less than 50%. There is normal direction of flow in both vertebral arteries. RIGHT LEFT Peak systolic velocity ICA 119.2 cm/s 168.9 cm/s End diastolic velocity ICA 142.2 cm/s 52.1 cm/s Peak systolic velocity CCA 95 cm/s 83 cm/s Peak systolic velocity ECA 157.3 cm/s 169.1 cm/s ICA to CCA ratio 1.3 2.0 IMPRESSION: Moderate diffuse plaquing and narrowing in both common carotid arteries, carotid bulbs, and internal carotid arteries with findings compatible with stenosis of the left ICA 60-79% and luminal narrowing right ICA less than 50%. Electronically Signed by Aleksandr Lopez MD 01/18/2019 09:31 A
== END ==
LOC: M RAD 10:21
PROVIDERS: ATTEND Surgery Vascular Surgery
DX: I65.23 Occlusion and stenosis of bilateral carotid arteries (principal); I70.213 Atherosclerosis of native arteries of extremities with intermittent claudication, bilateral legs; I70.235 Atherosclerosis of native arteries of right leg with ulceration of other part of foot

== ENCOUNTER → 2019-05-15 | Outpatient (CLI) | payer MEDICARE, MEDICAID ==
--- NOTE | 2019-05-15 15:30 | REP ---
CAROTID ULTRASOUND: Real-time ultrasound evaluation and duplex Doppler interrogation of the extracranial carotid vasculature is performed. There is mild to moderate plaquing and narrowing in both carotid bulbs extending into the internal and external carotid arteries. Luminal narrowing is less than 50%. There is no evidence of hemodynamically significant stenosis of either internal carotid artery. Normal flow velocities are seen. The vertebral arteries demonstrate normal direction of flow. RIGHT LEFT Peak systolic velocity ICA 83.3 cm/s 109.3 cm/s End diastolic velocity ICA 27.80 cm/s 31.8 cm/s Peak systolic velocity CCA 86.9 cm/s 72.3 cm/s Peak systolic velocity ECA 232.9 cm/s 241.9 cm/s ICA/CCA ratio 0.96 1.5 IMPRESSION: Bilateral luminal narrowing of the internal carotid arteries less than 50%. No evidence of hemodynamically significant stenosis. Electronically Signed by Aleksandr Lopez MD 05/15/2019 03:23 P
== END ==
LOC: M RAD 12:59
PROVIDERS: ATTEND Physician Assistant
DX: I65.23 Occlusion and stenosis of bilateral carotid arteries (principal)

== ENCOUNTER → 2019-08-21 | Outpatient (CLI) | payer MEDICARE, MEDICAID ==
--- NOTE | 2019-08-21 11:56 | REP ---
Bilateral lower extremity arterial duplex Doppler ultrasound: Right lower extremity: Brachial peak systole: The 103rd mmHg Dorsalis pedis peak systole : May 7 mmHg APARTMENT RENTAL AGENT peak systole: 80 mmHg MEREDITH peak systole : 0.62 Velocity Phasicity AIRCRAFT SYSTEMS REPAIRER 113/336 biphasic Profunda 263 biphasic SFA prox 117/occluded monophasic SFA mid 24.1 monophasic SFA dist 106/37.9 monophasic Pop 42.2 monophasic WYATT prox 63.4 monophasic Tib/P tr 47.3 monophasic APARTMENT RENTAL AGENT pr 21.6 monophasic APARTMENT RENTAL AGENT dst 72.1 monophasic WYATT dst 16.4 monophasic Left lower extremity: Brachial peak systole: 130 mmHg Dorsalis pedis peak systole : 60 mmHg APARTMENT RENTAL AGENT peak systole: 60 mmHg MEREDITH peak systole : 0.46 Velocity Phasicity AIRCRAFT SYSTEMS REPAIRER 159/410 biphasic Profunda 428 monophasic SFA prox 21.1/81.5/occl monophasic SFA mid 25.2 monophasic SFA dist 36.3 monophasic Pop 28.1 monophasic WYATT prox 42.2 monophasic Tib/P tr 27.6 monophasic APARTMENT RENTAL AGENT pr 19.9 monophasic APARTMENT RENTAL AGENT dst 21.7 monophasic WYATT dst 15.8 monophasic Impression: There is significant intraluminal plaque bilaterally at the CFAs/SFAs. Bilaterally the proximal SFAs are occluded with revascularization at the right distal SFA and left mid SFA. There is a right axillary/bifemoral bypass graft. The graft is patent. There are monophasic waveforms on the right from the proximal SFA distally and on the left from the proximal SFA distally. There are monophasic waveforms in the left segment of the bypass graft. There are multiple stenoses as follows: At the right axillary graft anastomosis, right AIRCRAFT SYSTEMS REPAIRER 3 :1), right profunda origin, left AIRCRAFT SYSTEMS REPAIRER (2.6:1), left SFA proximal (3.9:1). Electronically Signed by Aleksandr Shaver MD 08/21/2019 11:48 A
== END ==
LOC: M RAD 08:26
PROVIDERS: ATTEND Physician Assistant
DX: I70.213 Atherosclerosis of native arteries of extremities with intermittent claudication, bilateral legs (principal); Z95.820 Peripheral vascular angioplasty status with implants and grafts

== ENCOUNTER → 2020-03-09 | Outpatient (CLI) | payer MEDICARE, MEDICAID ==
[~2020-03-09] MED LIST changes: -AMIO200T PO; +AMIO200T3 PO; +ASPI-546; -ASPI1TAB15
--- NOTE | 2020-03-18 14:21 | REP ---
BILATERAL LOWER EXTREMITY ARTERIAL DOPPLER ULTRASOUND HISTORY: Atherosclerosis. Status post right axillobifemoral bypass grafting. FINDINGS: Ankle brachial indices are slightly lower than on prior study measured at 0.54 on the right and 0.36 in the left. Patent right axillofemoral bypass graft is seen. Slower flow is seen in the crossover graft to the left leg. Bilateral napaimute superficial femoral artery (SFA) occlusions are again noted. Monophasic arterial Doppler waveforms are noted throughout the lower extremity arteries. There is a 3.4:1 velocity ration in the common femoral artery on the right just below the anastomosis. On the left, there is a common femoral artery stenosis just distal to the anastomosis as well and a collateral is seen coming off the common femoral artery on the left similar to the prior study. BILATERAL LOWER EXTREMITY ARTERIAL DOPPLER VELOCITY CHART RIGHT PSV (cm/s) LEFT PSV (cm/s) BRAND AMBASSADOR PROMOTIONAL MODEL 75/257 38/383 Profunda 325 38 Proximal SFA 60/occluded 41 Mid SFA Occluded Occluded Distal SFA Occluded/68/59 30 Popliteal 59 26 Proximal WYATT 48 35 Tibioperoneal trunk 64 49 Proximal BACK UP MACHINE OPERATOR 80 33 Distal BACK UP MACHINE OPERATOR 55 20 Distal WYATT 31 21 VELOCITY CHART RIGHT GIWEAB-[id number] GRAFT CHART RIGHT PSV CM/S Right axillary artery anastomosis 113 Mid-graft 72 Pre-anastomotic distal graft 87 Origin crossover graft to left leg 33 Distal left limb 38 MTDD
== END ==
LOC: M RAD 07:06
PROVIDERS: ATTEND Physician Assistant
DX: I70.213 Atherosclerosis of native arteries of extremities with intermittent claudication, bilateral legs (principal); Z95.828 Presence of other vascular implants and grafts

== ENCOUNTER → 2020-03-11 | Outpatient (REF) | payer MEDICARE, MEDICAID ==
[2020-03-11 18:19] LABS: ALBUMIN 3.2 GM/DL (3.2-5.2); ALT/SGPT 16 U/L (12-78); BILIRUBIN,TOTAL 0.5 MG/DL (0.2-1.0); BLOOD UREA NITROGEN 20 MG/DL (7-18); CALCIUM LEVEL 8.7 MG/DL (8.8-10.2); CARBON DIOXIDE LEVEL 33 MEQ/L (21-32); CHLORIDE LEVEL 106 MEQ/L (98-107); CREATININE FOR GFR 0.83 MG/DL (0.55-1.30); GLOMERULAR FILTRATION RATE > 60.0 (>45); GLUCOSE, FASTING 127 MG/DL (70-100); POTASSIUM SERUM 3.9 MEQ/L (3.5-5.1); SODIUM LEVEL 143 MEQ/L (136-145); TOTAL PROTEIN 6.8 GM/DL (6.4-8.2)
[2020-03-11 18:30] LABS: HEMOGLOBIN A1c 5.9 %
== END ==
LOC: M LAB REF 17:13
PROVIDERS: ATTEND Family Medicine Addiction Medicine
DX: I73.9 Peripheral vascular disease, unspecified (principal)

== ENCOUNTER → 2020-05-14 | Outpatient (REF) | payer MEDICARE, MEDICAID ==
[2020-05-14 14:19] LABS: BLOOD UREA NITROGEN 21 MG/DL (7-18); CARBON DIOXIDE LEVEL 33 MEQ/L (21-32); CHLORIDE LEVEL 104 MEQ/L (98-107); CREATININE FOR GFR 0.73 MG/DL (0.55-1.30); GLOMERULAR FILTRATION RATE > 60.0 (>45); GLUCOSE, FASTING 127 MG/DL (70-100); POTASSIUM SERUM 3.9 MEQ/L (3.5-5.1); SODIUM LEVEL 141 MEQ/L (136-145)
[2020-05-14 14:20] LABS: ALBUMIN 2.9 GM/DL (3.2-5.2); ALT/SGPT 12 U/L (12-78); BILIRUBIN,TOTAL 0.3 MG/DL (0.2-1.0); CALCIUM LEVEL 8.8 MG/DL (8.8-10.2); TOTAL PROTEIN 6.4 GM/DL (6.4-8.2)
[2020-05-14 18:36] LABS: HEMOGLOBIN A1c 6.2 %
== END ==
LOC: M LAB REF 12:32
PROVIDERS: ATTEND Family Medicine Addiction Medicine
DX: R73.01 Impaired fasting glucose (principal)

== ENCOUNTER → 2020-07-07 | Outpatient (CLI) | payer MEDICARE, MEDICAID ==
[~2020-07-07] MED LIST changes: -LISI-538 PO; -LISI-542 PO; +LISI-898 PO; +LISI20TA33 PO
--- NOTE | 2020-07-07 11:30 | REP ---
INDICATION: STENOSIS COMPARISON: Comparison study May 15, 2019.. TECHNIQUE: Real-time ultrasound evaluation and duplex Doppler interrogation of the extracranial carotid vasculature is performed. FINDINGS: Antegrade flow is observed in both vertebral arteries. Right carotid: The right common carotid artery shows diffuse intimal thickening but is otherwise unremarkable. There mild to moderate mixed plaquing in the right carotid bulb and proximal ICA on two-dimensional scanning. Color flow and spectral Doppler interrogation are unremarkable on the right. Velocity chart right carotid: Right CCA PSV: 111 cm/S Right ICA PSV: 117 cm/S Right ICA EDV: 40 cm/S Right ECA PSV: 164 cm/S Right ICA/CCA ratio: 1.05 Left carotid: The left common carotid artery shows diffuse intimal thickening but is otherwise unremarkable. There is mild to moderate mixed plaquing in the left carotid bulb and proximal ICA on two-dimensional scanning. Color flow and spectral Doppler interrogation are unremarkable on the left. Velocity chart left carotid: Left CCA PSV: 76 cm/S Left ICA PSV: 163 cm/S Left ICA EDV: 35 cm/S Left ECA PSV: 137 cm/S Left ICA/CCA ratio: 2.1 IMPRESSION: Less than 50% category narrowing in the right internal carotid artery by Doppler velocity criteria. 50-69% category narrowing in the left ICA by Doppler velocity criteria. ICA velocities on the left are somewhat higher today than on the prior study. <Electronically signed by Tom Lara > 07/07/20 1127
== END ==
LOC: M RAD 10:31
PROVIDERS: ATTEND Physician Assistant
DX: I65.23 Occlusion and stenosis of bilateral carotid arteries (principal)

== ENCOUNTER → 2020-10-01 | Outpatient (CLI) | payer MEDICARE, MEDICAID ==
[~2020-10-01] MED LIST changes: +ASPI-569 PO; -ASPI81TAEC PO
== END ==
LOC: M RAD 14:11
PROVIDERS: ATTEND Physician Assistant
DX: Z53.9 Procedure and treatment not carried out, unspecified reason (principal)

== ENCOUNTER → 2020-10-14 | Outpatient (CLI) | payer MEDICARE, MEDICAID ==
--- NOTE | 2020-10-14 13:21 | REP ---
INDICATION: CLAUDICATION COMPARISON: 03/09/2020. TECHNIQUE: Real time lopez scale and Duplex Doppler evaluation of the bilateral lower extremity arterial vasculature using linear high frequency transducer. FINDINGS: Lopez scale and duplex doppler images demonstrate MEREDITH right 0.53 and left 0.38. Severe diffuse plaquing is seen bilaterally. Biphasic waveforms are seen throughout the right lower extremity. Monophasic waveforms are seen throughout the left lower extremity. There is occlusion of the left common femoral artery. There is occlusion of the bilateral proximal and mid superficial femoral arteries. There is reconstitution of the distal to these levels. There is stenosis of the distal right common femoral artery approximately 3.4-1 and of the proximal left superficial femoral artery greater than 10-1. There is a right axillary to bi femoral bypass graft. The left femoral segment is occluded. Other portions of the bypass graft are patent with normal velocities, and diffuse biphasic and monophasic waveforms. Multiple collateral vessels are seen at the level of the left common femoral artery.. Peak systolic velocities (cm/sec) Common femoral artery: Right 296; Left occluded Profunda femoris: Right 360; Left 25 SFA (proximal): Right 147/occluded; Left 8/97/occluded SFA (mid): Right occluded; Left occluded SFA (distal): Right 69; Left 20 Popliteal artery: Right 40; Left 33 WYATT (prox.): Right 32; Left 22 Tibioperoneal trunk: Right 43; Left 21 TUB WASH OPERATOR (prox.): Right 37; Left 16 TUB WASH OPERATOR (distal): Right 68; Left 14 WYATT (distal): Right 19; Left 12 IMPRESSION: Occlusion left common femoral artery. Occlusion bilateral proximal and mid superficial femoral arteries with reconstitution distally. Stenosis right common femoral artery and proximal left SFA. Occlusion of left femoral segment of axillary to bi femoral bypass graft. Multiple collateral vessels at the level of the left common femoral artery. <Electronically signed by Aleksandr Lopez > 10/14/20 0015
== END ==
LOC: M RAD 10:43
PROVIDERS: ATTEND Physician Assistant
DX: I70.213 Atherosclerosis of native arteries of extremities with intermittent claudication, bilateral legs (principal); I70.392 Other atherosclerosis of unspecified type of bypass graft(s) of the extremities, left leg

== ENCOUNTER 2021-04-19 23:47 | Inpatient (IN) | payer MEDICARE, MEDICAID ==
[~2021-04-19] VITALS: Ht 162.6 cm; Wt 82.7 kg
--- OUTSIDE RECORDS SUMMARY | 2021-04-19 23:56 | CCD | Continuity of Care Document ---
Author Author Celina GUERRERO-C Organization Unknown Address [address] [facility], [place] [address] Phone [phone] Care Team Providers Care Nozzleman Name Role Phone Casi Schneider MD AUTM [phone] Selvin Hester MD AUTM [phone] Dimas Russo MD AUTM [phone] Kelly Wong MD AUTM [phone] Ankita Navarro MD AUTM [phone] Problems Active Problems Provider Date Chronic ischemic heart disease Dimas Núñez MD Onset: 0 07/29/2015 Chronic combined systolic and diastolic heart failure Dimas Núñez MD Onset: 07/29/2015 Atrial flutter Dimas Núñez MD Onset: 07/29/2015 Atherosclerotic heart disease of [place] coronary arter y without angina pectoris Dimas Núñez MD Onset: 07/29/2015 Electrocardiogram abnormal Dimas Núñez MD Onset: 09/08 Pure hypercholesterolemia Dimas Núñez MD Onset: 2016 Automatic implantable cardiac defibrillator in situ SOFIA García Onset: 12/26/2016 Paroxysmal atrial fibrillation SOFIA García Onset: 01/23/2017 Obesity SOFIA García Onset: 01/23/2017 Dietary management surveillance SOFIA García Onset: 01/23/2017 Encounter for other preprocedural examination SOFIA García Onset: 01/23/2017 Overweight NICKIE Cheney Onset: 10/03/2017 Adverse effect of other antidysrhythmic drugs, subsequ ent encounter Ailyn L Quan, PA Onset: 11/20/2017 Pulmonary function studies abnormal NICKIE Cheney Ons et: 11/20/2017 Essential hypertension NICKIE Cheney Onset: 9 Peripheral vascular disease NICKIE Cheney Onset: 12/11 Social History Type Date Description Comments Sex Unknown ETOH Use Does not consume alcohol Tobacco Use Start: Unknown End: Unknown Patient is a former smoker 1 ppd for 30 years; quit Jul 05 2015 Smoking Status Reviewed: 02/11/21 Patient is a former smoker 1 ppd for 30 years; quit Jul 05 2015 Exercise Type/Frequency Walks daily Exercise Type/Frequency Does housework twice a w [place] Exercise Limitations Shortness Of Breath Allergies and adverse reactions Description No Known Drug Allergies Medications Active Medications SIG Qnty Indications Ordering Provide r Date Warfarin Sodium 1mg Tablets 1-2 tab by mouth daily as directed 180tabs Chano Ortiz MD 08/28 Carvedilol 25mg Tablets take one tablet by mouth twice a day 180tabs I48.4 Chano Ortiz MD 07/05/2018 I50.42 I25.5 Entresto 97-103mg Tablets 1 by mouth twice a day 180tabs I25.5 Dimas Núñez MD 04/18/2018 Furosemide 20mg Tablets 1 by mouth twice a day 180tabs I50.42 Chano Ortiz MD 05/29/2017 Ferrous Sulfate 325(65Fe) mg Table ts take one tablet by mouth twice a day 180tabs Dimas Núñez MD 01/31/2017 Atorvastatin Calcium 80mg Tablets 1 by mouth every night at bedtime 90tabs Nena Van 07/28/2015 Nitrostat 0.4mg Tablets Sub 1 sl every 5min x3 as needed for chest pain - please split into 2 bottles 25tabs Dimas Núñez MD 07/28/2015 Warfarin Sodium 3mg Tablets 1-2 by mouth daily as directed by cardiology 180tabs I48.4 Chano Ortiz MD 07/28/2015 Aspirin Ec Low Dose 81mg Tablets D R 1 by mouth every day Unknown Immunizations Description No Information Available Vital Signs Date Vital Result Comment 02/11/2021 9:36am Weight 187.00 lb Home Weight 187lb Height 63 inches 5'3" BMI (Body Mass Index) 33.1 kg/m2 Heart Rate 74 /min BP Systolic Sitting 128 mmHg Ra, large cuff BP Diastolic Sitting 70 mmHg Ra, large cuff 08/11/2020 8:48am Weight 191.00 lb Home Weight 192lb Height 63 inches 5'3" BMI (Body Mass Index) 33.8 kg/m2 Heart Rate 74 /min BP Systolic Sitting 112 mmHg Ra, large cuff BP Diastolic Sitting 60 mmHg Ra, large cuff Results Test Acquired Date Facility Test Result H/L Range Note Prothrombin Time (PT) 04/05/2021 [facility] [place] Inr 2.4 High 0.9-1.2 1 Prothrombin Time 24.8 sec High 9.1-12.0 Laboratory test finding 04/05/2021 [facility] PDF [id number] SEE IMAGE Prothrombin Time (PT) 03/04/2021 [facility] [place] Inr 2.9 High 0.9-1.2 2 Prothrombin Time 29.2 sec High 9.1-12.0 Laboratory test finding 03/04/2021 [facility] PDF [id number] SEE IMAGE Prothrombin Time (PT) 02/02/2021 [facility] [place] Inr 2.2 High 0.9-1.2 3 Prothrombin Time 22.5 sec High 9.1-12.0 Laboratory test finding 02/02/2021 [facility] PDF [id number] SEE IMAGE Prothrombin Time (PT) 01/05/2021 [facility] [place] Inr 2.5 High 0.9-1.2 4 Prothrombin Time 25.1 sec High 9.1-12.0 Laboratory test finding 01/05/2021 [facility] PDF [id number] SEE IMAGE Prothrombin Time (PT) 12/03/2020 [facility] [place] Inr 2.7 High 0.9-1.2 5 Prothrombin Time 27.3 sec High 9.1-12.0 Laboratory test finding 12/03/2020 [facility] PDF [id number] SEE IMAGE Prothrombin Time (PT) 11/04/2020 [facility] [place] Inr 2.7 High 0.9-1.2 6 Prothrombin Time 27.2 sec High 9.1-12.0 Laboratory test finding 11/04/2020 [facility] PDF [id number] SEE IMAGE Prothrombin Time (PT) 10/06/2020 [facility] [place] Inr 2.1 High 0.9-1.2 7 Prothrombin Time 21.4 sec High 9.1-12.0 Laboratory test finding [facility]06/[facility] [id number] SEE IMAGE 1 Reference interval is for no n-anticoagulated patients. Suggested INR therapeutic range for Vitamin K antagonist therapy: Standard Dose (moderate intensity therapeutic range): 2.0 - 3.0 Higher intensity therapeutic range 2.5 - 3.5 2 Reference interval is for no n-anticoagulated patients. Suggested INR therapeutic range for Vitamin K antagonist therapy: Standard Dose (moderate intensity therapeutic range): 2.0 - 3.0 Higher intensity therapeutic range 2.5 - 3.5 3 Reference interval is for no n-anticoagulated patients. Suggested INR therapeutic range for Vitamin K antagonist therapy: Standard Dose (moderate intensity therapeutic range): 2.0 - 3.0 Higher intensity therapeutic range 2.5 - 3.5 4 Reference interval is for no n-anticoagulated patients. Suggested INR therapeutic range for Vitamin K antagonist therapy: Standard Dose (moderate intensity therapeutic range): 2.0 - 3.0 Higher intensity therapeutic range 2.5 - 3.5 5 Reference interval is for no n-anticoagulated patients. Suggested INR therapeutic range for Vitamin K antagonist therapy: Standard Dose (moderate intensity therapeutic range): 2.0 - 3.0 Higher intensity therapeutic range 2.5 - 3.5 6 Reference interval is for no n-anticoagulated patients. Suggested INR therapeutic range for Vitamin K antagonist therapy: Standard Dose (moderate intensity therapeutic range): 2.0 - 3.0 Higher intensity therapeutic range 2.5 - 3.5 7 Reference interval is for no n-anticoagulated patients. Suggested INR therapeutic range for Vitamin K antagonist therapy: Standard Dose (moderate intensity therapeutic range): 2.0 - 3.0 Higher intensity therapeutic range 2.5 - 3.5 Procedures Date Code Description Status 03/26/2021 80301 Icd Interrogation Any Leads Comp leted 03/05/2021 15033 Anticoagulant MGMT F or Patient Taking Warfarin, Inc Review & Intr Completed 02/11/2021 30270 Office/Outpatient Established Mo d MDM 30-39 Min Completed 02/11/2021 36747 ECG 12-Lead Completed 02/03/2021 92329 Anticoagulant MGMT F or Patient Taking Warfarin, Inc Review & Intr Completed 01/21/2021 64170 Chronic Care MGMT 20 Mins Clinical Staff Time Per Calendar Month Completed 01/07/2021 72103 Anticoagulant MGMT F or Patient Taking Warfarin, Inc Review & Intr Completed 12/23/2020 45767 Remote Pacemaker/Cardio-Defibril lator Data Acquistion Completed 12/23/2020 23775 Remote Interrogate D evice Eval Cardioverter/Defibrillator-90 Days Completed 12/04/2020 40406 Anticoagulant MGMT F or Patient Taking Warfarin, Inc Review & Intr Completed 12/03/2020 56509 Chronic Care MGMT 20 Mins Clinical Staff Time Per Calendar Month Completed 11/06/2020 65875 Chronic Care MGMT 20 Mins Clinical Staff Time Per Calendar Month Completed 11/05/2020 64229 Anticoagulant MGMT F or Patient Taking Warfarin, Inc Review & Intr Completed 10/09/2020 54907 Anticoagulant MGMT F or Patient Taking Warfarin, Inc Review & Intr Completed Medical Devices Description No Information Available Encounters Type Date Location Provider Dx Diagnosis Office Visit 02/11/2021 9:45a Main Office N[facility] [place] I48 .0 Paroxysmal atrial fibrillation I10 Essential (primary) hyperten fidel I50.42 Chronic combined systolic an d diastolic hrt fail I25.5 Ischemic cardiomyopathy Z95.810 Presence of automatic (impla ntable) cardiac defibrillator I25.10 Athscl heart disease of [place] coronary artery w/o ang pctrs I73.9 Peripheral vascular disease, unspecified R94.31 Abnormal electrocardiogram [ ECG] [EKG] E66.8 Other obesity Z71.3 Dietary counseling and surve illance Office Visit 01/21/2021 11:57a Main Office Dimas Núñez MD I48.0 Paroxysmal atrial fibrillation I10 Essential (primary) hyperten fidel Office Visit 12/03/2020 9:35a Main Office Dimas Núñez MD I10 Essential (primary) hypertension I48.0 Paroxysmal atrial fibrillati on Office Visit 11/06/2020 9:37a Main Office Dimas Núñez MD I48.0 Paroxysmal atrial fibrillation I10 Essential (primary) hyperten fidel Assessments Date Code Description Provider 03/26/2021 I25.5 Ischemic cardiomyopathy Stephy Javier ryder PA-C 03/05/2021 I48.0 Paroxysmal atrial fibrillation K stacy Guerrero PA-C 03/05/2021 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 Stephy Guerrero PA-C 02/11/2021 I48.0 Paroxysmal atrial fibrillation C NICKIE Saeed 02/11/2021 I10 Essential (primary) hypertension NICKIE West 02/11/2021 I50.42 Chronic combined systolic (conge stive) and diastolic (conges NICKIE West 02/11/2021 I25.5 Ischemic cardiomyopathy NICKIE Cates 02/11/2021 Z95.810 Presence of automatic (implantab le) cardiac defibrillator NICKIE West 02/11/2021 I25.10 Atherosclerotic hear t disease of [place] coronary artery without angina pectoris NICKIE West 02/11/2021 I73.9 Peripheral vascular disease, uns pecified NICKIE West 02/11/2021 R94.31 Abnormal electrocardiogram [ECG] [EKG] NICKIE West 02/11/2021 E66.8 Other obesity NICKIE Smallwood Cha, se 02/11/2021 Z71.3 Dietary counseling and surveilla nce NICKIE West 02/03/2021 I48.0 Paroxysmal atrial fibrillation K stacy Guerrero PA-C 02/03/2021 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 Stephy Guerrero PA-C 01/21/2021 I48.0 Paroxysmal atrial fibrillation Kyle Núñez MD 01/21/2021 I10 Essential (primary) hypertension Dimas Núñez MD 01/07/2021 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 NICKIE West 01/07/2021 I48.0 Paroxysmal atrial fibrillation C NICKIE Saeed 12/23/2020 Z95.810 Presence of automatic (implantab le) cardiac defibrillator [facility] 12/04/2020 I48.0 Paroxysmal atrial fibrillation K stacy Guerrero PA-C 12/04/2020 Z79.01 half-way (current) use of antic oagulants Stephy Guerrero PA-C 12/03/2020 I10 Essential (primary) hypertension Dimas Núñez MD 12/03/2020 I48.0 Paroxysmal atrial fibrillation D melissa Núñez MD 11/06/2020 I48.0 Paroxysmal atrial fibrillation D melissa Núñez MD 11/06/2020 I10 Essential (primary) hypertension Dimas Núñez MD 11/05/2020 I48.0 Paroxysmal atrial fibrillation K STEFAN AdrianC 11/05/2020 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 Stephy Guerrero PA-C 10/09/2020 I48.0 Paroxysmal atrial fibrillation K stacy Guerrero PA-C 10/09/2020 Z79.01 half-way (current) use of antic oagulants Stephy Guerrero PA-C Plan of Treatment Future Appointment(s):* 06/25/2021 7:00 am - [facility] at Main Office * 03/28/2022 11:15 am - Stephy Guerrero PA-C at Main Office * 08/13/2021 10:15 am - NICKIE [facility] at Main Office 02/11/2021 - NICKIE [facility]* I48.0 Paroxysmal atrial fibrillation* Recommendations:* Continue warfarin and carvedilol at the current dosages Patient agreeable to contact us with any episodes of tachycardia or palpitations * I10 Essential (primary) hypertension* Recommendations:* Continue carvedilol, furosemide, and Entresto at the current dosages Advised patient to please monitor blood pressures at home and to alert our office for readings >140/>90 or <110/<60 * I50.42 Chronic combined systolic (congestive) and diastolic (conges* Recommendations:* Continue aspirin, atorvastatin, carvedilol, furosemide, and Entresto at the current dosages Please alert the office with a weight gain of > 3 lbs or the onset of worsening shortness of breath, orthopnea, or lower extremity edema * I25.5 Ischemic cardiomyopathy* Recommendations:* Continue aspirin, atorvastatin, carvedilol, furosemide, and Entresto at the current dosages Patient is agreeable to contact the office with any worsening shortness of breath, orthopnea, or the onset of lower extremity edema * Z95.810 Presence of automatic (implantable) cardiac defibrillator* Recommendations:* Continue 91 day home/12 month office checks * I25.10 Atherosclerotic heart disease of [place] coronary artery without angina pectoris* Recommendations:* No medication changes made today Advised patient to contact our office with any chest pain, shortness of breath, new or concerning symptoms * I73.9 Peripheral vascular disease, unspecified* Recommendations:* Continue management per vascular * R94.31 Abnormal electrocardiogram [ECG] [EKG]* Recommendations:* No further evaluation is needed at this time. * E66.8 Other obesity * Z71.3 Dietary counseling and surveillance* Recommendations:* Recommended for patient to follow a more whole food diet. Advised patient to avoid overly processed foods and packaged foods. Advised patient to avoid sodas, juices and other liquid calories. Recommended at least 30 minutes of exercise 3 days a week. * All * Follow up:* Follow up in 6 months Functional Status Functional Condition Comment Date Status Independent with all ADL's Activ e Mental Status Description No Information Available Referrals Description No Information Available
--- OUTSIDE RECORDS SUMMARY | 2021-04-19 23:56 | CCD | Continuity of Care Document ---
Author Author Celina GUERRERO-C Organization Unknown Address [address] [facility], [place] [address] Phone [phone] Care Team Providers Care Sheet Metal Foreman Name Role Phone Casi Schneider MD AUTM [phone] Selvin Hester MD AUTM [phone] Dimas Russo MD AUTM [phone] Kelly Wong MD AUTM [phone] Ankita Navarro MD AUTM [phone] Problems Active Problems Provider Date Chronic ischemic heart disease Dimas Núñez MD Onset: 0 07/29/2015 Chronic combined systolic and diastolic heart failure Dimas Núñez MD Onset: 07/29/2015 Atrial flutter Dimas Núñez MD Onset: 07/29/2015 Atherosclerotic heart disease of [place] coronary arter y without angina pectoris Dimas [...] Exercise Type/Frequency Does housework twice a w [place] Exercise Limitations Shortness Of Breath Allergies, Adverse Reactions, Alerts Description No Known Drug Allergies Medications Active [...] Result H/L Range Note Prothrombin Time (PT) 03/04/2021 [facility] [place] Inr 2.9 High 0.9-1.2 1 Prothrombin Time 29.2 sec High 9.1-12.0 Laboratory test finding [facility] [id number] SEE IMAGE Prothrombin Time (PT) 02/02/2021 [facility] [place] Inr 2.2 High 0.9-1.2 2 Prothrombin Time 22.5 sec High 9.1-12.0 Laboratory test finding 02/02/20[facility] PDF [id number] SEE IMAGE Prothrombin Time (PT) 01/05/2021 [facility] [place] Inr 2.5 High 0.9-1.2 3 Prothrombin Time 25.1 sec High 9.1-12.0 Laboratory test finding 01/05/2021 [facility] PDF [id number] SEE IMAGE Prothrombin Time (PT) 12/03/2020 [facility] [place] Inr 2.7 High 0.9-1.2 4 Prothrombin Time 27.3 sec High 9.1-12.0 Laboratory test finding 12/03/2020 [facility] [place] PDF [id number] SEE IMAGE Prothrombin Time (PT) 11/04/2020 [facility] [place] Inr 2.7 High 0.9-1.2 5 Prothrombin Time 27.2 sec High 9.1-12.0 Laboratory test finding 11/04/2020 [facility] PDF [id number] SEE IMAGE Prothrombin Time (PT) 10/06/2020 [facility] Inr 2.1 High 0.9-1.2 6 Prothrombin Time 21.4 sec High 9.1-12.0 Laboratory test finding 10/06/2020 [facility] PDF [id number] SEE IMAGE Prothrombin Time (PT) 09/03/2020 [facility] [place] Inr 2.2 High 0.9-1.2 7 Prothrombin Time 22.6 sec High 9.1-12.0 Laboratory test finding 09/03/2020 [facility] [place] PDF [id number] SEE IMAGE BMP 09/03/2020 [facility] [place] Glucose 126 mg/dL High 65-99 BUN 17 mg/dL 8-27 Creatinine 0.75 mg/dL 0.57-1.00 eGFR If NonAfricn Am 86 mL/min/1.73 >59 eGFR If Africn Am 99 mL/min/1.73 >59 BUN/Creatinine Ratio 23 12-28 Sodium 143 mmol/L 134-144 Potassium 3.9 mmol/L 3.5-5.2 Chloride 100 mmol/L 96-106 Carbon Dioxide, Total 28 mmol/L 20-29 Calcium 8.6 mg/dL Low 8.7-10.3 Laboratory test finding 09/03/2020 [facility] [place] PDF [id number] SEE IMAGE 1 Reference interval is for [...] - 3.5 Procedures Date Code Description Status 03/05/2021 89507 Anticoagulant MGMT F or Patient Taking Warfarin, Inc Review & Intr Completed 02/11/2021 16218 Office/Outpatient Established Mo d MDM 30-39 Min Completed 02/11/2021 88266 ECG 12-Lead Completed 02/03/2021 78596 Anticoagulant MGMT F or Patient Taking Warfarin, Inc Review & Intr Completed 01/21/2021 60750 Chronic Care MGMT 20 Mins Clinical Staff Time Per Calendar Month Completed 01/07/2021 34112 Anticoagulant MGMT F or Patient Taking Warfarin, Inc Review & Intr Completed 12/23/2020 47993 Remote Pacemaker/Cardio-Defibril lator Data Acquistion Completed 12/23/2020 07310 Remote Interrogate D evice Eval Cardioverter/Defibrillator-90 Days Completed 12/04/2020 29486 Anticoagulant MGMT F or Patient Taking Warfarin, Inc Review & Intr Completed 12/03/2020 81507 Chronic Care MGMT 20 Mins Clinical Staff Time Per Calendar Month Completed 11/06/2020 19653 Chronic Care MGMT 20 Mins Clinical Staff Time Per Calendar Month Completed 11/05/2020 84828 Anticoagulant MGMT F or Patient Taking Warfarin, Inc Review & Intr Completed 10/09/2020 10938 Anticoagulant MGMT F or Patient Taking Warfarin, Inc Review & Intr Completed 09/23/2020 91491 Remote Pacemaker/Cardio-Defibril lator Data Acquistion Completed 09/23/2020 08406 Remote Interrogate D evice Eval Cardioverter/Defibrillator-90 Days Completed 09/07/2020 82356 Anticoagulant MGMT F or Patient Taking Warfarin, [...] Dietary counseling and surve illance Office Visit 12/03/2020 9:35a Main Office Dimas Núñez MD I10 Essential (primary) hypertension I48.0 Paroxysmal atrial fibrillati on Office Visit 11/06/2020 9:37a Main Office Dimas Núñez MD I48.0 Paroxysmal atrial fibrillation I10 Essential (primary) hyperten fidel Assessments Date Code Description Provider 03/05/2021 I48.0 Paroxysmal atrial fibrillation K stacy Guerrero PA-C 03/05/2021 Z79.01 care home (current) use of antic oagulants STEFAN GrijalvaC 02/11/2021 I48.0 Paroxysmal atrial fibrillation C NICKIE Saeed 02/11/2021 I10 Essential (primary) hypertension NICKIE West 02/11/2021 I50.42 Chronic combined systolic (conge stive) and diastolic (conges NICKIE West 02/11/2021 I25.5 Ischemic cardiomyopathy NICKIE Cates 02/11/2021 Z95.810 Presence of automatic (implantab le) cardiac defibrillator NICKIE West 02/11/2021 I25.10 Atherosclerotic hear t disease of [place] coronary artery without angina pectoris NICKIE West 02/11/2021 I73.9 Peripheral vascular disease, uns pecified NICKIE West 02/11/2021 R94.31 Abnormal electrocardiogram [ECG] [EKG] NICKIE West 02/11/2021 E66.8 Other obesity NICKIE Smallwood Cha, se 02/11/2021 Z71.3 Dietary counseling and surveilla nce NICKIE West 02/03/2021 I48.0 Paroxysmal atrial fibrillation K STEFAN AdrianC 02/03/2021 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 STEFAN GrijalvaC 01/21/2021 I48.0 Paroxysmal atrial fibrillation D melissa Núñez MD 01/21/2021 I10 Essential (primary) hypertension Dimas Núñez MD 01/07/2021 Z79.01 art installer (current) use of antic laurentgulanNICKIE Hall 01/07/2021 I48.0 Paroxysmal atrial fibrillation C NICKIE Saeed 12/23/2020 Z95.810 Presence of automatic (implantab le) cardiac defibrillator [facility] 12/04/2020 I48.0 Paroxysmal atrial fibrillation K stacy Guerrero PA-C 12/04/2020 Z79.01 care home (current) use of antic oagulanozzy Guerrero PA-C 12/03/2020 I10 Essential (primary) hypertension Dimas Núñez MD 12/03/2020 I48.0 Paroxysmal atrial fibrillation D melissa Núñez MD 11/06/2020 I48.0 Paroxysmal atrial fibrillation D melissa Núñez MD 11/06/2020 I10 Essential (primary) hypertension Dimas Núñez MD 11/05/2020 I48.0 Paroxysmal atrial fibrillation K stacy Guerrero PA-C 11/05/2020 Z79.01 art installer (current) use of antic oagulanSTEFAN AponteC 10/09/2020 I48.0 Paroxysmal atrial fibrillation K STEFAN AdrianC 10/09/2020 Z79.01 care home (current) use of antic oagulants Stephy Guerrero PA-C 09/23/2020 Z95.810 Presence of automatic (implantab le) cardiac defibrillator [facility] 09/07/2020 I48.0 Paroxysmal atrial fibrillation K stacy Guerrero PA-C 09/07/2020 Z79.01 care home (current) use of antic laurentgulanozzy Guerrero PA-C Plan of Treatment Future Appointment(s):* 08/13/2021 10:15 am - N[facility] at Main Office * 03/26/2021 11:15 am - Stephy Guerrero PA-C at Main Office 02/11/2021 - [facility]* [...] checks * I25.10 Atherosclerotic heart disease of [place] coronary artery without angina pectoris* Recommendations:* No [...]
--- OUTSIDE RECORDS SUMMARY | 2021-04-19 23:56 | CCD ---
Continuity of Care Document (CCD) Created on: 03/11/2021 Celina Vallejo External Reference #: [id number] : [id number] Sex: Female Author Author Celina NÚÑEZ MD Organization Unknown Address [address] [place] [address], [place] [address] Phone [phone] Care Team Providers Care Belt Picker Name Role Phone Casi Schneider MD AUTM [phone] Selvin Hester MD AUTM [phone] Dimas Russo MD AUTM [phone] Kelly Wong MD AUTM [phone] Ankita Navarro MD AUTM [phone] Problems Active Problems Provider Date Chronic ischemic heart disease Dimas Núñez MD Onset: 0 07/29/2015 Chronic combined systolic and diastolic heart failure Dimas Núñez MD Onset: 07/29/2015 Atrial flutter Dimas Núñez MD Onset: 07/29/2015 Atherosclerotic heart disease of [place] coronary arter y without angina pectoris Dimas [...] of other antidysrhythmic drugs, subsequ ent encounter NICKIE Cheney Onset: 11/20/2017 Pulmonary function studies abnormal NICKIE [...] Exercise Type/Frequency Does housework twice a w [place] Exercise Limitations Shortness Of Breath Allergies, Adverse [...] H/L Range Note Prothrombin Time (PT) 03/04/2021 [facility] [place] Inr 2.9 High 0.9-1.2 1 Prothrombin Time 29.2 sec High 9.1-12.0 Laboratory test finding 03/04/2021 [facility] PDF [id number] SEE IMAGE Prothrombin Time (PT) 02/02/2021 [facility] [place] Inr 2.2 High 0.9-1.2 2 Prothrombin Time 22.5 sec High 9.1-12.0 Laboratory test finding 02/02/2021 [facility] PDF [id number] SEE IMAGE Prothrombin Time (PT) 01/05/2021 [facility] [place] Inr 2.5 High 0.9-1.2 3 Prothrombin Time 25.1 sec High 9.1-12.0 Laboratory test finding 01/05/2021 [facility] PDF [id number] SEE IMAGE Prothrombin Time (PT) 12/03/2020 [facility] [place] Inr 2.7 High 0.9-1.2 4 Prothrombin Time 27.3 sec High 9.1-12.0 Laboratory test finding 12/03/2020 [facility] PDF [id number] SEE IMAGE [facility] (PT[facility] 0.9-1.2 5 Prothrombin Time 27.2 sec High 9.1-12.0 Laboratory test finding 11/04/2020 [facility] PDF [id number] SEE IMAGE Prothrombin Time (PT) 10/06/2020 [facility] [place] Inr 2.1 High 0.9-1.2 6 Prothrombin Time 21.4 sec High 9.1-12.0 Laboratory test finding 10/06/2020 [facility] PDF [id number] SEE IMAGE 1 Reference interval is for [...] 3.5 Procedures Date Code Description Status 03/05/2021 75874 Anticoagulant MGMT F or Patient Taking Warfarin, Inc Review & Intr Completed 02/11/2021 60397 Office/Outpatient Established Mo d MDM 30-39 Min Completed 02/11/2021 70537 ECG 12-Lead Completed 02/03/2021 83701 Anticoagulant MGMT F or Patient Taking Warfarin, Inc Review & Intr Completed 01/21/2021 72275 Chronic Care MGMT 20 Mins Clinical Staff Time Per Calendar Month Completed 01/07/2021 82607 Anticoagulant MGMT F or Patient Taking Warfarin, Inc Review & Intr Completed 12/23/2020 68000 Remote Pacemaker/Cardio-Defibril lator Data Acquistion Completed 12/23/2020 96240 Remote Interrogate D evice Eval Cardioverter/Defibrillator-90 Days Completed 12/04/2020 51621 Anticoagulant MGMT F or Patient Taking Warfarin, Inc Review & Intr Completed 12/03/2020 71422 Chronic Care MGMT 20 Mins Clinical Staff Time Per Calendar Month Completed 11/06/2020 68754 Chronic Care MGMT 20 Mins Clinical Staff Time Per Calendar Month Completed 11/05/2020 71147 Anticoagulant MGMT F or Patient Taking Warfarin, Inc Review & Intr Completed 10/09/2020 50074 Anticoagulant MGMT F or Patient Taking Warfarin, Inc Review & Intr Completed 09/23/2020 87549 Remote Pacemaker/Cardio-Defibril lator Data Acquistion Completed 09/23/2020 83123 Remote Interrogate D evice Eval Cardioverter/Defibrillator-90 Days Completed Medical Devices Description No Information Available [...] 03/05/2021 I48.0 Paroxysmal atrial fibrillation K stacy Donald PA-C 03/05/2021 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 oagulants Stephy Donald PA-C 02/11/2021 I48.0 Paroxysmal atrial fibrillation C NICKIE Saeed 02/11/2021 I10 Essential (primary) hypertension NICKIE West 02/11/2021 I50.42 Chronic combined systolic (conge stive) and diastolic (conges NICKIE West 02/11/2021 I25.5 Ischemic cardiomyopathy Katerinasherron vaca Nathaniel Toledo, NICKIE 02/11/2021 Z95.810 Presence of automatic (implantab le) cardiac defibrillator NICKIE West 02/11/2021 I25.10 Atherosclerotic hear t disease of [place] coronary artery without angina pectoris NICKIE West 02/11/2021 I73.9 Peripheral vascular disease, uns pecified NICIKE West 02/11/2021 R94.31 Abnormal electrocardiogram [ECG] [EKG] NICKIE West 02/11/2021 E66.8 Other obesity NICKIE Smallwood Cha, se 02/11/2021 Z71.3 Dietary counseling and surveilla nce NICKIE West 02/03/2021 I48.0 Paroxysmal atrial fibrillation K stacy Donald PA-C 02/03/2021 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 oagulants Stephy Donald PA-C 01/21/2021 I48.0 Paroxysmal atrial fibrillation D melissa Núñez MD 01/21/2021 I10 Essential (primary) hypertension Dimas Núñez MD 01/07/2021 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 laurentgulanNICKIE Hall 01/07/2021 I48.0 Paroxysmal atrial fibrillation C NICKIE Saeed 12/23/2020 Z95.810 Presence of automatic (implantab le) cardiac defibrillator [facility] 12/04/2020 I48.0 Paroxysmal atrial fibrillation K stacy Donald PA-C 12/04/2020 Z79.01 prison (current) use of antic oagulants Stephy Donald PA-C 12/03/2020 I10 Essential (primary) hypertension Dimas Núñez MD 12/03/2020 I48.0 Paroxysmal atrial fibrillation D melissa Núñez MD 11/06/2020 I48.0 Paroxysmal atrial fibrillation D melissa Núñez MD 11/06/2020 I10 Essential (primary) hypertension Dimas Núñez MD 11/05/2020 I48.0 Paroxysmal atrial fibrillation K stacy Donald PA-C 11/05/2020 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
--- OUTSIDE RECORDS SUMMARY | 2021-04-19 23:56 | CCD | Continuity of Care Document ---
Author Author Celina GUERRERO-C Organization Unknown Address [address] [facility], [place] [address] Phone [phone] Care Team Providers Care Frame And Scrap Crusher Name Role Phone Casi Schneider MD AUTM [phone] Selvin Hester MD AUTM [phone] Dimas Russo MD AUTM [phone] Kelly Wong MD AUTM [phone] Ankita Navarro MD AUTM [phone] Problems Active Problems Provider Date Chronic ischemic heart disease Dimas Núñez MD Onset: 0 07/29/2015 Chronic combined systolic and diastolic heart failure Dimas Núñez MD Onset: 07/29/2015 Atrial flutter Dimas Núñez MD Onset: 07/29/2015 Atherosclerotic heart disease of [place] coronary arter y without angina pectoris Dimas [...] Onset: 11/20/2017 Pulmonary function studies abnormal NICKIE Cheeny Ons et: 11/20/2017 Essential hypertension NICKIE Cheney [...] Exercise Type/Frequency Does housework twice a w [place] Exercise Limitations Shortness Of Breath Allergies, Adverse [...] sec High 9.1-12.0 Laboratory test finding 03/04/2021 [facility] PDF [id number] SEE IMAGE Prothrombin Time (PT) 02/02/2021 [facility] Inr 2.2 High 0.9-1.2 2 Prothrombin Time 22.5 sec High 9.1-12.0 Laboratory test [facility] [id number] SEE IMAGE Prothrombin Time (PT) 01/05/2021 [facility] Inr 2.5 High 0.9-1.2 3 Prothrombin Time 25.1 sec High 9.1-12.0 Laboratory test finding 01/05/2021 [facility] PDF [id number] SEE IMAGE Prothrombin Time (PT) 12/03/2020 [facility] [place] Inr 2.7 High 0.9-1.2 4 Prothrombin Time 27.3 sec High 9.1-12.0 Laboratory test finding [facility] [id number] SEE IMAGE Prothrombin Time (PT) 11/04/2020 [facility] Inr 2.7 High 0.9-1.2 5 Prothrombin Time 27.2 sec High 9.1-12.0 Laboratory test finding 11/04/2020 [facility] PDF [id number] SEE IMAGE Prothrombin Time (PT) 10/06/2020 [facility] Inr 2.1 High 0.9-1.2 6 Prothrombin Time 21.4 sec High 9.1-12.0 Laboratory test finding 10/06/2020 [facility] PDF [id number] SEE IMAGE 1 Reference interval is for [...] 3.5 Procedures Date Code Description Status 03/05/2021 54271 Anticoagulant MGMT F or Patient Taking Warfarin, Inc Review & Intr Completed 02/11/2021 36299 Office/Outpatient Established Mo d MDM 30-39 Min Completed 02/11/2021 98897 ECG 12-Lead Completed 02/03/2021 54473 Anticoagulant MGMT F or Patient Taking Warfarin, Inc Review & Intr Completed 01/21/2021 31845 Chronic Care MGMT 20 Mins Clinical Staff Time Per Calendar Month Completed 01/07/2021 76929 Anticoagulant MGMT F or Patient Taking Warfarin, Inc Review & Intr Completed 12/23/2020 55972 Remote Pacemaker/Cardio-Defibril lator Data Acquistion Completed 12/23/2020 95242 Remote Interrogate D evice Eval Cardioverter/Defibrillator-90 Days Completed 12/04/2020 50602 Anticoagulant MGMT F or Patient Taking Warfarin, Inc Review & Intr Completed 12/03/2020 44481 Chronic Care MGMT 20 Mins Clinical Staff Time Per Calendar Month Completed 11/06/2020 59962 Chronic Care MGMT 20 Mins Clinical Staff Time Per Calendar Month Completed 11/05/2020 40759 Anticoagulant MGMT F or Patient Taking Warfarin, Inc Review & Intr Completed 10/09/2020 30842 Anticoagulant MGMT F or Patient Taking Warfarin, Inc Review & Intr Completed 09/23/2020 27286 Remote Pacemaker/Cardio-Defibril lator Data Acquistion Completed 09/23/2020 90108 Remote Interrogate D evice Eval Cardioverter/Defibrillator-90 Days Completed 09/07/2020 33782 Anticoagulant MGMT F or Patient Taking Warfarin, [...] fibrillation K stacy Guerrero PA-C 03/05/2021 Z79.01 skilled nursing (current) use of antic oagulants Stephy Guerrero PA-C 02/11/2021 I48.0 Paroxysmal atrial fibrillation C NICKIE Saeed 02/11/2021 I10 Essential (primary) hypertension NICKIE West 02/11/2021 I50.42 Chronic combined systolic (conge stive) and diastolic (conges NICKIE West 02/11/2021 I25.5 Ischemic cardiomyopathy Cassandr a L. 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 Stephy Guerrero PA-C 01/21/2021 I48.0 Paroxysmal atrial fibrillation D melissa Núñez MD 01/21/2021 I10 Essential (primary) hypertension Dimas Núñez MD 01/07/2021 Z79.01 skilled nursing (current) use of antic oagulants NICKIE West 01/07/2021 I48.0 Paroxysmal atrial fibrillation C NICKIE Saeed 12/23/2020 Z95.810 Presence of automatic (implantab le) cardiac defibrillator [facility] 12/04/2020 I48.0 Paroxysmal atrial fibrillation K stacy Guerrero PA-C 12/04/2020 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.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 Stephy Guerrero PA-C 12/03/2020 I10 Essential (primary) hypertension Dimas Núñez MD 12/03/2020 I48.0 Paroxysmal atrial fibrillation D melissa Núñez MD 11/06/2020 I48.0 Paroxysmal atrial fibrillation D melissa Núñez MD 11/06/2020 I10 Essential (primary) hypertension Dimas Núñez MD 11/05/2020 I48.0 Paroxysmal atrial fibrillation K stacy Guerrero PA-C 11/05/2020 Z79.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 Stephy Guerrero PA-C 10/09/2020 I48.0 Paroxysmal atrial fibrillation K stacy Guerrero PA-C 10/09/2020 Z79.01 pole classifier (current) use of antic laurentgulanozzy Guerrero PA-C 09/23/2020 Z95.810 Presence of automatic (implantab le) cardiac defibrillator [facility] 09/07/2020 I48.0 Paroxysmal atrial fibrillation Harsha stacy Guerrero PA-C 09/07/2020 Z79.01 skilled nursing (current) use of antic laurentgulanozzy Guerrero PA-C [...] checks * I25.10 Atherosclerotic heart disease of [place] coronary artery without angina pectoris* Recommendations:* No [...]
--- OUTSIDE RECORDS SUMMARY | 2021-04-19 23:56 | CCD | Continuity of Care Document ---
Author Author Celina GUERRERO-C Organization Unknown Address [address] [facility], [place] [address] Phone [phone] Care Team Providers Care Inpatient Nursing Aide Name Role Phone Casi Schneider MD AUTM [phone] Selvin Hester MD AUTM [phone] Dimas Russo MD AUTM [phone] Kelly Wong MD AUTM [phone] Ankita Navarro MD AUTM [phone] Problems Active Problems Provider Date Chronic ischemic heart disease Dimas Núñez MD Onset: 0 07/29/2015 Chronic combined systolic and diastolic heart failure Dimas Núñez MD Onset: 07/29/2015 Atrial flutter Dimas Núñez MD Onset: 07/29/2015 Atherosclerotic heart disease of [place] coronary arter y without angina pectoris Dimas [...] Exercise Type/Frequency Does housework twice a w [place] Exercise Limitations Shortness Of Breath Allergies and [...] sec High 9.1-12.0 Laboratory test finding 04/05/2021 [facility] PDF [id number] SEE IMAGE Prothrombin Time (PT) 03/04/2021 [facility] NE Inr 2.9 High 0.9-1.2 2 Prothrombin Time 29.2 sec High 9.1-12.0 Laboratory test finding 03/04/2021 [facility] PDF [id number] SEE IMAGE Prothrombin Time (PT) 02/02/2021 [facility] NE Inr 2.2 High 0.9-1.2 3 Prothrombin Time 22.5 sec High 9.1-12.0 Laboratory test finding 02/02/2021 [facility] PDF [id number] SEE IMAGE Prothrombin Time (PT) 01/05/2021 [facility] NE Inr 2.5 High 0.9-1.2 4 Prothrombin Time 25.1 sec High 9.1-12.0 Laboratory test finding 01/05/2021 [facility] PDF [id number] SEE IMAGE Prothrombin Time (PT) 12/03/2020 [facility] NE Inr 2.7 High 0.9-1.2 5 Prothrombin Time 27.3 sec High 9.1-12.0 Laboratory test finding 12/03/2020 [facility] PDF [id number] SEE IMAGE Prothrombin Time (PT) 11/04/2020 [facility] NE Inr 2.7 High 0.9-1.2 6 Prothrombin Time 27.2 sec High 9.1-12.0 Laboratory test finding 11/04/2020 [facility] PDF [id number] SEE IMAGE Prothrombin Time (PT) 10/06/2020 [facility] NE Inr 2.1 High 0.9-1.2 7 Prothrombin Time 21.4 sec High 9.1-12.0 Laboratory test finding [facility] [id number] SEE IMAGE 1 Reference interval is for [...] 3.5 Procedures Date Code Description Status 03/26/2021 10311 Icd Interrogation Any Leads Comp leted 03/05/2021 01197 Anticoagulant MGMT F or Patient Taking Warfarin, Inc Review & Intr Completed 02/11/2021 36017 Office/Outpatient Established Mo d MDM 30-39 Min Completed 02/11/2021 88532 ECG 12-Lead Completed 02/03/2021 58591 Anticoagulant MGMT F or Patient Taking Warfarin, Inc Review & Intr Completed 01/21/2021 77857 Chronic Care MGMT 20 Mins Clinical Staff Time Per Calendar Month Completed 01/07/2021 32512 Anticoagulant MGMT F or Patient Taking Warfarin, Inc Review & Intr Completed 12/23/2020 44609 Remote Pacemaker/Cardio-Defibril lator Data Acquistion Completed 12/23/2020 92066 Remote Interrogate D evice Eval Cardioverter/Defibrillator-90 Days Completed 12/04/2020 32647 Anticoagulant MGMT F or Patient Taking Warfarin, Inc Review & Intr Completed 12/03/2020 94866 Chronic Care MGMT 20 Mins Clinical Staff Time Per Calendar Month Completed 11/06/2020 38808 Chronic Care MGMT 20 Mins Clinical Staff Time Per Calendar Month Completed 11/05/2020 19707 Anticoagulant MGMT F or Patient Taking Warfarin, Inc Review & Intr Completed 10/09/2020 93938 Anticoagulant MGMT F or Patient Taking Warfarin, [...] fibrillation K stacy Guerrero PA-C 03/05/2021 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 Stephy Guerrero PA-C 02/11/2021 I48.0 Paroxysmal atrial fibrillation C NICKIE Saeed 02/11/2021 I10 Essential (primary) hypertension NICKIE West 02/11/2021 I50.42 Chronic combined systolic (conge stive) and diastolic (conges NICKIE West 02/11/2021 I25.5 Ischemic cardiomyopathy NICKIE Cates 02/11/2021 Z95.810 Presence of automatic (implantab le) cardiac defibrillator NICKIE West 02/11/2021 I25.10 Atherosclerotic hear t disease of [place] coronary artery without angina pectoris NICKIE West 02/11/2021 I73.9 Peripheral vascular disease, uns pecified NICKIE West 02/11/2021 R94.31 Abnormal electrocardiogram [ECG] [EKG] NICKIE West 02/11/2021 E66.8 Other obesity NICKIE Smallwood Cha, se 02/11/2021 Z71.3 Dietary counseling and surveilla nce NICKIE West 02/03/2021 I48.0 Paroxysmal atrial fibrillation K stacy Guerrero PA-C 02/03/2021 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 Stephy Guerrero PA-C 01/21/2021 I48.0 Paroxysmal atrial fibrillation Kyle Núñez MD 01/21/2021 I10 Essential (primary) hypertension Dimas Núñez MD 01/07/2021 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 NICKIE West 01/07/2021 I48.0 Paroxysmal atrial fibrillation C NICKIE Saeed 12/23/2020 Z95.810 Presence of automatic (implantab le) cardiac defibrillator [facility] 12/04/2020 I48.0 Paroxysmal atrial fibrillation K stacy Guerrero PA-C 12/04/2020 Z79.01 assisted (current) use of antic oagulants Stephy Guerrero PA-C 12/03/2020 I10 Essential (primary) hypertension Dimas Núñez MD 12/03/2020 I48.0 Paroxysmal atrial fibrillation D melissa Núñez MD 11/06/2020 I48.0 Paroxysmal atrial fibrillation D melissa Núñez MD 11/06/2020 I10 Essential (primary) hypertension Dimas Núñez MD 11/05/2020 I48.0 Paroxysmal atrial fibrillation K STEFAN AdrianC 11/05/2020 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
--- OUTSIDE RECORDS SUMMARY | 2021-04-19 23:56 | CCD | Continuity of Care Document ---
Author Author Celina GUERRERO-C Organization Unknown Address [address] [facility], [place] [address] Phone [phone] Care Team Providers Care Setter Helper Name Role Phone Casi Schneider MD AUTM [phone] Selvin Hester MD AUTM [phone] Dimas Russo MD AUTM [phone] Kelly Wong MD AUTM [phone] Ankita Navarro MD AUTM [phone] Problems Active Problems Provider Date Chronic ischemic heart disease Dimas Núñez MD Onset: 0 07/29/2015 Chronic combined systolic and diastolic heart failure Dimas Núñez MD Onset: 07/29/2015 Atrial flutter Dimas Núñez MD Onset: 07/29/2015 Atherosclerotic heart disease of [place] coronary arter y without angina pectoris Dimas [...] Exercise Type/Frequency Does housework twice a w [place] Exercise Limitations Shortness Of Breath Allergies and [...] sec High 9.1-12.0 Laboratory test finding 03/04/2021 [facility] PDF [id number] SEE IMAGE Prothrombin Time (PT) 02/02/2021 [facility] Inr 2.2 High 0.9-1.2 2 Prothrombin Time 22.5 sec High 9.1-12.0 Laboratory test finding 02/02/2021 [facility] PDF [id number] SEE IMAGE Prothrombin Time (PT) 01/05/2021 [facility] Inr 2.5 High 0.9-1.2 3 Prothrombin Time 25.1 sec High 9.1-12.0 Laboratory test finding 01/05/2021 [facility] PDF [id number] SEE IMAGE Prothrombin Time (PT) 12/03/2020 [facility] Inr 2.7 High 0.9-1.2 4 Prothrombin Time 27.3 sec High 9.1-12.0 Laboratory test finding 12/03/2020 [facility] PDF [id number] SEE IMAGE Prothrombin Time (PT) 11/04[facility].7 High 0.9-1.2 5 Prothrombin Time 27.2 sec High 9.1-12.0 Laboratory test finding 11/04/2020 [facility] PDF [id number] SEE IMAGE Prothrombin Time (PT) 10/06/2020 [facility] NE Inr 2.1 High 0.9-1.2 6 Prothrombin Time 21.4 sec High 9.1-12.0 Laboratory test finding 10/06/2020 [facility] PDF [id number] SEE IMAGE 1 Reference interval is for [...] 3.5 Procedures Date Code Description Status 03/26/2021 27263 Icd Interrogation Any Leads Comp leted 03/05/2021 16465 Anticoagulant MGMT F or Patient Taking Warfarin, Inc Review & Intr Completed 02/11/2021 75473 Office/Outpatient Established Mo d MDM 30-39 Min Completed 02/11/2021 51606 ECG 12-Lead Completed 02/03/2021 38922 Anticoagulant MGMT F or Patient Taking Warfarin, Inc Review & Intr Completed 01/21/2021 61371 Chronic Care MGMT 20 Mins Clinical Staff Time Per Calendar Month Completed 01/07/2021 62570 Anticoagulant MGMT F or Patient Taking Warfarin, Inc Review & Intr Completed 12/23/2020 17073 Remote Pacemaker/Cardio-Defibril lator Data Acquistion Completed 12/23/2020 76864 Remote Interrogate D evice Eval Cardioverter/Defibrillator-90 Days Completed 12/04/2020 64676 Anticoagulant MGMT F or Patient Taking Warfarin, Inc Review & Intr Completed 12/03/2020 50984 Chronic Care MGMT 20 Mins Clinical Staff Time Per Calendar Month Completed 11/06/2020 25970 Chronic Care MGMT 20 Mins Clinical Staff Time Per Calendar Month Completed 11/05/2020 49209 Anticoagulant MGMT F or Patient Taking Warfarin, Inc Review & Intr Completed 10/09/2020 68619 Anticoagulant MGMT F or Patient Taking Warfarin, [...] Description Provider 03/26/2021 I25.5 Ischemic cardiomyopathy Stephy ryder PA-C 03/05/2021 I48.0 Paroxysmal atrial fibrillation K stacy Guerrero PA-C 03/05/2021 Z79.01 skilled nursing (current) use of antic oagulants Stephy Guerrero PA-C 02/11/2021 I48.0 Paroxysmal atrial fibrillation NICKIE Vela 02/11/2021 I10 Essential (primary) hypertension NICKIE West 02/11/2021 I50.42 Chronic combined systolic (conge stive) and diastolic (conges NICKIE West 02/11/2021 I25.5 Ischemic cardiomyopathy Debbie Toledo, NICKIE 02/11/2021 Z95.810 Presence of automatic (implantab le) cardiac defibrillator NICKIE West 02/11/2021 I25.10 Atherosclerotic hear t disease of [place] coronary artery without angina pectoris NICKIE West 02/11/2021 I73.9 Peripheral vascular disease, uns pecified NICKIE West 02/11/2021 R94.31 Abnormal electrocardiogram [ECG] [EKG] NICKIE West 02/11/2021 E66.8 Other obesity NICKIE Smallwood Cha, se 02/11/2021 Z71.3 Dietary counseling and surveilla nce NICKIE West 02/03/2021 I48.0 Paroxysmal atrial fibrillation K stacy Guerrero PA-C 02/03/2021 Z79.01 skilled nursing (current) use of antic [...] fibrillation K stacy Guerrero PA-C 12/04/2020 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 Stephy Guerrero PA-C 12/03/2020 I10 Essential (primary) hypertension Dimas Núñez MD 12/03/2020 I48.0 Paroxysmal atrial fibrillation D melissa Núñez MD 11/06/2020 I48.0 Paroxysmal atrial fibrillation D melissa Núñez MD 11/06/2020 I10 Essential (primary) hypertension Dimas Núñez MD 11/05/2020 I48.0 Paroxysmal atrial fibrillation Harsha stacy Guerrero PA-C 11/05/2020 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
--- OUTSIDE RECORDS SUMMARY | 2021-04-19 23:56 | CCD | Continuity of Care Document ---
Author Author Celina NÚÑEZ MD Organization Unknown Address [address] [place] [address], [place] [address] Phone [phone] Care Team Providers Care Stand In Name Role Phone Casi Schneider MD AUTM [phone] Selvin Hester MD AUTM [phone] Dimas Russo MD AUTM [phone] Kelly Wong MD AUTM [phone] Ankita Navarro MD AUTM [phone] Problems Active Problems Provider Date Chronic ischemic heart disease Dimas Núñez MD Onset: 0 07/29/2015 Chronic combined systolic and diastolic heart failure Dimas Núñez MD Onset: 07/29/2015 Atrial flutter Dimas Núñez MD Onset: 07/29/2015 Atherosclerotic heart disease of [place] coronary arter y without angina pectoris Dimas Núñez MD Onset: 07/29/2015 Electrocardiogram abnormal Dimas Núñez MD Onset: 09/08 Pure hypercholesterolemia Dimas Núñez MD Onset: 2016 Automatic implantable cardiac defibrillator in situ SOFIA García Onset: 12/26/2016 Paroxysmal atrial fibrillation SOFIA Gracía Onset: 01/23/2017 Obesity SOFIA García Onset: 01/23/2017 [...] Exercise Type/Frequency Does housework twice a w [place] Exercise Limitations Shortness Of Breath Allergies, Adverse [...] sec High 9.1-12.0 Laboratory test finding 03/04/2021 [facility] PDF [id number] SEE IMAGE Prothrombin Time (PT) 02/02/2021 [facility] [place] Inr 2.2 High 0.9-1.2 2 Prothrombin Time 22.5 sec High 9.1-12.0 Laboratory test finding 02/02/2021 [facility] PDF [id number] SEE IMAGE Prothrombin Time (PT) 01/05/2021 [facility] [place] Inr 2.5 High 0.9-1.2 3 Prothrombin Time 25.1 sec High 9.1-12.0 Laboratory test finding 01/05/2021 [facility] PDF [id number] SEE IMAGE Prothrombin Time (PT) 12/03/2020 [facility] [place] Inr 2.7 High 0.9-1.2 4 Prothrombin Time 27.3 sec High 9.1-12.0 Laboratory test finding 12/03/2020 [facility] PDF [id number] SEE IMAGE Prothrombin Time (PT) [facility] High 0.9-1.2 5 Prothrombin Time 27.2 sec High 9.1-12.0 Laboratory test finding 11/04/2020 [facility] PDF [id number] SEE IMAGE Prothrombin Time (PT) 10/06/2020 [facility] [place] Inr 2.1 High 0.9-1.2 6 Prothrombin Time 21.4 sec High 9.1-12.0 Laboratory test finding 10/06/2020 [facility] PDF [id number] SEE IMAGE 1 Reference interval is for [...] 3.5 Procedures Date Code Description Status 03/05/2021 29173 Anticoagulant MGMT F or Patient Taking Warfarin, Inc Review & Intr Completed 02/11/2021 65566 Office/Outpatient Established Mo d MDM 30-39 Min Completed 02/11/2021 99842 ECG 12-Lead Completed 02/03/2021 67412 Anticoagulant MGMT F or Patient Taking Warfarin, Inc Review & Intr Completed 01/21/2021 23040 Chronic Care MGMT 20 Mins Clinical Staff Time Per Calendar Month Completed 01/07/2021 90611 Anticoagulant MGMT F or Patient Taking Warfarin, Inc Review & Intr Completed 12/23/2020 23105 Remote Pacemaker/Cardio-Defibril lator Data Acquistion Completed 12/23/2020 34750 Remote Interrogate D evice Eval Cardioverter/Defibrillator-90 Days Completed 12/04/2020 19789 Anticoagulant MGMT F or Patient Taking Warfarin, Inc Review & Intr Completed 12/03/2020 11995 Chronic Care MGMT 20 Mins Clinical Staff Time Per Calendar Month Completed 11/06/2020 86867 Chronic Care MGMT 20 Mins Clinical Staff Time Per Calendar Month Completed 11/05/2020 10828 Anticoagulant MGMT F or Patient Taking Warfarin, Inc Review & Intr Completed 10/09/2020 33571 Anticoagulant MGMT F or Patient Taking Warfarin, Inc Review & Intr Completed 09/23/2020 01221 Remote Pacemaker/Cardio-Defibril lator Data Acquistion Completed 09/23/2020 56414 Remote Interrogate D evice Eval Cardioverter/Defibrillator-90 Days [...] fibrillation K stacy Donald PA-C 03/05/2021 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.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 antic oagulants Stephy Donald PA-C 02/11/2021 I48.0 Paroxysmal atrial fibrillation C NICKIE Saeed 02/11/2021 I10 Essential (primary) hypertension NICKIE West 02/11/2021 I50.42 Chronic combined systolic (conge stive) and diastolic (conges NICKIE West 02/11/2021 I25.5 Ischemic cardiomyopathy Katerinasherron vaca Nathaniel [place], NICKIE 02/11/2021 Z95.810 Presence of automatic (implantab le) cardiac defibrillator NICKIE West 02/11/2021 I25.10 Atherosclerotic hear t disease of [place] coronary artery without angina pectoris NICKIE West 02/11/2021 I73.9 Peripheral vascular disease, uns pecified NICKIE West 02/11/2021 R94.31 Abnormal electrocardiogram [ECG] [EKG] NICKIE West 02/11/2021 E66.8 Other obesity NICKIE Smallwood Cha, se 02/11/2021 Z71.3 Dietary counseling and surveilla nce NICKIE West 02/03/2021 I48.0 Paroxysmal atrial fibrillation K stacy Donald PA-C 02/03/2021 Z79.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 antic oagulants Stephy Donald PA-C 01/21/2021 I48.0 Paroxysmal atrial fibrillation D melissa Núñez MD 01/21/2021 I10 Essential (primary) hypertension Dimas Núñez MD 01/07/2021 Z79.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 antic laurentgulanNICKIE Hall 01/07/2021 I48.0 Paroxysmal atrial fibrillation C NICKIE Saeed 12/23/2020 Z95.810 Presence of automatic (implantab le) cardiac defibrillator [facility] 12/04/2020 I48.0 Paroxysmal atrial fibrillation K stacy Donald PA-C 12/04/2020 Z79.01 [facility] (current) use of antic oagulants Stephy Donald PA-C 12/03/2020 I10 Essential (primary) hypertension Dimas Núñez MD 12/03/2020 I48.0 Paroxysmal atrial fibrillation D melissa Núñez MD 11/06/2020 I48.0 Paroxysmal atrial fibrillation D melissa Núñez MD 11/06/2020 I10 Essential (primary) hypertension Dimas Núñez MD 11/05/2020 I48.0 Paroxysmal atrial fibrillation K stacy Donald PA-C 11/05/2020 Z79.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
--- OUTSIDE RECORDS SUMMARY | 2021-04-19 23:57 | CCD | Continuity of Care Document ---
Author Author Celina TOLEDO Organization Unknown Address [address] [place] [address], [place] [address] Phone [phone] Care Team Providers Care Waiter/Waitress Head Name Role Phone Casi Schneider MD AUTM [phone] Selvin Hester MD AUTM [phone] Dimas Russo MD AUTM [phone] Kelly Wong MD AUTM [phone] Ankita Navarro MD AUTM [phone] Problems Active Problems Provider Date Chronic ischemic heart disease Dimas Núñez MD Onset: 0 07/29/2015 Chronic combined systolic and diastolic heart failure Dimas Núñez MD Onset: 07/29/2015 Atrial flutter Dimas Núñez MD Onset: 07/29/2015 Atherosclerotic heart disease of [place] coronary arter y without angina pectoris Dimas [...] Exercise Type/Frequency Does housework twice a w [place] Exercise Limitations Shortness Of Breath Allergies, Adverse [...] Result H/L Range Note Prothrombin Time (PT) 02/02/2021 [facility] [place] Inr 2.2 High 0.9-1.2 1 Prothrombin Time 22.5 sec High 9.1-12.0 Laboratory test finding 02/02/20[facility] PDF [id number] SEE IMAGE Prothrombin Time (PT) 01/05/2021 [facility] [place] Inr 2.5 High 0.9-1.2 2 Prothrombin Time 25.1 sec High 9.1-12.0 Laboratory test finding 01/05/2021 [facility] PDF [id number] SEE IMAGE Prothrombin Time (PT) 12/03/2020 [facility] Inr 2.7 High 0.9-1.2 3 Prothrombin Time 27.3 sec High 9.1-12.0 Laboratory test finding 12/03/2020 [facility] PDF [id number] SEE IMAGE Prothrombin Time (PT) 11/04/2020 [facility] Inr 2.7 High 0.9-1.2 4 Prothrombin Time 27.2 sec High 9.1-12.0 Laboratory test finding 11/04/2020 [facility] PDF [id number] SEE IMAGE Prothrombin Time (PT) 10/06/2020 [facility] Inr 2.1 High 0.9-1.2 5 Prothrombin Time 21.4 sec High 9.1-12.0 Laboratory test finding 10/06/2020 [facility] PDF [id number] SEE IMAGE Prothrombin Time (PT) 09/03/2020 [facility] Inr 2.2 High 0.9-1.2 6 Prothrombin Time 22.6 sec High 9.1-12.0 Laboratory test finding 09/03/2020 [facility] PDF [id number] SEE IMAGE BMP 09/03/2020 [facility] [place] Glucose [...] Low 8.7-10.3 Laboratory test finding 09/03/2020 [facility] [place] PDF [id number] SEE IMAGE 1 Reference interval is for [...] - 3.5 Procedures Date Code Description Status 02/11/2021 07002 Office/Outpatient Established Mo d MDM 30-39 Min Completed 02/11/2021 42090 ECG 12-Lead Completed 02/03/2021 36215 Anticoagulant MGMT F or Patient Taking Warfarin, Inc Review & Intr Completed 01/07/2021 92321 Anticoagulant MGMT F or Patient Taking Warfarin, Inc Review & Intr Completed 12/23/2020 81761 Remote Pacemaker/Cardio-Defibril lator Data Acquistion Completed 12/23/2020 39595 Remote Interrogate D evice Eval Cardioverter/Defibrillator-90 Days Completed 12/04/2020 65239 Anticoagulant MGMT F or Patient Taking Warfarin, Inc Review & Intr Completed 12/03/2020 21978 Chronic Care MGMT 20 Mins Clinical Staff Time Per Calendar Month Completed 11/06/2020 55304 Chronic Care MGMT 20 Mins Clinical Staff Time Per Calendar Month Completed 11/05/2020 37606 Anticoagulant MGMT F or Patient Taking Warfarin, Inc Review & Intr Completed 10/09/2020 18323 Anticoagulant MGMT F or Patient Taking Warfarin, Inc Review & Intr Completed 09/23/2020 11166 Remote Pacemaker/Cardio-Defibril lator Data Acquistion Completed 09/23/2020 72316 Remote Interrogate D evice Eval Cardioverter/Defibrillator-90 Days Completed 09/07/2020 26538 Anticoagulant MGMT F or Patient Taking Warfarin, [...] hyperten fidel Assessments Date Code Description Provider 02/11/2021 I48.0 Paroxysmal atrial fibrillation C NICKIE Saeed 02/11/2021 I10 Essential (primary) hypertension Natividad [place], [place] 02/11/2021 I50.42 Chronic combined systolic (conge stive) and diastolic (conges Natividad [place], NICKIE 02/11/2021 I25.5 Ischemic cardiomyopathy Debbie [place], NICKIE 02/11/2021 Z95.810 Presence of automatic (implantab le) cardiac defibrillator NICKIE West 02/11/2021 I25.10 Atherosclerotic hear t disease of [place] coronary artery without angina pectoris Natividad [place], [place] 02/11/2021 I73.9 Peripheral vascular disease, uns pecified NICKIE West 02/11/2021 R94.31 Abnormal electrocardiogram [ECG] [EKG] NICKIE West 02/11/2021 E66.8 Other obesity NICKIE Smallwood Cha, se 02/11/2021 Z71.3 Dietary counseling and surveilla nce NICKIE West 02/03/2021 I48.0 Paroxysmal atrial fibrillation K stacy Donald PA-C 02/03/2021 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 Stephy Donald PA-C 01/07/2021 Z79.01 halfway (current) use of antic oagulants NICKIE West 01/07/2021 I48.0 Paroxysmal atrial fibrillation C NICKIE Saeed 12/23/2020 Z95.810 Presence of automatic (implantab le) cardiac defibrillator [facility] 12/04/2020 I48.0 Paroxysmal atrial fibrillation Harsha Donald PA-C 12/04/2020 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 Stephy Donald PA-C 12/03/2020 I10 Essential (primary) hypertension Dimas Núñez MD 12/03/2020 I48.0 Paroxysmal atrial fibrillation D melissa Núñez MD 11/06/2020 I48.0 Paroxysmal atrial fibrillation D melissa Núñez MD 11/06/2020 I10 Essential (primary) hypertension Dimas Núñez MD 11/05/2020 I48.0 Paroxysmal atrial fibrillation K stacy Donald PA-C 11/05/2020 Z79.01 halfway (current) use of antic laurentgulanozzy Donald PA-C 10/09/2020 I48.0 Paroxysmal atrial fibrillation K stacy Donald PA-C 10/09/2020 Z79.01 halfway (current) use of antic laurentgulanozzy Donald PA-C 09/23/2020 Z95.810 Presence of automatic (implantab le) cardiac defibrillator [facility] 09/07/2020 I48.0 Paroxysmal atrial fibrillation K stacy Donald PA-C 09/07/2020 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 moseslanozzy Donald PA-C Plan of Treatment Future Appointment(s):* 08/13/2021 [...] checks * I25.10 Atherosclerotic heart disease of [place] coronary artery without angina pectoris* Recommendations:* No [...]
--- OUTSIDE RECORDS SUMMARY | 2021-04-19 23:57 | CCD | Continuity of Care Document ---
Author Author Celina GUERRERO-C Organization Unknown Address [address] [facility], [place] [address] Phone [phone] Care Team Providers Care Institutional Nutrition Consultant Name Role Phone Casi Schneider MD AUTM [phone] Selvin Hester MD AUTM [phone] Dimas Russo MD AUTM [phone] Kelly Wong MD AUTM [phone] Ankita Navarro MD AUTM [phone] Cindy Duran MD AUTM [phone] Problems Active Problems Provider Date Chronic ischemic heart disease Dimas Núñez MD Onset: 0 07/29/2015 Chronic combined systolic and diastolic heart failure Dimas Núñez MD Onset: 07/29/2015 Atrial flutter Dimas Núñez MD Onset: 07/29/2015 Atherosclerotic heart disease of [place] coronary arter y without angina pectoris Dimas [...] quit Jul 05 2015 Smoking Status Reviewed: 08/11/20 Patient is a former smoker 1 ppd for 30 years; quit Jul 05 2015 Exercise Type/Frequency Walks daily Exercise Type/Frequency Does housework twice a [place] Exercise Limitations Shortness Of Breath Allergies, Adverse [...] 5min x3 as needed for chest pain 25tabs Dimas hagen MD 07/28/2015 Warfarin Sodium 3mg Tablets 1-2 by mouth daily as directed by cardiology 180tabs I48.4 Chano Ortiz MD 07/28/2015 Aspirin Ec Low Dose 81mg Tablets D R 1 by mouth every day Unknown Immunizations Description No Information Available Vital Signs Date Vital Result Comment 08/11/2020 8:48am Weight 191.00 lb Home Weight 192lb Height 63 inches 5'3" BMI (Body Mass Index) 33.8 kg/m2 Heart Rate 74 /min BP Systolic Sitting 112 mmHg Ra, large cuff BP Diastolic Sitting 60 mmHg Ra, large cuff 02/06/2020 8:54am Weight 196.00 lb Home Weight 195lb Height 63 inches 5'3" BMI (Body Mass Index) 34.7 kg/m2 BP Systolic Sitting 116 mmHg BP Diastolic Sitting 60 mmHg Results Test Acquired Date Facility Test Result H/L Range Note Prothrombin Time (PT) 02/02/2021 [facility] Inr 2.2 High 0.9-1.2 1 Prothrombin Time 22.5 sec High 9.1-12.0 Laboratory test finding 02/02/2021 [facility] PDF [id number] SEE IMAGE Prothrombin Time (PT) 01/05/2021 [facility] Inr 2.5 High 0.9-1.2 2 Prothrombin Time 25.1 sec High 9.1-12.0 Laboratory test finding 01/05/2021 [facility] PDF [id number] SEE IMAGE Prothrombin Time (PT) 12/03/2020 [facility] Inr 2.7 High 0.9-1.2 3 Prothrombin Time 27.3 sec High 9.1-12.0 Laboratory test finding 12/03/2020 [facility] PDF [id number] SEE IMAGE Prothrombin Time (PT) 11/04/2020 [facility] Inr 2.7 High 0.9-1.2 4 Prothrombin Time 27.2 sec High 9.1-12.0 Laboratory test finding 11/04/2020 [facility] PDF [id number] SEE IMAGE Prothrombin Time (PT) 10/06/2020 [facility] Inr 2.1 High 0.9-1.2 5 Prothrombin Time 21.4 sec High 9.1-12.0 Laboratory test finding 10/06/2020 [facility] PDF [id number] SEE IMAGE Prothrombin Time (PT) 09/03/2020 [facility] Inr 2.2 High 0.9-1.2 6 Prothrombin Time 22.6 sec High 9.1-12.0 Laboratory test finding 09/03/2020 [facility] PDF [id number] SEE IMAGE BMP 09/03/2020 [facility] Glucose [...] Laboratory test finding 09/03/2020 [facility] PDF [id number] SEE IMAGE 1 Reference interval is for [...] - 3.5 Procedures Date Code Description Status 02/03/2021 24657 Anticoagulant MGMT F or Patient Taking Warfarin, Inc Review & Intr Completed 01/07/2021 23176 Anticoagulant MGMT F or Patient Taking Warfarin, Inc Review & Intr Completed 12/23/2020 95774 Remote Pacemaker/Cardio-Defibril lator Data Acquistion Completed 12/23/2020 95498 Remote Interrogate D evice Eval Cardioverter/Defibrillator-90 Days Completed 12/04/2020 46193 Anticoagulant MGMT F or Patient Taking Warfarin, Inc Review & Intr Completed 12/03/2020 50917 Chronic Care MGMT 20 Mins Clinical Staff Time Per Calendar Month Completed 11/06/2020 46555 Chronic Care MGMT 20 Mins Clinical Staff Time Per Calendar Month Completed 11/05/2020 62000 Anticoagulant MGMT F or Patient Taking Warfarin, Inc Review & Intr Completed 10/09/2020 94231 Anticoagulant MGMT F or Patient Taking Warfarin, Inc Review & Intr Completed 09/23/2020 54386 Remote Pacemaker/Cardio-Defibril lator Data Acquistion Completed 09/23/2020 61249 Remote Interrogate D evice Eval Cardioverter/Defibrillator-90 Days Completed 09/07/2020 82904 Anticoagulant MGMT F or Patient Taking Warfarin, Inc Review & Intr Completed 08/11/2020 67914 Office/Outpatient Established Mo d MDM 30-39 Min Completed 08/11/2020 61668 ECG 12-Lead Completed 08/07/2020 98713 Anticoagulant MGMT F or Patient Taking Warfarin, Inc Review & Intr Completed Medical Devices Description No Information Available Encounters Type Date Location Provider Dx Diagnosis Office Visit 12/03/2020 9:35a Main Office Dimas Núñez MD I10 Essential (primary) hypertension I48.0 Paroxysmal atrial fibrillati on Office Visit 11/06/2020 9:37a Main Office Dimas Núñez MD I48.0 Paroxysmal atrial fibrillation I10 Essential (primary) hyperten fidel Office Visit 08/11/2020 8:45a Main Office NICKIE West I48 .0 Paroxysmal atrial fibrillation I50.42 Chronic combined systolic an d diastolic hrt fail I25.5 Ischemic cardiomyopathy I10 Essential (primary) hyperten fidel Z95.810 Presence of automatic (impla ntable) cardiac defibrillator I73.9 Peripheral vascular disease, unspecified R94.31 Abnormal electrocardiogram [ ECG] [EKG] E66.8 Other obesity Z71.3 Dietary counseling and surve illance Assessments Date Code Description Provider 02/03/2021 I48.0 Paroxysmal atrial fibrillation Harsha Guerrero PA-C 02/03/2021 Z79.01 [facility] (current) use of antic oagulants Stephy Guerrero, PA-C 01/07/2021 Z79.01 [facility] (current) use of antic oagulants NICKIE West 01/07/2021 I48.0 Paroxysmal atrial fibrillation C NICKIE Saeed 12/23/2020 Z95.810 Presence of automatic (implantab le) cardiac defibrillator [facility] 12/04/2020 I48.0 Paroxysmal atrial fibrillation K stacy Guerrero PA-C 12/04/2020 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 Stephy Guerrero PA-C 12/03/2020 I10 Essential (primary) hypertension Dimas Núñez MD 12/03/2020 I48.0 Paroxysmal atrial fibrillation D melissa Núñez MD 11/06/2020 I48.0 Paroxysmal atrial fibrillation D melissa Núñez MD 11/06/2020 I10 Essential (primary) hypertension Dimas Núñez MD 11/05/2020 I48.0 Paroxysmal atrial fibrillation K stacy Guerrero PA-C 11/05/2020 Z79.01 [facility] (current) use of antic oagulants Stephy Guerrero PA-C 10/09/2020 I48.0 Paroxysmal atrial fibrillation K stacy Guerrero PA-C 10/09/2020 Z79.01 [facility] (current) use of antic oagulants Stephy Guerrero PA-C 09/23/2020 Z95.810 Presence of automatic (implantab le) cardiac defibrillator [facility] 09/07/2020 I48.0 Paroxysmal atrial fibrillation K ate Javier Guerrero PA-C 09/07/2020 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 Stephy Guerrero PA-C 08/11/2020 I48.0 Paroxysmal atrial fibrillation C NICKIE Saeed 08/11/2020 I50.42 Chronic combined systolic (pablo castro) and diastolic (conges NICKIE West 08/11/2020 I25.5 Ischemic cardiomyopathy NICKIE Cates 08/11/2020 I10 Essential (primary) hypertension NICKIE West 08/11/2020 Z95.810 Presence of automatic (implantab le) cardiac defibrillator NICKIE West 08/11/2020 I73.9 Peripheral vascular disease, uns pecified NICKIE West 08/11/2020 R94.31 Abnormal electrocardiogram [ECG] [EKG] NICKIE West 08/11/2020 E66.8 Other obesity NICKIE Smallwood Cha, se 08/11/2020 Z71.3 Dietary counseling and surveilla nce NICKIE West 08/07/2020 I48.0 Paroxysmal atrial fibrillation Harsha Guerrero PA-C 08/07/2020 Z95.810 Presence of automatic (implantab le) cardiac defibrillator Stephy Guerrero PA-C 08/07/2020 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 Stephy Guerrero PA-C Plan of Treatment Future Appointment(s):* 02/11/2021 9:45 am - NICKIE West at Main Office * 03/26/2021 11:15 am - Stephy Guerrero PA-C at Main Office 08/11/2020 - NICKIE West* I48.0 Paroxysmal atrial fibrillation* Recommendations:* Continue warfarin and carvedilol at the current dosages Patient agreeable to contact us with any episodes of tachycardia or palpitations * I50.42 Chronic combined systolic (congestive) and [...] the onset of lower extremity edema * I10 Essential (primary) hypertension* Recommendations:* Continue carvedilol, furosemide, and Entresto at the current dosages Advised patient to please monitor blood pressures at home and to alert our office for readings >140/>90 or <110/<60 Please obtain labs * Z95.810 Presence of automatic (implantable) cardiac defibrillator* Recommendations:* Continue 91 day home/12 month office checks * I73.9 Peripheral vascular disease, unspecified* Recommendations:* Continue management per Dr. Duran * R94.31 Abnormal electrocardiogram [ECG] [EKG]* Recommendations:* No further evaluation is needed at this time. * E66.8 Other obesity* Recommendations:* Recommended for patient to follow a more whole food diet. Advised patient to avoid overly processed foods and packaged foods. Advised patient to avoid sodas, juices and other liquid calories. Recommended at least 30 minutes of exercise 3 days a week. * Z71.3 Dietary counseling and surveillance* Recommendations:* [...]
--- OUTSIDE RECORDS SUMMARY | 2021-04-19 23:57 | CCD | Continuity of Care Document ---
Author Author Celina GUERRERO-C Organization Unknown Address [address] [facility], [place] [address] Phone [phone] Care Team Providers Care Coding Compliance Manager Name Role Phone Casi Schneider MD AUTM [phone] Selvin Hester MD AUTM [phone] Dimas Russo MD AUTM [phone] Kelly Wong MD AUTM [phone] Ankita Navarro MD AUTM [phone] Cindy Duran MD AUTM [phone] Problems Active Problems Provider Date Chronic ischemic heart disease Dimas Núñez MD Onset: 0 07/29/2015 Chronic combined systolic and diastolic heart failure Dimas Núñez MD Onset: 07/29/2015 Atrial flutter Dimas Núñez MD Onset: 07/29/2015 Atherosclerotic heart disease of [place] coronary arter y without angina pectoris Dimas [...] Exercise Type/Frequency Does housework twice a w [place] Exercise Limitations Shortness Of Breath Allergies, Adverse [...] Laboratory test finding 02/02/2021 [facility] PDF [id number] SEE IMAGE Prothrombin Time (PT) 01/05/2021 [facility] Inr 2.5 High 0.9-1.2 2 Prothrombin Time 25.1 sec High 9.1-12.0 Laboratory test finding 01/05/2021 [facility] PDF [id number] SEE IMAGE Prothrombin Time (PT) 12/03/2020 [facility] Inr 2.7 High 0.9-1.2 3 Prothrombin Time 27.3 sec High 9.1-12.0 Laboratory test finding 12/03/2020 [facility] [place] [id number] SEE IMAGE Prothrombin Time (PT) 11/04/2020 [facility] Inr 2.7 High 0.9-1.2 4 Prothrombin Time 27.2 sec High 9.1-12.0 Laboratory test finding 11/04/2020 [facility] PDF [id number] SEE IMAGE Prothrombin Time (PT) 10/06/2020 [facility] Inr 2.1 High 0.9-1.2 5 Prothrombin Time 21.4 sec High 9.1-12.0 Laboratory test finding 10/06/2020 [facility] PDF [id number] SEE IMAGE Prothrombin Time (PT) 09/03/2020 [facility] Inr 2.2 High 0.9-1.2 6 Prothrombin Time 22.6 sec High 9.1-12.0 Laboratory test finding 09/03/2020 [facility] PDF [id number] SEE IMAGE BMP 09/03/2020 [facility] Glucose [...] Laboratory test finding 09/03/2020 [facility] PDF [id number] SEE IMAGE 1 Reference interval is for [...] 3.5 Procedures Date Code Description Status 02/03/2021 03803 Anticoagulant MGMT F or Patient Taking Warfarin, Inc Review & Intr Completed 01/07/2021 10243 Anticoagulant MGMT F or Patient Taking Warfarin, Inc Review & Intr Completed 12/23/2020 99394 Remote Pacemaker/Cardio-Defibril lator Data Acquistion Completed 12/23/2020 61263 Remote Interrogate D evice Eval Cardioverter/Defibrillator-90 Days Completed 12/04/2020 13941 Anticoagulant MGMT F or Patient Taking Warfarin, Inc Review & Intr Completed 12/03/2020 75412 Chronic Care MGMT 20 Mins Clinical Staff Time Per Calendar Month Completed 11/06/2020 67972 Chronic Care MGMT 20 Mins Clinical Staff Time Per Calendar Month Completed 11/05/2020 62727 Anticoagulant MGMT F or Patient Taking Warfarin, Inc Review & Intr Completed 10/09/2020 09775 Anticoagulant MGMT F or Patient Taking Warfarin, Inc Review & Intr Completed 09/23/2020 59911 Remote Pacemaker/Cardio-Defibril lator Data Acquistion Completed 09/23/2020 32920 Remote Interrogate D evice Eval Cardioverter/Defibrillator-90 Days Completed 09/07/2020 03667 Anticoagulant MGMT F or Patient Taking Warfarin, [...] hyperten fidel Assessments Date Code Description Provider 02/03/2021 I48.0 Paroxysmal atrial fibrillation Harsha Guerrero PA-C 02/03/2021 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 Stpehy Guerrero PA-C 01/07/2021 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 NICKIE West 01/07/2021 I48.0 Paroxysmal atrial fibrillation NICKIE Vela 12/23/2020 Z95.810 Presence of automatic (implantab le) cardiac defibrillator [facility] 12/04/2020 I48.0 Paroxysmal atrial fibrillation Harsha Guerrero PA-C 12/04/2020 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 Stephy Guerrero PA-C 12/03/2020 I10 Essential (primary) hypertension Dimas Núñez MD 12/03/2020 I48.0 Paroxysmal atrial fibrillation D melissa Núñez MD 11/06/2020 I48.0 Paroxysmal atrial fibrillation D melissa Núñez MD 11/06/2020 I10 Essential (primary) hypertension Dimas Núñez MD 11/05/2020 I48.0 Paroxysmal atrial fibrillation K stacy Guerrero PA-C 11/05/2020 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
--- OUTSIDE RECORDS SUMMARY | 2021-04-19 23:57 | CCD | Continuity of Care Document ---
Author Author Celina NÚÑEZ MD Organization Unknown Address [address] [place] [address], [place] [address] Phone [phone] Care Team Providers Care Shoes Hand Sewer Name Role Phone Casi Schneider MD AUTM [phone] Selvin Hester MD AUTM [phone] Dimas Russo MD AUTM [phone] Kelly Wong MD AUTM [phone] Ankita Navarro MD AUTM [phone] Cindy Duran MD AUTM [phone] Problems Active Problems Provider Date Chronic ischemic heart disease Dimas Núñez MD Onset: 0 07/29/2015 Chronic combined systolic and diastolic heart failure Dimas Núñez MD Onset: 07/29/2015 Atrial flutter Dimas Núñez MD Onset: 07/29/2015 Atherosclerotic heart disease of [place] coronary arter y without angina pectoris Dimas [...] Exercise Type/Frequency Does housework twice a w [place] Exercise Limitations Shortness Of Breath Allergies, Adverse [...] Result H/L Range Note Prothrombin Time (PT) 01/05/2021 [facility] Inr 2.5 High 0.9-1.2 1 Prothrombin Time 25.1 sec High 9.1-12.0 Laboratory test finding 01/05/2021 [facility] PDF [id number] SEE IMAGE Prothrombin Time (PT) 12/03/2020 [facility] Inr 2.7 High 0.9-1.2 2 Prothrombin Time 27.3 sec High 9.1-12.0 Laboratory test finding 12/03/2020 [facility] PDF [id number] SEE IMAGE Prothrombin Time (PT) 11/04/2020 [facility] Inr 2.7 High 0.9-1.2 3 Prothrombin Time 27.2 sec High 9.1-12.0 Laboratory test finding 11/04/2020 [facility] PDF [id number] SEE IMAGE Prothrombin Time (PT) 10/06/2020 [facility] Inr 2.1 High 0.9-1.2 4 Prothrombin Time 21.4 sec High 9.1-12.0 Laboratory test finding 10/06/2020 [facility] PDF [id number] SEE IMAGE Prothrombin Time (PT) 09/03/2020 [facility] Inr 2.2 High 0.9-1.2 5 Prothrombin Time 22.6 sec High 9.1-12.0 Laboratory test finding 09/03/2020 [facility] PDF [id number] SEE IMAGE BMP 09/03/2020 [facility] Glucose [...] Laboratory test finding 09/03/2020 [facility] PDF [id number] SEE IMAGE Prothrombin Time (PT) 08/05/2020 [facility] Inr 2.8 High 0.9-1.2 6 Prothrombin Time 27.8 sec High 9.1-12.0 Laboratory test finding 08/05/2020 [facility] PDF [id number] SEE IMAGE 1 Reference interval is for [...] - 3.5 Procedures Date Code Description Status 01/07/2021 78673 Anticoagulant MGMT F or Patient Taking Warfarin, Inc Review & Intr Completed 12/23/2020 40301 Remote Pacemaker/Cardio-Defibril lator Data Acquistion Completed 12/23/2020 83935 Remote Interrogate D evice Eval Cardioverter/Defibrillator-90 Days Completed 12/04/2020 81346 Anticoagulant MGMT F or Patient Taking Warfarin, Inc Review & Intr Completed 12/03/2020 78376 Chronic Care MGMT 20 Mins Clinical Staff Time Per Calendar Month Completed 11/06/2020 42229 Chronic Care MGMT 20 Mins Clinical Staff Time Per Calendar Month Completed 11/05/2020 61851 Anticoagulant MGMT F or Patient Taking Warfarin, Inc Review & Intr Completed 10/09/2020 23185 Anticoagulant MGMT F or Patient Taking Warfarin, Inc Review & Intr Completed 09/23/2020 91926 Remote Pacemaker/Cardio-Defibril lator Data Acquistion Completed 09/23/2020 55995 Remote Interrogate D evice Eval Cardioverter/Defibrillator-90 Days Completed 09/07/2020 36756 Anticoagulant MGMT F or Patient Taking Warfarin, Inc Review & Intr Completed 08/11/2020 68486 Office/Outpatient Established Mo d MDM 30-39 Min Completed 08/11/2020 13499 ECG 12-Lead Completed 08/07/2020 85680 Anticoagulant MGMT F or Patient Taking Warfarin, Inc Review & Intr Completed Medical Devices Description No Information Available Encounters Type Date Location Provider Dx Diagnosis Office Visit 12/03/2020 9:35a Main Office Dimas Núñez MD I10 Essential (primary) hypertension I48.0 Paroxysmal atrial fibrillati on Office Visit 11/06/2020 9:37a Main Office Dimas Núñez MD I48.0 Paroxysmal atrial fibrillation I10 Essential (primary) hyperten fdiel Office Visit 08/11/2020 8:45a Main Office NICKIE West I48 .0 Paroxysmal atrial fibrillation I50.42 Chronic combined systolic an d diastolic hrt fail I25.5 Ischemic cardiomyopathy I10 Essential (primary) hyperten fidel Z95.810 Presence of automatic (impla ntable) cardiac defibrillator I73.9 Peripheral vascular disease, unspecified R94.31 Abnormal electrocardiogram [ ECG] [EKG] E66.8 Other obesity Z71.3 Dietary counseling and surve illance Assessments Date Code Description Provider 01/07/2021 Z79.01 detention (current) use of antic oagulants NICKIE West 01/07/2021 I48.0 Paroxysmal atrial fibrillation C la Armstrong Tre, PA 12/23/2020 Z95.810 Presence of automatic (implantab le) cardiac defibrillator [facility] 12/04/2020 I48.0 Paroxysmal atrial fibrillation K ate Javier Shabana, PA-C 12/04/2020 Z79.01 detention (current) use of antic oagulants Stephy Donald, PA-C 12/03/2020 I10 Essential (primary) hypertension Dimas Núñez MD 12/03/2020 I48.0 Paroxysmal atrial fibrillation D melissa Núñez MD 11/06/2020 I48.0 Paroxysmal atrial fibrillation D melissa Núñez MD 11/06/2020 I10 Essential (primary) hypertension Dimas Núñez MD 11/05/2020 I48.0 Paroxysmal atrial fibrillation K ate Javier Shabana, PA-C 11/05/2020 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 Stephy Donald, PA-C 10/09/2020 I48.0 Paroxysmal atrial fibrillation K ate Javier Tcw, PA-C 10/09/2020 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 Stephy Montezw, PA-C 09/23/2020 Z95.810 Presence of automatic (implantab le) cardiac defibrillator [facility] 09/07/2020 I48.0 Paroxysmal atrial fibrillation K ate Javier Shabana, PA-C 09/07/2020 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 Stephy Donald, PA-C 08/11/2020 I48.0 Paroxysmal atrial fibrillation NICKIE Vlea 08/11/2020 I50.42 Chronic combined systolic (conge stive) and diastolic (conges NICKIE West 08/11/2020 I25.5 [...] West 08/07/2020 I48.0 Paroxysmal atrial fibrillation Harsha Donald PA-C 08/07/2020 Z95.810 Presence of automatic (implantab le) cardiac defibrillator Stephy Donald PA-C 08/07/2020 Z79.01 detention (current) use of antic oagulants Stephy Donald PA-C Plan of Treatment Future Appointment(s):* 02/11/2021 9:45 am - NICKIE West at Main Office * 03/26/2021 11:15 am - Stephy Donald PA-C at Main Office 08/11/2020 - NICKIE [...]
--- OUTSIDE RECORDS SUMMARY | 2021-04-19 23:57 | CCD | Continuity of Care Document ---
Author Author Celina NÚÑEZ MD Organization Unknown Address [address] [place] [address], [place] [address] Phone [phone] Care Team Providers Care Steam Crane Operator Name Role Phone Casi Schneider MD AUTM [phone] Selvin Hester MD AUTM [phone] Dimas Russo MD AUTM [phone] Kelly Wong MD AUTM [phone] Ankita Navarro MD AUTM [phone] Cindy Duran MD AUTM [phone] Problems Active Problems Provider Date Chronic ischemic heart disease Dimas Núñez MD Onset: 0 07/29/2015 Chronic combined systolic and diastolic heart failure Dimas Núñez MD Onset: 07/29/2015 Atrial flutter Dimas Núñez MD Onset: 07/29/2015 Atherosclerotic heart disease of [place] coronary arter y without angina pectoris Dimas [...] Exercise Type/Frequency Does housework twice a w [place] ira Exercise Limitations Shortness Of Breath Allergies, Adverse [...] mouth every night at bedtime 90tabs Nena Vna 07/28/2015 Nitrostat 0.4mg Tablets Sub 1 sl [...] Laboratory test finding 01/05/2021 [facility] [place] [id number] SEE IMAGE Prothrombin Time (PT) 12/03/2020 [facility] Inr 2.7 High 0.9-1.2 2 Prothrombin Time 27.3 sec High 9.1-12.0 Laboratory test finding 12/03/2020 [facility] PDF [id number] SEE IMAGE Prothrombin Time (PT) 11/04/2020 [facility] Inr 2.7 High 0.9-1.2 3 Prothrombin Time 27.2 sec High 9.1-12.0 Laboratory test finding 11/04/2020 [facility] [id number] SEE IMAGE Prothrombin Time (PT) 10/06/2020 [facility] Inr 2.1 High 0.9-1.2 4 Prothrombin Time 21.4 sec High 9.1-12.0 Laboratory test finding 10/06/2020 [facility] PDF [id number] SEE IMAGE Prothrombin Time (PT) 09/03/2020 [facility] Inr 2.2 High 0.9-1.2 5 Prothrombin Time 22.6 sec High 9.1-12.0 Laboratory test finding 09/03/2020 [facility] PDF [id number] SEE IMAGE BMP 09/03/2020 [facility] Glucose [...] Laboratory test finding 09/03/2020 [facility] PDF [id number] SEE IMAGE Prothrombin Time (PT) 08/05/2020 [facility] Inr 2.8 High 0.9-1.2 6 Prothrombin Time 27.8 sec High 9.1-12.0 Laboratory test finding 08/05/2020 [facility] PDF [id number] SEE IMAGE 1 Reference interval is for [...] 3.5 Procedures Date Code Description Status 01/07/2021 69695 Anticoagulant MGMT F or Patient Taking Warfarin, Inc Review & Intr Completed 12/23/2020 42440 Remote Pacemaker/Cardio-Defibril lator Data Acquistion Completed 12/23/2020 39009 Remote Interrogate D evice Eval Cardioverter/Defibrillator-90 Days Completed 12/04/2020 73516 Anticoagulant MGMT F or Patient Taking Warfarin, Inc Review & Intr Completed 12/03/2020 60902 Chronic Care MGMT 20 Mins Clinical Staff Time Per Calendar Month Completed 11/06/2020 46962 Chronic Care MGMT 20 Mins Clinical Staff Time Per Calendar Month Completed 11/05/2020 40581 Anticoagulant MGMT F or Patient Taking Warfarin, Inc Review & Intr Completed 10/09/2020 32553 Anticoagulant MGMT F or Patient Taking Warfarin, Inc Review & Intr Completed 09/23/2020 09959 Remote Pacemaker/Cardio-Defibril lator Data Acquistion Completed 09/23/2020 99110 Remote Interrogate D evice Eval Cardioverter/Defibrillator-90 Days Completed 09/07/2020 85361 Anticoagulant MGMT F or Patient Taking Warfarin, Inc Review & Intr Completed 08/11/2020 32122 Office/Outpatient Established Mo d MDM 30-39 Min Completed 08/11/2020 21529 ECG 12-Lead Completed 08/07/2020 44458 Anticoagulant MGMT F or Patient Taking Warfarin, [...] Assessments Date Code Description Provider 01/07/2021 Z79.01 FDC (current) use of antic oagulants NICKIE West 01/07/2021 I48.0 Paroxysmal atrial fibrillation C la Armstrong Tre, PA 12/23/2020 Z95.810 Presence of automatic (implantab le) cardiac defibrillator [facility] 12/04/2020 I48.0 Paroxysmal atrial fibrillation K ate Javier Shabana, PA-C 12/04/2020 Z79.01 FDC (current) use of antic oagulants Stephy Donald, PA-C 12/03/2020 I10 Essential (primary) hypertension Dimas Núñez MD 12/03/2020 I48.0 Paroxysmal atrial fibrillation D melissa Núñez MD 11/06/2020 I48.0 Paroxysmal atrial fibrillation D melissa Núñez MD 11/06/2020 I10 Essential (primary) hypertension Dimas Núñez MD 11/05/2020 I48.0 Paroxysmal atrial fibrillation K ate Javier Shabana, PA-C 11/05/2020 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 Stephy Donald, PA-C 10/09/2020 I48.0 Paroxysmal atrial fibrillation K ate Javier Tcw, PA-C 10/09/2020 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
--- OUTSIDE RECORDS SUMMARY | 2021-04-19 23:57 | CCD ---
Continuity of Care Document (CCD) Created on: 03/05/2021 Celina Vallejo External Reference #: [id number] : [id number] Sex: Female Author Author Celina GUERRERO-C Organization Unknown Address [address] [facility], [place] [address] Phone [phone] Care Team Providers Care Anesthesiology Faculty Name Role Phone Casi Schneider MD AUTM [phone] Selvin Hester MD AUTM [phone] Dimas Russo MD AUTM [phone] Kelly Wong MD AUTM [phone] Ankita Navarro MD AUTM [phone] Problems Active Problems Provider Date Chronic ischemic heart disease Dimas Núñez MD Onset: 0 07/29/2015 Chronic combined systolic and diastolic heart failure Dimas Núñez MD Onset: 07/29/2015 Atrial flutter Dimas Núñez MD Onset: 07/29/2015 Atherosclerotic heart disease of [place] coronary arter y without angina pectoris Dimas [...] Exercise Type/Frequency Does housework twice a w [place] Exercise Limitations Shortness Of Breath Allergies, Adverse [...] sec High 9.1-12.0 Laboratory test finding [facility] [id number] SEE IMAGE Prothrombin Time (PT) 02/02/2021 [facility] Inr 2.2 High 0.9-1.2 2 Prothrombin Time 22.5 sec High 9.1-12.0 Laboratory test finding [facility]02[facility] [id number] SEE IMAGE Prothrombin Time (PT) 01/05/2021 [facility] Inr 2.5 High 0.9-1.2 3 Prothrombin Time 25.1 sec High 9.1-12.0 Laboratory test finding 01/05/2021 [facility] PDF [id number] SEE IMAGE Prothrombin Time (PT) 12/03/2020 [facility] Inr 2.7 High 0.9-1.2 4 Prothrombin Time 27.3 sec High 9.1-12.0 Laboratory test finding 12/03/2020 [facility] [place] PDF [id number] SEE IMAGE Prothrombin Time (PT) 11/04/2020 [facility] Inr 2.7 High 0.9-1.2 5 Prothrombin Time 27.2 sec High 9.1-12.0 Laboratory test finding 11/04/2020 [facility] [id number] SEE IMAGE Prothrombin Time (PT) 10/06/2020 [facility] Inr 2.1 High 0.9-1.2 6 Prothrombin Time 21.4 sec High 9.1-12.0 Laboratory test finding 10/06/2020 [facility] PDF [id number] SEE IMAGE Prothrombin Time (PT) 09/03/2020 [facility] Inr 2.2 High 0.9-1.2 7 Prothrombin Time 22.6 sec High 9.1-12.0 Laboratory test finding 09/03/2020 [facility] PDF [id number] SEE IMAGE BMP 09/03/2020 [facility] Glucose [...] Laboratory test finding 09/03/2020 [facility] [id number] SEE IMAGE 1 Reference interval is for [...] 3.5 Procedures Date Code Description Status 02/11/2021 93762 Office/Outpatient Established Mo d MDM 30-39 Min Completed 02/11/2021 69819 ECG 12-Lead Completed 02/03/2021 39884 Anticoagulant MGMT F or Patient Taking Warfarin, Inc Review & Intr Completed 01/21/2021 41829 Chronic Care MGMT 20 Mins Clinical Staff Time Per Calendar Month Completed 01/07/2021 13397 Anticoagulant MGMT F or Patient Taking Warfarin, Inc Review & Intr Completed 12/23/2020 63044 Remote Pacemaker/Cardio-Defibril lator Data Acquistion Completed 12/23/2020 84796 Remote Interrogate D evice Eval Cardioverter/Defibrillator-90 Days Completed 12/04/2020 30882 Anticoagulant MGMT F or Patient Taking Warfarin, Inc Review & Intr Completed 12/03/2020 26725 Chronic Care MGMT 20 Mins Clinical Staff Time Per Calendar Month Completed 11/06/2020 47828 Chronic Care MGMT 20 Mins Clinical Staff Time Per Calendar Month Completed 11/05/2020 30081 Anticoagulant MGMT F or Patient Taking Warfarin, Inc Review & Intr Completed 10/09/2020 70920 Anticoagulant MGMT F or Patient Taking Warfarin, Inc Review & Intr Completed 09/23/2020 33055 Remote Pacemaker/Cardio-Defibril lator Data Acquistion Completed 09/23/2020 37821 Remote Interrogate D evice Eval Cardioverter/Defibrillator-90 Days Completed 09/07/2020 99261 Anticoagulant MGMT F or Patient Taking Warfarin, [...] 02/11/2021 I25.10 Atherosclerotic hear t disease of [place] coronary artery without angina pectoris NICKIE West 02/11/2021 I73.9 Peripheral vascular disease, uns pecified NICKIE West 02/11/2021 R94.31 Abnormal electrocardiogram [ECG] [EKG] NICKIE West 02/11/2021 E66.8 Other obesity NICKIE [place] Cha, se 02/11/2021 Z71.3 Dietary counseling and surveilla nce NICKIE West 02/03/2021 I48.0 Paroxysmal atrial fibrillation K stacy Guerrero PA-C 02/03/2021 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 Stephy Guerrero PA-C 01/21/2021 I48.0 Paroxysmal atrial fibrillation Kyle Núñez MD 01/21/2021 I10 Essential (primary) hypertension Dimas Núñez MD 01/07/2021 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 NICKIE West 01/07/2021 I48.0 Paroxysmal atrial fibrillation NICKIE Vela 12/23/2020 Z95.810 Presence of automatic (implantab le) cardiac defibrillator [facility] 12/04/2020 I48.0 Paroxysmal atrial fibrillation K stacy Guerrero PA-C 12/04/2020 Z79.01 senior living (current) use of antic oagulanozzy Guerrero PA-C 12/03/2020 I10 Essential (primary) hypertension Dimas Núñez MD 12/03/2020 I48.0 Paroxysmal atrial fibrillation D melissa Núñez MD 11/06/2020 I48.0 Paroxysmal atrial fibrillation D melissa Núñez MD 11/06/2020 I10 Essential (primary) hypertension Dimas Núñez MD 11/05/2020 I48.0 Paroxysmal atrial fibrillation K stacy Guerrero PA-C 11/05/2020 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 laurentgulanozzy Guerrero PA-C 10/09/2020 I48.0 Paroxysmal atrial fibrillation K stacy Guerrero PA-C 10/09/2020 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 laurentgulanozzy Guerrero PA-C 09/23/2020 Z95.810 Presence of automatic (implantab le) cardiac defibrillator [facility] 09/07/2020 I48.0 Paroxysmal atrial fibrillation K stacy Guerrero PA-C 09/07/2020 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
--- OUTSIDE RECORDS SUMMARY | 2021-04-19 23:57 | CCD ---
Continuity of Care Document (CCD) Created on: 02/11/2021 Celina Vallejo External Reference #: [id number] : [id number] Sex: Female Author Author Celina LIN Organization Unknown Address [address] [place] [address], [place] [address] Phone [phone] Care Team Providers Care Transporter Radiology Name Role Phone Casi Schneider MD AUTM [phone] Selvin Hester MD AUTM [phone] Dimas Russo MD AUTM [phone] Kelly Wong MD AUTM [phone] Ankita Navarro MD AUTM [phone] Cindy Duran MD AUTM [phone] Problems Active Problems Provider Date Chronic ischemic heart disease Dimas Núñez MD Onset: 0 07/29/2015 Chronic combined systolic and diastolic heart failure Dimas Núñez MD Onset: 07/29/2015 Atrial flutter Dimas Núñez MD Onset: 07/29/2015 Atherosclerotic heart disease of [place] coronary arter y without angina pectoris Dimas [...] Index) 33.1 kg/m2 Heart Rate 74 /min 08/11/2020 8:48am Weight 191.00 lb Home Weight [...] Laboratory test finding 02/02/2021 [facility] [place] PDF [id number] SEE IMAGE Prothrombin Time (PT) 01/05/2021 [facility] [place] Inr 2.5 High 0.9-1.2 2 Prothrombin Time 25.1 sec High 9.1-12.0 Laboratory test finding 01/05/2021 [facility] PDF [id number] SEE IMAGE Prothrombin Time (PT) 12/03/2020 [facility] Inr 2.7 High 0.9-1.2 3 Prothrombin Time 27.3 sec High 9.1-12.0 Laboratory test finding 12/03/2020 [facility] PDF [id number] SEE IMAGE Prothrombin Time (PT) 11/04/2020 [facility] Inr 2.7 High 0.9-1.2 4 Prothrombin Time 27.2 sec High 9.1-12.0 Laboratory test finding 11/04/2020 [facility] PDF [id number] SEE IMAGE Prothrombin Time (PT) 10/06/2020 [facility] Inr 2.1 High 0.9-1.2 5 Prothrombin Time 21.4 sec High 9.1-12.0 Laboratory test finding 10/06/2020 [facility] PDF [id number] SEE IMAGE Prothrombin Time (PT) 09/03/2020 [facility] Inr 2.2 High 0.9-1.2 6 Prothrombin Time 22.6 sec High 9.1-12.0 Laboratory test finding 09/03/2020 [facility] PDF [id number] SEE IMAGE BMP 09/03/2020 [facility] Glucose [...] Laboratory test finding 09/03/2020 [facility] PDF [id number] SEE IMAGE 1 Reference interval is for [...] 3.5 Procedures Date Code Description Status 02/11/2021 60092 Office/Outpatient Established Mo d MDM 30-39 Min Completed 02/11/2021 40592 ECG 12-Lead Completed 02/03/2021 68532 Anticoagulant MGMT F or Patient Taking Warfarin, Inc Review & Intr Completed 01/07/2021 78461 Anticoagulant MGMT F or Patient Taking Warfarin, Inc Review & Intr Completed 12/23/2020 36988 Remote Pacemaker/Cardio-Defibril lator Data Acquistion Completed 12/23/2020 49198 Remote Interrogate D evice Eval Cardioverter/Defibrillator-90 Days Completed 12/04/2020 52881 Anticoagulant MGMT F or Patient Taking Warfarin, Inc Review & Intr Completed 12/03/2020 71573 Chronic Care MGMT 20 Mins Clinical Staff Time Per Calendar Month Completed 11/06/2020 84673 Chronic Care MGMT 20 Mins Clinical Staff Time Per Calendar Month Completed 11/05/2020 54368 Anticoagulant MGMT F or Patient Taking Warfarin, Inc Review & Intr Completed 10/09/2020 72049 Anticoagulant MGMT F or Patient Taking Warfarin, Inc Review & Intr Completed 09/23/2020 72530 Remote Pacemaker/Cardio-Defibril lator Data Acquistion Completed 09/23/2020 95915 Remote Interrogate D evice Eval Cardioverter/Defibrillator-90 Days Completed 09/07/2020 59545 Anticoagulant MGMT F or Patient Taking Warfarin, [...] Saeed 02/11/2021 I10 Essential (primary) hypertension Natividad CarinaNICKIE Encinas 02/11/2021 I50.42 Chronic combined systolic (conge stive) and diastolic (conges Natividad Lin, NICKIE 02/11/2021 I25.5 Ischemic cardiomyopathy NICKIE Cates 02/11/2021 Z95.810 Presence of automatic (implantab le) cardiac defibrillator NICKIE West 02/11/2021 I25.10 Atherosclerotic hear t disease of [place] coronary artery without angina pectoris NICKIE West 02/11/2021 I73.9 Peripheral vascular disease, uns pecified NICKIE West 02/11/2021 R94.31 Abnormal electrocardiogram [ECG] [EKG] NICKIE West 02/11/2021 E66.8 Other obesity Natividad Armstrong Cha, se [place] 02/11/2021 Z71.3 Dietary counseling and surveilla nce NICKIE West 02/03/2021 I48.0 Paroxysmal atrial fibrillation K stacy Donald PA-C 02/03/2021 Z79.01 USP (current) use of antic oagulants Stephy Donald PA-C 01/07/2021 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 NICKIE West 01/07/2021 I48.0 Paroxysmal atrial fibrillation C NICKIE Saeed 12/23/2020 Z95.810 Presence of automatic (implantab le) cardiac defibrillator [facility] 12/04/2020 I48.0 Paroxysmal atrial fibrillation Harsha Donald PA-C 12/04/2020 Z79.01 USP (current) use of antic oagulants Stephy Donald PA-C 12/03/2020 I10 Essential (primary) hypertension Dimas Núñez MD 12/03/2020 I48.0 Paroxysmal atrial fibrillation D melissa Núñez MD 11/06/2020 I48.0 Paroxysmal atrial fibrillation D melissa Núñez MD 11/06/2020 I10 Essential (primary) hypertension Dimas Núñez MD 11/05/2020 I48.0 Paroxysmal atrial fibrillation K stacy Donald PA-C 11/05/2020 Z79.01 USP (current) use of antic oagulanozzy Donald PA-C 10/09/2020 I48.0 Paroxysmal atrial fibrillation K stacy Donald PA-C 10/09/2020 Z79.01 USP (current) use of antic laurentgulanozzy Donald PA-C 09/23/2020 Z95.810 Presence of automatic (implantab le) cardiac defibrillator [facility] 09/07/2020 I48.0 Paroxysmal atrial fibrillation K stacy Donald PA-C 09/07/2020 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
--- OUTSIDE RECORDS SUMMARY | 2021-04-19 23:58 | CCD ---
Author Author [facility] Organization [facility] Address Unknown Phone Unavailable Care Team Providers Care Sample Examiner Name Role Phone Kyle Hester MD Unavailable Unavailable Kyle Hester MD Unavailable Unavailable Kyle Hester MD Unavailable Unavailable Kyle Hester MD Unavailable Unavailable Kyle Hester MD Unavailable Unavailable Kyle Hester MD Unavailable Unavailable Kyle Hester MD Unavailable Unavailable Kyle Hester MD Unavailable Unavailable Kyle Hester MD Unavailable Unavailable Kyle Hester MD Unavailable Unavailable Kyle Hester MD Unavailable Unavailable Kyle Hester MD Unavailable Unavailable Kyle Hester MD Unavailable Unavailable Kyle Hester MD Unavailable Unavailable Kyle Hester MD Unavailable Unavailable Kyle Hester MD Unavailable Unavailable Kyle Hester MD Unavailable Unavailable Kyle Hester MD Unavailable Unavailable Kyle Hester MD Unavailable Unavailable Kyle Hester MD Unavailable Unavailable Kyle Hester MD Unavailable Unavailable Kyle Hester MD Unavailable Unavailable Kyle Hester MD Unavailable Unavailable Kyle Hester MD Unavailable Unavailable Kyle Hester MD Unavailable Unavailable Kyle Hester MD Unavailable Unavailable Kyle Hester MD Unavailable Unavailable Kyle Hester MD Unavailable Unavailable Kyle Hester MD Unavailable Unavailable Kyle Hester MD Unavailable Unavailable Kyle Hester MD Unavailable Unavailable Kyle Hester MD Unavailable Unavailable Kyle Hester MD Unavailable Unavailable Kyle Hester MD Unavailable Unavailable Kyle Hester MD Unavailable Unavailable Kyle Hester MD Unavailable Unavailable Kyle Hester MD Unavailable Unavailable Kyle Hester MD Unavailable Unavailable Kyle Hester MD Unavailable Unavailable Kyle Hester MD Unavailable Unavailable Kyle Hester MD Unavailable Unavailable Kyle Hester MD Unavailable Unavailable Kyle Hester MD Unavailable Unavailable Kyle Hester MD Unavailable Unavailable Kyle Hester MD Unavailable Unavailable Kyle Hester MD Unavailable Unavailable Kyle Hester MD Unavailable Unavailable Kyle Hester MD Unavailable Unavailable Kyle Hester MD Unavailable Unavailable Kyle Hester MD Unavailable Unavailable Kyle Hester MD Unavailable Unavailable Kyle Hester MD Unavailable Unavailable Kyle Hester MD Unavailable Unavailable Kyle Hester MD Unavailable Unavailable Kyle Hester MD Unavailable Unavailable Kyle Hester MD Unavailable Unavailable Kyle Hester MD Unavailable Unavailable Kyle Hester MD Unavailable Unavailable Kyle Hester MD Unavailable Unavailable Kyle Hester MD Unavailable Unavailable Kyle Hester MD Unavailable Unavailable Kyle Hester MD Unavailable Unavailable Kyle Hester MD Unavailable Unavailable Kyle Hester MD Unavailable Unavailable Kyle Hester MD Unavailable Unavailable Kyle Hester MD Unavailable Unavailable Kyle Hester MD Unavailable Unavailable Kyle Hester MD Unavailable Unavailable Kyle Hester MD Unavailable Unavailable Kyle Hester MD Unavailable Unavailable Kyle Hester MD Unavailable Unavailable Kyle Hester MD Unavailable Unavailable Kyle Hester MD Unavailable Unavailable Kyle Hester MD Unavailable Unavailable Kyle Hester MD Unavailable Unavailable Kyle Hester MD Unavailable Unavailable Kyle Hester MD Unavailable Unavailable Kyle Hester MD Unavailable Unavailable Kyle Hester MD Unavailable Unavailable Kyle Hester MD Unavailable Unavailable Kyle Hester MD Unavailable Unavailable Kyle Hester MD Unavailable Unavailable Kyle Hester MD Unavailable Unavailable Kyle Hester MD Unavailable Unavailable Kyle Hester MD Unavailable Unavailable Kyle Hester MD Unavailable Unavailable Kyle Hester MD Unavailable Unavailable Kyle Hester MD Unavailable Unavailable Kyle Hester MD Unavailable Unavailable Kyle Hester MD Unavailable Unavailable Kyle Hester MD Unavailable Unavailable Kyle Hester MD Unavailable Unavailable Kyle Hester MD Unavailable Unavailable Kyle Hester MD Unavailable Unavailable Kyle Hester MD Unavailable Unavailable Kyle Hester MD Unavailable Unavailable Kyle Hester MD Unavailable Unavailable Kyle Hester MD Unavailable Unavailable Kyle Hester MD Unavailable Unavailable Kyle Hester MD Unavailable Unavailable Kyle Hester MD Unavailable Unavailable Kyle eHster MD Unavailable Unavailable Kyle Hester MD Unavailable Unavailable Kyle Hester MD Unavailable Unavailable Kyle Hester MD Unavailable Unavailable Kyle Hester MD Unavailable Unavailable Kyle Hester MD Unavailable Unavailable Kyle Hester MD Unavailable Unavailable Kyle Hester MD Unavailable Unavailable Kyle Hestre MD Unavailable Unavailable Kyle Hester MD Unavailable Unavailable Kyle Hester MD Unavailable Unavailable Kyle Hester MD Unavailable Unavailable Kyle Hester MD Unavailable Unavailable Kyle Hester MD Unavailable Unavailable Kyle Hester MD Unavailable Unavailable Kyle Hester MD Unavailable Unavailable Kyle Hester MD Unavailable Unavailable Kyle Hester MD Unavailable Unavailable Kyle Hester MD Unavailable Unavailable Kyle Hester MD Unavailable Unavailable Kyle Hester MD Unavailable Unavailable Kyle Hester MD Unavailable Unavailable Kyle Hester MD Unavailable Unavailable Kyle Hester MD Unavailable Unavailable Kyle Hester MD Unavailable Unavailable Kyle Hester MD Unavailable Unavailable Kyle Hester MD Unavailable Unavailable Kyle Hester MD Unavailable Unavailable Kyle Hester MD Unavailable Unavailable Kyle Hester MD Unavailable Unavailable Kyle Hester MD Unavailable Unavailable Kyle Hester MD Unavailable Unavailable Kyle Hester MD Unavailable Unavailable Kyle Hester MD Unavailable Unavailable Kyle Hester MD Unavailable Unavailable Kyle Hester MD Unavailable Unavailable Kyle Hester MD Unavailable Unavailable Kyle Hester MD Unavailable Unavailable Kyle Hester MD Unavailable Unavailable Kyle Hester MD Unavailable Unavailable Kyle Hester MD Unavailable Unavailable Kyle Hester MD Unavailable Unavailable Kyle Hester MD Unavailable Unavailable Kyle Hester MD Unavailable Unavailable Kyle Hester MD Unavailable Unavailable Kyle Hester MD Unavailable Unavailable Kyle Hester MD Unavailable Unavailable Kyle Hester MD Unavailable Unavailable Kyle Hester MD Unavailable Unavailable Kyle Hester MD Unavailable Unavailable Kyle Hester MD Unavailable Unavailable Kyle Hester MD Unavailable Unavailable Kyle Hester MD Unavailable Unavailable Kyle Hester MD Unavailable Unavailable Kyle Hester MD Unavailable Unavailable Kyle Hester MD Unavailable Unavailable Kyle Hester MD Unavailable Unavailable Kyle Hester MD Unavailable Unavailable Kyle Hester MD Unavailable Unavailable Kyle Hester MD Unavailable Unavailable Kyle Hester MD Unavailable Unavailable Kyle Hester MD Unavailable Unavailable Kyle Hester MD Unavailable Unavailable Kyle Hester MD Unavailable Unavailable Kyle Hester MD Unavailable Unavailable Kyle Hester MD Unavailable Unavailable Kyle Hester MD Unavailable Unavailable Kyle Hester MD Unavailable Unavailable Kyle Hester MD Unavailable Unavailable Kyle Hester MD Unavailable Unavailable Kyle Hester MD Unavailable Unavailable Kyle Hester MD Unavailable Unavailable Kyle Hester MD Unavailable Unavailable Kyle Hester MD Unavailable Unavailable Kyle Hester MD Unavailable Unavailable Kyle Hester MD Unavailable Unavailable Kyle Hester MD Unavailable Unavailable Kyle Hester MD Unavailable Unavailable Kyle Hester MD Unavailable Unavailable Kyle Hester MD Unavailable Unavailable Kyle Hester MD Unavailable Unavailable Kyle Hester MD Unavailable Unavailable Kyle Hester MD Unavailable Unavailable Kyle Hester MD Unavailable Unavailable Kyle Hester MD Unavailable Unavailable RILEY, L VICTORINA PA Unavailable Unavailable RILEY, L VICTORINA PA Unavailable Unavailable RILEY, L VICTORINA PA Unavailable Unavailable RILEY, L VICTORINA PA Unavailable Unavailable RILEY, L VICTORINA PA Unavailable Unavailable RILEY, L VICTORINA PA Unavailable Unavailable RILEY, L VICTORINA PA Unavailable Unavailable RILEY, L VICTORINA PA Unavailable Unavailable RILEY, L VICTORINA PA Unavailable Unavailable RILEY, L VICTORINA PA Unavailable Unavailable RILEY, L VICTORINA PA Unavailable Unavailable RILEY, L VICTORINA PA Unavailable Unavailable RILEY, L VICTORINA PA Unavailable Unavailable RILEY, L VICTORINA PA Unavailable Unavailable RILEY, L VICTORINA PA Unavailable Unavailable RILEY, L VICTORINA PA Unavailable Unavailable ANTECOL, Ashlee GOLDBERG MD Unavailable Unavailable ANTECOL, Ashlee GOLDBERG MD Unavailable Unavailable ANTECOL, Ashlee GOLDBERG MD Unavailable Unavailable ANTECOL, Ashlee GOLDBERG MD Unavailable Unavailable ANTECOL, Ashlee GOLDBERG MD Unavailable Unavailable ANTECOL, Ashlee GOLDBERG MD Unavailable Unavailable ANTECOL, Ashlee GOLDBERG MD Unavailable Unavailable ANTECOL, Ashlee GOLDBERG MD Unavailable Unavailable ANTECOL, Ashlee GOLDBERG MD Unavailable Unavailable ANTECOL, Ashlee GOLDBERG MD Unavailable Unavailable ANTECOL, Ashlee GOLDBERG MD Unavailable Unavailable ANTECOL, Ashlee GOLDBERG MD Unavailable Unavailable ANTECOL, Ashlee GOLDBERG MD Unavailable Unavailable ANTECOL, Ashlee GOLDBERG MD Unavailable Unavailable ANTECOL, Ashlee GOLDBERG MD Unavailable Unavailable ANTECOL, Ashlee GOLDBERG MD Unavailable Unavailable ANTECOL, Ashlee GOLDBERG MD Unavailable Unavailable ANTECOL, Ashlee GOLDBERG MD Unavailable Unavailable ANTECOL, Ashlee GOLDBERG MD Unavailable Unavailable ANTECOL, Ashlee GOLDBERG MD Unavailable Unavailable ANTECOL, Ashlee GOLDBERG MD Unavailable Unavailable ANTECOL, Ashlee GOLDBERG MD Unavailable Unavailable ANTECOL, Ashlee GOLDBERG MD Unavailable Unavailable ANTECOL, Ashlee GOLDBERG MD Unavailable Unavailable ANTECOL, Ashlee GOLDBERG MD Unavailable Unavailable ANTECOL, Ashlee GOLDBERG MD Unavailable Unavailable ANTECOL, Ashlee GOLDBERG MD Unavailable Unavailable ANTECOL, Ashlee GOLDBERG MD Unavailable Unavailable ANTECOL, Ashlee GOLDBERG MD Unavailable Unavailable ANTECOL, Ashlee GOLDBERG MD Unavailable Unavailable ANTECOL, Ashlee GOLDBERG MD Unavailable Unavailable ANTECOL, Ashlee GOLDBERG MD Unavailable Unavailable ANTECOL, Ashlee GOLDBERG MD Unavailable Unavailable ANTECOL, Ashlee GOLDBERG MD Unavailable Unavailable ANTECOL, Ashlee GOLDBERG MD Unavailable Unavailable ANTECOL, Ashlee GOLDBERG MD Unavailable Unavailable ANTECOL, Ashlee GOLDBERG MD Unavailable Unavailable ANTECOL, Ashlee GOLDBERG MD Unavailable Unavailable ANTECOL, Ashlee GOLDBERG MD Unavailable Unavailable ANTECOL, Ashlee GOLDBERG MD Unavailable Unavailable ANTECOL, Ashlee GOLDBERG MD Unavailable Unavailable ANTECOL, Ashlee GOLDBERG MD Unavailable Unavailable ANTECOL, Ashlee GOLDBERG MD Unavailable Unavailable ANTECOL, Ashlee GOLDBERG MD Unavailable Unavailable ANTECOL, Ashlee GOLDBERG MD Unavailable Unavailable ANTECOL, Ashlee GOLDBERG MD Unavailable Unavailable ANTECOL, Ashlee GOLDBERG MD Unavailable Unavailable ANTECOL, Ashlee GOLDBERG MD Unavailable Unavailable ANTECOL, Ashlee GOLDBERG MD Unavailable Unavailable ANTECOL, Ashlee GOLDBERG MD Unavailable Unavailable ANTECOL, Ashlee GOLDBERG MD Unavailable Unavailable ANTECOL, Ashlee GOLDBERG MD Unavailable Unavailable ANTECOL, Ashlee GOLDBERG MD Unavailable Unavailable ANTECOL, Ashlee GOLDBERG MD Unavailable Unavailable Broderick, L Laney RPA Unavailable Unavailable Broderick, L Laney RPA Unavailable Unavailable Broderick, L Laney RPA Unavailable Unavailable Broderick, L Laney RPA Unavailable Unavailable Broderick, L Laney RPA Unavailable Unavailable Broderick, L Laney RPA Unavailable Unavailable Broderick, L Laney RPA Unavailable Unavailable Broderick, L Laney RPA Unavailable Unavailable Broderick, L Laney RPA Unavailable Unavailable Broderick, L Laney RPA Unavailable Unavailable Broderick, L Laney RPA Unavailable Unavailable Broderick, L Laney RPA Unavailable Unavailable Broderick, L Laney RPA Unavailable Unavailable Broderick, L Laney RPA Unavailable Unavailable Broderick, L Laney RPA Unavailable Unavailable Broderick, L Laney RPA Unavailable Unavailable Broderick, L Laney RPA Unavailable Unavailable Broderick, L Laney RPA Unavailable Unavailable Broderick, L Laney RPA Unavailable Unavailable Broderick, L Laney RPA Unavailable Unavailable Broderick, L Laney RPA Unavailable Unavailable Broderick, L Laney RPA Unavailable Unavailable Broderick, L Laney RPA Unavailable Unavailable Broderick, L Laney RPA Unavailable Unavailable Broderick, L Laney RPA Unavailable Unavailable Broderick, L Laney RPA Unavailable Unavailable Broderick, L Laney RPA Unavailable Unavailable Broderick, L Laney RPA Unavailable Unavailable Broderick, L Laney RPA Unavailable Unavailable Broderick, L Laney RPA Unavailable Unavailable Broderick, L Laney RPA Unavailable Unavailable Broderick, L Laney RPA Unavailable Unavailable Re-disclosure Warning The records that you are about to access may contain information from federally-assisted alcohol or drug abuse programs. If such information is present, then the following federally mandated warning applies: This information has been disclosed to you from records protected by federal confidentiality rules (42 CFR part 2). The federal rules prohibit you from making any further disclosure of this information unless further disclosure is expressly permitted by the written consent of the person to whom it pertains or as otherwise permitted by 42 CFR part 2. A general authorization for the release of medical or other information is NOT sufficient for this purpose. The Federal rules restrict any use of the information to criminally investigate or prosecute any alcohol or drug abuse patient.The records that you are about to access may contain highly sensitive health information, the redisclosure of which is protected by Article 27-F of the [facility] Public Health law. If you continue you may have access to information: Regarding HIV / AIDS; Provided by facilities licensed or operated by the [facility] Office of Mental Health; or Provided by the [facility] Office for People With Developmental Disabilities. If such information is present, then the following [facility] mandated warning applies: This information has been disclosed to you from confidential records which are protected by state law. State law prohibits you from making any further disclosure of this information without the specific written consent of the person to whom it pertains, or as otherwise permitted by law. Any unauthorized further disclosure in violation of state law may result in a fine or assisted sentence or both. A general authorization for the release of medical or other information is NOT sufficient authorization for further disc losure. Allergies and Adverse Reactions Type Description Substance Reaction Status Data Source(s ) Allergy to substance Allergy to substance Allergy to substance LIZANDRO ([facility]) Family History Family Member Name Family Member Gender Family Member Status Date o f Status Description Data Source(s) Unknown Male Problem MEDENT ([facility]) () - at age 58 Unknown Unknown Problem MEDENT ([facility] ) Unknown Male Problem MEDENT ([facility] Unknown Female Problem [facility]ENT ([facility]) Encounters Encounter Providers Location Date Indications Data Source(s ) Outpatient Attender: VICTORINA FU Main Office 02/11/2021 0 9:45:00 AM EDT MEDENT ([facility]) Office Visit Attender: ASHLYN STEINBERG MD Main Office 01/21/2021 11: 57:00 AM EDT MEDENT ([facility]) Office Visit Attender: ASHLYN STEINBERG MD Main Office 12/03/2020 09: 35:00 AM EDT MEDENT ([facility]) Selvin Hester MD: [address] [place] [phone], Ph. Attender: Selvin Hester MD [facility] 11/10/2020 12:00:00 AM EDT LIZANDRO ([facility]) Office Visit Attender: ASHLYN STEINBERG MD Main Office 11/06/2020 09: 37:00 AM EDT MEDENT ([facility]) Selvin Hester MD: [address] [place] [phone], Ph. Attender: Selvin Hester MD [facility] 11/03/2020 12:00:00 AM EDT LIZANDRO ([facility]) Selvin Hester MD: [address] [place] [phone], Ph. Attender: Selvin Hester MD [facility] 11/03/2020 12:00:00 AM EDT LIZANDRO ([facility]) Outpatient Attender: Laney Broderick RPA [facility] 10/19/2020 10:45:00 AM EDT MEDENT ([facility]) Outpatient Attender: VICTORINA FU Main Office 08/11/2020 0 7:45:00 AM EST MEDENT ([facility]) Outpatient Attender: Laney Heredia/[place] 07/21/2020 09:30:00 AM EST MEDENT ([facility]) Office Visit Attender: ASHLYN STEINBERG MD Main Office 06/08/2020 12: 07:00 PM EST MEDENT ([facility]) Selvin Hester MD: [address] [place] [phone], Ph. Attender: Selvin Hester MD [facility] 05/21/2020 12:00:00 AM EST LIZANDRO ([facility]) Selvin Hester MD: [address] [place] [phone], Ph. Attender: Selvin Hester MD [facility] 05/21/2020 12:00:00 AM EST LIZANDRO ([facility]) Selvin Hester MD: [address] [place] [phone], Ph. Attender: Selvin Hester MD [facility] 05/21/2020 12:00:00 AM EST LIZANDRO ([facility]) Selvin Hester MD: [address] [place] [phone], Ph. Attender: Selvin Hester MD [facility] 05/14/2020 12:00:00 AM EST LIZANDRO ([facility]) Selvin Hester MD: [address] [place] [phone], Ph. Attender: Selvin Hester MD [facility] 05/14/2020 12:00:00 AM EST LIZANDRO ([facility]) Selvin Hester MD: [address] [place] [phone], Ph. Attender: Selvin Hester MD [facility] 05/14/2020 12:00:00 AM EST LIZANDRO ([facility]) Selvin Hester MD: [address] [place] [phone], Ph. Attender: Selvin Hester MD [facility] 05/14/2020 12:00:00 AM EST LIZANDRO ([facility]) Office Visit Attender: ASHLYN STEINBERG MD Main Office 04/29/2020 02: 56:00 PM EST MEDCRISTY ([facility]) Office Visit Attender: ASHLYN STEINBERG MD Main Office 03/27/2020 03: 30:00 PM EDT MEDENT ([facility]) Outpatient Attender: Selvin Hester MD FP 03/12/2020 07:58:03 AM EDT [facility] Outpatient Attender: Selvin Hester MD FP 03/12/2020 07:58:01 AM EDT [facility] Outpatient Attender: Selvin Hester MD FP 03/11/2020 11:26:00 AM EDT [facility] Outpatient Attender: Selvin Hester MD FP 03/11/2020 11:25:01 AM EDT [facility] Outpatient Attender: Selvin Hester MD FP 03/11/2020 10:51:01 AM EDT [facility] Outpatient Attender: Selvin Hester MD FP 03/11/2020 10:06:02 AM EDT [facility] Outpatient Attender: Selvin Hester MD FP 03/11/2020 10:06:00 AM EDT [facility] Outpatient Attender: Selvin Hester MD FP 03/11/2020 09:42:02 AM EDT [facility] Outpatient Attender: Selvin Hester MD FP 03/11/2020 08:52:00 AM EDT [facility] Outpatient Attender: Selvin Hester MD FP 03/09/2020 09:21:01 AM EDT [facility] Outpatient Attender: Selvin Hester MD FP 03/06/2020 02:56:04 PM EDT [facility] Office Visit Attender: ASHLYN STEINBERG MD Main Office 03/05/2020 02: 43:00 PM EDT MEDENT ([facility]) Immunizations Vaccine Date Status Description Data Source(s) New in 2012. IIV4 04/10/2020 12:00:00 AM EDT completed 04/10/20 20 LIZANDRO ([facility]) New in 2012. IIV4 04/10/2020 12:00:00 AM EDT completed 04/10/20 20 LIZANDRO ([facility]) New in 2012. IIV4 04/10/2020 12:00:00 AM EDT completed 04/10/20 20 LIZANDRO ([facility]) New in 2011. IIV4 03/11/2020 12:00:00 AM EDT completed 0.5 mL LIZANDRO ([facility]) New in 2011. IIV4 03/11/2020 12:00:00 AM EDT completed .5 mL LIZANDRO ([facility]) Medications Medication Brand Name Start Date Product Form Dose Route Admi nistrative Instructions Pharmacy Instructions Status Indications Reaction Description Data Source(s) 0.4 mg 02/11/2021 12:00:00 AM EDT tablet, sublingual [address] ONE TABLET UNDER THE TONGUE EVERY 5 MINUTES FOR UP TO 3 DOSES NEEDED FOR CHEST PAIN. IF CHEST PAIN STILL PERSISTS CONTACT [address] ONE TABLET UNDER THE TONGUE EVERY 5 MINUTES FOR UP TO 3 DOSES NEEDED FOR CHEST PAIN. IF CHEST PAIN STILL PERSISTS CONTACT 911 SOLD: 02/19/2021 [facility] 3 mg 01/08/2021 12:00:00 AM EDT tablet 180 TAKE 1-2 TABLETS BY MOUTH DAILY DIRECTED BY CARDIOLOGY TAKE 1-2 TABLETS BY MOUTH DAILY DIREC MARITA BY CARDIOLOGY SOLD: 01/13/2021 [facility] 325 mg (65 mg iron) 11/30/2020 12:00:00 AM EDT tablet 60 TAKE ONE TABLET BY MOUTH TWICE A DAY TAKE ONE TABLET BY MOUTH TWICE A DAY SOLD: 04/05/2021 [facility] 325 mg (65 mg iron) 11/30/2020 12:00:00 AM EDT tablet 60 TAKE ONE TABLET BY MOUTH TWICE A DAY TAKE ONE TABLET BY MOUTH TWICE A DAY SOLD: 11/30/2020 [facility] 325 mg (65 mg iron) 11/30/2020 12:00:00 AM EDT tablet 60 TAKE ONE TABLET BY MOUTH TWICE A DAY TAKE ONE TABLET BY MOUTH TWICE A DAY SOLD: 02/04/2021 [facility] 325 mg (65 mg iron) 11/30/2020 12:00:00 AM EDT tablet 60 TAKE ONE TABLET BY MOUTH TWICE A DAY TAKE ONE TABLET BY MOUTH TWICE A DAY SOLD: 03/06/2021 [facility] 80 mg 11/26/2020 12:00:00 AM EDT tablet 90 TAKE ONE TABLET BY MOUTH AT BEDTIME TAKE ONE TABLET BY MOUTH AT BEDTIME SOLD: 03/06/2021 [facility] 80 mg 11/26/2020 12:00:00 AM EDT tablet 90 TAKE ONE TABLET BY MOUTH AT BEDTIME TAKE ONE TABLET BY MOUTH AT BEDTIME SOLD: 11/30/2020 [facility] 20 mg 10/03/2020 12:00:00 AM EDT tablet 180 TAKE ONE TABLET BY MOUTH TWICE A DAY TAKE ONE TABLET BY MOUTH TWICE A DAY SOLD: 10/05/2020 [facility] 20 mg 10/03/2020 12:00:00 AM EDT tablet 180 TAKE ONE TABLET BY MOUTH TWICE A DAY TAKE ONE TABLET BY MOUTH TWICE A DAY SOLD: 04/05/2021 [facility] 20 mg 10/03/2020 12:00:00 AM EDT tablet 180 TAKE ONE TABLET BY MOUTH TWICE A DAY TAKE ONE TABLET BY MOUTH TWICE A DAY SOLD: 01/05/2021 [facility] carvedilol 25 MG Oral Tablet CARVEDILOL 07/17/2020 12:00:00 AM EST tab let 180 TAKE ONE TABLET BY MOUTH TWICE A DAY TAKE ONE TABLET BY MOUTH TWICE A DAY SOLD: 10/19/2020 [facility] carvedilol 25 MG Oral Tablet CARVEDILOL 07/17/2020 12:00:00 AM EST tab let 180 TAKE ONE TABLET BY MOUTH TWICE A DAY TAKE ONE TABLET BY MOUTH TWICE A DAY SOLD: 07/21/2020 [facility] carvedilol 25 MG Oral Tablet CARVEDILOL 07/17/2020 12:00:00 AM EST tab let 180 TAKE ONE TABLET BY MOUTH TWICE A DAY TAKE ONE TABLET BY MOUTH TWICE A DAY SOLD: 01/20/2021 [facility] 325 mg (65 mg iron) 05/08/2020 12:00:00 AM EST tablet 60 TAKE ONE TABLET BY MOUTH TWICE A DAY TAKE ONE TABLET BY MOUTH TWICE A DAY SOLD: 08/09/2020 [facility] 325 mg (65 mg iron) 05/08/2020 12:00:00 AM EST tablet 60 TAKE ONE TABLET BY MOUTH TWICE A DAY TAKE ONE TABLET BY MOUTH TWICE A DAY SOLD: 07/11/2020 [facility] 325 mg (65 mg iron) 05/08/2020 12:00:00 AM EST tablet 60 TAKE ONE TABLET BY MOUTH TWICE A DAY TAKE ONE TABLET BY MOUTH TWICE A DAY SOLD: 10/10/2020 [facility] 325 mg (65 mg iron) 05/08/2020 12:00:00 AM EST tablet 60 TAKE ONE TABLET BY MOUTH TWICE A DAY TAKE ONE TABLET BY MOUTH TWICE A DAY SOLD: 09/11/2020 [facility] 97-103 mg 05/08/2020 12:00:00 AM EST tablet 180 TAKE ONE TABLET BY MOUTH TWICE A DAY TAKE ONE TABLET BY MOUTH TWICE A DAY SOLD: 11/11/2020 [facility] 325 mg (65 mg iron) 05/08/2020 12:00:00 AM EST tablet 60 TAKE ONE TABLET BY MOUTH TWICE A DAY TAKE ONE TABLET BY MOUTH TWICE A DAY SOLD: 06/09/2020 [facility] 97-103 mg 05/08/2020 12:00:00 AM EST tablet 180 TAKE ONE TABLET BY MOUTH TWICE A DAY TAKE ONE TABLET BY MOUTH TWICE A DAY SOLD: 02/04/2021 [facility] 325 mg (65 mg iron) 05/08/2020 12:00:00 AM EST tablet 60 TAKE ONE TABLET BY MOUTH TWICE A DAY TAKE ONE TABLET BY MOUTH TWICE A DAY SOLD: 05/11/2020 [facility] 97-103 mg 05/08/2020 12:00:00 AM EST tablet 180 TAKE ONE TABLET BY MOUTH TWICE A DAY TAKE ONE TABLET BY MOUTH TWICE A DAY SOLD: 05/11/2020 [facility] 97-103 mg 05/08/2020 12:00:00 AM EST tablet 180 TAKE ONE TABLET BY MOUTH TWICE A DAY TAKE ONE TABLET BY MOUTH TWICE A DAY SOLD: 08/09/2020 [facility] 1 mg 04/30/2020 12:00:00 AM EST tablet 180 TAKE ONE TO TWO TABLETS BY MOUTH EVERY DAY DIRECTED TAKE ONE TO TWO TABLETS BY MOUTH EVERY DAY DIRECTED SOLD: 11/07/2020 [facility] 1 mg 04/30/2020 12:00:00 AM EST tablet 180 TAKE ONE TO TWO TABLETS BY MOUTH EVERY DAY DIRECTED TAKE ONE TO TWO TABLETS BY MOUTH EVERY DAY DIRECTED SOLD: 04/05/2021 [facility] 1 mg 04/30/2020 12:00:00 AM EST tablet 180 TAKE ONE TO TWO TABLETS BY MOUTH EVERY DAY DIRECTED TAKE ONE TO TWO TABLETS BY MOUTH EVERY DAY DIRECTED SOLD: 05/04/2020 [facility] benzonatate 100 MG Oral Capsule BENZONATATE 03/11/2020 12:00:00 AM EDT capsule 9 TAKE ONE CAPSULE BY MOUTH EV PADMA 8 HOURS NEEDED FOR COUGH MAXIMUM DAILY DOSE = 3 CAPSULE TAKE ONE CAPSULE BY MOUTH EVERY 8 HOURS NEEDED FOR COUGH MAXIMUM DAILY DOSE = 3 CAPSULE SOLD: 03/11/2020 [facility] 325 mg (65 mg iron) 12/26/2019 12:00:00 AM EDT tablet 60 TAKE ONE TABLET BY MOUTH TWICE DAILY TAKE ONE TABLET BY MOUTH TWICE DAILY SOLD: 03/07/2020 [facility] 325 mg (65 mg iron) 12/26/2019 12:00:00 AM EDT tablet 60 TAKE ONE TABLET BY MOUTH TWICE DAILY TAKE ONE TABLET BY MOUTH TWICE DAILY SOLD: 04/04/2020 [facility] 3 mg 12/19/2019 12:00:00 AM EDT tablet 180 TAKE ONE TO TWO TABLETS BY MOUTH EVERY DAY DIRECTED BY CARDIOLOGY TAKE ONE TO TWO TABLETS BY MOUTH EVERY D AY DIRECTED BY CARDIOLOGY SOLD: 06/29/2020 [facility] 80 mg 11/23/2019 12:00:00 AM EDT tablet 90 TAKE ONE TABLET BY MOUTH AT BEDTIME TAKE ONE TABLET BY MOUTH AT BEDTIME SOLD: 05/31/2020 [facility] atorvastatin 80 MG Oral Tablet ATORVASTATIN CALCIUM 11/23/2019 1 2:00:00 AM EDT tablet 90 TAKE ONE TABLET BY MOUTH AT BEDT SURINDER TAKE ONE TABLET BY MOUTH AT BEDTIME SOLD: 02/27/2020 [facility] 80 mg 11/23/2019 12:00:00 AM EDT tablet 90 TAKE ONE TABLET BY MOUTH AT BEDTIME TAKE ONE TABLET BY MOUTH AT BEDTIME SOLD: 08/29/2020 [facility] 20 mg 09/17/2019 12:00:00 AM EDT tablet 180 TAKE ONE TABLET BY MOUTH TWICE A DAY TAKE ONE TABLET BY MOUTH TWICE A DAY SOLD: 04/04/2020 [facility] 20 mg 09/17/2019 12:00:00 AM EDT tablet 180 TAKE ONE TABLET BY MOUTH TWICE A DAY TAKE ONE TABLET BY MOUTH TWICE A DAY SOLD: 06/29/2020 [facility] carvedilol 25 MG Oral Tablet CARVEDILOL 06/21/2019 12:00:00 AM EST tab let 180 TAKE ONE TABLET BY MOUTH TWO TIMES A DAY TAKE ONE TABLET BY MOUTH TWO TIMES A DAY SOLD: 04/04/2020 [facility] benzonatate 100 MG Oral Capsule benzonat ate 100 mg capsule TAKE ONE CAPSULE BY MOUTH EVERY 8 HOURS NEEDED FOR COUGH MAXIMUM DAILY DOSE 3 CAPSULE benzonatate 100 mg capsule TAKE ONE CAPSULE BY MOUTH EVERY 8 HOURS NEEDED FOR COUGH MAXIMUM DAILY DOSE 3 CAPSULE c ompleted benzonatate 100 MG Oral Capsule [facility] ([facility]) benzonatate 100 MG Oral Capsule benzonat ate 100 mg capsule TAKE ONE CAPSULE BY MOUTH EVERY 8 HOURS NEEDED FOR COUGH MAXIMUM DAILY DOSE 3 CAPSULE benzonatate 100 mg capsule TAKE ONE CAPSULE BY MOUTH EVERY 8 HOURS NEEDED FOR COUGH MAXIMUM DAILY DOSE 3 CAPSULE c ompleted benzonatate 100 MG Oral Capsule [facility] ([facility]) benzonatate 100 MG Oral Capsule benzonat ate 100 mg capsule TAKE ONE CAPSULE BY MOUTH EVERY 8 HOURS NEEDED FOR COUGH MAXIMUM DAILY DOSE 3 CAPSULE benzonatate 100 mg capsule TAKE ONE CAPSULE BY MOUTH EVERY 8 HOURS NEEDED FOR COUGH MAXIMUM DAILY DOSE 3 CAPSULE c ompleted benzonatate 100 MG Oral Capsule [facility] ([facility]) Insurance Providers Payer name Policy type / Coverage type Policy ID Covered green party ID Covered green party's relationship to osorio Policy Osorio Plan Information MEDICAID [id number] Aminta [id number] [facility] MEDICAID [id number] Aminta [id number] [facility] Commercial [id number] Self [id number] Medicaid S [id number] S [id number] [facility] MCDO [id number] SP [id number] Managed Care - Community Plan [facility] P [id number] S [id number] [facility] MCDHMO [id number] SP [id number] Medicaid S [id number] S [id number] Managed Care - [facility] Community Plan P [id number] S [id number] [employer] COMMUNITY PLAN MCDHMO [id number] SP [id number] Managed Care - Community Plan [facility] P [id number] S [id number] MEDICARE [id number] SP [id number] MEDICARE [id number] Aminta [id number] [place] [id number] SP [id number] Y EMEDNY [id number] SP [id number] MEDICAID [id number] SP [id number] Medicaid S [id number] S [id number] Medicare P [id number] S [id number] Medicaid Medigap Part B [id number] 4.0 Self [id number] Self Pay Medigap Part B [id number] [id number] Self [id number] Medicaid Medigap Part B [id number] [id number] 4.0 Self [id number] Medicare (Part B) Medicare Primary [id number] 2.16.840.1.954364.3.227.99.572.68166.0 Self 5 [id number] MEDICAID PI PI MEDICARE PI PI Medicaid Medigap Part B [id number] [id number] 4.0 Self [id number] Self Pay Medigap Part B [id number] 2.16.840.1.49[id number] Self [id number] Medicaid Medigap Part B [id number] [id number] 4.0 Self [id number] Medicare (Part B) Medicare Primary [id number] 2.16.840.1.302487.3.227.99.572.58364.0 Self 5 [id number] Medicaid Medigap Part B [id number] [id number] 4.0 Self [id number] Self Pay Medigap Part B [id number] 2.16.840.1.788413.3.227.99.572.54154.0 Self [id number] Medicaid Medigap Part B [id number] 2.16.840.1.292794.3.227.99.572.3107 4.0 Self [id number] Medicare (Part B) Medicare Primary [id number] 2.16.840.1.063088.3.227.99.572.27520.0 Self 5 [id number] [place] Primary [id number] 2.16.840.1.388385.3.227.99.991.132866.0 Self [id number] [facility] Plan Medifountain Part B [id number] 2.16.840.1.012070.3.227.99.991.036265.0 Self [id number] [place] Medicare Primary [id number] 2.16.840.1.969439.3.227.99.991.502244.0 Self [id number] MEDICARE [id number] [facility]) [id number] Medicaid Medigap Part B [id number] 2.16.840.1.037986.3.227.99.572.3107 4.0 Self [id number] Self Pay Medigap Part B [id number] 2.16.840.1.131014.3.227.99.572.58811.0 Self [id number] [facility] Commercial [id number] 2.16.840.1.026592.3.227.99.572.16068.0 Self [id number] Medicaid Medigap Part B [id number] 2.16.840.1.577664.3.227.99.572.3107 4.0 Self [id number] Self Pay Medigap Part B [id number] 2.16.840.1.371158.3.227.99.572.69340.0 Self [id number] Medicaid Medigap Part B [id number] 2.16.840.1.486381.3.227.99.572.3107 4.0 Self [id number] Self Pay Medigap Part B [id number] 2.16.840.1.554793.3.227.99.572.18680.0 Self [id number] [facility] ([facility] [id number] 2.16.840.1.817577.3.227.99.8646.362622.0 Self [id number] [facility] ([facility]) [id number] 2.16.840.1.353384.3.227.99.8646.105687.0 Self [id number] Medicaid Medigap Part B [id number] 2.16.840.1.887540.3.227.99.572.3107 4.0 Self [id number] Self Pay Medigap Part B [id number] 2.16.840.1.032501.3.227.99.572.44719.0 Self [id number] [facility] ([facility]) [id number] 2.16.840.1.437018.3.227.99.8646.806547.0 Self [id number] Medicaid Medigap Part B [id number] 2.16.840.1.405315.3.227.99.572.3107 4.0 Self [id number] Self Pay Medigap Part B [id number] 2.16.840.1.678840.3.227.99.572.97608.0 Self [id number] Medicaid Medigap Part B [id number] 2.16.840.1.787518.3.227.99.572.3107 4.0 Self [id number] Self Pay Medigap Part B [id number] 2.16.840.1.303201.3.227.99.572.74282.0 Self [id number] [facility] [id number] SP [id number] MEDICAID M [id number] S [id number] Self Pay Medigap Part B [id number] 4.0 Self [facility] Plan-[facility] Commercial [id number] Self Medicaid Medigap Part B [id number] Self [id number] Self Pay Medigap Part B [id number] Self [facility] [id number] SP [id number] Self Pay Medigap Part B [id number] Self Self Pay Medigap Part B [id number] Self Self Pay Medigap Part B [id number] Self Self Pay Medigap Part B [id number] Self SELF PAY UNAVAILABLE SP UNAVAILA BLE Self Pay Commercial [id number] Self Self Pay Commercial [id number] Self Self Pay Commercial [id number] Self [facility] [id number] Medicaid Medigap Part B [id number] Self [id number] Self Pay Medigap Part [id number] Self [id number] Medicaid Medigap Part B [id number] Self [id number] Medicare (Part B) Medicare Primary [id number] Self [id number] [facility] Plan-[facility] Medigap Part B [id number] Self [id number] MEDICAID [id number] SP [id number] MEDICARE [id number] SP [id number] Medicaid Medigap Part B [id number] Self [id number] Self Pay Medigap Part [id number] Self [id number] Medicaid Medigap Part B [id number] Self [id number] Medicare (Part B) Medicare Primary [id number] Self [id number] Medicaid [place] Medigap Part B [id number] Self [id number] [place] Primary [id number] Self [id number] Medicaid Medigap Part B [id number] [id number] 4.0 Self [id number] Self Pay Medigap Part [id number] 2.16.840.1.437414.3.227.99.572.03643.0 Self [id number] Medicaid Medigap Part B [id number] [id number] 4.0 Self [id number] Medicare (Part B) Medicare Primary [id number] [id number] Self [id number] Problems, Conditions, and Diagnoses Code Display Name Description Problem Type Effective Dates Data Source(s) 571059744 Carotid artery occlusion Carotid artery occlusion Prob neal 12/17/2020 12:00:00 AM EDT [facility] ([facility]) 67607236 Atherosclerosis of arteries of the extre mities Atherosclerosis of arteries of the extremities Problem 12/17/2020 12:00:00 AM EDT MEDEN T ([facility]) [id number] Congestive heart failure Congestive heart failure Prob neal 12/10/2020 12:00:00 AM EDT [facility] ([facility]) 75279525 Primary cardiomyopathy Primary cardiomyopathy Problem 12/10/2020 12:00:00 AM EDT [facility] ([facility]) 87452678 Coronary arteriosclerosis Coronary arteriosclerosis Pr oblem 12/10/2020 12:00:00 AM EDT [facility] ([facility]) 91164072 Atrial fibrillation Atrial fibrillation Problem 0 12/10/2020 12:00:00 AM EDT [facility] ([facility]) 4279193 Atrial flutter Atrial flutter Problem 12/10/2020 12:00: 00 AM EDT [facility] ([facility]) 667975207 Pure hypercholesterolemia Pure hypercholesterolemia Pr oblem 12/10/2020 12:00:00 AM EDT [facility] ([facility]) 55922109 Essential hypertension Essential hypertension Problem 12/10/2020 12:00:00 AM EDT [facility] ([facility]) 535950669 Prediabetes Prediabetes Problem 05/21/2020 12:00:00 AM EST [facility] ([facility]) 006661129 Prediabetes Prediabetes Problem 05/21/2020 12:00:00 AM EST [facility] ([facility]) 575540883 Prediabetes Prediabetes Problem 05/21/2020 12:00:00 AM EST [facility] ([facility]) V04.81 Needs vaccination for influenza Needs vaccination for influenza 03/11/2020 10:05:34 AM EDT [facility] 786.2 Cough Cough 03/11/2020 09:40:02 AM ED T [facility] [id number] Influenza vaccine needed Influenza Vaccine Needed Pro blem 03/11/2020 12:00:00 AM EDT [facility] ([facility]) 08049514 Cough Cough Problem 03/11/2020 12:00:00 AM ED T [facility] ([facility]) [id number] Influenza vaccine needed Influenza Vaccine Needed Pro blem 03/11/2020 12:00:00 AM EDT [facility] ([facility]) 57015430 Cough Cough Problem 03/11/2020 12:00:00 AM ED T [facility] ([facility]) R73.01 Impaired fasting glucose Impaired fasting glycemia 03/06/2020 02:54:03 PM EDT [facility] [id number] Impaired fasting glycemia Impaired Fasting Glycemia Pr oblem 03/05/2020 12:00:00 AM EDT [facility] ([facility]) 032148498 Impaired fasting glycemia Impaired Fasting Glycemia Pr oblem 03/05/2020 12:00:00 AM EDT [facility] ([facility]) Surgeries/Procedures Procedure Description Date Indications Data Source(s) INTERROGATION EVAL F2F 1/DUAL/HEALTH AND NUTRITION SPECIALIST LEADS [facility] 03/26/20 12:00:00 AM EDT [facility] ([facility]) Anticoagulant MGMT For Patient Taking Warfarin, Inc Review & Intr 03/05/2021 12:00:00 AM EDT [facility] ([facility]) ECG ROUTINE ECG W/LEAST 12 LDS W/I&R 02/11/2021 12:00: 00 AM EDT [facility] ([facility]) OFFICE OUTPATIENT VISIT 25 MINUTES 02/11/2021 12:00:00 AM EDT [facility] ([facility]) Anticoagulant MGMT For Patient Taking Warfarin, Inc Review & Intr 02/03/2021 12:00:00 AM EDT [facility] ([facility]) Chronic Care MGMT 20 Mins Clinical Staff Time Per Calendar M onth 01/21/2021 12:00:00 AM EDT [facility] ([facility]) Anticoagulant MGMT For Patient Taking Warfarin, Inc Review & Intr 01/07/2021 12:00:00 AM EDT [facility] ([facility]) INTERROGATION EVAL REMOTE </90 D 1/2/> LD [facility] 2020 12:00:00 AM EDT [facility] ([facility]) INTERROGATION REMOTE </90 D FORESTRY AIDE REVIEW 12/24/19 12:00:00 AM EDT [facility] ([facility]) Anticoagulant MGMT For Patient Taking Warfarin, Inc Review & Intr 12/04/2020 12:00:00 AM EDT [facility] ([facility]) Chronic Care MGMT 20 Mins Clinical Staff Time Per Calendar [facility] [place] 12/03/2020 12:00:00 AM EDT [facility] ([facility]) Chronic Care MGMT 20 Mins Clinical Staff Time Per Calendar [facility] [place] 11/06/2020 12:00:00 AM EDT [facility] ([facility]) Anticoagulant MGMT For Patient Taking Warfarin, Inc Review & Intr 11/05/2020 12:00:00 AM EDT [facility] ([facility]) Anticoagulant MGMT For Patient Taking Warfarin, Inc Review & Intr 10/09/2020 12:00:00 AM EDT [facility] ([facility]) INTERROGATION EVAL REMOTE </90 D 1/2/> LD [facility] 2020 12:00:00 AM EDT [facility] ([facility]) INTERROGATION REMOTE </90 D FORESTRY AIDE REVIEW 09/24/19 12:00:00 AM EDT [facility] ([facility]) Anticoagulant MGMT For Patient Taking Warfarin, Inc Review & Intr 09/07/2020 12:00:00 AM EDT [facility] ([facility]) ECG ROUTINE ECG W/LEAST 12 LDS W/I&R 08/11/2020 12:00: 00 AM EST [facility] ([facility]) OFFICE OUTPATIENT VISIT 25 MINUTES 08/11/2020 12:00:00 AM EST [facility] ([facility]) Anticoagulant MGMT For Patient Taking Warfarin, Inc Review & Intr 08/07/2020 12:00:00 AM EST [facility] ([facility]) Anticoagulant MGMT For Patient Taking Warfarin, Inc Review & Intr 07/09/2020 12:00:00 AM EST [facility] ([facility]) INTERROGATION EVAL REMOTE </90 D 1/2/> LD [facility] 2020 12:00:00 AM EST [facility] ([facility]) INTERROGATION REMOTE </90 D FORESTRY AIDE REVIEW 06/24/19 12:00:00 AM EST [facility] ([facility]) Anticoagulant MGMT For Patient Taking Warfarin, Inc Review & Intr 06/11/2020 12:00:00 AM EST [facility] ([facility]) Chronic Care MGMT 20 Mins Clinical Staff Time Per Calendar M onth 06/08/2020 12:00:00 AM EST [facility] ([facility]) Anticoagulant MGMT For Patient Taking Warfarin, Inc Review & Intr 05/29/2020 12:00:00 AM EST [facility] ([facility]) Anticoagulant MGMT For Patient Taking Warfarin, Inc Review & Intr 05/01/2020 12:00:00 AM EST [facility] ([facility]) Anticoagulant MGMT For Patient Taking Warfarin, Inc Review & Intr 04/02/2020 12:00:00 AM EDT [facility] ([facility]) INTERROGATION EVAL F2F 1/DUAL/HEALTH AND NUTRITION SPECIALIST LEADS CVDFB 03/25/20 12:00:00 AM EDT [facility] ([facility]) ECHO TTHRC R-T 2D W/WOM-MODE COMPL SPEC&COLR DOP 03/13 12:00:00 AM EDT [facility] ([facility]) Anticoagulant MGMT For Patient Taking Warfarin, Inc Review & Intr 03/04/2020 12:00:00 AM EDT [facility]) Results ID Date Data Source [id number] 04/05/2021 03:33:00 PM EDT [facility] Name Value Range Interpretation Code Description Data Reshma rce(s) Supporting Document(s) Laboratory test finding (navigational concept) Laboratory test result [facility]) ID Date Data Source [id number] 04/05/2021 03:33:00 PM EDT [facility] Name Value Range Interpretation Code Description Data Reshma rce(s) Supporting Document(s) INR in Platelet poor plasma by Coagulation assay 2.4 0.9-1.2 [facility]) Reference interval is for non-anticoagul ated patients. Suggested INR therapeutic range for Vitamin K antagonist therapy: Standard Dose (moderate intensity therapeutic range): 2.0 - 3.0 Higher intensity therapeutic range 2.5 - 3.5 Prothrombin time (PT) 24.8 sec 9.1-12.0 [facility] ([facility]) ID Date Data Source [id number] 04/06/2021 06:05:00 AM EDT [facility] Name Value Range Interpretation Code Description Data Reshma rce(s) Supporting Document(s) INR 2.4 0.9-1.2 Above high normal [facility] Reference interval is for non-anticoagulated patients. Suggested INR therapeutic range for Vitamin K antagonist therapy: Standard Dose (moderate intensity therapeutic range): 2.0 - 3.0 Higher intensity therapeutic range 2.5 - 3.5 Prothrombin Time 24.8 sec 9.1-12.0 Above high normal [facility] ID Date Data Source [id number] 03/04/2021 12:42:00 PM EDT [facility] Name Value Range Interpretation Code Description Data Reshma rce(s) Supporting Document(s) Laboratory test finding (navigational concept) Laboratory test result [facility] ([facility]) ID Date Data Source [id number] 03/04/2021 12:42:00 PM EDT [facility] Name Value Range Interpretation Code Description Data Reshma rce(s) Supporting Document(s) Prothrombin time (PT) 29.2 sec 9.1-12.0 [facility] ([facility]) INR in Platelet poor plasma by Coagulation assay 2.9 0.9-1.2 [facility] ([facility]) Reference interval is for non-anticoagul ated patients. Suggested INR therapeutic range for Vitamin K antagonist therapy: Standard Dose (moderate intensity therapeutic range): 2.0 - 3.0 Higher intensity therapeutic range 2.5 - 3.5 ID Date Data Source [id number] 03/05/2021 06:05:00 AM EDT [facility] Name Value Range Interpretation Code Description Data Reshma rce(s) Supporting Document(s) INR 2.9 0.9-1.2 Above high normal [facility] Reference interval is for non-anticoagulated patients. Suggested INR therapeutic range for Vitamin K antagonist therapy: Standard Dose (moderate intensity therapeutic range): 2.0 - 3.0 Higher intensity therapeutic range 2.5 - 3.5 Prothrombin Time 29.2 sec 9.1-12.0 Above high normal [facility] r[facility] ID Date Data Source [id number] 02/02/2021 10:33:00 AM EDT [facility] ([place]) Name Value Range Interpretation Code Description Data Reshma rce(s) Supporting Document(s) Laboratory test finding (navigational concept) Laboratory test result [facility] ([facility]) ID Date Data Source [id number] 02/02/2021 10:33:00 AM EDT [facility] ([place]) Name Value Range Interpretation Code Description Data Reshma rce(s) Supporting Document(s) Prothrombin time (PT) 22.5 sec 9.1-12.0 [facility] ([facility]) INR in Platelet poor plasma by Coagulation assay 2.2 0.9-1.2 [facility] ([facility]) Reference interval is for non-anticoagul ated patients. Suggested INR therapeutic range for Vitamin K antagonist therapy: Standard Dose (moderate intensity therapeutic range): 2.0 - 3.0 Higher intensity therapeutic range 2.5 - 3.5 ID Date Data Source [id number] 02/03/2021 06:05:00 AM EDT [facility] Name Value Range Interpretation Code Description Data Reshma rce(s) Supporting Document(s) INR 2.2 0.9-1.2 Above high normal [facility] Reference interval is for non-anticoagulated patients. Suggested INR therapeutic range for Vitamin K antagonist therapy: Standard Dose (moderate intensity therapeutic range): 2.0 - 3.0 Higher intensity therapeutic range 2.5 - 3.5 Prothrombin Time 22.5 sec 9.1-12.0 Above high normal [facility] ID Date Data Source [id number] 01/05/2021 10:14:00 AM EDT [facility] ([place]) Name Value Range Interpretation Code Description Data Reshma rce(s) Supporting Document(s) Laboratory test finding (navigational concept) Laboratory test result [facility] ([facility] [place]) ID Date Data Source [id number] 01/05/2021 10:14:00 AM EDT [facility] Name Value Range Interpretation Code Description Data Reshma rce(s) Supporting Document(s) INR in Platelet poor plasma by Coagulation assay 2.5 0.9-1.2 [facility] ([facility]) Reference interval is for non-anticoagul ated patients. Suggested INR therapeutic range for Vitamin K antagonist therapy: Standard Dose (moderate intensity therapeutic range): 2.0 - 3.0 Higher intensity therapeutic range 2.5 - 3.5 Prothrombin time (PT) 25.1 sec 9.1-12.0 [facility] ([facility]) ID Date Data Source [id number] 01/06/2021 06:05:00 AM EDT [facility] Name Value Range Interpretation Code Description Data Reshma rce(s) Supporting Document(s) INR 2.5 0.9-1.2 Above high normal [facility] Reference interval is for non-anticoagulated patients. Suggested INR therapeutic range for Vitamin K antagonist therapy: Standard Dose (moderate intensity therapeutic range): 2.0 - 3.0 Higher intensity therapeutic range 2.5 - 3.5 Prothrombin Time 25.1 sec 9.1-12.0 Above high normal [facility] ID Date Data Source [id number] 12/03/2020 09:18:00 AM EDT [facility] ([place]) Name Value Range Interpretation Code Description Data Reshma rce(s) Supporting Document(s) Laboratory test finding (navigational concept) Laboratory test result [facility] ([facility]) ID Date Data Source [id number] 12/03/2020 09:18:00 AM EDT [facility] ([place]) Name Value Range Interpretation Code Description Data Resham rce(s) Supporting Document(s) INR in Platelet poor plasma by Coagulation assay 2.7 0.9-1.2 [facility] ([facility]) Reference interval is for non-anticoagul ated patients. Suggested INR therapeutic range for Vitamin K antagonist therapy: Standard Dose (moderate intensity therapeutic range): 2.0 - 3.0 Higher intensity therapeutic range 2.5 - 3.5 Prothrombin time (PT) 27.3 sec 9.1-12.0 [facility] ([facility]) ID Date Data Source [id number] 12/04/2020 06:05:00 AM EDT [facility] Name Value Range Interpretation Code Description Data Reshma rce(s) Supporting Document(s) INR 2.7 0.9-1.2 Above high normal [facility] Reference interval is for non-anticoagulated patients. Suggested INR therapeutic range for Vitamin K antagonist therapy: Standard Dose (moderate intensity therapeutic range): 2.0 - 3.0 Higher intensity therapeutic range 2.5 - 3.5 Prothrombin Time 27.3 sec 9.1-12.0 Above high normal [facility] ID Date Data Source [id number] 11/07/2020 12:00:00 AM EDT [facility]) Name Value Range Interpretation Code Description Data Reshma rce(s) Supporting Document(s) Hemoglobin A1c/Hemoglobin.total in Blood 5.7 %_of_total_HGB <5.7 Above high normal Hemoglobin a1C [facility]) ID Date Data Source [id number] 11/07/2020 12:00:00 AM EDT [facility]) Name Value Range Interpretation Code Description Data Reshma rce(s) Supporting Document(s) Glucose [Mass/volume] in Serum or Plasma 126 mg/dL 65-99 Above high normal Glucose [facility]) Creatinine [Mass/volume] in Serum or Plasma 0.93 mg/dL 0.50-0.99 Creatinine [facility]) Glomerular filtration rate/1.73 sq M.pre dicted among non-blacks [Volume Rate/Area] in Serum, Plasma or Blood by Creatinine-based formula (CKD-EPI) 66 mL/min/1.73m2 > or = 60 eGFR Non-afr. Portuguese [facility] ([facility]) Urea nitrogen [Mass/volume] in Serum or Plasma 25 mg/dL 7-25 [facility] N[facility]BUN) [facility] Glomerular filtration rate/1.73 sq M.pre dicted among blacks [Volume Rate/Area] in Serum, Plasma or Blood by Creatinine-based formula (CKD-EPI) 76 mL/min/1.73m2 > or = 60 eGFR [facility] ([facility]) Carbon dioxide, total [Moles/volume] in Serum or Plasma 30 mmol/L 20-32 Carbon Dioxide [facility]) Urea nitrogen/Creatinine [Mass Ratio] in Serum or Plasma not applic able 6-22 BUN/creatinine Ratio [facility] ([facility]) Chloride [Moles/volume] in Serum or Plasma 103 mmol/L 98-110 Chloride [facility] ([facility]) Sodium [Moles/volume] in Serum or Plasma 143 mmol/L 135-146 Sodium [facility] ([facility]) Potassium [Moles/volume] in Serum or Plasma 4.2 mmol/L 3.5-5.3 Potassium [facility] ([facility]) Calcium [Mass/volume] in Serum or Plasma 8.6 mg/dL 8.6-10.4 Calcium [facility] ([facility]) Globulin [Mass/volume] in Serum by calculation 2.7 g/dL_(calc) 1.9- 3.7 Globulin [facility] ([facility]) Protein [Mass/volume] in Serum or Plasma 6.5 g/dL 6.1-8.1 Protein, Total [facility] ([facility]) Albumin [Mass/volume] in Serum or Plasma 3.8 g/dL 3.6-5.1 Albumin [facility] ([facility]) Aspartate aminotransferase [Enzymatic activity/volume] in Serum or Plasma 10 U/L 10-35 Ast [facility] ([facility]) Alanine aminotransferase [Enzymatic activity/volume] in Seru m or Plasma 9 U/L 6-29 Alt [facility] ([facility]) Bilirubin.total [Mass/volume] in Serum or Plasma 0.5 mg/dL 0.2-1 .2 Bilirubin, Total [facility] ([facility]) Albumin/Globulin [Mass Ratio] in Serum or Plasma 1.4 (calc) 1.0-2 .5 Albumin/globulin Ratio [facility] ([facility]) Alkaline phosphatase [Enzymatic activity/volume] in Serum or Plasma 121 U/L 37-153 Alkaline Phosphatase [facility] ([facility]) ID Date Data Source [id number] 11/07/2020 12:00:00 AM EDT [facility] ([facility]) Name Value Range Interpretation Code Description Data Reshma rce(s) Supporting Document(s) Thyrotropin [Units/volume] in Serum or Plasma 4.23 mIU/L 0.40-4.50 Tsh [facility] ([facility]) Thyroxine (T4) free [Mass/volume] in Serum or Plasma 1.2 NG/dL 0 .8-1.8 T4, Free [facility]) ID Date Data Source [id number] 11/07/2020 12:00:00 AM EDT [facility] ([facility]) Name Value Range Interpretation Code Description Data Reshma rce(s) Supporting Document(s) Cholesterol [Mass/volume] in Serum or Plasma 135 mg/dL <200 Cholesterol, Total [facility] ([facility]) Triglyceride [Mass/volume] in Serum or Plasma 104 mg/dL <150 Triglycerides [facility] ([facility]) Cholesterol in HDL [Mass/volume] in Serum or Plasma 42 mg/dL > or = 50 Below low normal HDL Cholesterol [facility] ([facility]) Cholesterol non HDL [Mass/volume] in Serum or Plasma 93 mg/dL_(calc ) <130 Non HDL Cholesterol [facility] ([facility]) Cholesterol in LDL [Mass/volume] in Serum or Plasma by calculation 74 mg/dL_(calc) <100 LDL-cholesterol [facility] ([facility]) Cholesterol.total/Cholesterol in HDL [Mass Ratio] in Serum o r Plasma 3.2 calc <5.0 Chol[facility]hdlc [facility] ID Date Data Source [id number] 11/04/2020 08:40:00 AM EDT [facility] Name Value Range Interpretation Code Description Data Reshma rce(s) Supporting Document(s) Laboratory test finding (navigational concept) Laboratory test result [facility]) ID Date Data Source [id number] 11/04/2020 08:40:00 AM EDT [facility] Name Value Range Interpretation Code Description Data Reshma rce(s) Supporting Document(s) Prothrombin time (PT) 27.2 sec 9.1-12.0 [facility] ([facility]) INR in Platelet poor plasma by Coagulation assay 2.7 0.9-1.2 [facility] ([facility]) Reference interval is for non-anticoagul ated patients. Suggested INR therapeutic range for Vitamin K antagonist therapy: Standard Dose (moderate intensity therapeutic range): 2.0 - 3.0 Higher intensity therapeutic range 2.5 - 3.5 ID Date Data Source [id number] 11/05/2020 06:05:00 AM EDT [facility] Name Value Range Interpretation Code Description Data Reshma rce(s) Supporting Document(s) INR 2.7 0.9-1.2 Above high normal [facility] Reference interval is for non-anticoagulated patients. Suggested INR therapeutic range for Vitamin K antagonist therapy: Standard Dose (moderate intensity therapeutic range): 2.0 - 3.0 Higher intensity therapeutic range 2.5 - 3.5 Prothrombin Time 27.2 sec 9.1-12.0 Above high normal [facility] ID Date Data Source [id number] 10/06/2020 08:47:00 AM EDT [facility] Name Value Range Interpretation Code Description Data Reshma rce(s) Supporting Document(s) Laboratory test finding (navigational concept) Laboratory test result [facility] ([facility]) ID Date Data Source [id number] 10/06/2020 08:47:00 AM EDT [facility] ([place]) Name Value Range Interpretation Code Description Data Reshma rce(s) Supporting Document(s) Prothrombin time (PT) 21.4 sec 9.1-12.0 [facility] ([facility]) INR in Platelet poor plasma by Coagulation assay 2.1 0.9-1.2 [facility] Reference interval is for non-anticoagul ated patients. Suggested INR therapeutic range for Vitamin K antagonist therapy: Standard Dose (moderate intensity therapeutic range): 2.0 - 3.0 Higher intensity therapeutic range 2.5 - 3.5 ID Date Data Source [id number] 10/07/2020 06:05:00 AM EDT [facility] Name Value Range Interpretation Code Description Data Reshma rce(s) Supporting Document(s) INR 2.1 0.9-1.2 Above high normal [facility] Reference interval is for non-anticoagulated patients. Suggested INR therapeutic range for Vitamin K antagonist therapy: Standard Dose (moderate intensity therapeutic range): 2.0 - 3.0 Higher intensity therapeutic range 2.5 - 3.5 Prothrombin Time 21.4 sec 9.1-12.0 Above high normal [facility] ID Date Data Source [id number] 09/03/2020 09:32:00 AM EDT [facility] ([place]) Name Value Range Interpretation Code Description Data Reshma rce(s) Supporting Document(s) Laboratory test finding (navigational concept) Laboratory test result [facility] ([facility]) ID Date Data Source [id number] 09/03/2020 09:32:00 AM EDT [facility] ([place]) Name Value Range Interpretation Code Description Data Reshma rce(s) Supporting Document(s) Prothrombin time (PT) 22.6 sec 9.1-12.0 [facility] ([facility]) INR in Platelet poor plasma by Coagulation assay 2.2 0.9-1.2 [facility] ([facility]) Reference interval is for non-anticoagul ated patients. Suggested INR therapeutic range for Vitamin K antagonist therapy: Standard Dose (moderate intensity therapeutic range): 2.0 - 3.0 Higher intensity therapeutic range 2.5 - 3.5 ID Date Data Source [id number] 09/04/2020 06:05:00 AM EDT [facility] Name Value Range Interpretation Code Description Data Reshma rce(s) Supporting Document(s) INR 2.2 0.9-1.2 Above high normal [facility] Reference interval is for non-anticoagulated patients. Suggested INR therapeutic range for Vitamin K antagonist therapy: Standard Dose (moderate intensity therapeutic range): 2.0 - 3.0 Higher intensity therapeutic range 2.5 - 3.5 Prothrombin Time 22.6 sec 9.1-12.0 Above high normal [facility] ID Date Data Source [id number] 09/03/2020 09:29:00 AM EDT [facility] ([place]) Name Value Range Interpretation Code Description Data Reshma rce(s) Supporting Document(s) Laboratory test finding (navigational concept) Laboratory test result [facility] ([facility]) ID Date Data Source [id number] 09/03/2020 09:29:00 AM EDT [facility] ([place]) Name Value Range Interpretation Code Description Data Reshma rce(s) Supporting Document(s) Creatinine 0.75 mg/dL 0.57-1.00 [facility] ([facility]) Glucose 126 mg/dL 65-99 [facility] ([facility]) Urea nitrogen [Mass/volume] in Serum or Plasma 17 mg/dL 8-27 [facility] ([facility]) eGFR If NonAfricn Am 86 mL/min/1.73 [facility] ([facility]) Urea nitrogen/Creatinine [Mass Ratio] in Serum or Plasma 23 1 2-28 [facility] ([facility]) eGFR If Africn Am 99 mL/min/1.73 [facility] ([facility]) Sodium 143 mmol/L 134-144 [facility] ([facility]) Chloride [Moles/volume] in Serum or Plasma 100 mmol/L 96-106 [facility] ([facility]) Potassium [Moles/volume] in Serum or Plasma 3.9 mmol/L 3.5-5.2 [facility] ([facility]) Carbon dioxide, total [Moles/volume] in Serum or Plasma 28 mmol/L 20 -29 [facility] ([facility]) Calcium [Mass/volume] in Serum or Plasma 8.6 mg/dL 8.7-10.3 [facility] ([facility]) ID Date Data Source [id number] 09/04/2020 06:05:00 AM EDT [facility] Name Value Range Interpretation Code Description Data Reshma rce(s) Supporting Document(s) Glucose 126 mg/dL 65-99 Above high normal [facility] BUN 17 mg/dL 8-27 [facility] Creatinine 0.75 mg/dL 0.57-1.00 [facility] eGFR If NonAfricn Am 86 mL/min/1.73 >59 [facility] eGFR If Africn Am 99 mL/min/1.73 >59 [facility] BUN/Creatinine Ratio 23 12-28 [facility] Sodium 143 mmol/L 134-144 [facility] Potassium 3.9 mmol/L 3.5-5.2 [facility] Chloride 100 mmol/L 96-106 [facility] Carbon Dioxide, Total 28 mmol/L 20-29 [facility] Calcium 8.6 mg/dL 8.7-10.3 Below low normal [facility] ID Date Data Source [id number] 08/05/2020 09:49:00 AM EST [facility] ([place]) Name Value Range Interpretation Code Description Data Reshma rce(s) Supporting Document(s) Laboratory test finding (navigational concept) Laboratory test result [facility] ([facility]) ID Date Data Source [id number] 08/05/2020 09:49:00 AM EST [facility] ([place]) Name Value Range Interpretation Code Description Data Reshma rce(s) Supporting Document(s) INR in Platelet poor plasma by Coagulation assay 2.8 0.9-1.2 [facility] ([facility]) Reference interval is for non-anticoagul ated patients. Suggested INR therapeutic range for Vitamin K antagonist therapy: Standard Dose (moderate intensity therapeutic range): 2.0 - 3.0 Higher intensity therapeutic range 2.5 - 3.5 Prothrombin time (PT) 27.8 sec 9.1-12.0 [facility] ([facility]) ID Date Data Source [id number] 08/06/2020 06:05:00 AM EST [facility] Name Value Range Interpretation Code Description Data Reshma rce(s) Supporting Document(s) INR 2.8 0.9-1.2 Above high normal [facility] Reference interval is for non-anticoagulated patients. Suggested INR therapeutic range for Vitamin K antagonist therapy: Standard Dose (moderate intensity therapeutic range): 2.0 - 3.0 Higher intensity therapeutic range 2.5 - 3.5 Prothrombin Time 27.8 sec 9.1-12.0 Above high normal [facility] ID Date Data Source [id number] 07/08/2020 02:05:00 PM EST [facility] Name Value Range Interpretation Code Description Data Reshma rce(s) Supporting Document(s) INR 2.0 0.9-1.2 Above high normal [facility] Reference interval is for non-anticoagulated patients. Suggested INR therapeutic range for Vitamin K antagonist therapy: Standard Dose (moderate intensity therapeutic range): 2.0 - 3.0 Higher intensity therapeutic range 2.5 - 3.5 Prothrombin Time 20.5 sec 9.1-12.0 Above high normal [facility] ID Date Data Source [id number] 07/07/2020 11:24:00 AM EST [facility] ([place]) Name Value Range Interpretation Code Description Data Reshma rce(s) Supporting Document(s) Laboratory test finding (navigational concept) Laboratory test result [facility] ([facility]) ID Date Data Source [id number] 07/07/2020 11:24:00 AM EST [facility] ([place]) Name Value Range Interpretation Code Description Data Reshma rce(s) Supporting Document(s) INR in Platelet poor plasma by Coagulation assay 2.0 0.9-1.2 [facility] ([facility]) Reference interval is for non-anticoagul ated patients. Suggested INR therapeutic range for Vitamin K antagonist therapy: Standard Dose (moderate intensity therapeutic range): 2.0 - 3.0 Higher intensity therapeutic range 2.5 - 3.5 Prothrombin time (PT) 20.5 sec 9.1-12.0 [facility] ([facility]) ID Date Data Source [id number] 06/10/2020 08:00:00 AM EST [facility] ([place]) Name Value Range Interpretation Code Description Data Reshma rce(s) Supporting Document(s) Laboratory test finding (navigational concept) Laboratory test result [facility] ([facility]) ID Date Data Source [id number] 06/10/2020 08:00:00 AM EST [facility] ([place]) Name Value Range Interpretation Code Description Data Reshma rce(s) Supporting Document(s) Prothrombin time (PT) 22.1 sec 9.1-12.0 [facility] ([facility]) INR in Platelet poor plasma by Coagulation assay 2.2 0.9-1.2 [facility] Reference interval is for non-anticoagul ated patients. Suggested INR therapeutic range for Vitamin K antagonist therapy: Standard Dose (moderate intensity therapeutic range): 2.0 - 3.0 Higher intensity therapeutic range 2.5 - 3.5 ID Date Data Source [id number] 06/11/2020 06:05:00 AM EST [facility] Name Value Range Interpretation Code Description Data Reshma rce(s) Supporting Document(s) INR 2.2 0.9-1.2 Above high normal [facility] Reference interval is for non-anticoagulated patients. Suggested INR therapeutic range for Vitamin K antagonist therapy: Standard Dose (moderate intensity therapeutic range): 2.0 - 3.0 Higher intensity therapeutic range 2.5 - 3.5 Prothrombin Time 22.1 sec 9.1-12.0 Above high normal [facility] ID Date Data Source [id number] 05/28/2020 10:38:00 AM EST [facility] ([place]) Name Value Range Interpretation Code Description Data Reshma rce(s) Supporting Document(s) Laboratory test finding (navigational concept) Laboratory test result [facility] ([facility]) ID Date Data Source [id number] 05/28/2020 10:38:00 AM EST [facility] ([place]) Name Value Range Interpretation Code Description Data Reshma rce(s) Supporting Document(s) INR in Platelet poor plasma by Coagulation assay 3.4 0.9-1.2 [facility] Reference interval is for non-anticoagul ated patients. Suggested INR therapeutic range for Vitamin K antagonist therapy: Standard Dose (moderate intensity therapeutic range): 2.0 - 3.0 Higher intensity therapeutic range 2.5 - 3.5 Prothrombin time (PT) 34.0 sec 9.1-12.0 [facility] ([facility]) ID Date Data Source [id number] 05/29/2020 06:05:00 AM EST [facility] Name Value Range Interpretation Code Description Data Reshma rce(s) Supporting Document(s) INR 3.4 0.9-1.2 Above high normal [facility] Reference interval is for non-anticoagulated patients. Suggested INR therapeutic range for Vitamin K antagonist therapy: Standard Dose (moderate intensity therapeutic range): 2.0 - 3.0 Higher intensity therapeutic range 2.5 - 3.5 Prothrombin Time 34.0 sec 9.1-12.0 Above high normal [facility] ID Date Data Source [id number] 05/14/2020 10:48:00 AM EST [facility] ([place]) Name Value Range Interpretation Code Description Data Reshma rce(s) Supporting Document(s) Hemoglobin A1c/Hemoglobin.total in Blood 6.2 [facility] ([facility]) ID Date Data Source [id number] 05/14/2020 10:48:00 AM EST [facility] ([place]) Name Value Range Interpretation Code Description Data Reshma rce(s) Supporting Document(s) Albumin [Mass/volume] in Serum or Plasma 2.9 [facility] ([facility]) Calcium [Mass/volume] in Serum or Plasma 8.8 [facility] ([facility]) Alanine aminotransferase [Enzymatic activity/volume] in Serum or Pl asma 12 [facility] ([facility]) Chloride [Moles/volume] in Serum or Plasma 104 [facility] ([facility]) Carbon dioxide, total [Moles/volume] in Serum or Plasma 33 [facility] ([facility]) Potassium [Moles/volume] in Serum or Plasma 3.9 [facility] ([facility]) Alkaline phosphatase [Enzymatic activity/volume] in Serum or Plasma 1 33 [facility] ([facility]) Protein [Mass/volume] in Serum or Plasma 6.4 [facility] ([facility]) Sodium 141 [facility] ([facility] Urea nitrogen [Mass/volume] in Serum or Plasma 21 [facility] ([facility]) Aspartate aminotransferase [Enzymatic activity/volume] in Serum or Plasma 10 [facility] ([facility]) Glucose 127 70-100 [facility] ([facility]) Creatinine For GFR 0.73 [facility] ([facility]) ID Date Data Source [id number] 05/14/2020 09:25:00 AM EST [facility]) Name Value Range Interpretation Code Description Data Reshma rce(s) Supporting Document(s) estimated average glucose 131 mg/dL 60-110 Above high norm al Estimated Average Glucose [facility] ([facility]) Hemoglobin A1c/Hemoglobin.total in Blood 6.2 % Hemoglobin a1C [facility]) ID Date Data Source [id number] 05/14/2020 09:25:00 AM EST [facility]) Name Value Range Interpretation Code Description Data Reshma rce(s) Supporting Document(s) thyroid stimulating hormone 4.630 uIU/mL 0.358-3.740 Above high no rmal Thyroid Stimulating Hormone [facility]) ID Date Data Source [id number] 05/14/2020 09:25:00 AM EST [facility] ([facility]) Name Value Range Interpretation Code Description Data Reshma rce(s) Supporting Document(s) blood urea nitrogen 21 mg/dL 7-18 Above high normal Blood Ure a Nitrogen [facility] ([facility]) glucose, fasting 127 mg/dL 70-100 Above high normal Glucose, Fas ting [facility] ([facility]) sodium level 141 mEq/L 136-145 Sodium Level [facility] ([facility]) glomerular filtration rate > 60.0 >45 Glomerula r Filtration Rate [facility] ([facility]) creatinine for GFR 0.73 mg/dL 0.55-1.30 Creatinine for GF R [facility] ([facility]) chloride level 104 mEq/L 98-107 Chloride Level [facility] ([facility]) potassium serum 3.9 mEq/L 3.5-5.1 Potassium Serum ATHE NA ([facility]) anion gap 4 mEq/L 8-16 Below low normal Anion Gap [facility] ( [facility]) carbon dioxide level 33 mEq/L 21-32 Above high normal Carbon D ioxide Level [facility] ([facility]) calcium level 8.8 mg/dL 8.8-10.2 Calcium Level [facility] ( [facility]) AST/SGOT 10 U/L 7-37 AST/SGOT [facility] ([facility]) ALT/SGPT 12 U/L 12-78 ALT/SGPT [facility] ([facility]) bilirubin,total 0.3 mg/dL 0.2-1.0 Bilirubin,total ATHE NA ([facility]) alkaline phosphatase 133 U/L 45-117 Above high normal Alkaline Phosphatase [facility] ([facility]) total protein 6.4 gm/dL 6.4-8.2 Total Protein [facility] ( [facility]) albumin/globulin ratio 1.2-2.2 Below low normal Albumin /globulin Ratio [facility] ([facility]) albumin 2.9 gm/dL 3.2-5.2 Below low normal Albumin [facility] ( [facility]) ID Date Data Source [id number] 05/14/2020 09:25:00 AM EST [facility] ([facility]) Name Value Range Interpretation Code Description Data Reshma rce(s) Supporting Document(s) estimated average glucose 131 mg/dL 60-110 Above high norm al Estimated Average Glucose [facility] ([facility]) Hemoglobin A1c/Hemoglobin.total in Blood 6.2 % Hemoglobin a1C [facility] ([facility]) ID Date Data Source [id number] 05/14/2020 09:25:00 AM EST LIZANDR[facility] ([facility]) Name Value Range Interpretation Code Description Data Reshma rce(s) Supporting Document(s) thyroid stimulating hormone 4.630 uIU/mL 0.358-3.740 Above high no rmal Thyroid Stimulating Hormone [facility] ([facility]) ID Date Data Source [id number] 05/14/2020 09:25:00 AM EST LIZANDRO ([facility]) Name Value Range Interpretation Code Description Data Reshma rce(s) Supporting Document(s) glucose, fasting 127 mg/dL 70-100 Above high normal Glucose, Fas ting [facility]ZANDRO ([facility]) blood urea nitrogen 21 mg/dL 7-18 Above high normal Blood Ure a Nitrogen [facility]DR[facility] ([facility]) creatinine for GFR 0.73 mg/dL 0.55-1.30 Creatinine for GF R [facility]ZANDR[facility] ([facility]) sodium level 141 mEq/L 136-145 Sodium Level LIZANDRO ([facility]) potassium serum 3.9 mEq/L 3.5-5.1 Potassium Serum ATHE NA ([facility]) glomerular filtration rate > 60.0 >45 Glomerula r Filtration Rate [facility]ZANDR[facility] ([facility]) calcium level 8.8 mg/dL 8.8-10.2 Calcium Level LIZANDRO ( [facility]) chloride level 104 mEq/L 98-107 Chloride Level LIZANDRO ([facility]) anion gap 4 mEq/L 8-16 Below low normal Anion Gap LIZANDRO ( [facility]) carbon dioxide level 33 mEq/L 21-32 Above high normal Carbon D ioxide Level [facility]ZANDR[facility] ([facility]) ALT/SGPT 12 U/L 12-78 ALT/SGPT [facility] ([facility]) AST/SGOT 10 U/L 7-37 AST/SGOT [facility] ([facility]) alkaline phosphatase 133 U/L 45-117 Above high normal Alkaline Phosphatase [facility]DRO ([facility]) albumin 2.9 gm/dL 3.2-5.2 Below low normal Albumin LIZANDRO ( [facility]) bilirubin,total 0.3 mg/dL 0.2-1.0 Bilirubin,total ATHE NA ([facility]) total protein 6.4 gm/dL 6.4-8.2 Total Protein LIZANDRO ( [facility]) albumin/globulin ratio 1.2-2.2 Below low normal Albumin /globulin Ratio [facility] ([facility]) ID Date Data Source [id number] 05/14/2020 09:25:00 AM EST LIZANDRO ([facility]) Name Value Range Interpretation Code Description Data Reshma rce(s) Supporting Document(s) Hemoglobin A1c/Hemoglobin.total in Blood 6.2 % Hemoglobin a1C [facility] ([facility]) estimated average glucose 131 mg/dL 60-110 Above high norm al Estimated Average Glucose [facility] ([facility]) ID Date Data Source [id number] 05/14/2020 09:25:00 AM EST LIZ[facility]DR[facility] ([facility]) Name Value Range Interpretation Code Description Data Reshma rce(s) Supporting Document(s) thyroid stimulating hormone 4.630 uIU/mL 0.358-3.740 Above high no rmal Thyroid Stimulating Hormone [facility]ANDR[facility] ([facility]) ID Date Data Source [id number] 05/14/2020 09:25:00 AM EST LIZANDRO ([facility]) Name Value Range Interpretation Code Description Data Reshma rce(s) Supporting Document(s) glucose, fasting 127 mg/dL 70-100 Above high normal Glucose, Fas ting [facility]ANDR[facility] ([facility]) creatinine for GFR 0.73 mg/dL 0.55-1.30 Creatinine for GF R [facility]ZANDRO ([facility]) blood urea nitrogen 21 mg/dL 7-18 Above high normal Blood Ure a Nitrogen [facility]ZANDRO ([facility]) glomerular filtration rate > 60.0 >45 Glomerula r Filtration Rate LIZANDRO ([facility]) sodium level 141 mEq/L 136-145 Sodium Level LIZANDRO ([facility]) chloride level 104 mEq/L 98-107 Chloride Level LIZANDRO ([facility]) potassium serum 3.9 mEq/L 3.5-5.1 Potassium Serum ATHE NA ([facility]) carbon dioxide level 33 mEq/L 21-32 Above high normal Carbon D ioxide Level [facility] ([facility]) anion gap 4 mEq/L 8-16 Below low normal Anion Gap LIZANDRO ( [facility]) calcium level 8.8 mg/dL 8.8-10.2 Calcium Level LIZANDRO ( [facility]) alkaline phosphatase 133 U/L 45-117 Above high normal Alkaline Phosphatase [facility]ZANDRO ([facility]) ALT/SGPT 12 U/L 12-78 ALT/SGPT [facility] ([facility]) AST/SGOT 10 U/L 7-37 AST/SGOT [facility] ([facility]) bilirubin,total 0.3 mg/dL 0.2-1.0 Bilirubin,total ATHE ([facility]) total protein 6.4 gm/dL 6.4-8.2 Total Protein LIZANDRO ( [facility]) albumin 2.9 gm/dL 3.2-5.2 Below low normal Albumin LIZANDRO ( [facility]) albumin/globulin ratio 1.2-2.2 Below low normal Albumin /globulin Ratio [facility] ([facility]) ID Date Data Source [id number] 04/30/2020 10:27:00 AM EST [facility] ([facility]) Name Value Range Interpretation Code Description Data Reshma rce(s) Supporting Document(s) Laboratory test finding (navigational concept) Laboratory test result REINALDO ([facility]) ID Date Data Source [id number] 04/30/2020 10:27:00 AM EST [facility] ([place]) Name Value Range Interpretation Code Description Data Reshma rce(s) Supporting Document(s) Prothrombin time (PT) 23.2 sec 9.1-12.0 [facility] ([facility]) INR in Platelet poor plasma by Coagulation assay 2.3 0.9-1.2 [facility] ([facility]) Reference interval is for non-anticoagul ated patients. Suggested INR therapeutic range for Vitamin K antagonist therapy: Standard Dose (moderate intensity therapeutic range): 2.0 - 3.0 Higher intensity therapeutic range 2.5 - 3.5 ID Date Data Source [id number] 05/01/2020 06:05:00 AM EST [facility] Name Value Range Interpretation Code Description Data Reshma rce(s) Supporting Document(s) INR 2.3 0.9-1.2 Above high normal [facility] Reference interval is for non-anticoagulated patients. Suggested INR therapeutic range for Vitamin K antagonist therapy: Standard Dose (moderate intensity therapeutic range): 2.0 - 3.0 Higher intensity therapeutic range 2.5 - 3.5 Prothrombin Time 23.2 sec 9.1-12.0 Above high normal [facility] ID Date Data Source [id number] 04/01/2020 02:56:00 PM EDT [facility] ([place]) Name Value Range Interpretation Code Description Data Reshma rce(s) Supporting Document(s) Laboratory test finding (navigational concept) Laboratory test result [facility] ([facility]) ID Date Data Source [id number] 04/01/2020 02:56:00 PM EDT [facility] Name Value Range Interpretation Code Description Data Reshma rce(s) Supporting Document(s) INR in Platelet poor plasma by Coagulation assay 3.0 0.9-1.2 [facility] ([facility]) Reference interval is for non-anticoagul ated patients. Suggested INR therapeutic range for Vitamin K antagonist therapy: Standard Dose (moderate intensity therapeutic range): 2.0 - 3.0 Higher intensity therapeutic range 2.5 - 3.5 Please note reference interval change Prothrombin time (PT) 30.3 sec 9.1-12.0 [facility] ([facility]) Please note reference interval change* * ID Date Data Source [id number] 04/02/2020 06:05:00 AM EDT [facility] Name Value Range Interpretation Code Description Data Reshma rce(s) Supporting Document(s) INR 3.0 0.9-1.2 Above high normal [facility] Reference interval is for non-anticoagulated patients. Suggested INR therapeutic range for Vitamin K antagonist therapy: Standard Dose (moderate intensity therapeutic range): 2.0 - 3.0 Higher intensity therapeutic range 2.5 - 3.5 Please note reference interval change Prothrombin Time 30.3 sec 9.1-12.0 Above high normal [facility] Please no te reference interval change ID Date Data Source [id number] 03/11/2020 09:50:00 AM EDT [facility] Name Value Range Interpretation Code Description Data Reshma rce(s) Supporting Document(s) BG FASTING 127 mg/dL 70-100 [facility] ID Date Data Source [id number] 03/11/2020 09:50:00 AM EDT [facility] Name Value Range Interpretation Code Description Data Reshma rce(s) Supporting Document(s) HGBA1C 5.9 % N [facility] ID Date Data Source [id number] 03/11/2020 08:58:35 AM EDT [facility] Measurements & CalculationsHeight: 61 inches (5 ft. 1 in.) 154.94 cm Weight: 194.4 pounds 88.36 kg Body Mass Index (BMI): 36.86BMI Interpretation: ObeseBody Surface Area (BSA): 1.87Weight Management Education Done (Nutrition/Physical Activity)Vital SignsTemperature: 96.8FPulse Rate: 64 beats/minuteRespiratory Rate: 16 respirati ons/minuteBlood Pressure: 109/50 Vital Signs performed by: Jane Dc MA, March 11, 2020 9:02 AMInitial Intake Information From: patientRoom #: 14Infectious Disease / Travel ScreeningRecent travel for you or any close contacts? NoHave you had any close contact with anyone diagnosed with or under investigation for COVID-19 (coronavirus)? NoFever? NoRespiratory symptoms: cough, cold, congestion, shortness of breath, difficulty breathing? NoLoss of smell? NoLoss of taste? NoSmoking, Tobacco, Vaping or Smoke Exposure StatusSmoke Status: former smokerTobacco Use: NoDo you vape? NoMenstrual HistoryAny possibility of ? NoHealthcare HistorySince your last office visit...Have you been admitted to the hospital? No - vascular surgery 03/16/2017Have you been to an emergency room (ER) or urgent care clinic? No - [facility]- ingrown toe nailUC-10/13/16-[facility]-ingrown toenailHave you seen another healthcare provider? Yes - cardio, vascular Have you seen a dentist? Yes - [facility] exam date reported today: 11/2015Intake performed by: Jane Dc MA, March 11, 2020 8:59 AMRate Your HealthIn general, would you say your health is? GoodPain AssessmentAre you currently having any pain which... You would like your provider to address? No Affects your activity level? NoDepression Screening - PHQ-2Over the last two weeks, have you... Had little interest or pleasure in doing things? Not at all Been feeling down, depressed, or hopeless? Not at all PHQ-2 Score: 0Anxiety Screening - DARSHAN-2Over the last two weeks, have you been... Feeling nervous, anxious, or on edge? Not at all Unable to stop or control worrying? Not at all DARSHAN-2 Score: 0Screening, Brief Intervention, & Referral to Treatment (SBIRT)Pre-Screening Questions How many times have you have 4 or more drinks in a day? 0How many times have you used an illegal drug or used a prescription medication for a non-medical reason? 0Performed by: Jane Dc MA, March 11, 2020 9:00 AMPatient History Medical History:systolic heart failurehyperlipidimaCADSurgical History:defibrillator 08/2015ovaries removed 01/2017vascular 03/16/2017Family History:Heart disease (Mother, Father) Social/Personal History: Chief Complaintlabs done at cardioHistory of Present Illness (HPI)Her Hospice Rn is concerned because her fasting glucose was 128. She thinks she might have had a sip of soda with her meds in the morning. Feeling well with the exception of a cough she has had for the past 3 days. No better and no worse with time. Had a simialr issue last year that reposnded pretty well to Deshawn Morales.Sees a Hospice Rn for her afib and she tells me things are going pretty well with this.Tries to stay active and eat a healthy diet.HPI performed by: Selvin Hester MD, March 11, 2020 9:35 AMTransitions of Care InboundProblem ReviewProblem List was reviewed and/or updated during this visit.Medication Reconciliation & ReviewMedication List was reviewed and/or updated during this visit, including review of any tzvd-oxn-ywafbfy medications, herbal therapies, and/or supplements.Allergy ReviewAllergy List was reviewed and/or updated during this visit.Adult Preventive CareProvider Calculated and Reviewed all Clinical Protocols for patient today. Labs/Meds/Other Counseling- Nutrition and Physical Activity:BMI Interpretation: Obese (03/11/2020) Counseling: Done (03/11/2020) Physical Activity: Done (03/11/2020)Cancer Screening Mammogram Reviewed: Previous Comments: would like referral (04/19/2017)Today's Comments: pt refusedReview of Systems General: Denies chills, fever, headache. Ears/Nose/Throat: Denies sore throat. Cardiovascular: Denies chest pain. Respiratory: Denies shortness of breath. Gastrointestinal: Denies diarrhea, constipation. Genitourinary: Denies urinary incontinence, burning with urination, urinary frequency, urinary urgency, incomplete emptying. Endocrine: Denies excessive thirst, excessive hunger, excessive urination, weight loss, weight gain. Care Management Plan Transitions of CareInboundRate Your HealthIn general, would you say your health is? GoodAssessment & Plan Problems:Added: Needs vaccination for influenza (ICD-V04.81) ([id number])Cough (ICD-786.2) (PTX52-I59) Assessment: Instructions: Likely due to non specific viral infection.Tiffanysalong perles. Fluids and rest. Recheck if symptoms persist or worsen.Flu shot today.Assessed:Impaired fasting glycemia (ICD-790.21) (TVH14-H92.01) Assessment: Instructions: Check CMP and A1C today.'May need Metformin based on results.Diet and exercise.Recheck 3 months wiith fasting blood tests before.Patient Instructions/Care Plan: Impaired fasting glycemia: Check CMP and A1C today.'May need Metformin based on results.Diet and exercise.Recheck 3 months wiith fasting blood tests before.Cough: Likely due to non specific viral infection.Tessalong perles. Fluids and rest. Recheck if symptoms persist or worsen.Flu shot today. Plan developed in collaboration with patient and/or familyMedications:TESSALON PERLES 100 MG ORAL CAPSULEENTRESTO TABLETFERROUS SULFATE 325 (65 Fe) MG ORAL TABLETNITROSTAT 0.4 MG SUBLINGUAL TABLET SUBLINGUALCOUMADIN 3 MG ORAL TABLETATORVASTATIN CALCIUM 80 MG ORAL TABLETCARVEDILOL 6.25 MG ORAL TABLETFUROSEMIDE 20 MG ORAL TABS (FUROSEMIDE)Medication Changes:Added: ENTRESTO TABLET-bidNew Prescription:TESSALON PERLES 100 MG ORAL CAPSULE-One po q8h prn cough. MDD 3. Q ty: 9[Capsule] Refills: 0 Method: ElectronicRemoved:LISINOPRIL 5 MG ORAL TABLET-take 1 tab po daily, AMIODARONE HCL 200 MG ORAL TABLET-take 0.5 tablet PO dailyAllergies:No Known Allergies (updated 07/29/2016) Orders:Adult - Ofc Vst, EST, Level III [CPT-69179] COMP METABOLIC PANEL [CPT-19472] TSH [CPT-77919] HgBA1c [CPT-74300] FluLaval Quadrivalent, preservative free [CPT-73517] 26887 - Immo Admin (over 19 yrs), 1st Vaccine [CPT-06839] 03785 - Venipuncture [CPT- 16826] Medications:TESSALON PERLES 100 MG ORAL CAPSULE (BENZONATATE) One po q8h prn cough. MDD 3. #9[Capsule] x 0 Route:ORAL Entered and Authorized by: Selvin Hester MD Method used: Electronically to [facility] (retail) [address] [place] [address] Note to Pharmacy: Route: ORAL; RxID: [id number] Questionnaire1) Does the patient have a long-term health problem with heart disease, lung disease, asthma, kidney disease, metabolic disease (e.g., diabetes), anemia, or other blood disorder? No2) Does the patient have allergies to medications, food, a vaccine component, or latex? No3) Does the patient have cancer, leukemia, AIDS, or any other immune system problem? No4) Does the patient live with or expect to have close contact with a person whose immune system is severely compromised and who must be in protective isolation (e.g., an isolation room of a bone marrow transplant unit)? No5) Does the patient take cortisone, prednisone, other steroids, or anticancer drugs, or has the patient had radiation treatments? No6) During the past year, has the patient received a transfusion of blood or blood products, or been given immune (gamma) globulin or an antiviral drug? No7) For women: Is the patient or is there a chance she could become during the next month? No8) Has the patient ever had a serious reaction to a vaccine in the past? No9) Has the patient had a seizure or a brain or other nervous system problem? No10) Has the patient received any vaccinations in the past 4 weeks? No11) Is the patient older than age 49 years? No12) Is the patient sick today? No13) Vaccine information given and explained to patient? YesVaccines Administered/Entered:Vaccination Group: InfluenzaSeries: 1Vaccination: Flulaval Quadrivalent Intramuscular Suspension Prefilled Syringe 0.5 MLMfr / Lot# / Exp.Date: [employer] / [id number] / 1Amt. Given / Route / Site: 0.5 mL / IM / Right DeltoidNDC / CVX: [id number] / 150Administered Date: 03/11/2020 9:53VFC Eligibility: Not VFC EligibleVIS Date: 01/24/2019VIS Given / VIS Given On: Yes / 03/11/2020Comments: Administered by: Janell Dyer In-House Blood TestsDate/Time Collected: March 11, 2020 9:54 AMTest Result Reference Range Normal ValueComments: taken from left ac, tolerated well.Janell Dyer, March 11, 2020 9:54 AM Name Value Range Interpretation Code Description Data Reshma rce(s) Supporting Document(s) ID Date Data Source [id number] 03/03/2020 08:52:00 AM EDT [facility] ([place]) Name Value Range Interpretation Code Description Data Reshma rce(s) Supporting Document(s) Laboratory test finding (navigational concept) Laboratory test result [facility] ([facility]) ID Date Data Source [id number] 03/03/2020 08:52:00 AM EDT [facility] ([place]) Name Value Range Interpretation Code Description Data Reshma rce(s) Supporting Document(s) Prothrombin time (PT) 24.0 sec 9.1-12.0 [facility] ([facility]) INR in Platelet poor plasma by Coagulation assay 2.4 0.8-1.2 [facility] Reference interval is for non-anticoagul ated patients. Suggested INR therapeutic range for Vitamin K antagonist therapy: Standard Dose (moderate intensity therapeutic range): 2.0 - 3.0 Higher intensity therapeutic range 2.5 - 3.5 ID Date Data Source [id number] 03/04/2020 06:05:00 AM EDT [facility] Name Value Range Interpretation Code Description Data Reshma rce(s) Supporting Document(s) INR 2.4 0.8-1.2 Above high normal [facility] Reference interval is for non-anticoagulated patients. Suggested INR therapeutic range for Vitamin K antagonist therapy: Standard Dose (moderate intensity therapeutic range): 2.0 - 3.0 Higher intensity therapeutic range 2.5 - 3.5 Prothrombin Time 24.0 sec 9.1-12.0 Above high normal [facility] ID Date Data Source [id number] 03/03/2020 08:49:00 AM EDT [facility] ([place]) Name Value Range Interpretation Code Description Data Reshma rce(s) Supporting Document(s) Laboratory test finding (navigational concept) Laboratory test result [facility] ([facility]) ID Date Data Source [id number] 03/03/2020 08:49:00 AM EDT [facility] ([place]) Name Value Range Interpretation Code Description Data Reshma rce(s) Supporting Document(s) Cholesterol [Mass/volume] in Serum or Plasma 129 mg/dL 100-199 [facility] ([facility]) Triglyceride [Mass/volume] in Serum or Plasma 121 mg/dL 0-149 [facility] ([facility]) Cholesterol in HDL [Mass/volume] in Serum or Plasma 41 mg/dL [facility] ([facility]) Laboratory test finding (navigational concept) 66 mg/dL 0-99 [facility] ([facility]) Laboratory test finding (navigational concept) 22 mg/dL 5-40 [facility] ([facility]) Comment: Laboratory test result [facility] ([facility]) ID Date Data Source [id number] 03/03/2020 08:49:00 AM EDT [facility] ([place]) Name Value Range Interpretation Code Description Data Reshma rce(s) Supporting Document(s) WBC 7.8 x10E3/uL 3.4-10.8 [facility] ([facility]) Hemoglobin [Mass/volume] in Blood 11.7 g/dL 11.1-15.9 [facility] ([facility]) Hematocrit [Volume Fraction] of Blood by Automated count 35.5 % 3 4.0-46.6 [facility] ([facility]) RBC 3.93 x10E6/uL 3.77-5.28 [facility] ([facility]) Erythrocyte mean corpuscular volume [Entitic volume] by Auto mated count 90 fL 79-97 [facility] ([facility]) Erythrocyte mean corpuscular hemoglobin concentration [Mass/volume] by Automated count 33.0 g/dL 31.5-35.7 [facility] ([facility]) Erythrocyte mean corpuscular hemoglobin [Entitic mass] by Automated count 29.8 pg 26.6-33.0 [facility]) Platelets [#/volume] in Blood by Automated count 197 x10E3/uL 150-450 [facility] ([facility]) Erythrocyte distribution width [Ratio] by Automated count 12.9 % 11.7-15.4 [facility] ([facility]) Nucleated erythrocytes/100 leukocytes [Ratio] in Blood by Automated count Laboratory test result [facility] ([facility]) ID Date Data Source [id number] 03/03/2020 08:49:00 AM EDT [facility] ([facility] Name Value Range Interpretation Code Description Data Reshma rce(s) Supporting Document(s) Glucose 128 mg/dL 65-99 [facility] ([facility] Urea nitrogen [Mass/volume] in Serum or Plasma 17 mg/dL 8-27 [facility] ([facility]) Creatinine 0.73 mg/dL 0.57-1.00 [facility] ([facility]) Urea nitrogen/Creatinine [Mass Ratio] in Serum or Plasma 23 1 2-28 [facility] ([facility]) eGFR If Africn Am 103 mL/min/1.73 [facility] ([facility]) eGFR If NonAfricn Am 89 mL/min/1.73 MED[facility] NT ([facility]) Chloride [Moles/volume] in Serum or Plasma 101 mmol/L 96-106 [facility] ([facility]) Potassium [Moles/volume] in Serum or Plasma 4.1 mmol/L 3.5-5.2 [facility] ([facility]) Sodium 145 mmol/L 134-144 [facility] ([facility]) Calcium [Mass/volume] in Serum or Plasma 9.0 mg/dL 8.7-10.3 [facility] ([facility]) Carbon dioxide, total [Moles/volume] in Serum or Plasma 30 mmol/L 20 -29 [facility]) ID Date Data Source [id number] 03/04/2020 06:05:00 AM EDT [facility] Name Value Range Interpretation Code Description Data Reshma rce(s) Supporting Document(s) WBC 7.8 x10E3/uL 3.4-10.8 [facility] RBC 3.93 x10E6/uL 3.77-5.28 [facility] Hemoglobin 11.7 g/dL 11.1-15.9 [facility] Hematocrit 35.5 % 34.0-46.6 [facility] MCV 90 fL 79-97 [facility] MCH 29.8 pg 26.6-33.0 [facility] MCHC 33.0 g/dL 31.5-35.7 [facility] RDW 12.9 % 11.7-15.4 [facility] Platelets 197 x10E3/uL 150-450 [facility] ID Date Data Source [id number] 03/04/2020 06:05:00 AM EDT [facility] Name Value Range Interpretation Code Description Data Reshma rce(s) Supporting Document(s) Glucose 128 mg/dL 65-99 Above high normal [facility] BUN 17 mg/dL 8-27 [facility] Creatinine 0.73 mg/dL 0.57-1.00 [facility] eGFR If NonAfricn Am 89 mL/min/1.73 >59 [facility] eGFR If Africn Am 103 mL/min/1.73 >59 [facility] BUN/Creatinine Ratio 23 12-28 [facility] Sodium 145 mmol/L 134-144 Above high normal [facility] Potassium 4.1 mmol/L 3.5-5.2 [facility] Chloride 101 mmol/L 96-106 [facility] Carbon Dioxide, Total 30 mmol/L 20-29 Above high normal [facility] Calcium 9.0 mg/dL 8.7-10.3 [facility] ID Date Data Source [id number] 03/04/2020 06:05:00 AM EDT [facility] Name Value Range Interpretation Code Description Data Reshma rce(s) Supporting Document(s) Cholesterol, Total 129 mg/dL 100-199 [facility] Triglycerides 121 mg/dL 0-149 [facility] HDL Cholesterol 41 mg/dL >39 [facility] VLDL Cholesterol Herbert 22 mg/dL 5-40 [facility] LDL Chol Calc (NIH) 66 mg/dL 0-99 [facility] Procedure Social History Code Duration Value Status Description Data Source(s ) Smoking 02/11/2021 12:00:00 AM EDT Patient is a former smoker completed Patient is a former smoker [facility] ([facility]) Smoking 12/17/2020 12:00:00 AM EDT Patient is a former smoker completed Patient is a former smoker [facility] ([facility]) Vital Signs ID Date Data Source UNK Name Value Range Interpretation Code Description Data Source(s) Systolic blood pressure--sitting 128 mm[Hg] 128 mm[Hg] [facility] ([facility]) Ra, large cuff Diastolic blood pressure--sitting 70 mm[Hg] 70 mm[Hg] [facility] ([facility]) Ra, large cuff Body weight 187.00 [lb_av] 187.00 [lb_av] MEDEN T ([facility]) Body height 63 [in_i] 63 [in_i] [facility] ([facility]) 5'3" Body mass index (BMI) [Ratio] 33.1 kg/m2 33.1 k g/m2 [facility] ([facility]) Heart rate 74 /min 74 /min [facility] ([facility]) Systolic blood pressure 120 mm[Hg] 120 mm[Hg] M EDENT ([facility]) Diastolic blood pressure 62 mm[Hg] 62 mm[Hg] [facility] ([facility]) Systolic blood pressure 140 mm[Hg] 140 mm[Hg] M EDENT ([facility]) Diastolic blood pressure 80 mm[Hg] 80 mm[Hg] [facility] ([facility]) Heart rate 68 /min 68 /min [facility] ([facility] Body temperature 96.1 [degF] 96.1 [degF] [facility] ([facility]) Body height 63 [in_i] 63 [in_i] [facility] ([facility] 5'3" Body weight 188.00 [lb_av] 188.00 [lb_av] MEDEN T ([facility]) Body weight 85.277 kg 85.277 kg [facility] ([facility] Body mass index (BMI) [Ratio] 33.3 kg/m2 33.3 k g/m2 [facility] ([facility]) Diastolic blood pressure 78 mm[Hg] 78 mm[Hg] LIZANDRO ([facility]) Body height 63 [in_i] 63 [in_i] LIZANDRO ([facility]) Body mass index (BMI) [Ratio] 33.5 kg/m2 33.5 k g/m2 [facility] ([facility]) Systolic blood pressure 128 mm[Hg] 128 mm[Hg] Stephany BURNHAMA ([facility]) Body weight 3028 [oz_av] 3028 [oz_av] LI[facility]DRO ([facility]) Body height 63 [in_i] 63 [in_i] LIZANDRO ([facility]) Body height 63 [in_i] 63 [in_i] LIZANDRO ([facility]) Body surface area Derived from formula 1.83 m2 1.83 m2 [facility] ([facility], ) Systolic blood pressure 124 mm[Hg] 124 mm[Hg] M EDENT ([facility], ) Diastolic blood pressure 83 mm[Hg] 83 mm[Hg] [facility] ([facility], ) Body height 60 [in_i] 60 [in_i] [facility] ([facility]) 5'0" Body weight 190.00 [lb_av] 190.00 [lb_av] MEDEN T ([facility]) Body mass index (BMI) [Ratio] 37.1 kg/m2 37.1 k g/m2 [facility] [place] body weight 100 [lb_av] 100 [lb_av] MEDEN T ([facility]) Body weight 86.184 kg 86.184 kg [facility] ([facility]) Body height 63 [in_i] 63 [in_i] [facility] ([facility] 5'3" Body mass index (BMI) [Ratio] 33.8 kg/m2 33.8 k g/m2 [facility] ([facility]) Heart rate 74 /min 74 /min [facility] ([facility]) Systolic blood pressure--sitting 112 mm[Hg] 112 mm[Hg] [facility] ([facility]) Ra, large cuff Diastolic blood pressure--sitting 60 mm[Hg] 60 mm[Hg] [facility] ([facility]) Ra, large cuff Body weight 191.00 [lb_av] 191.00 [lb_av] MEDEN T ([facility]) Systolic blood pressure 141 mm[Hg] 141 mm[Hg] Nena MACK ([facility]) Diastolic blood pressure 76 mm[Hg] 76 mm[Hg] [facility] ([facility]) Heart rate 76 /min 76 /min [facility] ([facility]) Body height 60 [in_i] 60 [in_i] [facility] ([facility]) 5'0" Body weight 191.00 [lb_av] 191.00 [lb_av] MEDEN T ([facility]) Body mass index (BMI) [Ratio] 37.3 kg/m2 37.3 k g/m2 [facility] ([facility]) [place] body weight 100 [lb_av] 100 [lb_av] MEDEN T ([facility]) Body weight 86.638 kg 86.638 kg [facility] ([facility]) Body surface area Derived from formula 1.83 m2 1.83 m2 [facility] ([facility]) Diastolic blood pressure 84 mm[Hg] 84 mm[Hg] LIZANDRO ([facility]) Body height 63 [in_i] 63 [in_i] IUKA ([facility]) Body mass index (BMI) [Ratio] 35.1 kg/m2 35.1 k g/m2 LIZANDRO ([facility]) Systolic blood pressure 137 mm[Hg] 137 mm[Hg] A THENA ([facility]) Body weight 3170 [oz_av] 3170 [oz_av] [facility] ([facility]) Diastolic blood pressure 84 mm[Hg] 84 mm[Hg] LIZANDRO ([facility]) Body height 63 [in_i] 63 [in_i] LIZANDRO ([facility]) Body mass index (BMI) [Ratio] 35.1 kg/m2 35.1 k g/m2 LI[facility]DR[facility] ([facility]) Systolic blood pressure 137 mm[Hg] 137 mm[Hg] A THENA ([facility]) Body weight 3170 [oz_av] 3170 [oz_av] LI[facility]DRO ([facility]) Diastolic blood pressure 84 mm[Hg] 84 mm[Hg] LIZANDRO ([facility]) Body height 63 [in_i] 63 [in_i] LIZANDRO ([facility]) Body mass index (BMI) [Ratio] 35.1 kg/m2 35.1 k g/m2 LI[facility] ([facility]) Systolic blood pressure 137 mm[Hg] 137 mm[Hg] A THENA ([facility]) Body weight 3170 [oz_av] 3170 [oz_av] LI[facility]ANDRO ([facility]) Systolic blood pressure 136 mm[Hg] 136 mm[Hg] M FREDERICK ([facility], ) Body mass index (BMI) [Ratio] 38.1 kg/m2 38.1 k g/m2 [facility] ([facility], ) [place] body weight 100 [lb_av] 100 [lb_av] MEDEN T ([facility], ) Body weight 88.509 kg 88.509 kg [facility] ([facility], ) Diastolic blood pressure 75 mm[Hg] 75 mm[Hg] [facility] ([facility], ) Body height 60 [in_i] 60 [in_i] [facility] ([facility], ) 5'0" Body weight 195.12 [lb_av] 195.12 [lb_av] MEDEN T ([facility], ) Diastolic blood pressure 50 mm[Hg] 50 mm[Hg] LIZANDRO ([facility]) Body height 61 [in_i] 61 [in_i] LIZANDRO ([facility]) Body mass index (BMI) [Ratio] 36.86 kg/m2 36.86 kg/m2 LIZANDRO ([facility]) Systolic blood pressure 109 mm[Hg] 109 mm[Hg] A THENA ([facility]) Body weight 3110.4 [oz_av] 3110.4 [oz_av] ATHEN A ([facility]) Diastolic blood pressure 50 mm[Hg] 50 mm[Hg] LIZANDRO ([facility]) Body height 61 [in_i] 61 [in_i] LIZANDRO ([facility]) Body mass index (BMI) [Ratio] 36.86 kg/m2 36.86 kg/m2 LIZANDRO ([facility]) Systolic blood pressure 109 mm[Hg] 109 mm[Hg] Stephany BERRY ([facility]) Body weight 3110.4 [oz_av] 3110.4 [oz_av] MANDEEP Hammond ([facility]) Patient Treatment Plan of Care Planned Activity Planned Date Details Description Data Source (s) benzonatate 100 MG Oral Capsule LIZANDRO ([facility]) benzonatate 100 MG Oral Capsule LIZANDRO ([facility]) benzonatate 100 MG Oral Capsule LIZANDRO ([facility])
[2021-04-20 00:37] LABS: BASO % 0.4 % (0.0-1.0); EOS % 0.1 % (0.0-3.0); HEMATOCRIT 43.4 % (36.0-47.0); HEMOGLOBIN 13.7 g/dl (12.0-15.5); LYMPH # 1.4 10^3/uL (1.5-5.0); LYMPH % 16.9 % (24.0-44.0); MEAN CORPUSCULAR HEMOGLOBIN 29.7 pg (27.0-33.0); MEAN CORPUSCULAR HGB CONC 31.6 g/dl (32.0-36.5); MEAN CORPUSCULAR VOLUME 93.9 fl (80.0-96.0); MONO # 0.8 10^3/uL (0.0-0.8); MONO % 9.3 % (2.0-8.0); NEUTROPHILS % 72.8 % (36.0-66.0); PLATELET COUNT, AUTOMATED 162 10^3/uL (150-450); RED BLOOD COUNT 4.62 10^6/uL (4.00-5.40); WHITE BLOOD COUNT 8.2 10^3/uL (4.0-10.0)
[2021-04-20 01:07] LABS: ABG BASE EXCESS 6.9 (-2.0-2.0); ABG HCO3 34.9 MEQ/L (22.0-26.0); ABG O2 SATURATION 98.4 % (95.0-99.0); ABG PARTIAL PRESSURE O2 138.3 mmHg (75.0-100.0); ABG STANDARD HCO3 30.8 MEQ/L (22.0-26.0); ABG TOTAL CO2 36.9 MEQ/L (23.0-31.0); ABG pH (ARTERIAL) 7.346 UNITS (7.350-7.450)
[2021-04-20 01:10] LABS: ABG PARTIAL PRESSURE CO2 65.3 mmHg (35.0-45.0)
[2021-04-20 01:14] LABS: ALBUMIN 2.7 GM/DL (3.2-5.2); BILIRUBIN,DIRECT 0.2 MG/DL (0.0-0.2); BILIRUBIN,TOTAL 0.4 MG/DL (0.2-1.0); CALCIUM LEVEL 8.3 MG/DL (8.8-10.2); CK-MB VALUE MASS 1.6 NG/ML (<3.6); CREATININE FOR GFR 1.05 MG/DL (0.55-1.30); GLOMERULAR FILTRATION RATE 56.5 (>45); MB/CK RELATIVE INDEX 1.11 (< OR =4); POTASSIUM SERUM 3.5 MEQ/L (3.5-5.1); TOTAL PROTEIN 6.4 GM/DL (6.4-8.2); TROPONIN I 0.15 NG/ML (< 0.10)
[2021-04-20] MEDS ORDERED: methylPREDNISolone 125MG 2ML VIAL IV ONE (01:40)
--- NOTE | 2021-04-20 01:50 | REPVR ---
PROCEDURE INFORMATION: Exam: XR Chest Exam date and time: 04/20/2021 12:59 AM Age: 60 years old Clinical indication: Cough and dyspnea; Additional info: Dyspnea/cough TECHNIQUE: Imaging protocol: XR of the chest. Views: 1 view. COMPARISON: No relevant prior studies available. FINDINGS: Lungs: No focal infiltrates. Pleural spaces: Small left pleural effusion. Heart/Mediastinum: Borderline cardiomegaly in view of AP and lordotic projection. Bones/joints: Unremarkable. Soft tissues: There are generous overlying soft tissues. IMPRESSION: 1. Borderline cardiomegaly with pacemaker from the left. 2. Small left pleural effusion. Electronically signed by: Delmer Lund On 04/20/2021 01:49:07 AM
[2021-04-20] MEDS: COMBIVENT RESPIMAT 100-20MCG INHALER 4GM INH SCH ×3 (02:02→10:58)
--- OUTSIDE RECORDS SUMMARY | 2021-04-20 02:14 | CCD ---
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 If you continue you may have access to information: Regarding HIV / AIDS; Provided by facilities licensed or operated by the [facility] Office of Mental Health; or Provided by the [facility] Office for People With Developmental Disabilities. If such information is present, then the following [facility] mandated warning applies: This information [...] law may result in a fine or correction sentence or both. A general authorization for the release of medical or other information is NOT sufficient authorization for further disc losure. Allergies and Adverse Reactions Type Description Substance Reaction Status Data Source(s ) Allergy to substance Allergy to substance Allergy to substance [place] ([facility]) Family History Family Member Name Family Member Gender Family Member Status Date o f Status Description Data Source(s) Unknown Male Problem [facility] ([facility]) () - at age 58 Unknown Unknown Problem [facility] ([facility]) Unknown Male Problem [facility] ([facility] Unknown Female Problem [facility] ([facility]) Encounters Encounter Providers Location Date Indications Data Source(s ) Outpatient Attender: VICTORINA FU Main Office 02/11/2021 0 9:45:00 AM EDT [facility] ([facility]) Office Visit Attender: ASHLYN STEINBERG MD Main Office 01/21/2021 11: 57:00 AM EDT [facility] ([facility]) Office Visit Attender: ASHLYN STEINBERG MD Main Office 12/03/2020 09: 35:00 AM EDT [facility] ([facility]) Selvin Hester MD: [address] [place] [address], Ph. Attender: Selvin Hester MD [facility] Medical 11/10/2020 12:00:00 AM EDT [place] ([facility]) Office Visit Attender: ASHLYN STEINBERG MD Main Office 11/06/2020 09: 37:00 AM EDT [facility] ([facility]) Selvin Hester MD: [address] [place] [phone], Ph. Attender: Selvin Hester MD [facility] Medical 11/03/2020 12:00:00 AM EDT [facility] ([facility]) Selvin Hester MD: [address] [place] [phone], Ph. Attender: Selvin Hester MD [facility] Medical 11/03/2020 12:00:00 AM EDT [facility] ([facility]) Outpatient Attender: Laney Broderick RPA [place] 10/19/2020 10:45:00 AM EDT [facility] ([facility] Outpatient Attender: VICTORINA FU Main Office 08/11/2020 0 7:45:00 AM EST [facility] ([facility]) Outpatient Attender: Laney Broderick RPA [place] 07/21/2020 09:30:00 AM EST [facility] ([facility] Office Visit Attender: ASHLYN STEINBERG MD Main Office 06/08/2020 12: 07:00 PM EST [facility] ([facility]) Selvin Hester MD: [address] [place] [phone], Ph. Attender: Selvin Hester MD [facility] Medical 05/21/2020 12:00:00 AM EST [facility] ([facility]) Selvin Hester MD: [address] [place] [phone], Ph. Attender: Selvin Hester MD [facility] Medical 05/21/2020 12:00:00 AM EST [facility] ([facility]) Selvin Hester MD: [address] [place] [address], Ph. Attender: Selvin Hester MD [facility] Medical 05/21/2020 12:00:00 AM EST [facility] ([facility]) Selvin Hester MD: [address] [place] [phone], Ph. Attender: Selvin Hester MD [facility] Medical 05/14/2020 12:00:00 AM EST [facility] ([facility]) Selvin Hester MD: [address] [place] [address], Ph. Attender: Selvin Hester MD [facility] Medical 05/14/2020 12:00:00 AM EST [facility] ([facility]) Selvin Hester MD: [address] [place] [phone], Ph. Attender: Selvin Hester MD [facility] Medical 05/14/2020 12:00:00 AM EST [facility] ([facility]) Selvin Hester MD: [address] [place] [address], Ph. Attender: Selvin Hester MD [facility] Medical 05/14/2020 12:00:00 AM EST [facility] ([facility]) Office Visit Attender: ASHLYN STEINBERG MD Main Office 04/29/2020 02: 56:00 PM EST [place] ([facility]) Office Visit Attender: ASHLYN STEINBERG MD Main Office 03/27/2020 03: 30:00 PM EDT [facility] ([facility]) Outpatient Attender: Selvin Hester MD FP 03/12/2020 07:58:03 AM EDT [facility] Outpatient Attender: Selvin Hester MD FP 03/12/2020 07:58:01 AM EDT [facility] Outpatient Attender: Selvin Hester MD FP 03/11/2020 11:26:00 AM EDT [facility] Outpatient Attender: Selvin Hester MD FP 03/11/2020 11:25:01 AM EDT [facility] Outpatient Attender: Selvin Hester MD FP 03/11/2020 10:51:01 AM EDT [facility] Outpatient Attender: Selvin Hester MD FP 03/11/2020 10:06:02 AM EDT [facility] Outpatient Attender: Selvin Hester MD FP 03/11/2020 10:06:00 AM EDT [facility] Outpatient Attender: Selvin Hester MD FP 03/11/2020 09:42:02 AM EDT [facility] Outpatient Attender: Selvin Hester MD FP 03/11/2020 08:52:00 AM EDT [facility] Outpatient Attender: Selvin Hester MD FP 03/09/2020 09:21:01 AM EDT [facility] Outpatient Attender: Selvin Hester MD FP 03/06/2020 02:56:04 PM EDT [facility] Office Visit Attender: ASHLYN STEINBERG MD Main Office 03/05/2020 02: 43:00 PM EDT [facility] ([facility]) Immunizations Vaccine Date Status Description Data Source(s) New in 2012. IIV4 04/10/2020 12:00:00 AM EDT completed 04/10/20 20 [place] ([facility]) New in 2012. IIV4 04/10/2020 12:00:00 AM EDT completed 04/10/20 20 [place] ([facility]) New in 2012. IIV4 04/10/2020 12:00:00 AM EDT completed 04/10/20 20 [place] ([facility]) New in 2011. IIV4 03/11/2020 12:00:00 AM EDT completed 0.5 mL [facility] ([facility]) New in 2011. IIV4 03/11/2020 12:00:00 AM EDT completed 0.5 mL [facility] ([facility]) Medications Medication Brand Name Start Date Product [...] DOSE = 3 CAPSULE SOLD: 03/11/2020 [facility] 325 mg (65 mg iron) 12/26/2019 [...] ompleted benzonatate 100 MG Oral Capsule [facility] ([facility]) benzonatate 100 MG Oral Capsule benzonat ate 100 mg capsule TAKE ONE CAPSULE BY MOUTH EVERY 8 HOURS NEEDED FOR COUGH MAXIMUM DAILY DOSE 3 CAPSULE benzonatate 100 mg capsule TAKE ONE CAPSULE BY MOUTH EVERY 8 HOURS NEEDED FOR COUGH MAXIMUM DAILY DOSE 3 CAPSULE c ompleted benzonatate 100 MG Oral Capsule [facility] ([facility]) benzonatate 100 MG Oral Capsule benzonat ate 100 mg capsule TAKE ONE CAPSULE BY MOUTH EVERY 8 HOURS NEEDED FOR COUGH MAXIMUM DAILY DOSE 3 CAPSULE benzonatate 100 mg capsule TAKE ONE CAPSULE BY MOUTH EVERY 8 HOURS NEEDED FOR COUGH MAXIMUM DAILY DOSE 3 CAPSULE c ompleted benzonatate 100 MG Oral Capsule [facility] ([facility]) Insurance Providers Payer name Policy type / Coverage type Policy ID Covered democrat ID Covered democrat's relationship to osorio Policy Osorio Plan Information MEDICAID [id number] Aminta [id number] [facility] MEDICAID [id number] Aminta [id number] [facility] Hmo Commercial [id number] Self [id number] Medicaid S [id number] S [id number] [facility] COMMUNITY PLAN MCDHMO [id number] SP [id number] Managed Care - Community Plan [facility] P [id number] S [id number] UNHC COMMUNITY PLAN MCDHMO [id number] SP [id number] Medicaid S [id number] S [id number] Managed Care - [facility] Community Plan P [id number] S [id number] UN COMMUNITY PLAN MCDHMO [id number] SP [id number] Managed Care - Community Plan [facility] P [id number] S [id number] MEDICARE [id number] SP [id number] MEDICARE [id number] Aminta [id number] [place] [id number] SP [id number] Y EMEDNY [id number] SP [id number] MEDICAID [id number] SP [id number] Medicaid S [id number] S [id number] Medicare P [id number] S [id number] Medicaid Medigap Part B [id number] 4.0 Self [id number] Self Pay Medigap Part B [id number] [id number] Self [id number] Medicaid Medigap Part B [id number] [id number] 4.0 Self [id number] Medicare (Part B) Medicare Primary [id number] 2.16.840.1.094134.3.227.99.572.04115.0 Self 5 [id number] MEDICAID PI PI MEDICARE PI PI Medicaid Medigap Part B [id number] [id number] 4.0 Self [id number] Self Pay Medigap Part B [id number] 2.16.840.1.206481.3.227.99.572.30568.0 Self [id number] Medicaid Medigap Part B [id number] [id number] 4.0 Self [id number] Medicare (Part B) Medicare Primary [id number] 2.16.840.1.455676.3.227.99.572.16999.0 Self 5 [id number] Medicaid Medigap Part B [id number] [id number] 4.0 Self [id number] Self Pay Medigap Part B [id number] 2.16.840.1.903997.3.227.99.572.49295.0 Self [id number] Medicaid Medigap Part B [id number] 2.16.840.1.945712.3.227.99.572.3107 4.0 Self [id number] Medicare (Part B) Medicare Primary [id number] 2.16.840.1.177708.3.227.99.572.83372.0 Self 5 [id number] [place] Primary [id number] 2.16.840.1.077485.3.227.99.991.013543.0 Self [id number] [facility] Community Plan [place] [employer] Part B [id number] 2.16.840.1.239482.3.227.99.991.105302.0 Self [id number] [place] Medicare Primary [id number] 2.16.840.1.403889.3.227.99.991.396054.0 Self [id number] MEDICARE [id number] [facility] [id number] S [id number] Medicaid Medigap Part B [id number] [id number] 4.0 Self [id number] Self Pay Medigap Part B [id number] 2.16.840.1.259937.3.227.99.572.01141.0 Self [id number] [facility] Commercial [id number] 2.16.840.1.754227.3.227.99.572.18942.0 Self [id number] Medicaid Medigap Part B [id number] 2.16.840.1.716086.3.227.99.572.3107 4.0 Self [id number] Self Pay Medigap Part B [id number] 2.16.840.1.935678.3.227.99.572.97833.0 Self [id number] Medicaid Medigap Part B [id number] 2.16.840.1.287968.3.227.99.572.3107 4.0 Self [id number] Self Pay Medigap Part B [id number] 2.16.840.1.351250.3.227.99.572.42866.0 Self [id number] [facility] Maintenance [facility] [id number] 2.16.840.1.026788.3.227.99.8646.530313.0 Self [id number] [facility] [id number] 2.16.840.1.354001.3.227.99.8646.177418.0 Self [id number] Medicaid Medigap Part B [id number] 2.16.840.1.639818.3.227.99.572.3107 4.0 Self [id number] Self Pay Medigap Part B [id number] 2.16.840.1.279945.3.227.99.572.81788.0 Self [id number] [facility] Maintenance [facility] [id number] 2.16.840.1.281647.3.227.99.8646.049337.0 Self [id number] Medicaid Medigap Part B [id number] 2.16.840.1.134772.3.227.99.572.3107 4.0 Self [id number] Self Pay Medigap Part B [id number] 2.16.840.1.267030.3.227.99.572.25521.0 Self [id number] Medicaid Medigap Part B [id number] 2.16.840.1.833043.3.227.99.572.3107 4.0 Self [id number] Self Pay Medigap Part [id number] 2.16.840.1.150531.3.227.99.572.68378.0 Self [id number] UN COMMUNITY PLAN [facility] [id number] MEDICAID M [id number] S [id number] Self Pay Medigap Part B [id number] 4.0 Self [facility] Commercial [id number] Self Medicaid Medigap Part B [id number] Self [id number] Self Pay Medigap Part B [id number] Self [facility] COMMUNITY PLAN [facility] [id number] SP [id number] Self Pay Medigap Part B [id number] Self Self Pay Medigap Part B [id number] Self Self Pay Medigap Part B [id number] Self Self Pay Medigap Part B [id number] Self SELF PAY UNAVAILABLE SP UNAVAILA BLE Self Pay Commercial [id number] Self Self Pay Commercial [id number] Self Self Pay Commercial [id number] Self [facility] [id number] Medicaid Medigap Part B [id number] Self [id number] Self Pay Medigap Part [id number] Self [id number] Medicaid Medigap Part B [id number] Self [id number] Medicare (Part B) Medicare Primary [id number] Self [id number] [facility] Medigap Part B [id number] Self [id number] MEDICAID [id number] SP [id number] MEDICARE [id number] SP [id number] Medicaid Medigap Part B [id number] Self [id number] Self Pay Medigap Part [id number] Self [id number] Medicaid Medigap Part B [id number] Self [id number] Medicare (Part B) Medicare Primary [id number] Self [id number] Medicaid [place] Medigap Part B [id number] Self [id number] Medicare [place] Medicare Primary [id number] Self [id number] Medicaid Medigap Part B [id number] [id number] 4.0 Self [id number] Self Pay Medigap Part B [id number] Self [id number] Medicaid Medigap Part B [id number] [id number] 4.0 Self [id number] Medicare (Part B) Medicare Primary [id number] [id number] Self [id number] Problems, Conditions, and Diagnoses Code Display Name Description Problem Type Effective Dates Data Source(s) 556394492 Carotid artery occlusion Carotid artery occlusion Prob neal 12/17/2020 12:00:00 AM EDT [facility] ([facility]) 87315629 Atherosclerosis of arteries of the extre mities Atherosclerosis of arteries of the extremities Problem 12/17/2020 12:00:00 AM EDT MEDEN T ([facility]) 45216504 Congestive heart failure Congestive heart failure Prob neal 12/10/2020 12:00:00 AM EDT [facility] ([facility]) 75383028 Primary cardiomyopathy Primary cardiomyopathy Problem 12/10/2020 12:00:00 AM EDT [facility] ([facility]) 88462355 Coronary arteriosclerosis Coronary arteriosclerosis Pr oblem 12/10/2020 12:00:00 AM EDT [facility] ([facility]) 32395693 Atrial fibrillation Atrial fibrillation Problem 0 12/10/2020 12:00:00 AM EDT [facility] ([facility]) 9430604 Atrial flutter Atrial flutter Problem 12/10/2020 12:00: 00 AM EDT [facility] ([facility]) 884107158 Pure hypercholesterolemia Pure hypercholesterolemia Pr oblem 12/10/2020 12:00:00 AM EDT [facility] ([facility]) 01548212 Essential hypertension Essential hypertension Problem 12/10/2020 12:00:00 AM EDT [facility] ([facility]) 218067967 Prediabetes Prediabetes Problem 05/21/2020 12:00:00 AM EST [facility] ([facility]) 220652665 Prediabetes Prediabetes Problem 05/21/2020 12:00:00 AM EST [facility] ([facility]) 774310579 Prediabetes Prediabetes Problem 05/21/2020 12:00:00 AM EST [facility] ([facility]) V04.81 Needs vaccination for influenza Needs vaccination for influenza 03/11/2020 10:05:34 AM EDT [facility] 786.2 Cough Cough 03/11/2020 09:40:02 AM ED T [facility] [id number] Influenza vaccine needed Influenza Vaccine Needed Pro blem 03/11/2020 12:00:00 AM EDT [facility] ([facility]) 29573058 Cough Cough Problem 03/11/2020 12:00:00 AM ED T [facility] ([facility]) [id number] Influenza vaccine needed Influenza Vaccine Needed Pro blem 03/11/2020 12:00:00 AM EDT [facility] ([facility]) 61609729 Cough Cough Problem 03/11/2020 12:00:00 AM ED T [facility] ([facility]) R73.01 Impaired fasting glucose Impaired fasting glycemia 03/06/2020 02:54:03 PM EDT [facility] 300998500 Impaired fasting glycemia Impaired Fasting Glycemia Pr oblem 03/05/2020 12:00:00 AM EDT [facility] ([facility]) 005594363 Impaired fasting glycemia Impaired Fasting Glycemia Pr oblem 03/05/2020 12:00:00 AM EDT [facility] ([facility]) Surgeries/Procedures Procedure Description Date Indications Data Source(s) INTERROGATION EVAL F2F 1/DUAL/MEAT MOLDER LEADS CVDFB 03/26/20 12:00:00 AM EDT [facility] ([facility]) Anticoagulant MGMT For Patient Taking Warfarin, Inc Review & Intr 03/05/2021 12:00:00 AM EDT [facility] ([facility]) ECG ROUTINE ECG W/LEAST 12 LDS W/I&R 02/11/2021 12:00: 00 AM EDT [facility] ([facility]) OFFICE OUTPATIENT VISIT 25 MINUTES 02/11/2021 12:00:00 AM EDT [facility] ([facility]) Anticoagulant MGMT For Patient Taking Warfarin, Inc Review & Intr 02/03/2021 12:00:00 AM EDT [facility] ([facility]) Chronic Care MGMT 20 Mins Clinical Staff Time Per Calendar M onth 01/21/2021 12:00:00 AM EDT [facility] ([facility]) Anticoagulant MGMT For Patient Taking Warfarin, Inc Review & Intr 01/07/2021 12:00:00 AM EDT [facility] ([facility]) INTERROGATION EVAL REMOTE </90 D 1/2/> LD CVDFB 2020 12:00:00 AM EDT [facility] ([facility]) INTERROGATION REMOTE </90 D CREATIVE SERVICES COORDINATOR REVIEW 12/24/19 12:00:00 AM EDT [facility] ([facility]) Anticoagulant MGMT For Patient Taking Warfarin, Inc Review & Intr 12/04/2020 12:00:00 AM EDT [facility] ([facility]) Chronic Care MGMT 20 Mins Clinical Staff Time Per Calendar M [facility] 12/03/2020 12:00:00 AM EDT [facility] ([facility]) Chronic Care MGMT 20 Mins Clinical Staff Time Per Calendar M [facility] 11/06/2020 12:00:00 AM EDT [facility] ([facility]) Anticoagulant MGMT For Patient Taking Warfarin, Inc Review & Intr 11/05/2020 12:00:00 AM EDT [facility] ([facility]) Anticoagulant MGMT For Patient Taking Warfarin, Inc Review & Intr 10/09/2020 12:00:00 AM EDT [facility] ([facility]) INTERROGATION EVAL REMOTE </90 D 1/2/> LD CVDFB 2020 12:00:00 AM EDT [facility] ([facility]) INTERROGATION REMOTE </90 D CREATIVE SERVICES COORDINATOR REVIEW 09/24/19 12:00:00 AM EDT [facility] ([facility]) Anticoagulant MGMT For Patient Taking Warfarin, Inc Review & Intr 09/07/2020 12:00:00 AM EDT [facility] ([facility]) ECG ROUTINE ECG W/LEAST 12 LDS W/I&R 08/11/2020 12:00: 00 AM EST [facility] ([facility]) OFFICE OUTPATIENT VISIT 25 MINUTES 08/11/2020 12:00:00 AM EST [facility] ([facility]) Anticoagulant MGMT For Patient Taking Warfarin, Inc Review & Intr 08/07/2020 12:00:00 AM EST [facility] ([facility]) Anticoagulant MGMT For Patient Taking Warfarin, Inc Review & Intr 07/09/2020 12:00:00 AM EST [facility] ([facility]) INTERROGATION EVAL REMOTE </90 D 1/2/> LD CVDFB 2020 12:00:00 AM EST [facility] ([facility]) INTERROGATION REMOTE </90 D CREATIVE SERVICES COORDINATOR REVIEW 06/24/19 12:00:00 AM EST [facility] ([facility]) Anticoagulant MGMT For Patient Taking Warfarin, Inc Review & Intr 06/11/2020 12:00:00 AM EST [facility] ([facility]) Chronic Care MGMT 20 Mins Clinical Staff Time Per Calendar M onth 06/08/2020 12:00:00 AM EST [facility] ([facility]) Anticoagulant MGMT For Patient Taking Warfarin, Inc Review & Intr 05/29/2020 12:00:00 AM EST [facility] ([facility]) Anticoagulant MGMT For Patient Taking Warfarin, Inc Review & Intr 05/01/2020 12:00:00 AM EST [facility] ([facility]) Anticoagulant MGMT For Patient Taking Warfarin, Inc Review & Intr 04/02/2020 12:00:00 AM EDT [facility]) INTERROGATION EVAL F2F 1/DUAL/MEAT MOLDER LEADS CVDFB 03/25/20 12:00:00 AM EDT [facility] ([facility]) ECHO TTHRC R-T 2D W/WOM-MODE COMPL SPEC&COLR DOP 03/13 12:00:00 AM EDT [facility] ([facility]) Anticoagulant MGMT For Patient Taking Warfarin, Inc Review & Intr 03/04/2020 12:00:00 AM EDT [facility] ([facility]) Results ID Date Data Source [id number] 04/05/2021 03:33:00 PM EDT [facility] Name Value Range Interpretation Code Description Data Reshma rce(s) Supporting Document(s) Laboratory test finding (navigational concept) Laboratory test result [facility] ([facility]) ID Date Data Source [id number] 04/05/2021 03:33:00 PM EDT [facility] [place] Name Value Range Interpretation Code Description Data Reshma rce(s) Supporting Document(s) INR in Platelet poor plasma by Coagulation assay 2.4 0.9-1.2 [facility] ([facility]) Reference interval is for non-anticoagul ated patients. Suggested INR therapeutic range for Vitamin K antagonist therapy: Standard Dose (moderate intensity therapeutic range): 2.0 - 3.0 Higher intensity therapeutic range 2.5 - 3.5 Prothrombin time (PT) 24.8 sec 9.1-12.0 [facility] ([facility]) ID Date Data Source [id number] 04/06/2021 06:05:00 AM EDT [facility] Name Value [...] normal [facility] ID Date Data Source [id number] 03/04/2021 12:42:00 PM EDT [facility] Name Value Range Interpretation Code Description Data Reshma rce(s) Supporting Document(s) Laboratory test finding (navigational concept) Laboratory test result [facility] ([facility]) ID Date Data Source [id number] 03/04/2021 12:42:00 PM EDT [facility] Name Value Range Interpretation Code Description Data Reshma rce(s) Supporting Document(s) Prothrombin time (PT) 29.2 sec 9.1-12.0 [facility] ([facility]) INR in Platelet poor plasma by Coagulation assay 2.9 0.9-1.[address] [facility] ([facility]) Reference interval is for non-anticoagul ated patients. Suggested INR therapeutic range for Vitamin K antagonist therapy: Standard Dose (moderate intensity therapeutic range): 2.0 - 3.0 Higher intensity therapeutic range 2.5 - 3.5 ID Date Data Source [id number] 03/05/2021 06:05:00 AM EDT [facility] Name Value [...] normal [facility] ID Date Data Source [id number] 02/02/2021 10:33:00 AM EDT [facility] ([facility] Name Value Range Interpretation Code Description Data Reshma rce(s) Supporting Document(s) Laboratory test finding (navigational concept) Laboratory test result [facility] ([facility] ID Date Data Source [id number] 02/02/2021 10:33:00 AM EDT [facility] ([facility] Name Value Range Interpretation Code Description Data Reshma rce(s) Supporting Document(s) Prothrombin time (PT) 22.5 sec 9.1-12.0 [facility] INR in Platelet poor plasma by Coagulation assay 2.2 0.9-1.[address] [facility] Reference interval is for non-anticoagul ated patients. Suggested INR therapeutic range for Vitamin K antagonist therapy: Standard Dose (moderate intensity therapeutic range): 2.0 - 3.0 Higher intensity therapeutic range 2.5 - 3.5 ID Date Data Source [id number] 02/03/2021 06:05:00 AM EDT [facility] Name Value [...] normal [facility] ID Date Data Source [id number] 01/05/2021 10:14:00 AM EDT [facility] ([facility] Name Value Range Interpretation Code Description Data Reshma rce(s) Supporting Document(s) Laboratory test finding (navigational concept) Laboratory test result [facility] ID Date Data Source [id number] 01/05/2021 10:14:00 AM EDT [facility] Name Value Range Interpretation Code Description Data Reshma rce(s) Supporting Document(s) INR in Platelet poor plasma by Coagulation assay 2.5 0.9-1.2 [facility] ([facility]) Reference interval is for non-anticoagul ated patients. Suggested INR therapeutic range for Vitamin K antagonist therapy: Standard Dose (moderate intensity therapeutic range): 2.0 - 3.0 Higher intensity therapeutic range 2.5 - 3.5 Prothrombin time (PT) 25.1 sec 9.1-12.0 [facility] ([facility]) ID Date Data Source [id number] 01/06/2021 06:05:00 AM EDT [facility] Name Value [...] normal [facility] ID Date Data Source [id number] 12/03/2020 09:18:00 AM EDT [facility] ([facility] Name Value Range Interpretation Code Description Data Reshma rce(s) Supporting Document(s) Laboratory test finding (navigational concept) Laboratory test result [facility] ([facility] ID Date Data Source [id number] 12/03/2020 09:18:[address] [facility] Name Value Range Interpretation Code Description Data Reshma rce(s) Supporting Document(s) INR in Platelet poor plasma by Coagulation assay 2.7 0.9-1.[address] [facility] ([facility]) Reference interval is for non-anticoagul ated patients. Suggested INR therapeutic range for Vitamin K antagonist therapy: Standard Dose (moderate intensity therapeutic range): 2.0 - 3.0 Higher intensity therapeutic range 2.5 - 3.5 Prothrombin time (PT) 27.3 sec 9.1-12.0 [facility] ([facility] ID Date Data Source [id number] 12/04/2020 06:05:00 AM EDT [facility] Name Value [...] normal [facility] ID Date Data Source [id number] 11/07/2020 12:00:00 AM EDT [facility]) Name Value Range Interpretation Code Description Data Reshma rce(s) Supporting Document(s) Hemoglobin A1c/Hemoglobin.total in Blood 5.7 %_of_total_HGB <5.7 Above high normal Hemoglobin a1C [facility] er) ID Date Data Source [id number] 11/07/2020 12:00:00 AM EDT [facility]) Name Value Range Interpretation Code Description Data Reshma rce(s) Supporting Document(s) Glucose [Mass/volume] in Serum or Plasma 126 mg/dL 65-99 Above high normal Glucose [facility]) Creatinine [Mass/volume] in Serum or Plasma 0.93 mg/dL 0.50-0.99 Creatinine [facility]) Glomerular filtration rate/1.73 sq M.pre dicted among non-blacks [Volume Rate/Area] in Serum, Plasma or Blood by Creatinine-based formula (CKD-EPI) 66 mL/min/1.73m2 > or = 60 eGFR Non-afr. [place] [facility] ([facility]) Urea nitrogen [Mass/volume] in Serum or Plasma 25 mg/dL 7-25 Urea Nitrogen (BUN) [facility]) Glomerular filtration rate/1.73 sq M.pre dicted among blacks [Volume Rate/Area] in Serum, Plasma or Blood by Creatinine-based formula (CKD-EPI) 76 mL/min/1.73m2 > or = 60 eGFR [facility] ([facility]) Carbon dioxide, total [Moles/volume] in Serum or Plasma 30 mmol/L 20-32 Carbon Dioxide [place] ([facility]) Urea nitrogen/Creatinine [Mass Ratio] in Serum or Plasma not applic able 6-22 BUN/creatinine Ratio [facility] ([facility]) Chloride [Moles/volume] in Serum or Plasma 103 mmol/L 98-110 Chloride [facility] ([facility]) Sodium [Moles/volume] in Serum or Plasma 143 mmol/L 135-146 Sodium [facility] ([facility]) Potassium [Moles/volume] in Serum or Plasma 4.2 mmol/L 3.5-5.3 Potassium [facility] ([facility]) Calcium [Mass/volume] in Serum or Plasma 8.6 mg/dL 8.6-10.4 Calcium [facility] ([facility]) Globulin [Mass/volume] in Serum by calculation 2.7 g/dL_(calc) 1.9- 3.7 Globulin [place] ([facility]) Protein [Mass/volume] in Serum or Plasma 6.5 g/dL 6.1-8.1 Protein, Total [facility] ([facility]) Albumin [Mass/volume] in Serum or Plasma 3.8 g/dL 3.6-5.1 Albumin [facility] ([facility]) Aspartate aminotransferase [Enzymatic activity/volume] in Serum or Plasma 10 U/L 10-35 Ast [place] ([facility]) Alanine aminotransferase [Enzymatic activity/volume] in Seru m or Plasma 9 U/L 6-29 Alt [facility] ([facility]) Bilirubin.total [Mass/volume] in Serum or Plasma 0.5 mg/dL 0.2-1 .2 Bilirubin, Total [facility] ([facility]) Albumin/Globulin [Mass Ratio] in Serum or Plasma 1.4 (calc) 1.0-2 .5 Albumin/globulin Ratio [facility] ([facility]) Alkaline phosphatase [Enzymatic activity/volume] in Serum or Plasma 121 U/L 37-153 Alkaline Phosphatase [facility] ([facility]) ID Date Data Source [id number] 11/07/2020 12:00:00 AM EDT [place] ([facility]) Name Value Range Interpretation Code Description Data Reshma rce(s) Supporting Document(s) Thyrotropin [Units/volume] in Serum or Plasma 4.23 mIU/L 0.40-4.50 Tsh [place] ([facility]) Thyroxine (T4) free [Mass/volume] in Serum or Plasma 1.2 NG/dL 0 .8-1.8 T4, Free [facility]) ID Date Data Source [id number] 11/07/2020 12:00:00 AM EDT [facility]) Name Value Range Interpretation Code Description Data Reshma rce(s) Supporting Document(s) Cholesterol [Mass/volume] in Serum or Plasma 135 mg/dL <200 Cholesterol, Total [facility] ([facility]) Triglyceride [Mass/volume] in Serum or Plasma 104 mg/dL <150 Triglycerides [place] ([facility]) Cholesterol in HDL [Mass/volume] in Serum or Plasma 42 mg/dL > or = 50 Below low normal HDL Cholesterol [facility] ([facility]) Cholesterol non HDL [Mass/volume] in Serum or Plasma 93 mg/dL_(calc ) <130 Non HDL Cholesterol [facility]) Cholesterol in LDL [Mass/volume] in Serum or Plasma by calculation 74 mg/dL_(calc) <100 LDL-cholesterol [facility] ([facility]) Cholesterol.total/Cholesterol in HDL [Mass Ratio] in Serum o r Plasma 3.2 calc <5.0 [facility] ID Date Data Source [id number] 11/04/2020 08:40:00 AM EDT [facility] ([facility]) Name Value Range Interpretation Code Description Data Reshma rce(s) Supporting Document(s) Laboratory test finding (navigational concept) Laboratory test result [facility] ([facility]) ID Date Data Source [id number] 11/04/2020 08:40:00 AM EDT [facility] ([facility]) Name Value Range Interpretation Code Description Data Reshma rce(s) Supporting Document(s) Prothrombin time (PT) 27.2 sec 9.1-12.0 [facility] ([facility]) INR in Platelet poor plasma by Coagulation assay 2.7 0.9-1.2 [facility] ([facility]) Reference interval is for non-anticoagul ated patients. Suggested INR therapeutic range for Vitamin K antagonist therapy: Standard Dose (moderate intensity therapeutic range): 2.0 - 3.0 Higher intensity therapeutic range 2.5 - 3.5 ID Date Data Source [id number] 11/05/2020 06:05:00 AM EDT [facility] Name Value [...] normal [facility] ID Date Data Source [id number] 10/06/2020 08:47:00 AM EDT [facility] Name Value Range Interpretation Code Description Data Reshma rce(s) Supporting Document(s) Laboratory test finding (navigational concept) Laboratory test result [facility] ([facility] ID Date Data Source [id number] 10/06/2020 08:47:[address] [facility] Name Value Range Interpretation Code Description Data Reshma rce(s) Supporting Document(s) Prothrombin time (PT) 21.4 sec 9.1-12.0 [facility] ([facility]) INR in Platelet poor plasma by Coagulation assay 2.1 0.9-1.[address] [facility] ([facility]) Reference interval is for non-anticoagul ated patients. Suggested INR therapeutic range for Vitamin K antagonist therapy: Standard Dose (moderate intensity therapeutic range): 2.0 - 3.0 Higher intensity therapeutic range 2.5 - 3.5 ID Date Data Source [id number] 10/07/2020 06:05:00 AM EDT [facility] Name Value [...] normal [facility] ID Date Data Source [id number] 09/03/2020 09:32:00 AM EDT [facility] ([facility] Name Value Range Interpretation Code Description Data Reshma rce(s) Supporting Document(s) Laboratory test finding (navigational concept) Laboratory test result [facility] ([facility] ID Date Data Source [id number] 09/03/2020 09:32:00 AM EDT [facility] ([facility] Name Value Range Interpretation Code Description Data Reshma rce(s) Supporting Document(s) Prothrombin time (PT) 22.6 sec 9.1-12.0 [facility] INR in Platelet poor plasma by Coagulation assay 2.2 0.9-1.[address] [facility] Reference interval is for non-anticoagul ated patients. Suggested INR therapeutic range for Vitamin K antagonist therapy: Standard Dose (moderate intensity therapeutic range): 2.0 - 3.0 Higher intensity therapeutic range 2.5 - 3.5 ID Date Data Source [id number] 09/04/2020 06:05:00 AM EDT [facility] Name Value [...] normal [facility] ID Date Data Source [id number] 09/03/2020 09:29:00 AM EDT [facility] ([facility] Name Value Range Interpretation Code Description Data Reshma rce(s) Supporting Document(s) Laboratory test finding (navigational concept) Laboratory test result [facility] ([facility] ID Date Data Source [id number] 09/03/2020 09:29:00 AM EDT [facility] ([facility] Name Value Range Interpretation Code Description Data Reshma rce(s) Supporting Document(s) Creatinine 0.75 mg/dL 0.57-1.00 [facility] ([facility]) Glucose 126 mg/dL 65-99 [facility] ([facility]) Urea nitrogen [Mass/volume] in Serum or Plasma 17 mg/dL 8-27 [facility] ([facility]) eGFR If NonAfricn Am 86 mL/min/1.73 [facility] ([facility]) Urea nitrogen/Creatinine [Mass Ratio] in Serum or Plasma 23 1 2-28 [facility] ([facility]) eGFR If Africn Am 99 mL/min/1.73 [facility] ([facility]) Sodium 143 mmol/L 134-144 [facility] ([facility]) Chloride [Moles/volume] in Serum or Plasma 100 mmol/L 96-106 [facility] ([facility]) Potassium [Moles/volume] in Serum or Plasma 3.9 mmol/L 3.5-5.2 [facility] ([facility]) Carbon dioxide, total [Moles/volume] in Serum or Plasma 28 mmol/L 20 -29 [facility] ([facility]) Calcium [Mass/volume] in Serum or Plasma 8.6 mg/dL 8.7-10.3 [facility] ([facility]) ID Date Data Source [id number] 09/04/2020 06:05:00 AM EDT [facility] Name Value [...] low normal [facility] ID Date Data Source [id number] 08/05/2020 09:49:00 AM EST [facility] ([facility] Name Value Range Interpretation Code Description Data Reshma rce(s) Supporting Document(s) Laboratory test finding (navigational concept) Laboratory test result [facility] ([facility] ID Date Data Source [id number] 08/05/2020 09:49:00 AM EST [facility] ([facility] Name Value Range Interpretation Code Description Data Reshma rce(s) Supporting Document(s) INR in Platelet poor plasma by Coagulation assay 2.8 0.9-1.[address] [facility] Reference interval is for non-anticoagul ated patients. Suggested INR therapeutic range for Vitamin K antagonist therapy: Standard Dose (moderate intensity therapeutic range): 2.0 - 3.0 Higher intensity therapeutic range 2.5 - 3.5 Prothrombin time (PT) 27.8 sec 9.1-12.0 [facility] ID Date Data Source [id number] 08/06/2020 06:05:00 AM EST [facility] Name Value [...] normal [facility] ID Date Data Source [id number] 07/08/2020 02:05:00 PM EST [facility] Name Value [...] normal [facility] ID Date Data Source [id number] 07/07/2020 11:24:00 AM EST [facility] ([facility] Name Value Range Interpretation Code Description Data Reshma rce(s) Supporting Document(s) Laboratory test finding (navigational concept) Laboratory test result [facility] ([facility] ID Date Data Source [id number] 07/07/2020 11:24:00 AM EST [facility] ([facility] Name Value Range Interpretation Code Description Data Reshma rce(s) Supporting Document(s) INR in Platelet poor plasma by Coagulation assay 2.0 0.9-1.2 [facility] ([facility] Reference interval is for non-anticoagul ated patients. Suggested INR therapeutic range for Vitamin K antagonist therapy: Standard Dose (moderate intensity therapeutic range): 2.0 - 3.0 Higher intensity therapeutic range 2.5 - 3.5 Prothrombin time (PT) 20.5 sec 9.1-12.0 [facility] ([facility] ID Date Data Source [id number] 06/10/2020 08:00:00 AM EST [facility] ([facility] Name Value Range Interpretation Code Description Data Reshma rce(s) Supporting Document(s) Laboratory test finding (navigational concept) Laboratory test result [facility] ([facility] ID Date Data Source [id number] 06/10/2020 08:00:00 AM EST [facility] ([facility] Name Value Range Interpretation Code Description Data Reshma rce(s) Supporting Document(s) Prothrombin time (PT) 22.1 sec 9.1-12.0 [facility] ([facility] INR in Platelet poor plasma by Coagulation assay 2.2 0.9-1.2 [facility] ([facility] Reference interval is for non-anticoagul ated patients. Suggested INR therapeutic range for Vitamin K antagonist therapy: Standard Dose (moderate intensity therapeutic range): 2.0 - 3.0 Higher intensity therapeutic range 2.5 - 3.5 ID Date Data Source [id number] 06/11/2020 06:05:00 AM EST [facility] Name Value [...] normal [facility] ID Date Data Source [id number] 05/28/2020 10:38:00 AM EST [facility] ([facility] Name Value Range Interpretation Code Description Data Reshma rce(s) Supporting Document(s) Laboratory test finding (navigational concept) Laboratory test result [facility] ([facility] ID Date Data Source [id number] 05/28/2020 10:38:00 AM EST [facility] ([facility] Name Value Range Interpretation Code Description Data Reshma rce(s) Supporting Document(s) INR in Platelet poor plasma by Coagulation assay 3.4 0.9-1.2 [facility] Reference interval is for non-anticoagul ated patients. Suggested INR therapeutic range for Vitamin K antagonist therapy: Standard Dose (moderate intensity therapeutic range): 2.0 - 3.0 Higher intensity therapeutic range 2.5 - 3.5 Prothrombin time (PT) 34.0 sec 9.1-12.0 [facility] ([facility] ID Date Data Source [id number] 05/29/2020 06:05:00 AM EST [facility] Name Value [...] normal [facility] ID Date Data Source [id number] 05/14/2020 10:48:00 AM EST [facility] ([facility] Name Value Range Interpretation Code Description Data Reshma rce(s) Supporting Document(s) Hemoglobin A1c/Hemoglobin.total in Blood 6.2 [facility] ([facility]) ID Date Data Source [id number] 05/14/2020 10:48:00 AM EST [facility] ([facility] Name Value Range Interpretation Code Description Data Reshma rce(s) Supporting Document(s) Albumin [Mass/volume] in Serum or Plasma 2.9 [facility] ([facility]) Calcium [Mass/volume] in Serum or Plasma 8.8 [facility] ([facility]) Alanine aminotransferase [Enzymatic activity/volume] in Serum or Pl asma 12 [facility] ([facility]) Chloride [Moles/volume] in Serum or Plasma 104 [facility] ([facility]) Carbon dioxide, total [Moles/volume] in Serum or Plasma 33 [facility] ([facility]) Potassium [Moles/volume] in Serum or Plasma 3.9 [facility] ([facility]) Alkaline phosphatase [Enzymatic activity/volume] in Serum or Plasma 1 33 [facility] ([facility]) Protein [Mass/volume] in Serum or Plasma 6.4 [facility] ([facility]) Sodium 141 [facility] ([facility]) Urea nitrogen [Mass/volume] in Serum or Plasma 21 [facility] ([facility]) Aspartate aminotransferase [Enzymatic activity/volume] in Serum or Plasma 10 [facility] ([facility]) Glucose 127 70-100 [facility] ([facility]) Creatinine For GFR 0.73 [facility] ([facility]) ID Date Data Source [id number] 05/14/2020 09:25:00 AM EST [facility]) Name Value Range Interpretation Code Description Data Reshma rce(s) Supporting Document(s) estimated average glucose 131 mg/dL 60-110 Above high norm al Estimated Average Glucose [place] ([facility]) Hemoglobin A1c/Hemoglobin.total in Blood 6.2 % Hemoglobin a1C [facility]) ID Date Data Source [id number] 05/14/2020 09:25:00 AM EST [facility]) Name Value Range Interpretation Code Description Data Reshma rce(s) Supporting Document(s) thyroid stimulating hormone 4.630 uIU/mL 0.358-3.740 Above high no rmal Thyroid Stimulating Hormone [facility] ([facility]) ID Date Data Source [id number] 05/14/2020 09:25:00 AM EST [facility] ([facility]) Name Value Range Interpretation Code Description Data Reshma rce(s) Supporting Document(s) blood urea nitrogen 21 mg/dL 7-18 Above high normal Blood Ure a Nitrogen [facility] ([facility]) glucose, fasting 127 mg/dL 70-100 Above high normal Glucose, Fas ting [facility] ([facility]) sodium level 141 mEq/L 136-145 Sodium Level [facility] ([facility]) glomerular filtration rate > 60.0 >45 Glomerula r Filtration Rate [facility] ([facility]) creatinine for GFR 0.73 mg/dL 0.55-1.30 Creatinine for GF R [facility] ([facility]) chloride level 104 mEq/L 98-107 Chloride Level [facility] ([facility]) potassium serum 3.9 mEq/L 3.5-5.1 Potassium Serum [facility] ([facility]) anion gap 4 mEq/L 8-16 Below low normal Anion Gap [facility] ( [facility]) carbon dioxide level 33 mEq/L 21-32 Above high normal Carbon D ioxide Level [facility] ([facility]) calcium level 8.8 mg/dL 8.8-10.2 Calcium Level [facility] ( [facility]) AST/SGOT 10 U/L 7-37 AST/SGOT [facility] ([facility]) ALT/SGPT 12 U/L 12-78 ALT/SGPT [facility] ([facility]) bilirubin,total 0.3 mg/dL 0.2-1.0 Bilirubin,total [facility] ([facility]) alkaline phosphatase 133 U/L 45-117 Above high normal Alkaline Phosphatase [facility] ([facility]) total protein 6.4 gm/dL 6.4-8.2 Total Protein [facility] ( [facility]) albumin/globulin ratio 1.2-2.2 Below low normal Albumin /globulin Ratio [facility] ([facility]) albumin 2.9 gm/dL 3.2-5.2 Below low normal Albumin [facility] ( [facility]) ID Date Data Source [id number] 05/14/2020 09:25:00 AM EST [facility] ([facility]) Name Value Range Interpretation Code Description Data Reshma rce(s) Supporting Document(s) estimated average glucose 131 mg/dL 60-110 Above high norm al Estimated Average Glucose [place] [facility] [facility] Hemoglobin A1c/Hemoglobin.total in Blood 6.2 % Hemoglobin a1C [place] ([facility]) ID Date Data Source [id number] 05/14/2020 09:25:00 AM EST [place] ([facility]) Name Value Range Interpretation Code Description Data Reshma rce(s) Supporting Document(s) thyroid stimulating hormone 4.630 uIU/mL 0.358-3.740 Above high no rmal Thyroid Stimulating Hormone [place] ([facility]) ID Date Data Source [id number] 05/14/2020 09:25:00 AM EST [place] ([facility]) Name Value Range Interpretation Code Description Data Reshma rce(s) Supporting Document(s) glucose, fasting 127 mg/dL 70-100 Above high normal Glucose, Fas ting [place] ([facility]) blood urea nitrogen 21 mg/dL 7-18 Above high normal Blood Ure a Nitrogen [place] ([facility]) creatinine for GFR 0.73 mg/dL 0.55-1.30 Creatinine for GF R [place] ([facility]) sodium level 141 mEq/L 136-145 Sodium Level [place] ([facility]) potassium serum 3.9 mEq/L 3.5-5.1 Potassium Serum [place] NA ([facility]) glomerular filtration rate > 60.0 >45 Glomerula r Filtration Rate [place] ([facility]) calcium level 8.8 mg/dL 8.8-10.2 Calcium Level [place] ( [facility]) chloride level 104 mEq/L 98-107 Chloride Level [place] ([facility]) anion gap 4 mEq/L 8-16 Below low normal Anion Gap [place] ( [facility]) carbon dioxide level 33 mEq/L 21-32 Above high normal Carbon D ioxide Level [place] ([facility]) ALT/SGPT 12 U/L 12-78 ALT/SGPT [place] ([facility]) AST/SGOT 10 U/L 7-37 AST/SGOT [place] ([facility]) alkaline phosphatase 133 U/L 45-117 Above high normal Alkaline Phosphatase [place] ([facility]) albumin 2.9 gm/dL 3.2-5.2 Below low normal Albumin [place] ( [facility]) bilirubin,total 0.3 mg/dL 0.2-1.0 Bilirubin,total [place] ([facility]) total protein 6.4 gm/dL 6.4-8.2 Total Protein [place] ( [facility]) albumin/globulin ratio 1.2-2.2 Below low normal Albumin /globulin Ratio [place] ([facility]) ID Date Data Source [id number] 05/14/2020 09:25:00 AM EST [place] ([facility]) Name Value Range Interpretation Code Description Data Reshma rce(s) Supporting Document(s) Hemoglobin A1c/Hemoglobin.total in Blood 6.2 % Hemoglobin a1C [place] ([facility]) estimated average glucose 131 mg/dL 60-110 Above high norm al Estimated Average Glucose [place] ([facility]) ID Date Data Source [id number] 05/14/2020 09:25:00 AM EST [place] ([facility]) Name Value Range Interpretation Code Description Data Reshma rce(s) Supporting Document(s) thyroid stimulating hormone 4.630 uIU/mL 0.358-3.740 Above high no rmal Thyroid Stimulating Hormone [place] ([facility]) ID Date Data Source [id number] 05/14/2020 09:25:00 AM EST [place] ([facility]) Name Value Range Interpretation Code Description Data Reshma rce(s) Supporting Document(s) glucose, fasting 127 mg/dL 70-100 Above high normal Glucose, Fas ting [place] ([facility]) creatinine for GFR 0.73 mg/dL 0.55-1.30 Creatinine for GF R [place] ([facility]) blood urea nitrogen 21 mg/dL 7-18 Above high normal Blood Ure a Nitrogen [place] ([facility]) glomerular filtration rate > 60.0 >45 Glomerula r Filtration Rate [place] ([facility]) sodium level 141 mEq/L 136-145 Sodium Level [place] ([facility]) chloride level 104 mEq/L 98-107 Chloride Level [place] ([facility]) potassium serum 3.9 mEq/L 3.5-5.1 Potassium Serum [place] ([facility]) carbon dioxide level 33 mEq/L 21-32 Above high normal Carbon D ioxide Level [place] ([facility]) anion gap 4 mEq/L 8-16 Below low normal Anion Gap [place] ( [facility]) calcium level 8.8 mg/dL 8.8-10.2 Calcium Level [place] ( [facility]) alkaline phosphatase 133 U/L 45-117 Above high normal Alkaline Phosphatase [place] ([facility]) ALT/SGPT 12 U/L 12-78 ALT/SGPT [place] ([facility]) AST/SGOT 10 U/L 7-37 AST/SGOT [place] ([facility]) bilirubin,total 0.3 mg/dL 0.2-1.0 Bilirubin,total [place] ([facility]) total protein 6.4 gm/dL 6.4-8.2 Total Protein [place] ( [facility]) albumin 2.9 gm/dL 3.2-5.2 Below low normal Albumin [place] ( [facility]) albumin/globulin ratio 1.2-2.2 Below low normal Albumin /globulin Ratio [place] ([facility]) ID Date Data Source [id number] 04/30/2020 10:27:00 AM EST [place] ([facility]) Name Value Range Interpretation Code Description Data Reshma rce(s) Supporting Document(s) Laboratory test finding (navigational concept) Laboratory test result [facility] ([facility]) ID Date Data Source [id number] 04/30/2020 10:27:00 AM EST [place] Name Value Range Interpretation Code Description Data Reshma rce(s) Supporting Document(s) Prothrombin time (PT) 23.2 sec 9.1-12.0 [place] INR in Platelet poor plasma by Coagulation assay 2.3 0.9-1.2 [facility] ([facility] Reference interval is for non-anticoagul ated patients. Suggested INR therapeutic range for Vitamin K antagonist therapy: Standard Dose (moderate intensity therapeutic range): 2.0 - 3.0 Higher intensity therapeutic range 2.5 - 3.5 ID Date Data Source [id number] 05/01/2020 06:05:00 AM EST [facility] Name Value [...] normal [facility] ID Date Data Source [id number] 04/01/2020 02:56:00 PM EDT [place] ([facility] Name Value Range Interpretation Code Description Data Reshma rce(s) Supporting Document(s) Laboratory test finding (navigational concept) Laboratory test [facility] ID Date Data Source [id number] 04/01/2020 02:56:00 PM EDT [facility] ([facility] Name Value Range Interpretation Code Description Data Reshma rce(s) Supporting Document(s) INR in Platelet poor plasma by Coagulation assay 3.0 0.9-1.2 [facility] Reference interval is for non-anticoagul ated patients. Suggested INR therapeutic range for Vitamin K antagonist therapy: Standard Dose (moderate intensity therapeutic range): 2.0 - 3.0 Higher intensity therapeutic range 2.5 - 3.5 Please note reference interval change Prothrombin time (PT) 30.3 sec 9.1-12.0 [facility] ([facility] Please note reference interval change* * ID Date Data Source [id number] 04/02/2020 06:05:00 AM EDT [facility] Name Value [...] reference interval change ID Date Data Source [id number] 03/11/2020 09:50:00 AM EDT [facility] Name Value Range Interpretation Code Description Data Reshma rce(s) Supporting Document(s) BG FASTING 127 mg/dL 70-100 [facility] ID Date Data Source [id number] 03/11/2020 09:50:00 AM EDT [facility] Name Value Range Interpretation Code Description Data Reshma rce(s) Supporting Document(s) HGBA1C 5.9 % N [facility] ID Date Data Source [id number] 03/11/2020 08:58:35 AM EDT [facility] Measurements & CalculationsHeight: 61 inches (5 [...] done at cardioHistory of Present Illness (HPI)Her Research Quality Assurance Specialist is concerned because her fasting glucose was 128. She thinks she might have had a sip of soda with her meds in the morning. Feeling well with the exception of a cough she has had for the past 3 days. No better and no worse with time. Had a simialr issue last year that reposnded pretty well to Deshawn Morales.Sees a Research Quality Assurance Specialist for her afib and she tells me things are going pretty well with this.Tries to stay active and eat a healthy diet.HPI performed by: Selvin Hester MD, March 11, 2020 9:35 AMTransitions of Care InboundProblem ReviewProblem List was reviewed and/or updated during this visit.Medication Reconciliation & ReviewMedication List was reviewed and/or updated during this visit, including review of any qktn-ccp-ipgupan medications, herbal therapies, and/or supplements.Allergy ReviewAllergy List [...] Plan Problems:Added: Needs vaccination for influenza (ICD-V04.81) ([id number])Cough (ICD-786.2) ([id number]) Assessment: Instructions: Likely due to non specific viral infection.Tessalong perles. Fluids and rest. Recheck if symptoms persist or worsen.Flu shot today.Assessed:Impaired fasting glycemia (ICD-790.21) (XTG80-B49.01) Assessment: Instructions: Check CMP and A1C today.'May [...] Orders:Adult - Ofc Vst, EST, Level III [CPT-68084] COMP METABOLIC PANEL [CPT-73227] TSH [CPT-47490] HgBA1c [CPT-67386] FluLaval Quadrivalent, preservative free [CPT-60124] 82723 - Immo Admin (over 19 yrs), 1st Vaccine [CPT-02567] 65547 - Venipuncture [CPT- 42495] Medications:TESSALON PERLES 100 MG ORAL CAPSULE (BENZONATATE) One po q8h prn cough. MDD 3. #9[Capsule] x 0 Route:ORAL Entered and Authorized by: Selvin Hester MD Method used: Electronically to [facility] (retail) [address] [place] [address] Note to Pharmacy: Route: ORAL; RxID: [id number] Questionnaire1) Does the patient have a long-term [...] Syringe 0.5 MLMfr / Lot# / Exp.Date: Microinox / 724K2 / 1Amt. Given / Route / Site: 0.5 mL / IM / Right DeltoidNDC / CVX: [id number] / 150Administered Date: 03/11/2020 9:53VFC Eligibility: Not VFC EligibleVIS Date: 01/24/2019VIS Given / VIS Given On: Yes / 9/30/2020Comments: Administered by: Janell Dyer In-House Blood TestsDate/Time Collected: March 11, 2020 9:54 AMTest Result Reference Range Normal ValueComments: taken from left ac, tolerated well.Janell Dyer, March 11, 2020 9:54 AM Name Value Range Interpretation Code Description Data Reshma rce(s) Supporting Document(s) ID Date Data Source [id number] 03/03/2020 08:52:00 AM EDT [facility] ([facility] Name Value Range Interpretation Code Description Data Reshma rce(s) Supporting Document(s) Laboratory test finding (navigational concept) Laboratory test result [facility]) ID Date Data Source [id number] 03/03/2020 08:52:00 AM EDT [facility] ([facility] Name Value Range Interpretation Code Description Data Reshma rce(s) Supporting Document(s) Prothrombin time (PT) 24.0 sec 9.1-12.0 [facility] ([facility]) INR in Platelet poor plasma by Coagulation assay 2.4 0.8-1.2 [facility]) Reference interval is for non-anticoagul ated patients. Suggested INR therapeutic range for Vitamin K antagonist therapy: Standard Dose (moderate intensity therapeutic range): 2.0 - 3.0 Higher intensity therapeutic range 2.5 - 3.5 ID Date Data Source [id number] 03/04/2020 06:05:00 AM EDT [facility] Name Value [...] normal [facility] ID Date Data Source [id number] 03/03/2020 08:49:00 AM EDT [facility] ([facility] Name Value Range Interpretation Code Description Data Reshma rce(s) Supporting Document(s) Laboratory test finding (navigational concept) Laboratory test result [facility] ([facility]) ID Date Data Source [id number] 03/03/2020 08:49:00 AM EDT [facility] ([facility] Name Value Range Interpretation Code Description Data Reshma rce(s) Supporting Document(s) Cholesterol [Mass/volume] in Serum or Plasma 129 mg/dL 100-199 [facility] ([facility]) Triglyceride [Mass/volume] in Serum or Plasma 121 mg/dL 0-149 [facility] ([facility]) Cholesterol in HDL [Mass/volume] in Serum or Plasma 41 mg/dL [facility] ([facility]) Laboratory test finding (navigational concept) 66 mg/dL 0-99 [facility] ([facility]) Laboratory test finding (navigational concept) 22 mg/dL 5-40 [facility] ([facility]) Comment: Laboratory test result [facility] ([facility]) ID Date Data Source [id number] 03/03/2020 08:49:00 AM EDT [facility] ([facility] Name Value Range Interpretation Code Description Data Reshma rce(s) Supporting Document(s) WBC 7.8 x10E3/uL 3.4-10.8 [facility] ([facility]) Hemoglobin [Mass/volume] in Blood 11.7 g/dL 11.1-15.9 [facility] ([facility]) Hematocrit [Volume Fraction] of Blood by Automated count 35.5 % 3 4.0-46.6 [facility] ([facility]) RBC 3.93 x10E6/uL 3.77-5.28 [facility] ([facility]) Erythrocyte mean corpuscular volume [Entitic volume] by Auto mated count 90 fL 79-97 [facility] ([facility]) Erythrocyte mean corpuscular hemoglobin concentration [Mass/volume] by Automated count 33.0 g/dL 31.5-35.7 [facility] ([facility]) Erythrocyte mean corpuscular hemoglobin [Entitic mass] by Automated count 29.8 pg 26.6-33.0 [facility] ([facility]) Platelets [#/volume] in Blood by Automated count 197 x10E3/uL 150-450 [facility] ([facility]) Erythrocyte distribution width [Ratio] by Automated count 12.9 % 11.7-15.4 [facility] ([facility]) Nucleated erythrocytes/100 leukocytes [Ratio] in Blood by Automated count Laboratory test result [facility] ([facility]) ID Date Data Source [id number] 03/03/2020 08:49:00 AM EDT [facility] ([facility] Name Value Range Interpretation Code Description Data Reshma rce(s) Supporting Document(s) Glucose 128 mg/dL 65-99 [facility] ([facility] Urea nitrogen [Mass/volume] in Serum or Plasma 17 mg/dL 8-27 [facility] ([facility]) Creatinine 0.73 mg/dL 0.57-1.00 [facility] ([facility]) Urea nitrogen/Creatinine [Mass Ratio] in Serum or Plasma 23 1 2-28 [facility] ([facility]) eGFR If Africn Am 103 mL/min/1.73 [facility] ([facility]) eGFR If NonAfricn Am 89 mL/min/1.73 MEDE NT ([facility]) Chloride [Moles/volume] in Serum or Plasma 101 mmol/L 96-106 [facility] ([facility]) Potassium [Moles/volume] in Serum or Plasma 4.1 mmol/L 3.5-5.2 [facility] ([facility]) Sodium 145 mmol/L 134-144 [facility] ([facility]) Calcium [Mass/volume] in Serum or Plasma 9.0 mg/dL 8.7-10.3 [facility] ([facility]) Carbon dioxide, total [Moles/volume] in Serum or Plasma 30 mmol/L 20 -29 [facility] ([facility]) ID Date Data Source [id number] 03/04/2020 06:05:00 AM EDT [facility] Name Value [...] x10E3/uL 150-450 [facility] ID Date Data Source [id number] 03/04/2020 06:05:00 AM EDT [facility] Name Value [...] mg/dL 8.7-10.3 [facility] ID Date Data Source [id number] 03/04/2020 06:05:00 AM EDT [facility] Name Value [...] is a former smoker [facility] ([facility]) Smoking 12/17/2020 12:00:00 AM EDT Patient is a former smoker completed Patient is a former smoker [facility] ([facility]) Vital Signs ID Date Data Source UNK Name Value Range Interpretation Code Description Data Source(s) Systolic blood pressure--sitting 128 mm[Hg] 128 mm[Hg] [facility] ([facility]) Ra, large cuff Diastolic blood pressure--sitting 70 mm[Hg] 70 mm[Hg] [facility] ([facility]) Ra, large cuff Body weight 187.00 [lb_av] 187.00 [lb_av] MED[facility] T ([facility]) Body height 63 [in_i] 63 [in_i] [facility] ([facility]) 5'3" Body mass index (BMI) [Ratio] 33.1 kg/m2 33.1 k g/m2 [facility] ([facility]) Heart rate 74 /min 74 /min [facility] ([facility]) Systolic blood pressure 120 mm[Hg] 120 mm[Hg] M EDENT ([facility]) Diastolic blood pressure 62 mm[Hg] 62 mm[Hg] [facility] ([facility]) Systolic blood pressure 140 mm[Hg] 140 mm[Hg] M [facility] ([facility]) Diastolic blood pressure 80 mm[Hg] 80 mm[Hg] [facility] ([facility]) Heart rate 68 /min 68 /min [facility] ([facility] Body temperature 96.1 [degF] 96.1 [degF] [facility] ([facility]) Body height 63 [in_i] 63 [in_i] [facility] 5'3" Body weight 188.00 [lb_av] 188.00 [lb_av] MED[facility] T ([facility]) Body weight 85.277 kg 85.277 kg [facility] ([facility] Body mass index (BMI) [Ratio] 33.3 kg/m2 33.3 k g/m2 [facility] ([facility]) Diastolic blood pressure 78 mm[Hg] 78 mm[Hg] [place] ([facility]) Body height 63 [in_i] 63 [in_i] [place] ([facility]) Body mass index (BMI) [Ratio] 33.5 kg/m2 33.5 k g/m2 [place] ([facility]) Systolic blood pressure 128 mm[Hg] 128 mm[Hg] A [place] ([facility]) Body weight 3028 [oz_av] 3028 [oz_av] [facility] ([facility]) Body height 63 [in_i] 63 [in_i] [place] ([facility]) Body height 63 [in_i] 63 [in_i] [place] ([facility]) Body surface area Derived from formula 1.83 m2 1.83 m2 [facility] ([facility], ) Systolic blood pressure 124 mm[Hg] 124 mm[Hg] M EDENT ([facility], ) Diastolic blood pressure 83 mm[Hg] 83 mm[Hg] [facility] ([facility]) Body height 60 [in_i] 60 [in_i] [facility] ([facility]) 5'0" Body weight 190.00 [lb_av] 190.00 [lb_av] MEDEN T ([facility]) Body mass index (BMI) [Ratio] 37.1 kg/m2 37.1 k g/m2 [facility]) Eagle body weight 100 [lb_av] 100 [lb_av] MEDEN T ([facility]) Body weight 86.184 kg 86.184 kg [facility] ([facility]) Body height 63 [in_i] 63 [in_i] [facility] ([facility]) 5'3" Heart rate 74 /min 74 /min [facility] ([facility]) Systolic blood pressure--sitting 112 mm[Hg] 112 mm[Hg] [facility] ([facility]) Ra, large cuff Diastolic blood pressure--sitting 60 mm[Hg] 60 mm[Hg] [facility] ([facility]) Ra, large cuff Body mass index (BMI) [Ratio] 33.8 kg/m2 33.8 k g/m2 [facility] ([facility]) Body weight 191.00 [lb_av] 191.00 [lb_av] MED[facility] T ([facility]) Systolic blood pressure 141 mm[Hg] 141 mm[Hg] Nena EDENT ([facility]) Diastolic blood pressure 76 mm[Hg] 76 mm[Hg] [facility] ([facility]) Heart rate 76 /min 76 /min [facility] ([facility]) Body height 60 [in_i] 60 [in_i] [facility] ([facility]) 5'0" Body weight 191.00 [lb_av] 191.00 [lb_av] MED[facility] T ([facility]) Body mass index (BMI) [Ratio] 37.3 kg/m2 37.3 k g/m2 [facility] ([facility]) [place] body weight 100 [lb_av] 100 [lb_av] MED[facility] T ([facility]) Body weight 86.638 kg 86.[address] [facility] ([facility]) Body surface area Derived from formula 1.[address] [facility] ([facility]) Diastolic blood pressure 84 mm[Hg] 84 mm[Hg] [place] ([facility]) Body height 63 [in_i] 63 [in_i] [place] ([facility]) Body mass index (BMI) [Ratio] 35.1 kg/m2 35.1 k g/m2 [facility] ([facility]) Systolic blood pressure 137 mm[Hg] 137 mm[Hg] A [place] ([facility]) Body weight 3170 [oz_av] 3170 [oz_av] [facility] ([facility]) Body height 63 [in_i] 63 [in_i] [place] ([facility]) Diastolic blood pressure 84 mm[Hg] 84 mm[Hg] [facility] ([facility]) Body mass index (BMI) [Ratio] 35.1 kg/m2 35.1 k g/m2 [facility] ([facility]) Systolic blood pressure 137 mm[Hg] 137 mm[Hg] A [place] ([facility]) Body weight 3170 [oz_av] 3170 [oz_av] [facility] ([facility]) Diastolic blood pressure 84 mm[Hg] 84 mm[Hg] [facility] ([facility]) Body height 63 [in_i] 63 [in_i] [facility] ([facility]) Body mass index (BMI) [Ratio] 35.1 kg/m2 35.1 k g/m2 [facility] ([facility]) Systolic blood pressure 137 mm[Hg] 137 mm[Hg] A [place] ([facility]) Body weight 3170 [oz_av] 3170 [oz_av] [facility] ([facility]) Body mass index (BMI) [Ratio] 38.1 kg/m2 38.1 k g/m2 [facility] ([facility], ) Systolic blood pressure 136 mm[Hg] 136 mm[Hg] M EDENT ([facility], ) Diastolic blood pressure 75 mm[Hg] 75 mm[Hg] [facility] ([facility], ) Body height 60 [in_i] 60 [in_i] [facility] ([facility], ) 5'0" Body weight 195.12 [lb_av] 195.12 [lb_av] MEDEN T ([facility], ) [place] body weight 100 [lb_av] 100 [lb_av] MED[facility] T ([facility], ) Body weight 88.509 kg 88.509 kg [facility] ([facility], ) Diastolic blood pressure 50 mm[Hg] 50 mm[Hg] [facility] ([facility]) Body height 61 [in_i] 61 [in_i] [facility] ([facility]) Body mass index (BMI) [Ratio] 36.86 kg/m2 36.86 kg/m2 [facility] ([facility]) Systolic blood pressure 109 mm[Hg] 109 mm[Hg] A THENA ([facility]) Body weight 3110.4 [oz_av] 3110.4 [oz_av] ATHEN A ([facility]) Diastolic blood pressure 50 mm[Hg] 50 mm[Hg] [facility] ([facility]) Body height 61 [in_i] 61 [in_i] [facility] ([facility]) Body mass index (BMI) [Ratio] 36.86 kg/m2 36.86 kg/m2 [facility] ([facility]) Systolic blood pressure 109 mm[Hg] 109 mm[Hg] Stephany THENStephany ([facility]) Body weight 3110.4 [oz_av] 3110.4 [oz_av] MANDEEP [place] ([facility]) Patient Treatment Plan of Care Planned Activity Planned Date Details Description Data Source (s) benzonatate 100 MG Oral Capsule [facility] ([facility]) benzonatate 100 MG Oral Capsule [facility] ([facility]) benzonatate 100 MG Oral Capsule [facility] [facility]
[2021-04-20] MEDS ORDERED: FURO20TA2 PO (03:18)
[2021-04-20] MEDS ORDERED: ASPI-161 PO (03:18)
[2021-04-20] MEDS ORDERED: ENTR1TAB4 PO (03:18)
[2021-04-20] MEDS ORDERED: CARV25TA PO (03:18)
[2021-04-20] MEDS ORDERED: WARF4TAB52 PO (03:18)
[2021-04-20] MEDS ORDERED: HOME MED LIST COMPLETE! XX SCH (03:20)
[2021-04-20] MEDS ORDERED: IPRATROPIUM 0.5MG/ALBUTEROL 2.5MG INH SOL UD 3ML (DUONEB) NEB PRN (03:30)
--- OUTSIDE RECORDS SUMMARY | 2021-04-20 03:44 | CCD ---
Author Author [facility] Organization [facility] Address Unknown Phone Unavailable Care Team Providers Care Station Mechanic Apprentice Name Role Phone Kyle Hester MD Unavailable [...] Unavailable Broderick, L Laney RPA Unavailable Unavailable Brodreick, L Laney RPA Unavailable Unavailable Broderick, L [...] is protected by Article 27-F of the [facility] Public Health law. If you continue you may have access to information: Regarding HIV / AIDS; Provided by facilities licensed or operated by the [facility] Office of Mental Health; or Provided by the [facility] Office for People With Developmental Disabilities. If such information is present, then the following [facility] mandated warning applies: This information [...] law may result in a fine or halfway sentence or both. A general authorization for the release of medical or other information is NOT sufficient authorization for further disc losure. Allergies and Adverse Reactions Type Description Substance Reaction Status Data Source(s ) Allergy to substance Allergy to substance Allergy to substance PATRIOT ([facility]) Family History Family Member Name Family Member Gender Family Member Status Date o f Status Description Data Source(s) Unknown Male Problem MEDENT ([facility]) () - at age 58 Unknown Unknown Problem [facility] Unknown Male Problem MEDENT ([facility] Unknown Female Problem MEDENT ([facility]) Encounters Encounter Providers Location Date Indications Data Source(s ) Outpatient Attender: VICTORINA FU Main Office 02/11/2021 0 9:45:00 AM EDT MEDENT ([facility]) Office Visit Attender: ASHLYN STEINBERG MD Main Office 01/21/2021 11: 57:00 AM EDT MEDENT ([facility]) Office Visit Attender: ASHLYN STEINBERG MD Main Office 12/03/2020 09: 35:00 AM EDT MEDENT ([facility]) Selvin Hester MD: [address] [place] [phone], Ph. Attender: Selvin Hester MD [facility] Medical 11/10/2020 12:00:00 AM EDT LIZANDRO ([facility]) Office Visit Attender: ASHLYN STEINBERG MD Main Office 11/06/2020 09: 37:00 AM EDT MEDENT ([facility]) Selvin Hester MD: [address] [place] [phone], Ph. Attender: Selvin Hester MD [facility] Medical 11/03/2020 12:00:00 AM EDT LIZANDRO ([facility]) Selvin Hester MD: [address] [place] [phone], Ph. Attender: Selvin Hester MD [facility] 11/03/2020 12:00:00 AM EDT LIZANDRO ([facility]) Outpatient Attender: Laney Broderick RPA Yan/Logan/Sylvester/R eindl 10/19/2020 10:45:00 AM EDT MEDENT ([facility]) Outpatient Attender: VICTORINA FU Main Office 08/11/2020 0 7:45:00 AM EST MEDENT ([facility]) Outpatient Attender: Laney Broderick RPA Yan/Logan/Sylvester/R eindl 07/21/2020 09:30:00 AM EST MEDENT ([facility]) Office Visit Attender: ASHLYN STEINBERG MD Main Office 06/08/2020 12: 07:00 PM EST MEDENT ([facility]) Selvin Hester MD: [address] [place] [phone], Ph. Attender: Selvin Hester MD [facility] 05/21/2020 12:00:00 AM EST LIZANDRO ([facility]) Selvin Hester MD: [address] [place] [phone], Ph. Attender: Selvin Hester MD [facility] 05/21/2020 12:00:00 AM EST LIZANDRO ([facility]) Selvin Hester MD: [address] [place] [phone], Ph. Attender: Selvin Hester MD [facility] 05/21/2020 12:00:00 AM EST LIZANDRO ([facility]) Selvin Hester MD: [address] [place] [phone], Ph. Attender: Selvin Hester MD [facility] 05/14/2020 12:00:00 AM EST LIZANDRO ([facility]) Selvin Hester MD: [address] [place] [phone], Ph. Attender: Selvin Hester MD [facility] 05/14/2020 12:00:00 AM EST LIZANDRO ([facility]) Selvin Hester MD: [address] [place] [phone], Ph. Attender: Selvin Hester MD [facility] Medical 05/14/2020 12:00:00 AM EST LIZANDRO ([facility]) Selvin Hester MD: [address] [place] [phone], Ph. Attender: Selvin Hester MD [facility] 05/14/2020 12:00:00 AM EST LIZANDRO ([facility]) Office Visit Attender: ASHLYN STEINBERG MD Main Office 04/29/2020 02: 56:00 PM EST REINALDO ([facility]) Office Visit Attender: ASHLYN STEINBERG MD Main Office 03/27/2020 03: 30:00 PM EDT MEDENT ([facility]) Outpatient Attender: Selvin Hester MD FP 03/12/2020 07:58:03 AM EDT [facility] Outpatient Attender: Selvin Hester MD FP 03/12/2020 07:58:01 AM EDT [facility] Outpatient Attender: Selvin Hester MD FP 03/11/2020 11:26:00 AM EDT [facility] Outpatient Attender: Selvin Hester MD FP 03/11/2020 11:25:01 AM EDT [facility] Outpatient Attender: Selvin Hester MD FP 03/11/2020 10:51:01 AM EDT [facility] Outpatient Attender: Selvin Hester MD FP 03/11/2020 10:06:02 AM EDT [facility] Outpatient Attender: Selvin Hester MD FP 03/11/2020 10:06:00 AM EDT [facility] Outpatient Attender: Selvin Hester MD FP 03/11/2020 09:42:02 AM EDT [facility] Outpatient Attender: Selvin Hester MD FP 03/11/2020 08:52:00 AM EDT [facility] Outpatient Attender: Selvin Hester MD FP 03/09/2020 09:21:01 AM EDT [facility] Outpatient Attender: Selvin Hester MD FP 03/06/2020 02:56:04 PM EDT [facility] Office Visit Attender: ASHLYN STEINBERG MD Main Office 03/05/2020 02: 43:00 PM EDT MEDENT ([facility]) Immunizations Vaccine Date Status Description Data Source(s) New in 2012. IIV4 04/10/2020 12:00:00 AM EDT completed 04/10/20 20 LIZANDRO ([facility]) New in 2012. IIV4 04/10/2020 12:00:00 AM EDT completed 04/10/20 20 LIZANDRO ([facility]) New in 2012. IIV4 04/10/2020 12:00:00 AM EDT completed 04/10/20 20 LIZANDRO ([facility]) New in 2011. IIV4 03/11/2020 12:00:00 AM EDT completed 0.5 mL LIZANDRO ([facility]) New in 2011. IIV4 03/11/2020 12:00:00 AM EDT completed 0.5 mL LIZANDRO ([facility]) Medications Medication Brand Name Start Date [...] ompleted benzonatate 100 MG Oral Capsule LIZANDRO ([facility]) benzonatate 100 MG Oral Capsule benzonat ate 100 mg capsule TAKE ONE CAPSULE BY MOUTH EVERY 8 HOURS NEEDED FOR COUGH MAXIMUM DAILY DOSE 3 CAPSULE benzonatate 100 mg capsule TAKE ONE CAPSULE BY MOUTH EVERY 8 HOURS NEEDED FOR COUGH MAXIMUM DAILY DOSE 3 CAPSULE c ompleted benzonatate 100 MG Oral Capsule LIZANDRO ([facility]) benzonatate 100 MG Oral Capsule benzonat ate 100 mg capsule TAKE ONE CAPSULE BY MOUTH EVERY 8 HOURS NEEDED FOR COUGH MAXIMUM DAILY DOSE 3 CAPSULE benzonatate 100 mg capsule TAKE ONE CAPSULE BY MOUTH EVERY 8 HOURS NEEDED FOR COUGH MAXIMUM DAILY DOSE 3 CAPSULE c ompleted benzonatate 100 MG Oral Capsule LIZANDRO ([facility]) Insurance Providers Payer name Policy type / Coverage type Policy ID Covered libertarian ID Covered libertarian's relationship to osorio Policy Osorio Plan Information MEDICAID [id number] Aminta [id number] [facility] MEDICAID [id number] Aminta [id number] [facility] Hmo Commercial [id number] Self [id number] Medicaid S [id number] S [id number] [facility] COMMUNITY PLAN MCDHMO [id number] SP [id number] Managed Care - Community Plan [facility] P [id number] S [id number] UNHC COMMUNITY PLAN MCDHMO [id number] SP [id number] Medicaid S [id number] S [id number] Managed Care - [facility] Community Plan P [id number] S [id number] UN COMMUNITY PLAN MCDHMO [id number] SP [id number] Managed Care - Community Plan [facility] P [id number] S [id number] MEDICARE [id number] SP [id number] MEDICARE [id number] Aminta [id number] [id number] [place] [id number] SP [id number] EMEDNY [id number] SP [id number] MEDICAID [id number] SP [id number] Medicaid S [id number] S [id number] Medicare P [id number] S [id number] Medicaid Medigap Part B [id number] 4.0 Self [id number] Self Pay Medigap Part B [id number] [id number] Self [id number] Medicaid Medigap Part B [id number] [id number] 4.0 Self [id number] Medicare (Part B) Medicare Primary [id number] 2.16.840.1.193292.3.227.99.572.23160.0 Self [id number] MEDICAID PI PI MEDICARE PI PI Medicaid Medigap Part B [id number] [id number] 4.0 Self [id number] Self Pay Medigap Part B [id number] 2.16.840.1.009920.3.227.99.572.01490.0 Self [id number] Medicaid Medigap Part B [id number] [id number] 4.0 Self [id number] Medicare (Part B) Medicare Primary [id number] 2.16.840.1.352258.3.227.99.572.08460.0 Self [id number] Medicaid Medigap Part B [id number] 2.16.840.1.430443.3.227.99.572.3107 4.0 Self [id number] Self Pay Medigap Part B [id number] 2.16.840.1.237512.3.227.99.572.84674.0 Self [id number] Medicaid Medigap Part B [id number] 2.16.840.1.992610.3.227.99.572.3107 4.0 Self [id number] Medicare (Part B) Medicare Primary [id number] 2.16.840.1.780011.3.227.99.572.07782.0 Self 5 [id number] [place] Primary [id number] 2.16.840.1.104599.3.227.99.991.490584.0 Self [id number] [facility] Community Plan Medisilver plume Part B [id number] 2.16.840.1.732918.3.227.99.991.994980.0 Self [id number] Medicare [place] Medicare Primary [id number] 2.16.840.1.102671.3.227.99.991.633976.0 Self [id number] MEDICARE [id number] [facility] [id number] S [id number] Medicaid Medigap Part B [id number] 2.16.840.1.994255.3.227.99.572.3107 4.0 Self [id number] Self Pay Medigap Part B [id number] 2.16.840.1.614605.3.227.99.572.49879.0 Self [id number] [facility] Commercial [id number] 2.16.840.1.369743.3.227.99.572.64749.0 Self [id number] Medicaid Medigap Part B [id number] 2.16.840.1.569385.3.227.99.572.3107 4.0 Self [id number] Self Pay Medigap Part B [id number] 2.16.840.1.463255.3.227.99.572.29165.0 Self [id number] Medicaid Medigap Part B [id number] 2.16.840.1.452867.3.227.99.572.3107 4.0 Self [id number] Self Pay Medigap Part B [id number] 2.16.840.1.170539.3.227.99.572.27541.0 Self [id number] [facility] ([facility]) [id number] 2.16.840.1.605458.3.227.99.8646.186031.0 Self [id number] [facility] ([facility]) [id number] 2.16.840.1.581528.3.227.99.8646.299525.0 Self [id number] Medicaid Medigap Part B [id number] 2.16.840.1.425708.3.227.99.572.3107 4.0 Self [id number] Self Pay Medigap Part B [id number] 2.16.840.1.787989.3.227.99.572.82269.0 Self [id number] [facility] Maintenance [facility] ([facility]) [id number] 2.16.840.1.518308.3.227.99.8646.518521.0 Self [id number] Medicaid Medigap Part B [id number] 2.16.840.1.630115.3.227.99.572.3107 4.0 Self [id number] Self Pay Medigap Part B [id number] 2.16.840.1.988156.3.227.99.572.65352.0 Self [id number] Medicaid Medigap Part B [id number] 2.16.840.1.537252.3.227.99.572.3107 4.0 Self [id number] Self Pay Medigap Part B [id number] 2.16.840.1.628759.3.227.99.572.83316.0 Self [id number] UN COMMUNITY PLAN [facility] [id number] MEDICAID M [id number] S [id number] Self Pay Medigap Part B [id number] 4.0 Self [facility] [id number] Self Medicaid Medigap Part B [id number] Self [id number] Self Pay Medigap Part B [id number] Self [facility] COMMUNITY PLAN [facility] [id number] SP [id number] Self Pay Medigap Part B [id number] Self Self Pay Medigap Part B [id number] Self Self Pay Medigap Part B [id number] Self Self Pay Medigap Part B [id number] Self SELF PAY UNAVAILABLE SP UNAVAILA BLE Self Pay Commercial [id number] Self Self Pay Commercial [id number] Self Self Pay Commercial [id number] Self [facility] [id number] Medicaid Medigap Part B [id number] Self [id number] Self Pay Medigap Part B [id number] Self [id number] Medicaid Medigap Part B [id number] Self [id number] Medicare (Part B) Medicare Primary [id number] Self [id number] [facility] Medigap Part B [id number] Self [id number] MEDICAID [id number] SP [id number] MEDICARE [id number] SP [id number] Medicaid Medigap Part B [id number] Self [id number] Self Pay Medigap Part [id number] Self [id number] Medicaid Medigap Part B [id number] Self [id number] Medicare (Part B) Medicare Primary [id number] Self [id number] Medicaid [place] Medigap Part B [id number] Self [id number] Medicare [place] Medicare Primary [id number] Self [id number] Medicaid Medigap Part B [id number] [id number] 4.0 Self [id number] Self Pay Medigap Part B [id number] 2.16.840.1.507842.3.227.99.572.69995.0 Self [id number] Medicaid Medigap Part B [id number] [id number] 4.0 Self [id number] Medicare (Part B) Medicare Primary [id number] [id number] Self [id number] Problems, Conditions, and Diagnoses Code Display Name Description Problem Type Effective Dates Data Source(s) 700426229 Carotid artery occlusion Carotid artery occlusion Prob neal 12/17/2020 12:00:00 AM EDT MEDENT ([facility]) 53075880 Atherosclerosis of arteries of the extre mities Atherosclerosis of arteries of the extremities Problem 12/17/2020 12:00:00 AM EDT MEDEN T ([facility]) 77475877 Congestive heart failure Congestive heart failure Prob neal 12/10/2020 12:00:00 AM EDT MEDENT ([facility]) 09665300 Primary cardiomyopathy Primary cardiomyopathy Problem 12/10/2020 12:00:00 AM EDT MEDENT ([facility]) 22179362 Coronary arteriosclerosis Coronary arteriosclerosis Pr oblem 12/10/2020 12:00:00 AM EDT MEDENT ([facility]) 36328703 Atrial fibrillation Atrial fibrillation Problem 0 12/10/2020 12:00:00 AM EDT MEDENT ([facility]) 8740199 Atrial flutter Atrial flutter Problem 12/10/2020 12:00: 00 AM EDT MEDENT ([facility]) 800453586 Pure hypercholesterolemia Pure hypercholesterolemia Pr oblem 12/10/2020 12:00:00 AM EDT MEDENT ([facility]) 69638310 Essential hypertension Essential hypertension Problem 12/10/2020 12:00:00 AM EDT MEDENT ([facility]) 710243964 Prediabetes Prediabetes Problem 05/21/2020 12:00:00 AM EST LIZANDRO ([facility]) 143969321 Prediabetes Prediabetes Problem 05/21/2020 12:00:00 AM EST LIZANDRO ([facility]) 780864325 Prediabetes Prediabetes Problem 05/21/2020 12:00:00 AM EST LIZANDRO ([facility]) V04.81 Needs vaccination for influenza Needs vaccination for influenza 03/11/2020 10:05:34 AM EDT [facility] 786.2 Cough Cough 03/11/2020 09:40:02 AM ED T [facility] [id number] Influenza vaccine needed Influenza Vaccine Needed Pro blem 03/11/2020 12:00:00 AM EDT LIZANDRO ([facility]) 02463942 Cough Cough Problem 03/11/2020 12:00:00 AM ED T LIZANDRO ([facility]) [id number] Influenza vaccine needed Influenza Vaccine Needed Pro blem 03/11/2020 12:00:00 AM EDT LIZANDRO ([facility]) 03834102 Cough Cough Problem 03/11/2020 12:00:00 AM ED T LIZANDRO ([facility]) R73.01 Impaired fasting glucose Impaired fasting glycemia 03/06/2020 02:54:03 PM EDT [facility] 211331116 Impaired fasting glycemia Impaired Fasting Glycemia Pr oblem 03/05/2020 12:00:00 AM EDT LIZANDRO ([facility]) 990690377 Impaired fasting glycemia Impaired Fasting Glycemia Pr oblem 03/05/2020 12:00:00 AM EDT LIZANDRO ([facility]) Surgeries/Procedures Procedure Description Date Indications Data Source(s) INTERROGATION EVAL 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 LEADS CVDFB 03/26/20 12:00:00 AM EDT MEDENT ([facility]) Anticoagulant MGMT For Patient Taking Warfarin, Inc Review & Intr 03/05/2021 12:00:00 AM EDT MEDENT ([facility]) ECG ROUTINE ECG W/LEAST 12 LDS W/I&R 02/11/2021 12:00: 00 AM EDT MEDENT ([facility]) OFFICE OUTPATIENT VISIT 25 MINUTES 02/11/2021 12:00:00 AM EDT MEDENT ([facility]) Anticoagulant MGMT For Patient Taking Warfarin, Inc Review & Intr 02/03/2021 12:00:00 AM EDT MEDENT ([facility]) Chronic Care MGMT 20 Mins Clinical Staff Time Per Calendar M onth 01/21/2021 12:00:00 AM EDT MEDENT ([facility]) Anticoagulant MGMT For Patient Taking Warfarin, Inc Review & Intr 01/07/2021 12:00:00 AM EDT MEDENT ([facility]) INTERROGATION EVAL REMOTE </90 D 1/2/> LD CVDFB 2020 12:00:00 AM EDT MEDENT ([facility]) INTERROGATION REMOTE </90 D VOLUNTEER FIRE FIGHTER REVIEW 12/24/19 12:00:00 AM EDT MEDENT ([facility]) Anticoagulant MGMT For Patient Taking Warfarin, Inc Review & Intr 12/04/2020 12:00:00 AM EDT MEDENT ([facility]) Chronic Care MGMT 20 Mins Clinical Staff Time Per Calendar [facility] 12/03/2020 12:00:00 AM EDT MEDENT ([facility]) Chronic Care MGMT 20 Mins Clinical Staff Time Per Calendar [facility] 11/06/2020 12:00:00 AM EDT MEDENT ([facility]) Anticoagulant MGMT For Patient Taking Warfarin, Inc Review & Intr 11/05/2020 12:00:00 AM EDT MEDENT ([facility]) Anticoagulant MGMT For Patient Taking Warfarin, Inc Review & Intr 10/09/2020 12:00:00 AM EDT MEDENT ([facility]) INTERROGATION EVAL REMOTE </90 D 1/2/> LD CVDFB 2020 12:00:00 AM EDT MEDENT ([facility]) INTERROGATION REMOTE </90 D VOLUNTEER FIRE FIGHTER REVIEW 09/24/19 12:00:00 AM EDT MEDENT ([facility]) Anticoagulant MGMT For Patient Taking Warfarin, Inc Review & Intr 09/07/2020 12:00:00 AM EDT MEDENT ([facility]) ECG ROUTINE ECG W/LEAST 12 LDS W/I&R 08/11/2020 12:00: 00 AM EST MEDENT ([facility]) OFFICE OUTPATIENT VISIT 25 MINUTES 08/11/2020 12:00:00 AM EST MEDENT ([facility]) Anticoagulant MGMT For Patient Taking Warfarin, Inc Review & Intr 08/07/2020 12:00:00 AM EST MEDENT ([facility]) Anticoagulant MGMT For Patient Taking Warfarin, Inc Review & Intr 07/09/2020 12:00:00 AM EST MEDENT ([facility]) INTERROGATION EVAL REMOTE </90 D 1/2/> LD CVDFB 2020 12:00:00 AM EST MEDENT ([facility]) INTERROGATION REMOTE </90 D VOLUNTEER FIRE FIGHTER REVIEW 06/24/19 12:00:00 AM EST MEDENT ([facility]) Anticoagulant MGMT For Patient Taking Warfarin, Inc Review & Intr 06/11/2020 12:00:00 AM EST MEDENT ([facility]) Chronic Care MGMT 20 Mins Clinical Staff Time Per Calendar M onth 06/08/2020 12:00:00 AM EST MEDENT ([facility]) Anticoagulant MGMT For Patient Taking Warfarin, Inc Review & Intr 05/29/2020 12:00:00 AM EST MEDENT ([facility]) Anticoagulant MGMT For Patient Taking Warfarin, Inc Review & Intr 05/01/2020 12:00:00 AM EST MEDENT ([facility]) Anticoagulant MGMT For Patient Taking Warfarin, Inc Review & Intr 04/02/2020 12:00:00 AM EDT [facility]) INTERROGATION EVAL 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 CVDFB 03/25/20 12:00:00 AM EDT MEDENT ([facility]) ECHO TTHRC R-T 2D W/WOM-MODE COMPL SPEC&COLR DOP 03/13 12:00:00 AM EDT MEDENT ([facility]) Anticoagulant MGMT For Patient Taking Warfarin, Inc Review & Intr 03/04/2020 12:00:00 AM EDT [facility] ([facility]) Results ID Date Data Source [id number] 04/05/2021 03:33:00 PM EDT [facility] ([facility]) Name Value Range Interpretation Code Description Data Reshma rce(s) Supporting Document(s) Laboratory test finding (navigational concept) Laboratory test result [facility] ([facility]) ID Date Data Source [id number] 04/05/2021 03:33:00 PM EDT [facility] ([facility]) Name Value Range Interpretation Code Description Data Reshma rce(s) Supporting Document(s) INR in Platelet poor plasma by Coagulation assay 2.4 0.9-1.2 [facility] ([facility]) Reference interval is for non-anticoagul ated patients. Suggested INR therapeutic range for Vitamin K antagonist therapy: Standard Dose (moderate intensity therapeutic range): 2.0 - 3.0 Higher intensity therapeutic range 2.5 - 3.5 Prothrombin time (PT) 24.8 sec 9.1-12.0 [facility] ([facility]) ID Date Data Source [id number] 04/06/2021 06:05:00 AM EDT [facility] Name Value [...] normal [facility] ID Date Data Source [id number] 03/04/2021 12:42:00 PM EDT [facility] ([facility]) Name Value Range Interpretation Code Description Data Reshma rce(s) Supporting Document(s) Laboratory test finding (navigational concept) Laboratory test result [facility] ([facility]) ID Date Data Source [id number] 03/04/2021 12:42:00 PM EDT [facility] ([facility]) Name Value Range Interpretation Code Description Data Reshma rce(s) Supporting Document(s) Prothrombin time (PT) 29.2 sec 9.1-12.0 [facility] ([facility]) INR in Platelet poor plasma by Coagulation assay 2.9 0.9-1.2 [facility] ([facility]) Reference interval is for non-anticoagul ated patients. Suggested INR therapeutic range for Vitamin K antagonist therapy: Standard Dose (moderate intensity therapeutic range): 2.0 - 3.0 Higher intensity therapeutic range 2.5 - 3.5 ID Date Data Source [id number] 03/05/2021 06:05:00 AM EDT [facility] Name Value [...] normal [facility] ID Date Data Source [id number] 02/02/2021 10:33:00 AM EDT [facility] ([facility]) Name Value Range Interpretation Code Description Data Reshma rce(s) Supporting Document(s) Laboratory test finding (navigational concept) Laboratory test result [facility] ([facility]) ID Date Data Source [id number] 02/02/2021 10:33:00 AM EDT [facility] ([facility]) Name Value Range Interpretation Code Description Data Reshma rce(s) Supporting Document(s) Prothrombin time (PT) 22.5 sec 9.1-12.0 [facility] ([facility]) INR in Platelet poor plasma by Coagulation assay 2.2 0.9-1.2 [facility] ([facility]) Reference interval is for non-anticoagul ated patients. Suggested INR therapeutic range for Vitamin K antagonist therapy: Standard Dose (moderate intensity therapeutic range): 2.0 - 3.0 Higher intensity therapeutic range 2.5 - 3.5 ID Date Data Source [id number] 02/03/2021 06:05:00 AM EDT [facility] Name Value [...] normal [facility] ID Date Data Source [id number] 01/05/2021 10:14:00 AM EDT [facility] ([facility]) Name Value Range Interpretation Code Description Data Reshma rce(s) Supporting Document(s) Laboratory test finding (navigational concept) Laboratory test result [facility] ([facility]) ID Date Data Source [id number] 01/05/2021 10:14:00 AM EDT [facility] ([facility]) Name Value Range Interpretation Code Description Data Reshma rce(s) Supporting Document(s) INR in Platelet poor plasma by Coagulation assay 2.5 0.9-1.2 [facility] ([facility]) Reference interval is for non-anticoagul ated patients. Suggested INR therapeutic range for Vitamin K antagonist therapy: Standard Dose (moderate intensity therapeutic range): 2.0 - 3.0 Higher intensity therapeutic range 2.5 - 3.5 Prothrombin time (PT) 25.1 sec 9.1-12.0 [facility] ([facility]) ID Date Data Source [id number] 01/06/2021 06:05:00 AM EDT [facility] Name Value [...] normal [facility] ID Date Data Source [id number] 12/03/2020 09:18:00 AM EDT [facility] ([facility]) Name Value Range Interpretation Code Description Data Reshma rce(s) Supporting Document(s) Laboratory test finding (navigational concept) Laboratory test result [facility] ([facility]) ID Date Data Source [id number] 12/03/2020 09:18:00 AM EDT [facility] ([facility]) Name Value Range Interpretation Code Description Data Reshma rce(s) Supporting Document(s) INR in Platelet poor plasma by Coagulation assay 2.7 0.9-1.2 [facility] ([facility]) Reference interval is for non-anticoagul ated patients. Suggested INR therapeutic range for Vitamin K antagonist therapy: Standard Dose (moderate intensity therapeutic range): 2.0 - 3.0 Higher intensity therapeutic range 2.5 - 3.5 Prothrombin time (PT) 27.3 sec 9.1-12.0 [facility] ([facility]) ID Date Data Source [id number] 12/04/2020 06:05:00 AM EDT [facility] Name Value [...] normal [facility] ID Date Data Source [id number] 11/07/2020 12:00:00 AM EDT [facility]) Name Value Range Interpretation Code Description Data Reshma rce(s) Supporting Document(s) Hemoglobin A1c/Hemoglobin.total in Blood 5.7 %_of_total_HGB <5.7 Above high normal Hemoglobin a1C [facility] er) ID Date Data Source [id number] 11/07/2020 12:00:00 AM EDT [facility]) Name Value Range Interpretation Code Description Data Reshma rce(s) Supporting Document(s) Glucose [Mass/volume] in Serum or Plasma 126 mg/dL 65-99 Above high normal Glucose [facility]) Creatinine [Mass/volume] in Serum or Plasma 0.93 mg/dL 0.50-0.99 Creatinine [facility]) Glomerular filtration rate/1.73 sq M.pre dicted among non-blacks [Volume Rate/Area] in Serum, Plasma or Blood by Creatinine-based formula (CKD-EPI) 66 mL/min/1.73m2 > or = 60 eGFR Non-afr. Italian [facility]DR[facility] ([facility]) Urea nitrogen [Mass/volume] in Serum or Plasma 25 mg/dL 7-25 Urea Nitrogen (BUN) [facility]) Glomerular filtration rate/1.73 sq M.pre dicted among blacks [Volume Rate/Area] in Serum, Plasma or Blood by Creatinine-based formula (CKD-EPI) 76 mL/min/1.73m2 > or = 60 eGFR LIZANDRO ([facility]) Carbon dioxide, total [Moles/volume] in Serum or Plasma 30 mmol/L 20-32 Carbon Dioxide [facility] ([facility]) Urea nitrogen/Creatinine [Mass Ratio] in Serum or Plasma not applic able 6-22 BUN/creatinine Ratio [facility] ([facility]) Chloride [Moles/volume] in Serum or Plasma 103 mmol/L 98-110 Chloride [facility] ([facility]) Sodium [Moles/volume] in Serum or Plasma 143 mmol/L 135-146 Sodium [facility] ([facility]) Potassium [Moles/volume] in Serum or Plasma 4.2 mmol/L 3.5-5.3 Potassium [facility] ([facility]) Calcium [Mass/volume] in Serum or Plasma 8.6 mg/dL 8.6-10.4 Calcium [facility] ([facility]) Globulin [Mass/volume] in Serum by calculation 2.7 g/dL_(calc) 1.9- 3.7 Globulin [facility] ([facility]) Protein [Mass/volume] in Serum or Plasma 6.5 g/dL 6.1-8.1 Protein, Total LI[facility] ([facility]) Albumin [Mass/volume] in Serum or Plasma 3.8 g/dL 3.6-5.1 Albumin LI[facility] ([facility]) Aspartate aminotransferase [Enzymatic activity/volume] in Serum or Plasma 10 U/L 10-35 Ast [facility] ([facility]) Alanine aminotransferase [Enzymatic activity/volume] in Seru m or Plasma 9 U/L 6-29 Alt [facility]ANDR[facility] ([facility]) Bilirubin.total [Mass/volume] in Serum or Plasma 0.5 mg/dL 0.2-1 .2 Bilirubin, Total LI[facility] ([facility]) Albumin/Globulin [Mass Ratio] in Serum or Plasma 1.4 (calc) 1.0-2 .5 Albumin/globulin Ratio LIZANDR[facility] ([facility]) Alkaline phosphatase [Enzymatic activity/volume] in Serum or Plasma 121 U/L 37-153 Alkaline Phosphatase [facility]ANDR[facility] ([facility]) ID Date Data Source [id number] 11/07/2020 12:00:00 AM EDT [facility] ([facility]) Name Value Range Interpretation Code Description Data Reshma rce(s) Supporting Document(s) Thyrotropin [Units/volume] in Serum or Plasma 4.23 mIU/L 0.40-4.50 Tsh [facility] ([facility]) Thyroxine (T4) free [Mass/volume] in Serum or Plasma 1.2 NG/dL 0 .8-1.8 T4, Free [facility]) ID Date Data Source [id number] 11/07/2020 12:00:00 AM EDT [facility]) Name Value Range Interpretation Code Description Data Reshma rce(s) Supporting Document(s) Cholesterol [Mass/volume] in Serum or Plasma 135 mg/dL <200 Cholesterol, Total LIZANDR[facility] ([facility]) Triglyceride [Mass/volume] in Serum or Plasma 104 mg/dL <150 Triglycerides [facility] ([facility]) Cholesterol in HDL [Mass/volume] in Serum or Plasma 42 mg/dL > or = 50 Below low normal HDL Cholesterol LIZANDRO ([facility]) Cholesterol non HDL [Mass/volume] in Serum or Plasma 93 mg/dL_(calc ) <130 Non HDL Cholesterol [facility]) Cholesterol in LDL [Mass/volume] in Serum or Plasma by calculation 74 mg/dL_(calc) <100 LDL-cholesterol LI[facility]DR[facility] ([facility]) Cholesterol.total/Cholesterol in HDL [Mass Ratio] in Serum o r Plasma 3.2 calc <5.0 [facility] ID Date Data Source [id number] 11/04/2020 08:40:00 AM EDT [facility] Name Value Range Interpretation Code Description Data Reshma rce(s) Supporting Document(s) Laboratory test finding (navigational concept) Laboratory test result [facility] ([facility]) ID Date Data Source [id number] 11/04/2020 08:40:00 AM EDT [facility] ([facility]) Name Value Range Interpretation Code Description Data Reshma rce(s) Supporting Document(s) Prothrombin time (PT) 27.2 sec 9.1-12.0 [facility] ([facility]) INR in Platelet poor plasma by Coagulation assay 2.7 0.9-1.2 [facility] ([facility]) Reference interval is for non-anticoagul ated patients. Suggested INR therapeutic range for Vitamin K antagonist therapy: Standard Dose (moderate intensity therapeutic range): 2.0 - 3.0 Higher intensity therapeutic range 2.5 - 3.5 ID Date Data Source [id number] 11/05/2020 06:05:00 AM EDT [facility] Name Value [...] normal [facility] ID Date Data Source [id number] 10/06/2020 08:47:00 AM EDT [facility] ([facility]) Name Value Range Interpretation Code Description Data Reshma rce(s) Supporting Document(s) Laboratory test finding (navigational concept) Laboratory test result [facility] ([facility]) ID Date Data Source [id number] 10/06/2020 08:47:00 AM EDT [facility] ([facility]) Name Value Range Interpretation Code Description Data Reshma rce(s) Supporting Document(s) Prothrombin time (PT) 21.4 sec 9.1-12.0 [facility] ([facility]) INR in Platelet poor plasma by Coagulation assay 2.1 0.9-1.2 [facility] ([facility]) Reference interval is for non-anticoagul ated patients. Suggested INR therapeutic range for Vitamin K antagonist therapy: Standard Dose (moderate intensity therapeutic range): 2.0 - 3.0 Higher intensity therapeutic range 2.5 - 3.5 ID Date Data Source [id number] 10/07/2020 06:05:00 AM EDT [facility] Name Value [...] normal [facility] ID Date Data Source [id number] 09/03/2020 09:32:00 AM EDT [facility] ([facility]) Name Value Range Interpretation Code Description Data Reshma rce(s) Supporting Document(s) Laboratory test finding (navigational concept) Laboratory test result [facility] ([facility]) ID Date Data Source [id number] 09/03/2020 09:32:00 AM EDT [facility] ([facility]) Name Value Range Interpretation Code Description Data Reshma rce(s) Supporting Document(s) Prothrombin time (PT) 22.6 sec 9.1-12.0 [facility] ([facility]) INR in Platelet poor plasma by Coagulation assay 2.2 0.9-1.2 [facility] ([facility]) Reference interval is for non-anticoagul ated patients. Suggested INR therapeutic range for Vitamin K antagonist therapy: Standard Dose (moderate intensity therapeutic range): 2.0 - 3.0 Higher intensity therapeutic range 2.5 - 3.5 ID Date Data Source [id number] 09/04/2020 06:05:00 AM EDT [facility] Name Value [...] normal [facility] ID Date Data Source [id number] 09/03/2020 09:29:00 AM EDT [facility] ([facility]) Name Value Range Interpretation Code Description Data Reshma rce(s) Supporting Document(s) Laboratory test finding (navigational concept) Laboratory test result [facility] ([facility]) ID Date Data Source [id number] 09/03/2020 09:29:00 AM EDT [facility] ([facility]) Name Value Range Interpretation Code Description Data Reshma rce(s) Supporting Document(s) Creatinine 0.75 mg/dL 0.57-1.00 [facility] ([facility]) Glucose 126 mg/dL 65-99 [facility] ([facility]) Urea nitrogen [Mass/volume] in Serum or Plasma 17 mg/dL 8-27 [facility] ([facility]) eGFR If NonAfricn Am 86 mL/min/1.73 [facility] ([facility]) Urea nitrogen/Creatinine [Mass Ratio] in Serum or Plasma 23 1 2-28 [facility] ([facility]) eGFR If Africn Am 99 mL/min/1.73 [facility] ([facility]) Sodium 143 mmol/L 134-144 [facility] ([facility]) Chloride [Moles/volume] in Serum or Plasma 100 mmol/L 96-106 [facility] ([facility]) Potassium [Moles/volume] in Serum or Plasma 3.9 mmol/L 3.5-5.2 [facility] ([facility]) Carbon dioxide, total [Moles/volume] in Serum or Plasma 28 mmol/L 20 -29 [facility] ([facility]) Calcium [Mass/volume] in Serum or Plasma 8.6 mg/dL 8.7-10.3 [facility] ([facility]) ID Date Data Source [id number] 09/04/2020 06:05:00 AM EDT [facility] Name Value [...] low normal [facility] ID Date Data Source [id number] 08/05/2020 09:49:00 AM EST [facility] ([facility]) Name Value Range Interpretation Code Description Data Reshma rce(s) Supporting Document(s) Laboratory test finding (navigational concept) Laboratory test result [facility] ([facility]) ID Date Data Source [id number] 08/05/2020 09:49:00 AM EST [facility] ([facility]) Name Value Range Interpretation Code Description Data Reshma rce(s) Supporting Document(s) INR in Platelet poor plasma by Coagulation assay 2.8 0.9-1.2 [facility] ([facility]) Reference interval is for non-anticoagul ated patients. Suggested INR therapeutic range for Vitamin K antagonist therapy: Standard Dose (moderate intensity therapeutic range): 2.0 - 3.0 Higher intensity therapeutic range 2.5 - 3.5 Prothrombin time (PT) 27.8 sec 9.1-12.0 [facility] ([facility]) ID Date Data Source [id number] 08/06/2020 06:05:00 AM EST [facility] Name Value [...] normal [facility] ID Date Data Source [id number] 07/08/2020 02:05:00 PM EST [facility] Name Value [...] normal [facility] ID Date Data Source [id number] 07/07/2020 11:24:00 AM EST [facility] ([facility]) Name Value Range Interpretation Code Description Data Reshma rce(s) Supporting Document(s) Laboratory test finding (navigational concept) Laboratory test result [facility] ([facility]) ID Date Data Source [id number] 07/07/2020 11:24:00 AM EST [facility] ([facility]) Name Value Range Interpretation Code Description Data Reshma rce(s) Supporting Document(s) INR in Platelet poor plasma by Coagulation assay 2.0 0.9-1.2 [facility] ([facility]) Reference interval is for non-anticoagul ated patients. Suggested INR therapeutic range for Vitamin K antagonist therapy: Standard Dose (moderate intensity therapeutic range): 2.0 - 3.0 Higher intensity therapeutic range 2.5 - 3.5 Prothrombin time (PT) 20.5 sec 9.1-12.0 [facility] ([facility]) ID Date Data Source [id number] 06/10/2020 08:00:00 AM EST [facility] ([facility]) Name Value Range Interpretation Code Description Data Reshma rce(s) Supporting Document(s) Laboratory test finding (navigational concept) Laboratory test result [facility] ([facility]) ID Date Data Source [id number] 06/10/2020 08:00:00 AM EST [facility] ([facility]) Name Value Range Interpretation Code Description Data Reshma rce(s) Supporting Document(s) Prothrombin time (PT) 22.1 sec 9.1-12.0 [facility] ([facility]) INR in Platelet poor plasma by Coagulation assay 2.2 0.9-1.2 [facility] ([facility]) Reference interval is for non-anticoagul ated patients. Suggested INR therapeutic range for Vitamin K antagonist therapy: Standard Dose (moderate intensity therapeutic range): 2.0 - 3.0 Higher intensity therapeutic range 2.5 - 3.5 ID Date Data Source [id number] 06/11/2020 06:05:00 AM EST [facility] Name Value [...] normal [facility] ID Date Data Source [id number] 05/28/2020 10:38:00 AM EST [facility] ([facility]) Name Value Range Interpretation Code Description Data Reshma rce(s) Supporting Document(s) Laboratory test finding (navigational concept) Laboratory test result [facility] ([facility]) ID Date Data Source [id number] 05/28/2020 10:38:00 AM EST [facility] ([facility]) Name Value Range Interpretation Code Description Data Reshma rce(s) Supporting Document(s) INR in Platelet poor plasma by Coagulation assay 3.4 0.9-1.2 [facility]) Reference interval is for non-anticoagul ated patients. Suggested INR therapeutic range for Vitamin K antagonist therapy: Standard Dose (moderate intensity therapeutic range): 2.0 - 3.0 Higher intensity therapeutic range 2.5 - 3.5 Prothrombin time (PT) 34.0 sec 9.1-12.0 [facility] ([facility]) ID Date Data Source [id number] 05/29/2020 06:05:00 AM EST [facility] Name Value [...] normal [facility] ID Date Data Source [id number] 05/14/2020 10:48:00 AM EST [facility] ([facility]) Name Value Range Interpretation Code Description Data Reshma rce(s) Supporting Document(s) Hemoglobin A1c/Hemoglobin.total in Blood 6.2 [facility] ([facility]) ID Date Data Source [id number] 05/14/2020 10:48:00 AM EST [facility] ([facility]) Name Value Range Interpretation Code Description Data Reshma rce(s) Supporting Document(s) Albumin [Mass/volume] in Serum or Plasma 2.9 [facility] ([facility]) Calcium [Mass/volume] in Serum or Plasma 8.8 [facility] ([facility]) Alanine aminotransferase [Enzymatic activity/volume] in Serum or Pl asma 12 [facility] ([facility]) Chloride [Moles/volume] in Serum or Plasma 104 [facility] ([facility]) Carbon dioxide, total [Moles/volume] in Serum or Plasma 33 [facility] ([facility]) Potassium [Moles/volume] in Serum or Plasma 3.9 [facility] ([facility]) Alkaline phosphatase [Enzymatic activity/volume] in Serum or Plasma 1 33 [facility] ([facility]) Protein [Mass/volume] in Serum or Plasma 6.4 [facility] ([facility]) Sodium 141 [facility] ([facility]) Urea nitrogen [Mass/volume] in Serum or Plasma 21 [facility] ([facility]) Aspartate aminotransferase [Enzymatic activity/volume] in Serum or Plasma 10 [facility] ([facility]) Glucose 127 70-100 [facility] ([facility]) Creatinine For GFR 0.73 [facility] ([facility]) ID Date Data Source [id number] 05/14/2020 09:25:00 AM EST [facility]) Name Value Range Interpretation Code Description Data Reshma rce(s) Supporting Document(s) estimated average glucose 131 mg/dL 60-110 Above high norm al Estimated Average Glucose [facility] ([facility]) Hemoglobin A1c/Hemoglobin.total in Blood 6.2 % Hemoglobin a1C [facility]) ID Date Data Source [id number] 05/14/2020 09:25:00 AM EST [facility]) Name Value Range Interpretation Code Description Data Reshma rce(s) Supporting Document(s) thyroid stimulating hormone 4.630 uIU/mL 0.358-3.740 Above high no rmal Thyroid Stimulating Hormone LIZANDRO ([facility]) ID Date Data Source [id number] 05/14/2020 09:25:00 AM EST [facility] ([facility]) Name Value Range Interpretation Code Description Data Reshma rce(s) Supporting Document(s) blood urea nitrogen 21 mg/dL 7-18 Above high normal Blood Ure a Nitrogen [facility] ([facility]) glucose, fasting 127 mg/dL 70-100 Above high normal Glucose, Fas ting LI[facility]ANDR[facility] ([facility]) sodium level 141 mEq/L 136-145 Sodium Level LIZANDRO ([facility]) glomerular filtration rate > 60.0 >45 Glomerula r Filtration Rate LI[facility]ANDRO ([facility]) creatinine for GFR 0.73 mg/dL 0.55-1.30 Creatinine for GF R [facility] ([facility]) chloride level 104 mEq/L 98-107 Chloride Level [facility]ANDR[facility] ([facility]) potassium serum 3.9 mEq/L 3.5-5.1 Potassium Serum ATHE NA ([facility]) anion gap 4 mEq/L 8-16 Below low normal Anion Gap LIZANDRO ( [facility]) carbon dioxide level 33 mEq/L 21-32 Above high normal Carbon D ioxide Level LI[facility] ([facility]) calcium level 8.8 mg/dL 8.8-10.2 Calcium Level LI[facility]ANDRO ( [facility]) AST/SGOT 10 U/L 7-37 AST/SGOT [facility]DRO ([facility]) ALT/SGPT 12 U/L 12-78 ALT/SGPT LI[facility]DR[facility] ([facility]) bilirubin,total 0.3 mg/dL 0.2-1.0 Bilirubin,total ATHE NA ([facility]) alkaline phosphatase 133 U/L 45-117 Above high normal Alkaline Phosphatase LI[facility]ANDRO ([facility]) total protein 6.4 gm/dL 6.4-8.2 Total Protein LIZANDRO ( [facility]) albumin/globulin ratio 1.2-2.2 Below low normal Albumin /globulin Ratio [facility] ([facility]) albumin 2.9 gm/dL 3.2-5.2 Below low normal Albumin LIZANDRO ( [facility]) ID Date Data Source [id number] 05/14/2020 09:25:00 AM EST [facility] ([facility]) Name Value Range Interpretation Code Description Data Reshma rce(s) Supporting Document(s) estimated average glucose 131 mg/dL 60-110 Above high norm al Estimated Average Glucose [facility] ([facility]) Hemoglobin A1c/Hemoglobin.total in Blood 6.2 % Hemoglobin a1C [facility] ([facility]) ID Date Data Source [id number] 05/14/2020 09:25:00 AM EST [facility] ([facility]) Name Value Range Interpretation Code Description Data Reshma rce(s) Supporting Document(s) thyroid stimulating hormone 4.630 uIU/mL 0.358-3.740 Above high no rmal Thyroid Stimulating Hormone [facility] ([facility]) ID Date Data Source [id number] 05/14/2020 09:25:00 AM EST [facility] ([facility] [facility]) Name Value Range Interpretation Code Description Data Reshma rce(s) Supporting Document(s) glucose, fasting 127 mg/dL 70-100 Above high normal Glucose, Fas ting LIZANDRO ([facility]) blood urea nitrogen 21 mg/dL 7-18 Above high normal Blood Ure a Nitrogen LIZANDRO ([facility]) creatinine for GFR 0.73 mg/dL 0.55-1.30 Creatinine for GF R LIZANDRO ([facility]) sodium level 141 mEq/L 136-145 Sodium Level LIZANDRO ([facility]) potassium serum 3.9 mEq/L 3.5-5.1 Potassium Serum ATHE NA ([facility]) glomerular filtration rate > 60.0 >45 Glomerula r Filtration Rate LIZANDRO ([facility]) calcium level 8.8 mg/dL 8.8-10.2 Calcium Level LIZANDRO ( [facility]) chloride level 104 mEq/L 98-107 Chloride Level LIZANDRO ([facility]) anion gap 4 mEq/L 8-16 Below low normal Anion Gap LIZANDRO ( [facility]) carbon dioxide level 33 mEq/L 21-32 Above high normal Carbon D ioxide Level LIZANDRO ([facility]) ALT/SGPT 12 U/L 12-78 ALT/SGPT LIZANDRO ([facility]) AST/SGOT 10 U/L 7-37 AST/SGOT LIZANDRO ([facility]) alkaline phosphatase 133 U/L 45-117 Above high normal Alkaline Phosphatase LIZANDRO ([facility]) albumin 2.9 gm/dL 3.2-5.2 Below low normal Albumin LIZANDRO ( [facility]) bilirubin,total 0.3 mg/dL 0.2-1.0 Bilirubin,total ATHE ([facility]) total protein 6.4 gm/dL 6.4-8.2 Total Protein LIZANDRO ( [facility]) albumin/globulin ratio 1.2-2.2 Below low normal Albumin /globulin Ratio LIZANDRO ([facility]) ID Date Data Source [id number] 05/14/2020 09:25:00 AM EST LIZANDRO ([facility]) Name Value Range Interpretation Code Description Data Reshma rce(s) Supporting Document(s) Hemoglobin A1c/Hemoglobin.total in Blood 6.2 % Hemoglobin a1C LIZANDRO ([facility]) estimated average glucose 131 mg/dL 60-110 Above high norm al Estimated Average Glucose LIZANDRO ([facility]) ID Date Data Source [id number] 05/14/2020 09:25:00 AM EST LIZANDRO ([facility]) Name Value Range Interpretation Code Description Data Reshma rce(s) Supporting Document(s) thyroid stimulating hormone 4.630 uIU/mL 0.358-3.740 Above high no rmal Thyroid Stimulating Hormone LIZANDRO ([facility]) ID Date Data Source [id number] 05/14/2020 09:25:00 AM EST LIZANDRO ([facility]) Name Value Range Interpretation Code Description Data Reshma rce(s) Supporting Document(s) glucose, fasting 127 mg/dL 70-100 Above high normal Glucose, Fas ting LIZANDRO ([facility]) creatinine for GFR 0.73 mg/dL 0.55-1.30 Creatinine for GF R LIZANDRO ([facility]) blood urea nitrogen 21 mg/dL 7-18 Above high normal Blood Ure a Nitrogen LIZANDRO ([facility]) glomerular filtration rate > 60.0 >45 Glomerula r Filtration Rate LIZANDRO ([facility]) sodium level 141 mEq/L 136-145 Sodium Level LIZANDRO ([facility]) chloride level 104 mEq/L 98-107 Chloride Level LIZANDRO ([facility]) potassium serum 3.9 mEq/L 3.5-5.1 Potassium Serum ATHE ([facility]) carbon dioxide level 33 mEq/L 21-32 Above high normal Carbon D ioxide Level LIZANDRO ([facility]) anion gap 4 mEq/L 8-16 Below low normal Anion Gap LIZANDRO ( [facility]) calcium level 8.8 mg/dL 8.8-10.2 Calcium Level LIZANDRO ( [facility]) alkaline phosphatase 133 U/L 45-117 Above high normal Alkaline Phosphatase LIZANDRO ([facility]) ALT/SGPT 12 U/L 12-78 ALT/SGPT LIZANDRO ([facility]) AST/SGOT 10 U/L 7-37 AST/SGOT LIZANDRO ([facility]) bilirubin,total 0.3 mg/dL 0.2-1.0 Bilirubin,total ATHE ([facility]) total protein 6.4 gm/dL 6.4-8.2 Total Protein LIZANDRO ( [facility]) albumin 2.9 gm/dL 3.2-5.2 Below low normal Albumin LIZANDRO ( [facility]) albumin/globulin ratio 1.2-2.2 Below low normal Albumin /globulin Ratio LIZANDRO ([facility]) ID Date Data Source [id number] 04/30/2020 10:27:00 AM EST REINALDO ([facility]) Name Value Range Interpretation Code Description Data Reshma rce(s) Supporting Document(s) Laboratory test finding (navigational concept) Laboratory test result MEDCRISTY ([facility]) ID Date Data Source [id number] 04/30/2020 10:27:00 AM EST MEDENT ([facility]) Name Value Range Interpretation Code Description Data Reshma rce(s) Supporting Document(s) Prothrombin time (PT) 23.2 sec 9.1-12.0 MED ENT ([facility]) INR in Platelet poor plasma by Coagulation assay 2.3 0.9-1.2 MEDENT ([facility]) Reference interval is for non-anticoagul ated patients. Suggested INR therapeutic range for Vitamin K antagonist therapy: Standard Dose (moderate intensity therapeutic range): 2.0 - 3.0 Higher intensity therapeutic range 2.5 - 3.5 ID Date Data Source [id number] 05/01/2020 06:05:00 AM EST [facility] Name Value [...] normal LabCo rp ID Date Data Source [id number] 04/01/2020 02:56:00 PM EDT MEDENT ([facility]) Name Value Range Interpretation Code Description Data Reshma rce(s) Supporting Document(s) Laboratory test finding (navigational concept) Laboratory test result [facility] ([facility]) ID Date Data Source [id number] 04/01/2020 02:56:00 PM EDT MEDENT ([facility]) Name Value Range Interpretation Code Description Data Reshma rce(s) Supporting Document(s) INR in Platelet poor plasma by Coagulation assay 3.0 0.9-1.2 [facility] ([facility]) Reference interval is for non-anticoagul ated patients. Suggested INR therapeutic range for Vitamin K antagonist therapy: Standard Dose (moderate intensity therapeutic range): 2.0 - 3.0 Higher intensity therapeutic range 2.5 - 3.5 Please note reference interval change Prothrombin time (PT) 30.3 sec 9.1-12.0 MED ENT ([facility]) Please note reference interval change* * ID Date Data Source [id number] 04/02/2020 06:05:00 AM EDT [facility] Name Value [...] reference interval change ID Date Data Source [id number] 03/11/2020 09:50:00 AM EDT [facility] Name Value Range Interpretation Code Description Data Reshma rce(s) Supporting Document(s) BG FASTING 127 mg/dL 70-[address] [facility] ID Date Data Source [id number] 03/11/2020 09:50:00 AM EDT [facility] Name Value Range Interpretation Code Description Data Reshma rce(s) Supporting Document(s) HGBA1C 5.9 % N [facility] ID Date Data Source [id number] 03/11/2020 08:58:35 AM EDT [facility] Measurements & CalculationsHeight: 61 inches (5 ft. [...] done at cardioHistory of Present Illness (HPI)Her Optometrist is concerned because her fasting glucose was 128. She thinks she might have had a sip of soda with her meds in the morning. Feeling well with the exception of a cough she has had for the past 3 days. No better and no worse with time. Had a simialr issue last year that reposnded pretty well to Deshawn Morales.Sees a Optometrist for her afib and she tells me things are going pretty well with this.Tries to stay active and eat a healthy diet.HPI performed by: Selvin Hester MD, March 11, 2020 9:35 AMTransitions of Care InboundProblem ReviewProblem List was reviewed and/or updated during this visit.Medication Reconciliation & ReviewMedication List was reviewed and/or updated during this visit, including review of any [id number]-cpysxcu medications, herbal therapies, and/or supplements.Allergy ReviewAllergy List [...] Plan Problems:Added: Needs vaccination for influenza (ICD-V04.81) ([id number])Cough (ICD-786.2) ([id number]) Assessment: Instructions: Likely due to non specific viral infection.Tessalong perles. Fluids and rest. Recheck if symptoms persist or worsen.Flu shot today.Assessed:Impaired fasting glycemia (ICD-790.21) (ITY52-U89.01) Assessment: Instructions: Check CMP and A1C today.'May [...] Orders:Adult - Ofc Vst, EST, Level III [CPT-99482] COMP METABOLIC PANEL [CPT-95986] TSH [CPT-30872] HgBA1c [CPT-22316] FluLaval Quadrivalent, preservative free [CPT-58236] 34096 - Immo Admin (over 19 yrs), 1st Vaccine [CPT-74564] 91033 - Venipuncture [CPT- 08044] Medications:TESSALON PERLES 100 MG ORAL CAPSULE (BENZONATATE) One po q8h prn cough. MDD 3. #9[Capsule] x 0 Route:ORAL Entered and Authorized by: Selvin Hester MD Method used: Electronically to [facility] (retail) [address] [place] [address] Note to Pharmacy: Route: ORAL; RxID: [id number] Questionnaire1) Does the patient have a long-term [...] Syringe 0.5 MLMfr / Lot# / Exp.Date: Y-Clients / 724K2 / 1Amt. Given / Route / Site: 0.5 mL / IM / Right DeltoidNDC / CVX: [id number] / 150Administered Date: 03/11/2020 9:53VFC Eligibility: Not [...] rce(s) Supporting Document(s) ID Date Data Source [id number] 03/03/2020 08:52:00 AM EDT MEDENT ([facility]) Name Value Range Interpretation Code Description Data Reshma rce(s) Supporting Document(s) Laboratory test finding (navigational concept) Laboratory test result [facility] ([facility]) ID Date Data Source [id number] 03/03/2020 08:52:00 AM EDT MEDENT ([facility]) Name Value Range Interpretation Code Description Data Rsehma rce(s) Supporting Document(s) Prothrombin time (PT) 24.0 sec 9.1-12.0 MED ENT ([facility]) INR in Platelet poor plasma by Coagulation assay 2.4 0.8-1.2 [facility] ([facility]) Reference interval is for non-anticoagul ated patients. Suggested INR therapeutic range for Vitamin K antagonist therapy: Standard Dose (moderate intensity therapeutic range): 2.0 - 3.0 Higher intensity therapeutic range 2.5 - 3.5 ID Date Data Source [id number] 03/04/2020 06:05:00 AM EDT [facility] Name Value [...] normal Lab[facility] rp ID Date Data Source [id number] 03/03/2020 08:49:00 AM EDT MEDENT ([facility]) Name Value Range Interpretation Code Description Data Reshma rce(s) Supporting Document(s) Laboratory test finding (navigational concept) Laboratory test result MEDENT ([facility]) ID Date Data Source [id number] 03/03/2020 08:49:00 AM EDT MEDENT ([facility]) Name Value Range Interpretation Code Description Data Reshma rce(s) Supporting Document(s) Cholesterol [Mass/volume] in Serum or Plasma 129 mg/dL 100-199 MEDENT ([facility]) Triglyceride [Mass/volume] in Serum or Plasma 121 mg/dL 0-149 MEDENT ([facility]) Cholesterol in HDL [Mass/volume] in Serum or Plasma 41 mg/dL MEDENT ([facility]) Laboratory test finding (navigational concept) 66 mg/dL 0-99 MEDENT ([facility]) Laboratory test finding (navigational concept) 22 mg/dL 5-40 MEDENT ([facility]) Comment: Laboratory test result MEDENT ([facility]) ID Date Data Source [id number] 03/03/2020 08:49:00 AM EDT MEDENT ([facility]) Name Value Range Interpretation Code Description Data Reshma rce(s) Supporting Document(s) WBC 7.8 x10E3/uL 3.4-10.8 MEDENT ([facility]) Hemoglobin [Mass/volume] in Blood 11.7 g/dL 11.1-15.9 MEDENT ([facility]) Hematocrit [Volume Fraction] of Blood by Automated count 35.5 % 3 4.0-46.6 MEDENT ([facility]) RBC 3.93 x10E6/uL 3.77-5.28 MEDENT ([facility]) Erythrocyte mean corpuscular volume [Entitic volume] by Auto mated count 90 fL 79-97 MEDENT ([facility]) Erythrocyte mean corpuscular hemoglobin concentration [Mass/volume] by Automated count 33.0 g/dL 31.5-35.7 MEDENT ([facility]) Erythrocyte mean corpuscular hemoglobin [Entitic mass] by Automated count 29.8 pg 26.6-33.0 MEDENT ([facility]) Platelets [#/volume] in Blood by Automated count 197 x10E3/uL 150-450 [facility] ([facility]) Erythrocyte distribution width [Ratio] by Automated count 12.9 % 11.7-15.4 [facility] ([facility]) Nucleated erythrocytes/100 leukocytes [Ratio] in Blood by Automated count Laboratory test result [facility] ([facility]) ID Date Data Source [id number] 03/03/2020 08:49:00 AM EDT MEDENT ([facility] Name Value Range Interpretation Code Description Data Reshma rce(s) Supporting Document(s) Glucose 128 mg/dL 65-99 MEDENT ([facility] Urea nitrogen [Mass/volume] in Serum or Plasma 17 mg/dL 8-27 MEDENT ([facility]) Creatinine 0.73 mg/dL 0.57-1.00 MEDENT ([facility]) Urea nitrogen/Creatinine [Mass Ratio] in Serum or Plasma 23 1 2-28 MEDENT ([facility]) eGFR If Africn Am 103 mL/min/1.73 MEDENT ([facility]) eGFR If NonAfricn Am 89 mL/min/1.73 MEDE NT ([facility]) Chloride [Moles/volume] in Serum or Plasma 101 mmol/L 96-106 MEDENT ([facility]) Potassium [Moles/volume] in Serum or Plasma 4.1 mmol/L 3.5-5.2 MEDENT ([facility]) Sodium 145 mmol/L 134-144 MEDENT ([facility]) Calcium [Mass/volume] in Serum or Plasma 9.0 mg/dL 8.7-10.3 MEDENT ([facility]) Carbon dioxide, total [Moles/volume] in Serum or Plasma 30 mmol/L 20 -29 MEDENT ([facility]) ID Date Data Source [id number] 03/04/2020 06:05:00 AM EDT [facility] Name Value [...] x10E3/uL 150-450 [facility] ID Date Data Source [id number] 03/04/2020 06:05:00 AM EDT [facility] Name Value [...] mg/dL 8.7-10.3 [facility] ID Date Data Source [id number] 03/04/2020 06:05:00 AM EDT [facility] Name Value [...] is a former smoker MEDENT ([facility]) Smoking 12/17/2020 12:00:00 AM EDT Patient is a former smoker completed Patient is a former smoker MEDENT ([facility]) Vital Signs ID Date Data Source [id number] Name Value Range Interpretation Code Description Data Source(s) Systolic blood pressure--sitting 128 mm[Hg] 128 mm[Hg] MEDENT ([facility]) Ra, large cuff Diastolic blood pressure--sitting 70 mm[Hg] 70 mm[Hg] MEDENT ([facility]) Ra, large cuff Body weight 187.00 [lb_av] 187.00 [lb_av] MEDEN T ([facility]) Body height 63 [in_i] 63 [in_i] MEDENT ([facility]) 5'3" Body mass index (BMI) [Ratio] 33.1 kg/m2 33.1 k g/m2 MEDENT ([facility]) Heart rate 74 /min 74 /min MEDENT ([facility]) Systolic blood pressure 120 mm[Hg] 120 mm[Hg] M EDENT ([facility]) Diastolic blood pressure 62 mm[Hg] 62 mm[Hg] MEDENT ([facility]) Systolic blood pressure 140 mm[Hg] 140 mm[Hg] M EDENT ([facility]) Diastolic blood pressure 80 mm[Hg] 80 mm[Hg] MEDENT ([facility]) Heart rate 68 /min 68 /min MED[facility] ([facility] Body temperature 96.1 [degF] 96.1 [degF] MEDENT ([facility]) Body height 63 [in_i] 63 [in_i] MEDENT ([facility] 5'3" Body weight 188.00 [lb_av] 188.00 [lb_av] MEDEN T ([facility]) Body weight 85.277 kg 85.277 kg MEDENT ([facility] Body mass index (BMI) [Ratio] 33.3 kg/m2 33.3 k g/m2 MEDENT ([facility]) Diastolic blood pressure 78 mm[Hg] 78 mm[Hg] LIZANDRO ([facility]) Body height 63 [in_i] 63 [in_i] LIZANDRO ([facility]) Body mass index (BMI) [Ratio] 33.5 kg/m2 33.5 k g/m2 LIZANDRO ([facility]) Systolic blood pressure 128 mm[Hg] 128 mm[Hg] A THENA ([facility]) Body weight 3028 [oz_av] 3028 [oz_av] LIZANDRO ([facility]) Body height 63 [in_i] 63 [in_i] LIZANDRO ([facility]) Body height 63 [in_i] 63 [in_i] LIZANDRO ([facility]) Systolic blood pressure 124 mm[Hg] 124 mm[Hg] M FREDERICK ([facility], ) Body surface area Derived from formula 1.83 m2 1.83 m2 REINALDO (Health system) Diastolic blood pressure 83 mm[Hg] 83 mm[Hg] MEDENT (Health system) Body height 60 [in_i] 60 [in_i] [facility] Body weight 190.00 [lb_av] 190.00 [lb_av] MEDEN T (Health system) Body mass index (BMI) [Ratio] 37.1 kg/m2 37.1 k g/m2 [facility] [place] body weight 100 [lb_av] 100 [lb_av] MEDEN T (Health system) Body weight 86.184 kg 86.184 kg [facility] Body height 63 [in_i] 63 [in_i] MEDENT ([facility]) 5'3" Heart rate 74 /min 74 /min MEDENT ([facility]) Systolic blood pressure--sitting 112 mm[Hg] 112 mm[Hg] MEDENT ([facility]) Ra, large cuff Diastolic blood pressure--sitting 60 mm[Hg] 60 mm[Hg] MEDENT ([facility]) Ra, large cuff Body mass index (BMI) [Ratio] 33.8 kg/m2 33.8 k g/m2 MEDENT ([facility]) Body weight 191.00 [lb_av] 191.00 [lb_av] MEDEN T ([facility]) Systolic blood pressure 141 mm[Hg] 141 mm[Hg] Nena EDENT (Health system) Diastolic blood pressure 76 mm[Hg] 76 mm[Hg] [facility] Heart rate 76 /min 76 /min [facility] ([facility]) Body height 60 [in_i] 60 [in_i] [facility] ([facility] 5'0" Body weight 191.00 [lb_av] 191.00 [lb_av] MEDEN T (Health system) Body mass index (BMI) [Ratio] 37.3 kg/m2 37.3 k g/m2 [facility] (Health system) [place] body weight 100 [lb_av] 100 [lb_av] MEDEN T (Health system) Body weight 86.638 kg 86.638 kg [facility] ([facility]) Body surface area Derived from formula 1.83 m2 1.83 m2 [facility] (Health system) Diastolic blood pressure 84 mm[Hg] 84 mm[Hg] LIZANDRO ([facility]) Body height 63 [in_i] 63 [in_i] LIZANDRO ([facility]) Body mass index (BMI) [Ratio] 35.1 kg/m2 35.1 k g/m2 LIZANDRO ([facility]) Systolic blood pressure 137 mm[Hg] 137 mm[Hg] A THENA ([facility]) Body weight 3170 [oz_av] 3170 [oz_av] LIZANDRO ([facility]) Diastolic blood pressure 84 mm[Hg] 84 mm[Hg] LIZANDRO ([facility]) Body height 63 [in_i] 63 [in_i] LIZANDRO ([facility]) Body mass index (BMI) [Ratio] 35.1 kg/m2 35.1 k g/m2 LIZANDRO ([facility]) Systolic blood pressure 137 mm[Hg] 137 mm[Hg] A THENA ([facility]) Body weight 3170 [oz_av] 3170 [oz_av] LIZANDRO ([facility]) Diastolic blood pressure 84 mm[Hg] 84 mm[Hg] LIZANDRO ([facility]) Body height 63 [in_i] 63 [in_i] LIZANDRO ([facility]) Body mass index (BMI) [Ratio] 35.1 kg/m2 35.1 k g/m2 LIZANDRO ([facility]) Systolic blood pressure 137 mm[Hg] 137 mm[Hg] A TEJA ([facility]) Body weight 3170 [oz_av] 3170 [oz_av] LIZANDRO ([facility]) Body mass index (BMI) [Ratio] 38.1 kg/m2 38.1 k g/m2 MEDENT ([facility], ) [place] body weight 100 [lb_av] 100 [lb_av] MEDEN T ([facility], ) Body weight 88.509 kg 88.509 kg MEDENT ([facility], ) Systolic blood pressure 136 mm[Hg] 136 mm[Hg] M EDENT ([facility], ) Diastolic blood pressure 75 mm[Hg] 75 mm[Hg] MEDENT ([facility], ) Body height 60 [in_i] 60 [in_i] MEDCRISTY ([facility], ) 5'0" Body weight 195.12 [lb_av] 195.12 [lb_av] MEDEN T ([facility], ) Diastolic blood pressure 50 mm[Hg] 50 mm[Hg] LIZANDRO ([facility]) Body height 61 [in_i] 61 [in_i] LIZANDRO ([facility]) Body mass index (BMI) [Ratio] 36.86 kg/m2 36.86 kg/m2 LIZANDRO ([facility]) Systolic blood pressure 109 mm[Hg] 109 mm[Hg] A THENA ([facility]) Body weight 3110.4 [oz_av] 3110.4 [oz_av] ATHEN A ([facility]) Diastolic blood pressure 50 mm[Hg] 50 mm[Hg] LIZANDRO ([facility]) Body height 61 [in_i] 61 [in_i] LIZANDRO ([facility]) Body mass index (BMI) [Ratio] 36.86 kg/m2 36.86 kg/m2 LIZANDRO ([facility]) Systolic blood pressure 109 mm[Hg] 109 mm[Hg] Stephany THENStephany ([facility]) Body weight 3110.4 [oz_av] 3110.4 [oz_av] MANDEEP Hammond ([facility]) Patient Treatment Plan of Care Planned Activity Planned Date Details Description Data Source (s) benzonatate 100 MG Oral Capsule LIZANDRO ([facility]) benzonatate 100 MG Oral Capsule LIZANDRO ([facility]) benzonatate 100 MG Oral Capsule LIZANDRO ([facility])
--- NOTE | 2021-04-20 03:49 | HPEPDOC ---
General Date of Admission 04/20/21 Date of Service: Apr 20, 2021 Chief Complaint The patient is a 60-year-old female admitted with a reason for visit of Weakness. Source: Patient History of Present Illness Celina Vallejo is a 60-year-old female with significant history of CHF, LA, COPD, paroxysmal a flutter on Coumadin and hypertension who presents with complaints of shortness of breath. Patient endorses malaise, fatigue, weakness cough, shortness of breath and dizziness x3 days. Patient reports today her shortness of breath and dizziness worsened acutely and she felt she was going to pass out. EMS was called by someone she had visiting at her house. EMS reportedly found patient wheezing with SPO2 in the 70s. Asked patient regarding timeline of symptoms as varying report from EMS and ED. When asked if it was 6 days or 3 days patient reports 3 days of symptoms. She denies sick contacts. Documented in ED patient room air SPO2 76%. Patient satting 99% on 5 L nasal cannula. She reports much improvement on oxygen. Initial work-up chest x-ray small pleural effusion, without focal infiltrates. Initial metabolic work-up unremarkable. PCR positive for Covid. ABG shows pH 7.34, PO2 138.3, PCO2 65.3. Pt denies palpitations, chest pain, n/v/d, abdominal pain, or sensory changes. Patient does report that she is not vaccinated. Patient will be admitted for further evaluation management of present concerns. Home Medications Scheduled Aspirin (Aspirin EC) 81 Mg Tablet.dr, 81 MG PO DAILY, (Reported) Atorvastatin Calcium (Atorvastatin Calcium) 80 Mg Tab, 80 MG PO QHS, (Reported) Carvedilol (Carvedilol) 25 Mg Tablet, 25 MG PO BID, (Reported) Ferrous Sulfate (Ferrous Sulfate) 325 Mg Tab, 325 MG PO BID, (Reported) Furosemide (Furosemide) 20 Mg Tablet, 20 MG PO BID, (Reported) Sacubitril/Valsartan (Entresto 97 mg-103 mg Tablet) 1 Each Tablet, 1 TAB PO BID, (Reported) Warfarin Sodium (Warfarin Sodium) 3 Mg Tab, 3 MG PO QPM, (Reported) TAKES WITH 1MG FOR 4MG TOTAL Warfarin Sodium (Warfarin Sodium) 1 Mg Tablet, 1 MG PO QPM, (Reported) TAKES WITH 3MG FOR 4MG TOTAL Scheduled PRN Nitroglycerin (Nitroglycerin) 0.4 Mg Sub, 0.4 MG SL NITRO PRN for CHEST PAIN, (Reported) Allergies Coded Allergies: No Known Allergies (Unverified , 05/07/17) Past Medical History Medical History LA, CHF, CAD, PVD, oxazole a flutter, sick sinus syndrome, postmenopausal, hiatal hernia, smoker, hypertension, COPD, varicose veins Surgical History AICD, pacemaker, vein graft March 2017, colonoscopy and endoscopy, oophorectomy, Family History Significant Family History: Diabetes, Hypertension Father and motherhypertension, sister and motherdiabetes Social History * Smoker: former Smoker (Quit 5 years ago) Alcohol: Denies Drugs: denies Recent Travel/Sick Contacts: Denies: Recent travel, Recent sick contacts Unmarried A-FIB/CHADSVASC A-FIB History Current/History of A-Fib/PAF?: Yes Current PO Anticoag Therapy: Yes Review of Systems Constitutional: Reports: Chills, Fever, Malaise, Fatigue; Denies: Night Sweats Eyes: Denies: Pain, Vision change ENT: Denies: Head Aches, Ear Pain, Dysphagia Skin: Denies: Rash, Lesions, Breakdown Pulmonary: Reports: Dyspnea, Cough Cardiovascular: Reports: Lt Headedness; Denies: Chest Pain, Palpitations, Orthopnea, Paroxysmal Noc. Dyspnea Gastrointestinal: Denies: Nausea, Vomiting, Abdominal Pain, Diarrhea Genitourinary: Denies: Dysuria, Frequency, Incontinence, Retention Hematologic: Denies: Bruising, Bleeding Excessively Musculoskeletal: Denies: Neck Pain, Back Pain, Joint Pain, Muscle Pain, Spasms Neurological: Denies: Weakness, Numbness, Change in speech, Confusion Psych: Reports: Mood Normal; Denies: Depression, Memory Issues Physical Examination General Exam: Positive: Alert, Cooperative, No Acute Distress Eye Exam: Positive: PERRLA, Conjunctiva & lids normal, EOMI; Negative: Sclera icteric ENT Exam: Positive: Atraumatic, Mucous membr. moist/pink, Pharynx Normal Neck Exam: Positive: Supple; Negative: JVD, thyromegaly Chest Exam: Positive: Wheezing Heart Exam: Positive: Regular Rhythm, Normal S1, Normal S2; Negative: Murmurs, Rubs Telemetry: Positive: Sinus, AV Block (First-degree) Abdomen Exam: Positive: Normal bowel sounds, Soft; Negative: Tenderness, Hepatospenomegaly Extremity Exam: Positive: Normal pulses; Negative: Clubbing, Cyanosis, Edema Skin Exam: Positive: Nl turgor and temperature; Negative: Breakdown, Lesion Neuro Exam: Positive: Normal Gait, Normal Speech, Cranial Nerves 3-12 NL, Reflexes 2+ Psych Exam: Positive: Mental status NL, Anxiety, Oriented x 3 Vital Signs Vital Signs Date Time Temp Pulse Resp B/P (MAP) Pulse Ox O2 Delivery O2 Flow Rate FiO2 04/20/21 00:32 5.0 04/19/21 23:47 96.7 80 18 142/60 (87) 76 Room Air Laboratory Data Labs 24H Laboratory Tests 2 04/20/21 00:24: Immature Granulocyte % (Auto) 0.5, Neutrophils (%) (Auto) 72.8H, Lymphocytes (%) (Auto) 16.9L, Monocytes (%) (Auto) 9.3H, Eosinophils (%) (Auto) 0.1, Basophils (%) (Auto) 0.4, Neutrophils # (Auto) 6.0, Lymphocytes # (Auto) 1.4L, Monocytes # (Auto) 0.8, Eosinophils # (Auto) 0.0, Basophils # (Auto) 0.0, Nucleated Red Blood Cells % (auto) 0.9H, Anion Gap 8, Glomerular Filtration Rate 56.5, Lactic Acid Level 1.3, Calcium Level 8.3L, Total Bilirubin 0.4, Direct Bilirubin 0.2, Aspartate Amino Transf (AST/SGOT) 24, Alanine Aminotransferase (ALT/SGPT) 15, Alkaline Phosphatase 76, Total Creatine Kinase 144, Creatine Kinase MB 1.6, Creatine Kinase MB Relative Index 1.11, Troponin I 0.15H, EH-Rrf-Y-Type Natriuretic Peptide 7057H, Total Protein 6.4, Albumin 2.7L, Albumin/Globulin Ratio 0.7L 04/20/21 01:05: Blood Gas Bicarbonate Standard 30.8H, Arterial Blood pH 7.346L, Arterial Blood Partial Pressure CO2 65.3*H, Arterial Blood Partial Pressure O2 138.3H, Arterial Blood Total CO2 36.9H, Arterial Blood HCO3 34.9H, Arterial Blood Base Excess 6.9H, Arterial Blood Oxygen Saturation 98.4 CBC/BMP Laboratory Tests 04/20/21 00:24 Microbiology Microbiology 04/20/21 Respiratory Virus Panel (PCR) ([facility]) - Final, Complete SARS-CoV-2 (COVID 19) Assessment/Plan 1. Acute respiratory failure with hypoxia and hypercapnia secondary to Covid: In setting of patient with underlying COPD -Monitor pt, respiratory status -Oxygen to keep SPO2 greater than 88% -Antitussives -Scheduled and as needed breathing treatments -Decadron 6mg IV Daily x10 days -Remdesivir bolus then daily x5 days -A.m. labs -Patient with elevated procalcitonin consider empiric coverage 2. Chronic combined CHF:-Last echo on file EF 25%; grade 1 diastolic dysfunction -Monitor fluid balance, I's and O's, urinary output -Patient appears euvolemic -Plan to Continue home medications -Monitoring creatinine closely; A.m. labs 3. Paroxysmal a flutter inpatient with pacemaker/AICD: Patient rate controlled. -Monitor on telemetry. -Continue home medications. -Will check PT/INR to continue Coumadin. 4. HTN: Monitor BP in setting of above. Continue home medications once reconciled. 5. HDL: Continue home statin DVT prophylaxis: SCDs, Asa and Coumadin CODE STATUS: Full code; Healthcare proxy is designated to be patient's daughter whom she called Celia but chart review shows Brittany. We will need to clarify of contact name and number. Additionally, patient would benefit from further MOLST discussion. She has low EF and high risk for decompensation given her comorbidities in the setting of Covid. Broached the subject of the degree of heart failure she has and there is health literacy concern regarding this topic. Patient would benefit from further education and continued goals of care discussion during course of care pending her response to treatment.. During exam, patient did have improvement was able to be weaned down to 3 L nasal cannula from 5 L. Disposition planning: Home pending clinical improvement Plan / VTE VTE Prophylaxis Ordered?: Yes TERENCE HAMM NP Apr 20, 2021 03:44
[2021-04-20 03:53] LABS: INR 1.71; PROTHROMBIN TIME 20.5 SECONDS (12.7-14.5)
[2021-04-20 03:54] LABS: PARTIAL THROMBOPLASTIN TIME 56.7 SECONDS (25.9-37.0)
[2021-04-20 03:56] LABS: D-DIMER QUANT 276.55 ng/ml (<500)
[2021-04-20] MEDS ORDERED: ALBUTEROL SULFATE 2.5 MG/0.5 ML INH NEB SOLN NEB PRN (04:50)
[2021-04-20 05:20] VITALS: BP 116/58
[2021-04-20] MEDS ORDERED: REMDESIVIR 200 MG in NS 250 ML IV ONE (06:00)
[2021-04-20] MEDS: IPRATROPIUM 0.5MG/ALBUTEROL 2.5MG INH SOL UD 3ML (DUONEB) NEB SCH ×3 (07:36→20:00)
[2021-04-20] MEDS ORDERED: SODIUM CHLORIDE 0.9% INJ 10 ML SYR IV ONE (08:00)
[2021-04-20] MEDS: CARVedilol 12.5 MG TAB PO SCH ×3 (09:00→20:30)
[2021-04-20] MEDS: ASPIRIN 81MG ENTERIC TABLET PO SCH (09:25)
[2021-04-20] MEDS: FERROUS SULFATE 325MG TAB PO SCH ×2 (09:25→20:24)
[2021-04-20] MEDS: guaiFENesin ER 600 MG TAB PO SCH ×2 (09:26→20:24)
[2021-04-20] MEDS: FUROSEMIDE 20 MG TAB PO SCH ×2 (09:26→18:21)
[2021-04-20] MEDS: dexameTHASONE 4 MG/ML 1ML VIAL (J1100 PER 1MG) IV SCH (09:26)
[2021-04-20 09:27] VITALS: BP 101/49
[2021-04-20 10:25] LABS: INR 1.55
--- NOTE | 2021-04-20 10:36 | IPNPDOC ---
Text Note Date of Service The patient was seen on 04/20/21. NOTE Subjective: Ms. Vallejo is evaluated at bedside. She states that she is breathing comfortably and was able to eat breakfast this morning which has been the most she has eaten in the last week. When questioned about medication compliance, she reports that she has no taken any of her medications except for warfarin in the last four days because she "did not feel like it". She reports lack of appetite for the last week with accompanying fatigue, weakness, cough, and dizziness for the last three days. She denies fevers, chills, chest pain, weight gain, increase in sputum production, or increased shortness of breath. She eats a low sodium diet and restricts her fluid intake to <1500cc a day. Objective: Vitals: See below General: an elderly female lying in bed in no acute distress, she has just finished eating breakfast HEENT: PERRLA, EOMI, mucous membranes are moist and pink, no lymphadenopathy, neck is supple Cardiovascular: rate is controlled at 62, regular paced rhythm. No murmurs or gallops. Pulmonary: equal air intake bilaterally, faint end expiratory wheezes appreciated. No rhonchi or rales noted. Abdomen: soft, nontender to palpation, no organomegaly, no suprapubic tenderness, positive bowel sounds. Extremities: no edema noted, varicose veins seen on bilateral lower extremities Skin: warm and dry Psych: alert and oriented x 4 Assessment: Ms. Vallejo is a 60 year old female with a past medical history of coronary artery disease, ischemic cardiomyopathy, chronic systolic and diastolic heart failure, atrial flutter on warfarin, hypertension, peripheral vascular disease, sick sinus syndrome s/p AICD, history of NSTEMI, hyperlipidemia, and COPD who presented to the ED for weakness, fatigue, cough, and loss of appetite for the last three days. She was admitted for acute respiratory failure in the setting of COVID 19. Plan: Acute hypoxemic hypercapnic respiratory failure secondary to COVID -patient has a history of COPD -patient presented to the ED with spO2 of 76% -current oxygen saturation of 94 on 4L O2 -continue incentive spirometry and supportive care -continue remdesivir -continue decadron 6mg -ABG in ED: pH 7.3 pCO2 65.3 -repeat ABG ordered for AM -Ferritin elevated Elevated troponin -likely secondary to type 2 PR demand ischemia -presented with troponin of 0.15, repeat troponin 0.08 Chronic systolic and diastolic congestive heart failure -Patient follows with Dr. Núñez outpatient -Echocardiogram in 2017 states patient had EF 25% s/p AICD -patient drinks <1500cc fluid per day -continue 2gram sodium diet -patient does not appear fluid overloaded on PE -BNP at baseline of 5000 -Chest x-ray: chronic cardiomegaly Atrial flutter -rate controlled 80BPM -continue telemetry Hypertension -patient has had soft blood pressure measurements -continue with home medications, will hold for BP <100 systolic Coronary artery disease -s/p NSTEMI 2016 with unsuccessful PCI -continue aspirin and coumadin Peripheral vascular disease -s/p left femoral artery cannulation with left iliofemoral angiogram Hx of sick sinus syndrome -s/p AICD placement 2016 -rate controlled at 80 DVT prophylaxis: -continue warfarin and aspirin Disposition: Will continue to monitor patient's respiratory status. Repeat ABG and PT/INR in AM. VS,Fishbone, I+O VS, Fishbone, I+O Laboratory Tests 04/20/21 00:24 Vital Signs Date Time Temp Pulse Resp B/P (MAP) Pulse Ox O2 Delivery O2 Flow Rate FiO2 04/20/21 05:20 98.0 62 20 116/58 (77) 94 Nasal Cannula 3.0 GME ATTESTATION GME ATTESTATION My faculty preceptor for this patient encounter was physically present during the encounter and was fully available. All aspects of the patient interview, examination, medical decision making process, and medical care plan development were reviewed and approved by the faculty preceptor. The faculty preceptor is aware and concurs with the plan as stated in the body of this note and will attest to such by his/her cosignature. ATTENDING NOTE I, Rosmery Denis MD, have independently examined this patient and performed my own physical exam with the medical students and residents in the room with me, as well as reviewed the documentation and edited where necessary. I have discussed in detail with the resident and student the findings and plan of treatment as documented and edited their note. I agree with their findings and treatment plan and have edited their documentation. CHE LOPEZ DO Apr 20, 2021 10:20 ROSMERY DENIS MD Apr 23, 2021 15:04
[2021-04-20] MEDS: ENTRESTO 97-103MG TABLET (SACUBITRIL/VALSARTAN) PO SCH ×2 (12:03→20:24)
[2021-04-20 12:17] LABS: MB/CK RELATIVE INDEX 1.48 (< OR =4); TROPONIN I 0.08 NG/ML (< 0.10)
[2021-04-20 12:39] LABS: ALBUMIN 2.7 GM/DL (3.2-5.2); BILIRUBIN,DIRECT 0.2 MG/DL (0.0-0.2); BILIRUBIN,TOTAL 0.4 MG/DL (0.2-1.0); C REACTIVE PROTEIN QUANTITATIV 5.83 MG/DL (0.00-0.30); TOTAL PROTEIN 6.2 GM/DL (6.4-8.2); TROPONIN I 0.08 NG/ML (< 0.10)
[2021-04-20 14:00] VITALS: BP 112/50
[2021-04-20] MEDS ORDERED: WARFARIN SOD 2MG TAB PO ONE (18:00)
[2021-04-20] MEDS: WARFARIN SOD 4MG TAB PO SCH (18:21)
--- NOTE | 2021-04-20 19:26 | ECGEPIP ---
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 : 1960 Requested By: NATALYA Wright Order Number: [id number] Reading MD: Jose Ramon Avilez Measurements Intervals [place] Rate: 66 P: RI: 264 QRS: -15 QRSD: 102 T: 7 QT: 458 QTc: 480 Interpretive Statements Sinus rhythm with 1st degree AV block leftward axis Minimal voltage criteria for LVH, may be normal variant ( Pedro Pablo product ) Possible Lateral infarct , age undetermined Baseline wandering may affect reading Baseline artifact may affect reading Delayed R wave progression Prolonged QTc cw 05/08/17 rate increased no atrial electronic spikes seen however poor quality ecg Nonspecific ST T wave changes Electronically Signed on 04-20-2021 19:25:42 EST by Jose Ramon Avilez
[2021-04-20] MEDS: ATORVASTATIN 20 MG TAB PO SCH (20:24)
[2021-04-20 23:39] VITALS: BP 90/50
[2021-04-21] MEDS: IPRATROPIUM 0.5MG/ALBUTEROL 2.5MG INH SOL UD 3ML (DUONEB) NEB SCH ×3 (02:00→20:54)
[2021-04-21] MEDS: REMDESIVIR 100 MG in NS 250 ML IV SCH (05:11)
[2021-04-21 06:54] LABS: ABG BASE EXCESS 3.7 (-2.0-2.0); ABG HCO3 31.3 MEQ/L (22.0-26.0); ABG O2 SATURATION 93.8 % (95.0-99.0); ABG PARTIAL PRESSURE O2 69.8 mmHg (75.0-100.0); ABG STANDARD HCO3 27.7 MEQ/L (22.0-26.0); ABG TOTAL CO2 33.2 MEQ/L (23.0-31.0); ABG pH (ARTERIAL) 7.333 UNITS (7.350-7.450)
[2021-04-21 06:57] LABS: ABG PARTIAL PRESSURE CO2 60.4 mmHg (35.0-45.0)
[2021-04-21 07:00] VITALS: BP 101/61
[2021-04-21] MEDS: SODIUM CHLORIDE 0.9% INJ 10 ML SYR IV SCH (07:00)
[2021-04-21 07:59] LABS: BASO % 0.1 % (0.0-1.0); HEMATOCRIT 44.9 % (36.0-47.0); HEMOGLOBIN 13.9 g/dl (12.0-15.5); LYMPH # 0.8 10^3/uL (1.5-5.0); LYMPH % 5.2 % (24.0-44.0); MEAN CORPUSCULAR HEMOGLOBIN 29.3 pg (27.0-33.0); MEAN CORPUSCULAR VOLUME 94.7 fl (80.0-96.0); MONO # 0.8 10^3/uL (0.0-0.8); MONO % 4.7 % (2.0-8.0); NEUTROPHILS # 14.2 10^3/uL (1.5-8.5); NEUTROPHILS % 89.2 % (36.0-66.0); PLATELET COUNT, AUTOMATED 158 10^3/uL (150-450); RED BLOOD COUNT 4.74 10^6/uL (4.00-5.40); WHITE BLOOD COUNT 15.9 10^3/uL (4.0-10.0)
[2021-04-21 08:09] LABS: ALBUMIN 2.2 GM/DL (3.2-5.2); BILIRUBIN,DIRECT 0.1 MG/DL (0.0-0.2); BILIRUBIN,TOTAL 0.4 MG/DL (0.2-1.0); CALCIUM LEVEL 8.4 MG/DL (8.8-10.2); CREATININE FOR GFR 1.07 MG/DL (0.55-1.30); GLOMERULAR FILTRATION RATE 55.3 (>45); MAGNESIUM LEVEL 2.1 MG/DL (1.8-2.4); POTASSIUM SERUM 3.5 MEQ/L (3.5-5.1); TOTAL PROTEIN 6.4 GM/DL (6.4-8.2)
[2021-04-21 08:14] LABS: INR 1.87; PROTHROMBIN TIME 21.9 SECONDS (12.7-14.5)
[2021-04-21] MEDS: ASPIRIN 81MG ENTERIC TABLET PO SCH (09:58)
[2021-04-21] MEDS: dexameTHASONE 4 MG/ML 1ML VIAL (J1100 PER 1MG) IV SCH (09:58)
[2021-04-21] MEDS: FERROUS SULFATE 325MG TAB PO SCH ×2 (09:58→21:02)
[2021-04-21] MEDS: FUROSEMIDE 20 MG TAB PO SCH ×2 (09:58→18:03)
[2021-04-21] MEDS: ENTRESTO 97-103MG TABLET (SACUBITRIL/VALSARTAN) PO SCH ×2 (09:58→20:24)
[2021-04-21] MEDS: guaiFENesin ER 600 MG TAB PO SCH ×2 (09:58→21:02)
[2021-04-21 10:00] VITALS: BP 106/49
[2021-04-21] MEDS: CARVedilol 12.5 MG TAB PO SCH ×2 (10:02→20:23)
--- NOTE | 2021-04-21 16:16 | IPNPDOC ---
Text Note Date of Service The patient was seen on 04/21/21. NOTE Subjective: Patient is examined at bedside. Patient is equally as alert as yesterday and is resting comfortably in bed. She states that she is feeling "a little better" than yesterday and "has more energy". She continues to have a good appetite and is able to ambulate to the bathroom without dizziness or lightheadedness. She has an oxygen saturation of 93% on 4L NC. Patient denies chest pain, shortness of breath, fevers, or chills. I attempted to call patient's daughter Brittany, her voicemail box was not set up. I will try to call again tomorrow to update her on her mother's status. Objective: Vitals: See below General: Ms. Vallejo is resting comfortably in bed about to eat her breakfast. HEENT: PERRLA, EOMI, mucous membranes are moist and pink, no lymphadenopathy Neck: supple Cardiovascular: rate is controlled at 70, regular paced rhythm. No murmurs or gallops. Pulmonary: equal air intake bilaterally, No rhonchi or rales noted. Faint expiratory wheezes appreciated bilaterally Abdomen: soft, nontender to palpation, no organomegaly, no suprapubic tenderness , positive bowel sounds. Extremities: no edema noted Skin: warm and dry Psych: alert and oriented x 4 Assessment: Ms. Vallejo is a 60 year old female with a past medical history of coronary artery disease, ischemic cardiomyopathy, chronic systolic and diastolic heart failure, atrial flutter on warfarin, hypertension, peripheral vascular disease, sick sinus syndrome s/p AICD, history of NSTEMI, hyperlipidemia, and COPD who presented to the ED for weakness, fatigue, cough, and loss of appetite for the last three days. She was admitted for acute respiratory failure in the setting of COVID 19. Plan: Acute hypoxemic hypercapnic respiratory failure secondary to COVID -patient has a history of COPD -patient presented to the ED with spO2 of 76% -current oxygen saturation of 91 on 4L O2 -continue remdesivir, decadron, incentive spirometry and supportive care -repeat ABG this AM improved from yesterday -patient is improving clinically and appears to be feeling better today Chronic systolic and diastolic congestive heart failure -Patient follows with Dr. Núñez outpatient -Echocardiogram in 2017 states patient had EF 25% s/p AICD -patient drinks <1500cc fluid per day -continue 2gram sodium diet -patient does not appear fluid overloaded on PE -BNP at baseline of 5000 -Chest x-ray: chronic cardiomegaly Subtherapeutic INR -patient is on warfarin, she does not have mechanical valves or recurrent Myocardial infarctions -Her INR range is 2-3 -patient given 6mg yesterday evening which improved INR from 1.5 to 1.87 -will give another 6mg this evening to bring patient into therapeutic range -She usually takes 4mg q day Atrial flutter -rate controlled 70 BPM -continue telemetry Hypertension -patient has had soft blood pressure measurements -continue with carvedilol, furosemide, and entresto -will hold meds for BP <100 systolic Coronary artery disease -s/p NSTEMI 2015 with unsuccessful PCI -continue aspirin Peripheral vascular disease -s/p left femoral artery cannulation with left iliofemoral angiogram -continue coumadin Hx of sick sinus syndrome -s/p AICD placement 2015 -rate controlled at 70 Elevated troponin -likely secondary to type 2 [place] demand ischemia -presented with troponin of 0.15, repeat troponin 0.08 DVT prophylaxis: -continue warfarin and aspirin Disposition: patient is improving clinically. Will continue on remdesivir and decadron and monitor respiratory status. I attempted to call patient's daughter today, she did not answer. I will try to call again tomorrow. VS,Fishbone, I+O VS, Fishbone, I+O Laboratory Tests 04/21/21 07:07 Vital Signs Date Time Temp Pulse Resp B/P (MAP) Pulse Ox O2 Delivery O2 Flow Rate FiO2 04/21/21 10:02 70 106/49 04/21/21 07:00 97.7 20 91 Nasal Cannula 4.0 I&O- Last 24 Hours up to 6 AM 04/21/21 06:00 Intake Total 240 ml Balance 240 ml GME ATTESTATION GME ATTESTATION My faculty preceptor for this patient encounter was physically present during the encounter and was fully available. All aspects of the patient interview, examination, medical decision making process, and medical care plan development were reviewed and approved by the faculty preceptor. The faculty preceptor is aware and concurs with the plan as stated in the body of this note and will attest to such by his/her cosignature. ATTENDING NOTE I, Rosmery Denis MD, have independently examined this patient and performed my own physical exam with the medical students and residents in the room with me, as well as reviewed the documentation and edited where necessary. I have discussed in detail with the resident and student the findings and plan of treatment as documented and edited their note. I agree with their findings and treatment plan and have edited their documentation. CHE LOPEZ DO Apr 21, 2021 16:16 ROSMERY DENIS MD Apr 23, 2021 15:15
[2021-04-21] MEDS ORDERED: WARFARIN SOD 2MG TAB PO ONE (17:00)
[2021-04-21] MEDS: WARFARIN SOD 4MG TAB PO SCH (18:01)
[2021-04-21 20:00] VITALS: BP_SYST 72; BP_SYST 78; BP_DIAS 32; O2SAT 96
[2021-04-21] MEDS ORDERED: NS 500 ML IV ONE ×2 (20:20→22:45)
[2021-04-21] MEDS: ATORVASTATIN 20 MG TAB PO SCH (21:02)
[2021-04-21 21:32] VITALS: BP 96/47
[2021-04-21 22:42] VITALS: BP 94/38
[2021-04-21 23:20] VITALS: BP_SYST 86; BP_DIAS 28; BP_DIAS 32
[2021-04-21] MEDS ORDERED: MIDODRINE 5 MG TAB PO ONE (23:25)
[2021-04-21] MEDS ORDERED: NS 1,000 ML IV ONE (23:25)
[2021-04-21 23:29] LABS: HEMATOCRIT 33.8 % (36.0-47.0); MEAN CORPUSCULAR HEMOGLOBIN 29.9 pg (27.0-33.0); MEAN CORPUSCULAR HGB CONC 34.3 g/dl (32.0-36.5); MEAN CORPUSCULAR VOLUME 87.1 fl (80.0-96.0); PLATELET COUNT, AUTOMATED 220 10^3/uL (150-450); RED BLOOD COUNT 3.88 10^6/uL (4.00-5.40); WHITE BLOOD COUNT 8.2 10^3/uL (4.0-10.0)
[2021-04-21 23:31] LABS: VENOUS BASE EXCESS 1.1 (-2.0-2.0); VENOUS O2 SATURATION 98.9 % (60.0-80.0); VENOUS PARTIAL PRESSURE CO2 28.5 mmHg (38.0-50.0); VENOUS PH 7.525 UNITS (7.330-7.430); VENOUS STANDARD HCO3 25.5 MEQ/L; VENOUS TOTAL CO2 23.9 MEQ/L (24.0-28.0)
[2021-04-21 23:32] LABS: HEMOGLOBIN 11.6 g/dl (12.0-15.5)
[2021-04-22 00:22] LABS: ALBUMIN 2.1 GM/DL (3.2-5.2); ALT/SGPT 33 U/L (12-78); BILIRUBIN,TOTAL 0.3 MG/DL (0.2-1.0); BLOOD UREA NITROGEN 19 MG/DL (7-18); CALCIUM LEVEL 8.1 MG/DL (8.8-10.2); CARBON DIOXIDE LEVEL 23 MEQ/L (21-32); CHLORIDE LEVEL 109 MEQ/L (98-107); CK-MB VALUE MASS 9.1 NG/ML (<3.6); CPK CREATINE PHOSPHOKINASE 177 U/L (26-192); CREATININE FOR GFR 0.59 MG/DL (0.55-1.30); GLOMERULAR FILTRATION RATE > 60.0 (>45); GLUCOSE, FASTING 174 MG/DL (70-100); MB/CK RELATIVE INDEX 5.14 (< OR =4); NT-PRO BNP 7200 PG/ML (<125); POTASSIUM SERUM 5.5 MEQ/L (3.5-5.1); SODIUM LEVEL 140 MEQ/L (136-145); TOTAL PROTEIN 5.4 GM/DL (6.4-8.2); TROPONIN I 0.81 NG/ML (< 0.10)
[2021-04-22 00:40] VITALS: BP 96/34
--- NOTE | 2021-04-22 00:52 | IPNPDOC ---
Text Note Date of Service The patient was seen on 04/22/21. NOTE Alerted by nursing staff at approx 1999 that patient was found to be hypotensive to 70s/30s, other vital signs stable, pt still on 4L nasal canula she had been on. Saw and examined patient at this time who voiced no complaints, and had unremarkable physical exam.500cc bolus given at this time to good effect. One hour later, patient found again to be hypotensive with bp of 90s/30s, still asymptomatic at this time. Patient was given 1L fluid bolus at this time to no great effect. Due to patient's history of heart failure and current effusion, decision was made to stop fluids and observe as patient continued to be asymptomatic at this pressure. BP meds were held, stat workup was ordered. Of note, patient found to have elevated troponin of 0.81 despite no chest pain. At this time stat EKG was ordered that was not notable for any acute ischemic changes. I contacted and discussed the case with ground operations crew member thermoplastic technician, Dr. Best, who recommended observation of this lab value. Will order troponin trend x3. VS,Fishbone, I+O VS, Fishbone, I+O Laboratory Tests 04/21/21 07:07 04/21/21 23:17 Vital Signs Date Time Temp Pulse Resp B/P (MAP) Pulse Ox O2 Delivery O2 Flow Rate FiO2 04/22/21 00:40 71 96/34 (54) 88 Nasal Cannula 2.0 04/21/21 20:00 97.9 19 I&O- Last 24 Hours up to 6 AM 04/22/21 06:00 Intake Total 820 ml Balance 820 ml CONCHA MEHTA Apr 22, 2021 00:52
[2021-04-22] MEDS: IPRATROPIUM 0.5MG/ALBUTEROL 2.5MG INH SOL UD 3ML (DUONEB) NEB SCH ×4 (01:58→20:51)
[2021-04-22 03:25] LABS: CK-MB VALUE MASS 1.7 NG/ML (<3.6); MB/CK RELATIVE INDEX 2.18 (< OR =4); TROPONIN I 0.04 NG/ML (< 0.10)
[2021-04-22 04:00] VITALS: BP 118/56
[2021-04-22] MEDS: REMDESIVIR 100 MG in NS 250 ML IV SCH (05:24)
[2021-04-22] MEDS: SODIUM CHLORIDE 0.9% INJ 10 ML SYR IV SCH (06:36)
[2021-04-22 07:49] LABS: HEMOGLOBIN 12.5 g/dl (12.0-15.5); MEAN CORPUSCULAR HEMOGLOBIN 29.4 pg (27.0-33.0); MEAN CORPUSCULAR HGB CONC 31.3 g/dl (32.0-36.5); MEAN CORPUSCULAR VOLUME 94.1 fl (80.0-96.0); PLATELET COUNT, AUTOMATED 147 10^3/uL (150-450); RED BLOOD COUNT 4.25 10^6/uL (4.00-5.40)
[2021-04-22 07:59] LABS: INR 3.17; PROTHROMBIN TIME 32.8 SECONDS (12.7-14.5)
[2021-04-22 08:00] LABS: PARTIAL THROMBOPLASTIN TIME 59.5 SECONDS (25.9-37.0)
[2021-04-22] MEDS ORDERED: CALCIUM GLUCONATE 1,000 MG in D5W MINI-BAG PLUS 100 ML IV ONE (08:00)
[2021-04-22 08:20] LABS: ALBUMIN 1.9 GM/DL (3.2-5.2); ALT/SGPT 27 U/L (12-78); BILIRUBIN,DIRECT 0.2 MG/DL (0.0-0.2); BILIRUBIN,TOTAL 0.5 MG/DL (0.2-1.0); BLOOD UREA NITROGEN 67 MG/DL (7-18); CARBON DIOXIDE LEVEL 34 MEQ/L (21-32); CHLORIDE LEVEL 108 MEQ/L (98-107); CK-MB VALUE MASS 1.8 NG/ML (<3.6); CPK CREATINE PHOSPHOKINASE 69 U/L (26-192); CREATININE FOR GFR 0.95 MG/DL (0.55-1.30); FERRITIN 1324 NG/ML (8-252); GLOMERULAR FILTRATION RATE > 60.0 (>45); GLUCOSE, FASTING 128 MG/DL (70-100); LDH LACTATE DEHYDROGENASE 308 U/L (84-246); MAGNESIUM LEVEL 2.3 MG/DL (1.8-2.4); MB/CK RELATIVE INDEX 2.61 (< OR =4); NT-PRO BNP 3442 PG/ML (<125); POTASSIUM SERUM 3.7 MEQ/L (3.5-5.1); SODIUM LEVEL 146 MEQ/L (136-145); TOTAL PROTEIN 4.9 GM/DL (6.4-8.2); TROPONIN I 0.04 NG/ML (< 0.10)
[2021-04-22 09:06] LABS: ANISOCYTOSIS 1+; LYMPHOCYTES 3 % (16-44); MONOCYTES 3 % (0-5); NEUTROPHILS 92 % (28-66); PLATELET ESTIMATE NORMAL (NORMAL)
[2021-04-22 09:07] LABS: BURR CELLS 1+; OVALOCYTES 1+
[2021-04-22] MEDS: guaiFENesin ER 600 MG TAB PO SCH ×2 (10:11→20:32)
[2021-04-22] MEDS: ASPIRIN 81MG ENTERIC TABLET PO SCH (10:11)
[2021-04-22] MEDS: FERROUS SULFATE 325MG TAB PO SCH ×2 (10:11→20:32)
[2021-04-22] MEDS: dexameTHASONE 4 MG/ML 1ML VIAL (J1100 PER 1MG) IV SCH (10:11)
[2021-04-22 12:29] LABS: CK-MB VALUE MASS 1.6 NG/ML (<3.6); MB/CK RELATIVE INDEX 2.42 (< OR =4); TROPONIN I 0.02 NG/ML (< 0.10)
[2021-04-22 15:00] VITALS: BP 90/40
[2021-04-22 15:12] VITALS: O2SAT 93
[2021-04-22 15:24] LABS: MB/CK RELATIVE INDEX 3.28 (< OR =4); TROPONIN I 0.02 NG/ML (< 0.10)
--- NOTE | 2021-04-22 15:48 | ECGEPIP ---
[facility] Test Date: 2021-04-22 Pat Name: VIMAL BERNSTEIN Department: Room: [place] [address] Gender: Female Assistant At Surgery: 4 main : 1960 Requested By: CONCHA Wright Order Number: [id number] Reading MD: Jihan Diane Measurements Intervals [place] Rate: 70 P: 63 IN: 124 QRS: -7 QRSD: 106 T: 24 QT: 430 QTc: 464 Interpretive Statements Normal sinus rhythm LAD NOW WITH UPRIGHT T IN III LATERAL QS CANNNOT R/0 OLD LAT INFARCT MAY NOT BE PATHOLOGIC CLINICAL CORRELATION VOLTAGE PRECORDIAL LEADS NEW C/W Electronically Signed on 04-22-2021 15:47:55 EST by Jihan Diane
--- NOTE | 2021-04-22 17:31 | IPNPDOC ---
Text Note Date of Service The patient was seen on 04/22/21. NOTE Subjective: Patient was examined at bedside. She is resting comfortably on her left side with a tray of half finished breakfast next to her bed. She had taken off her oxygen and I helped put this back on and titrated her oxygen up accordingly. She states she feel "about the same as yesterday". She denies lightheadedness or dizziness with ambulation to the bathroom. She is encouraged to use her incentive spirometer hourly to help her breathing. Patient has an oxygen satura tion of 93 on 4L NC. Overnight the patient was found to be hypotensive (70/30), she was given appro ximately 1L NS bolus and had a cardiac workup. Her troponin was elevated at 0.81, Dr. Best was called and advised the night time provider to trend the troponin x 3. Patient was asymptomatic during the night. I attempted to call her daughter Brittany again today and was unsuccessful. I did speak to her niece Maryellen who was appreciative of the update on her aunt. Objective: Vitals: See below General: Ms. Vallejo is resting comfortably, she is in no acute distress. HEENT: PERRLA, EOMI, mucous membranes are moist and pink, no lymphadenopathy Neck: supple Cardiovascular: rate is controlled at 70, regular paced rhythm. No murmurs or gallops. Pulmonary: equal air intake bilaterally, No rhonchi, wheezes, or rales. Abdomen: soft, nontender to palpation, no organomegaly, no suprapubic tenderne ss, positive bowel sounds. Extremities: no edema noted. Varicose veins seen on bilateral lower extremities Skin: warm and moist Psych: alert and oriented x 4 Assessment: Ms. Vallejo is a 60 year old female with a past medical history of coronary artery disease, ischemic cardiomyopathy, chronic systolic and diastolic heart failure, atrial flutter on warfarin, hypertension, peripheral vascular disease, sick sinus syndrome s/p AICD, history of NSTEMI, hyperlipidemia, and COPD who presented to the ED for weakness, fatigue, cough, and loss of appetite for the last three days. She was admitted for acute respiratory failure in the setting of COVID 19. Plan: Acute hypoxemic hypercapnic respiratory failure secondary to COVID -patient has a history of COPD -patient presented to the ED with spO2 of 76% -current oxygen saturation of 93 on 4L O2 -continue remdesivir, decadron, incentive spirometry and supportive care -patient continues to be improving clinically -patient advised to use incentive spirometer hourly Hyperkalemia -potassium 5.5 this AM -patient given calcium gluconate -repeat potassium 3.7 Elevated troponin -0.81 overnight repeat troponins 0.04, 0.02, 0.02 -EKG wnl -Dr. Best called and recommended trending troponin x 3 Hypotension -overnight patient had BP of 70/30 -s/p 1L NS bolus -holding all blood pressure medications at this time. Her blood pressures have been soft Chronic systolic and diastolic congestive heart failure -Patient follows with Dr. Núñez outpatient -Echocardiogram in 2017 states patient had EF 25% s/p AICD -patient drinks <1500cc fluid per day -continue 2 gram sodium diet -patient does not appear fluid overloaded on PE -BNP is 3442 below baseline -Chest x-ray: chronic cardiomegaly Supratherapeutic INR -patient is on warfarin, she does not have mechanical valves or recurrent Myocardial infarctions -Her INR range is 2-3 -patient takes 4mg per day -INR 3.17 today. Will continue to monitor Atrial flutter -rate controlled 79 BPM -continue telemetry Hypertension -patient has been hypotensive -holding carvedilol, furosemide, and entresto Coronary artery disease -s/p NSTEMI 2016 with unsuccessful PCI -continue aspirin Peripheral vascular disease -s/p left femoral artery cannulation with left iliofemoral angiogram -continue coumadin Hx of sick sinus syndrome -s/p AICD placement 2016 -rate controlled at 70 Elevated troponin -likely secondary to type 2 [place] demand ischemia -presented with troponin of 0.15, repeat troponin 0.08 DVT prophylaxis: -continue warfarin and aspirin Disposition: Patient is stable. Will continue to monitor respiratory status. Continue incentive spirometry, remdesivir, and decadron. VS,Fishbone, I+O VS, Fishbone, I+O Laboratory Tests 04/21/21 23:17 04/22/21 07:27 Vital Signs Date Time Temp Pulse Resp B/P (MAP) Pulse Ox O2 Delivery O2 Flow Rate FiO2 04/22/21 15:12 93 Nasal Cannula 4.0 04/22/21 15:00 90/40 (57) 04/22/21 14:00 97.5 79 20 I&O- Last 24 Hours up to 6 AM 04/22/21 06:00 Intake Total 820 ml Balance 820 ml CHE LOPEZ DO Apr 22, 2021 17:31
[2021-04-22] MEDS: WARFARIN SOD 4MG TAB PO SCH (17:52)
[2021-04-22 20:00] VITALS: BP_SYST 114; BP_SYST 118; BP_DIAS 54; BP_DIAS 57; O2SAT 94
[2021-04-22] MEDS: ATORVASTATIN 20 MG TAB PO SCH (20:32)
[2021-04-23] VITALS (11 sets, daily range): BP systolic 108–116; BP diastolic 54–68; O2SAT 88–94
[2021-04-23] MEDS: IPRATROPIUM 0.5MG/ALBUTEROL 2.5MG INH SOL UD 3ML (DUONEB) NEB SCH ×4 (01:42→20:57)
[2021-04-23] MEDS: REMDESIVIR 100 MG in NS 250 ML IV SCH (05:40)
[2021-04-23] MEDS: SODIUM CHLORIDE 0.9% INJ 10 ML SYR IV SCH (06:51)
[2021-04-23 07:45] LABS: HEMATOCRIT 40.8 % (36.0-47.0); HEMOGLOBIN 12.8 g/dl (12.0-15.5); MEAN CORPUSCULAR HEMOGLOBIN 29.1 pg (27.0-33.0); MEAN CORPUSCULAR HGB CONC 31.4 g/dl (32.0-36.5); MEAN CORPUSCULAR VOLUME 92.7 fl (80.0-96.0); PLATELET COUNT, AUTOMATED 166 10^3/uL (150-450); WHITE BLOOD COUNT 17.8 10^3/uL (4.0-10.0)
[2021-04-23 08:15] LABS: BLOOD UREA NITROGEN 41 MG/DL (7-18); CALCIUM LEVEL 8.7 MG/DL (8.8-10.2); CARBON DIOXIDE LEVEL 33 MEQ/L (21-32); CHLORIDE LEVEL 109 MEQ/L (98-107); CREATININE FOR GFR 0.66 MG/DL (0.55-1.30); GLOMERULAR FILTRATION RATE > 60.0 (>45); GLUCOSE, FASTING 128 MG/DL (70-100); MAGNESIUM LEVEL 2.2 MG/DL (1.8-2.4); POTASSIUM SERUM 3.5 MEQ/L (3.5-5.1); SODIUM LEVEL 147 MEQ/L (136-145)
[2021-04-23 08:17] LABS: PROTHROMBIN TIME 56.6 SECONDS (12.7-14.5)
[2021-04-23 08:37] LABS: ANISOCYTOSIS 1+; HYPOCHROMASIA 1+; LYMPHOCYTES 1 % (16-44); MONOCYTES 3 % (0-5); MYELOCYTES 1 % (0-0); NEUTROPHILS 75 % (28-66); PLATELET ESTIMATE NORMAL (NORMAL)
[2021-04-23 08:58] LABS: INR 6.48
[2021-04-23] MEDS ORDERED: PHYTONADIONE INJection 10 MG in NS 50 ML IV ONE (09:15)
--- NOTE | 2021-04-23 09:46 | REP ---
INDICATION: altered mental status. COMPARISON: None. TECHNIQUE: Axial soft tissue and bone windows with coronal reconstructions provided. FINDINGS: Lateral ventricles are midline, symmetric and without dilatation or displacement. 3rd and 4th ventricles were also unremarkable. There is mild the cerebral atrophy of the temporal and frontal lobes. Basal ganglia are symmetric and normal. Lopez-white junction differentiation is maintained. No vascular territory infarct, mass, mass effect, intra or extra-axial hemorrhage identified. Brainstem and cerebellum unremarkable. No posterior fossa bleed or mass. Basal cisterns are intact. Some minor atherosclerotic calcifications in the carotid siphons. Mastoid symmetric and normal there is mucosal thickening in the lateral maxillary sinus, posteriorly in the right sphenoid and minimally in a few ethmoid air cells anteriorly. The other visualized sinus air cells are clear. Skull base and calvarium otherwise unremarkable. IMPRESSION: No acute infarct, intracranial hemorrhage, mass or mass effect. Ventricular size and position normal. Some mild cortical atrophy temporal and frontal lobes. Brainstem and cerebellum in the posterior fossa unremarkable. Sinus disease as described with mastoids, skull base and calvarium otherwise unremarkable. <Electronically signed by Santiago Delatorre > 04/23/21 [id number]
[2021-04-23] MEDS: FERROUS SULFATE 325MG TAB PO SCH ×2 (10:16→21:15)
[2021-04-23] MEDS: dexameTHASONE 4 MG/ML 1ML VIAL (J1100 PER 1MG) IV SCH (10:16)
[2021-04-23] MEDS: ASPIRIN 81MG ENTERIC TABLET PO SCH (10:16)
--- NOTE | 2021-04-23 10:22 | REP ---
INDICATION: covid. COMPARISON: Multiple the latest 04/20/2021 also portable TECHNIQUE: Portable FINDINGS: The technique utilized in obtaining the radiograph has magnified the cardiac silhouette and accentuated the interstitial markings. There is a new patchy airspace opacity in the left lung mid and lower lung zones with dense opacification. The right lung is stable in clear. The pacemaker devices unchanged. The osseous structures are unchanged. IMPRESSION: New left lung field opacity as described above consistent with pneumonia. <Electronically signed by Vladislav Ewing > 04/23/21 1010
[2021-04-23 11:08] LABS: ABG BASE EXCESS 4.4 (-2.0-2.0); ABG HCO3 27.5 MEQ/L (22.0-26.0); ABG O2 SATURATION 90.6 % (95.0-99.0); ABG PARTIAL PRESSURE CO2 36.2 mmHg (35.0-45.0); ABG PARTIAL PRESSURE O2 54.2 mmHg (75.0-100.0); ABG STANDARD HCO3 28.2 MEQ/L (22.0-26.0); ABG TOTAL CO2 28.6 MEQ/L (23.0-31.0); ABG pH (ARTERIAL) 7.499 UNITS (7.350-7.450)
[2021-04-23 11:31] LABS: ALBUMIN 2.1 GM/DL (3.2-5.2); BILIRUBIN,DIRECT 0.4 MG/DL (0.0-0.2); BILIRUBIN,TOTAL 0.9 MG/DL (0.2-1.0); TOTAL PROTEIN 5.5 GM/DL (6.4-8.2)
[2021-04-23] MEDS: DOXYCYCLINE HYCLATE 100 MG in D5W MINI-BAG PLUS 100 ML IV SCH (12:58)
[2021-04-23] MEDS: cefTRIAXone SOD 1 GM in D5W MINI-BAG PLUS 50 ML IV SCH (12:58)
[2021-04-23] MEDS: CARVedilol 3.125 MG TAB PO SCH ×2 (13:07→21:18)
--- NOTE | 2021-04-23 16:58 | IPNPDOC ---
Text Note Date of Service The patient was seen on 04/23/21. NOTE Subjective: Patient was examined at bedside. She was reported overnight to be aggravated, restless, and mentally altered. Patient repeatedly got out of bed, pulled off her cardiac leads and nasal cannula. When examined this AM the patient was able to correctly tell me her date of but was not alert to self, location, or time. She appeared to have a mild right sided facial droop on physical exam. Patient was wearing mitts with an oxygen saturation of 91% on nasal cannula. She had a critical lab value this AM: INR 6.48. A head CT without contrast was negative for hemorrhage, mass effect, or midline shift. I spoke to patient's niece today to update her on Ms. Vallejo's status. Objective: Vitals: See below General: Ms. Vallejo is sitting in bed in no acute distress. She appears anxious and is restless. She has not eaten her breakfast and has removed her chest leads and nasal cannula despite having a mitt on her right hand. HEENT: PERRLA, EOMI, mucous membranes are moist and pink, no lymphadenopathy Neck: supple Cardiovascular: rate is controlled at 82, regular paced rhythm. No murmurs or gallops. Pulmonary: equal air intake bilaterally, No rhonchi, wheezes, or rales. Patient coughs occasionally during exam. Abdomen: soft, nontender to palpation, no organomegaly, no suprapubic tenderness, positive bowel sounds. Extremities: no edema noted. Varicose veins seen on bilateral lower extremities. Strength is 5/5 throughout Neurology: Patient is able to raise eyebrows and stick her tongue out midline. Patient has full sensation on her face. Patient is unable to follow all of my commands for a full neurologic evaluation and does not puff air into her cheeks. When asked to smile there is asymmetry on the right side of her face that is more pronounced than previously noted. Skin: warm and dry Psych: alert only to date of . Patient appears altered. Assessment: Ms. Vallejo is a 60 year old female with a past medical history of coronary artery disease, ischemic cardiomyopathy, chronic systolic and diastolic heart failure, atrial flutter on warfarin, hypertension, peripheral vascular disease, sick sinus syndrome s/p AICD, history of NSTEMI, hyperlipidemia, and COPD who presented to the ED for weakness, fatigue, cough, and loss of appetite for the last three days. She was admitted for acute respiratory failure in the setting of COVID 19. Plan: Altered mental status -hypoxia vs hospital induced delirium vs acute COVID infection vs ischemic stroke/TIA -Day 4 of hospitalization -CT negative for acute hemorrhage, midline shift, mass effect -patient was acutely altered overnight with a noted right sided facial droop on physical exam that has since resolved -patient has not been compliant with wearing nasal cannula -ABG: pH 7.49, pCO2 wnl, pO2 54 low. -speech evaluation ordered -will continue patient on ASA and Atorvastatin 80mg -will consider ordering an MRI to r/o stroke, this will not change our treatment as patient is medically optimized -patient on high flow cannula with oxygen saturation of 94% on 10 lL -will continue to monitor patient Supratherapeutic INR -patient is on warfarin, she does not have mechanical valves or recurrent Myocardial infarctions -Her INR range is 2-3 -patient takes 4mg per day -INR 6.38 today. Holding warfarin today with repeat INR in AM -Patient is not actively bleeding Pneumonia -COVID vs atypical vs bacterial -patient is positive for COVID -atypical workup pending -Chest x ray demonstrates new patchy airspace opacity in the left lung mid and lower lung zones with dense opacification. -procalcitonin 1.18 -started patient on ceftraxone and doxycycline -WBC downtrendin.8 today Acute hypoxemic hypercapnic respiratory failure secondary to COVID -94% O2 sat on 10L NC, patient has been noncompliant with wearing NC -continue remdesivir (Day 4), decadron, incentive spirometry and supportive care -patient advised to use incentive spirometer hourly Hyperkalemia -potassium 3.5 this AM -will continue to monitor Hypertension -patient is normotensive 110/54 -started patient back on carvedilol at lower dose 3.125 BID -continue to hold other antihypertensives Chronic systolic and diastolic congestive heart failure -Patient follows with Dr. Núñez outpatient -Echocardiogram in 2017 states patient had EF 25% s/p AICD -patient drinks <1500cc fluid per day -continue 2 gram sodium diet -patient does not appear fluid overloaded on PE -BNP is 3442 below baseline -Chest x-ray: chronic cardiomegaly Atrial flutter -rate controlled 82 BPM -continue telemetry Coronary artery disease -s/p NSTEMI 2016 with unsuccessful PCI -continue aspirin Peripheral vascular disease -s/p left femoral artery cannulation with left iliofemoral angiogram -continue coumadin Hx of sick sinus syndrome -s/p AICD placement 2016 -rate controlled at 70 Elevated troponin -likely secondary to type 2 [place] demand ischemia -presented with troponin of 0.15, repeat troponin 0.08 DVT prophylaxis: -holding warfarin today as patient is supratherapeutic Disposition: HSE ordered for patient. Continue to monitor respiratory status. Will review INR in the AM. VS,Fishbone, I+O VS, Fishbone, I+O Laboratory Tests 04/23/21 07:20 Vital Signs Date Time Temp Pulse Resp B/P (MAP) Pulse Ox O2 Delivery O2 Flow Rate FiO2 04/23/21 16:00 98.0 82 18 110/54 (72) 94 High Flow Cannula 10.0 I&O- Last 24 Hours up to 6 AM 04/23/21 06:00 Intake Total 570 ml Output Total 225 ml Balance 345 ml CHE LOPEZ DO Apr 23, 2021 16:58
[2021-04-23] MEDS: ATORVASTATIN 20 MG TAB PO SCH (21:15)
[2021-04-24] VITALS (10 sets, daily range): BP systolic 73–160; BP diastolic 35–74; O2SAT 91–95
[2021-04-24] MEDS: DOXYCYCLINE HYCLATE 100 MG in D5W MINI-BAG PLUS 100 ML IV SCH ×3 (00:07→23:12)
[2021-04-24] MEDS: IPRATROPIUM 0.5MG/ALBUTEROL 2.5MG INH SOL UD 3ML (DUONEB) NEB SCH ×3 (01:42→12:27)
[2021-04-24] MEDS: REMDESIVIR 100 MG in NS 250 ML IV SCH (05:04)
[2021-04-24] MEDS ORDERED: NS 500 ML IV ONE ×2 (05:50→12:00)
[2021-04-24] MEDS: SODIUM CHLORIDE 0.9% INJ 10 ML SYR IV SCH (06:51)
[2021-04-24 08:15] LABS: HEMATOCRIT 37.6 % (36.0-47.0); HEMOGLOBIN 11.9 g/dl (12.0-15.5); MEAN CORPUSCULAR HEMOGLOBIN 29.4 pg (27.0-33.0); MEAN CORPUSCULAR HGB CONC 31.6 g/dl (32.0-36.5); MEAN CORPUSCULAR VOLUME 92.8 fl (80.0-96.0); PLATELET COUNT, AUTOMATED 176 10^3/uL (150-450); RED BLOOD COUNT 4.05 10^6/uL (4.00-5.40); WHITE BLOOD COUNT 15.1 10^3/uL (4.0-10.0)
[2021-04-24 08:30] LABS: PROTHROMBIN TIME 83.1 SECONDS (12.7-14.5)
[2021-04-24 08:31] LABS: PARTIAL THROMBOPLASTIN TIME 108.7 SECONDS (25.9-37.0)
[2021-04-24 08:35] LABS: BLOOD UREA NITROGEN 41 MG/DL (7-18); CALCIUM LEVEL 8.1 MG/DL (8.8-10.2); CARBON DIOXIDE LEVEL 33 MEQ/L (21-32); CHLORIDE LEVEL 109 MEQ/L (98-107); CREATININE FOR GFR 0.67 MG/DL (0.55-1.30); GLOMERULAR FILTRATION RATE > 60.0 (>45); GLUCOSE, FASTING 149 MG/DL (70-100); POTASSIUM SERUM 3.9 MEQ/L (3.5-5.1); SODIUM LEVEL 146 MEQ/L (136-145)
[2021-04-24] MEDS: ASPIRIN 81MG ENTERIC TABLET PO SCH (08:49)
[2021-04-24] MEDS: CARVedilol 3.125 MG TAB PO SCH ×2 (08:50→21:05)
[2021-04-24] MEDS: FERROUS SULFATE 325MG TAB PO SCH ×2 (08:50→21:05)
[2021-04-24] MEDS: dexameTHASONE 4 MG/ML 1ML VIAL (J1100 PER 1MG) IV SCH (08:50)
[2021-04-24 08:52] LABS: INR 10.7
[2021-04-24 08:58] LABS: ALBUMIN 1.7 GM/DL (3.2-5.2); ALT/SGPT 46 U/L (12-78); BILIRUBIN,DIRECT 0.3 MG/DL (0.0-0.2); BILIRUBIN,TOTAL 0.6 MG/DL (0.2-1.0); CPK CREATINE PHOSPHOKINASE 89 U/L (26-192); FERRITIN 2348 NG/ML (8-252); LDH LACTATE DEHYDROGENASE 297 U/L (84-246); NT-PRO BNP 6427 PG/ML (<125); TOTAL PROTEIN 5.5 GM/DL (6.4-8.2); TROPONIN I < 0.02 NG/ML (< 0.10)
[2021-04-24] MEDS ORDERED: PHYTONADIONE 5 MG TAB PO ONE (09:10)
[2021-04-24] MEDS: cefTRIAXone SOD 1 GM in D5W MINI-BAG PLUS 50 ML IV SCH (13:28)
--- NOTE | 2021-04-24 13:46 | IPNPDOC ---
Text Note Date of Service The patient was seen on 04/24/21. NOTE Subjective: Patient is examined at bedside, there is a sitter present in the room with her. Patient is alert and oriented today x 4 and appears to be back at her baseline cognition. She reports feeling lightheaded when she gets out of bed to use the bedside commode. Overnight she received a 500cc bolus for a blood pressure of 73/35 which increased her blood pressure to 86/52. I have given her a second bolus later this morning. Patient had a critical INR value of 10.7, her warfarin was stopped and patient received 5mg of oral vitamin K. Overall she appears to be feeling better and states that she "feels much better mentally" than yesterday. She has an oxygen saturation of 95% on 7L high flow NC. Objective: Vitals: See below General: Ms. Vallejo is sitting comfortably in bed eating her breakfast. She appears to be back at baseline cognitively. HEENT: PERRLA, EOMI, mucous membranes are moist and pink, no lymphadenopathy. neck is supple Cardiovascular: rate is controlled at 82, regular paced rhythm. No murmurs or gallops. Pulmonary: equal air intake bilaterally, No rhonchi, wheezes, or rales. Lung sounds are distant Abdomen: soft, nontender to palpation, no organomegaly, no suprapubic tenderness, positive bowel sounds. Extremities: no edema noted. Varicose veins seen on bilateral lower extremities. Neurology: Patient has slight facial asymmetry at baseline. She no longer has an accentuated facial droop on right side. Skin: warm and dry Psych: alert and oriented x 4. Assessment: Ms. Vallejo is a 60 year old female with a past medical history of coronary artery disease, ischemic cardiomyopathy, chronic systolic and diastolic heart failure, atrial flutter on warfarin, hypertension, peripheral vascular disease, sick sinus syndrome s/p AICD, history of NSTEMI, hyperlipidemia, and COPD who presented to the ED for weakness, fatigue, cough, and loss of appetite for the last three days. She was admitted for acute respiratory failure in the setting of COVID 19. Plan: Altered mental status- resolved -multifactorial: hypoxia vs hospital induced delirium vs acute COVID infection vs ischemic stroke/TIA -CT negative for acute hemorrhage, midline shift, mass effect -facial droop is no longer accentuated, patient has slight facial asymmetry at baseline. -speech evaluation ordered -patient on high flow cannula with oxygen saturation of 95% on 7 L NC -will continue to monitor patient -Sitter ordered yesterday Supratherapeutic INR -patient is on warfarin, she does not have mechanical valves or recurrent Myocardial infarctions -Her INR range is 2-3 -patient takes 4mg per day -INR 10.7 today -warfarin held yesterday and will continue to be held until INR in therapeutic range -patient given 5mg oral Vitamin K -Patient is not actively bleeding -will review with INR in AM, will take 24-48 hours for effects of Vitamin K to be seen Pneumonia -COVID vs atypical vs bacterial -patient is positive for COVID -atypical workup pending -Chest x ray demonstrates new patchy airspace opacity in the left lung mid and lower lung zones with dense opacification. -procalcitonin pending -continue on ceftraxone and doxycycline -WBC continues to downtrend Acute hypoxemic hypercapnic respiratory failure secondary to COVID -95% on 7LNC, patient was noncompliant with wearing NC yesterday -continue remdesivir (Day 5), decadron, incentive spirometry and supportive care -patient advised to use incentive spirometer hourly Hyperkalemia -potassium 3.9 this AM -will continue to monitor Hypotensive -patient has BP of 86/52 -received 500cc bolus overnight for low blood pressure in 70's systolic -ordered a second 500cc bolus today -started patient back on carvedilol at lower dose 3.125 BID -continue to hold other antihypertensives Chronic systolic and diastolic congestive heart failure -Patient follows with Dr. Núñez outpatient -Echocardiogram in 2017 states patient had EF 25% s/p AICD -patient drinks <1500cc fluid per day -continue 2 gram sodium diet -patient does not appear fluid overloaded on PE -BNP is 6427 which is around baseline -Chest x-ray: chronic cardiomegaly Atrial flutter -rate controlled 95 BPM -continue telemetry Coronary artery disease -s/p NSTEMI 2016 with unsuccessful PCI -continue aspirin Peripheral vascular disease -s/p left femoral artery cannulation with left iliofemoral angiogram -holding coumadin Hx of sick sinus syndrome -s/p AICD placement 2016 -rate controlled at 95 Elevated troponin-resolved -likely secondary to type 2 [place] demand ischemia -presented with troponin of 0.15, repeat troponin 0.08 DVT prophylaxis: -holding warfarin today as patient is supratherapeutic Disposition: Patient is clinically improved today. Continue ceftriaxone and doxycycline for pneumonia. Workup is pending. Will monitor supratherapeutic INR and re-evaluate in AM. She was given 5mg oral Vitamin K and is not actively bleeding. GME ATTESTATION My faculty preceptor for this patient encounter was physically present during the encounter and was fully available. All aspects of the patient interview, ex amination, medical decision making process, and medical care plan development were reviewed and approved by the faculty preceptor. The faculty preceptor is aware and concurs with the plan as stated in the body of this note and will attest to such by his/her cosignature. ATTENDING NOTE I personally examined Ms. Vallejo and discussed her findings, assessment and plan as thorough noted above and I agree with the assessment and plan detailed by the resident above. VS,Fishbone, I+O VS, Fishbone, I+O Laboratory Tests 04/24/21 07:51 Vital Signs Date Time Temp Pulse Resp B/P (MAP) Pulse Ox O2 Delivery O2 Flow Rate FiO2 04/24/21 09:00 11.0 04/24/21 08:50 95 86/52 04/24/21 06:20 95 Nasal Cannula 04/24/21 04:00 96.0 17 I&O- Last 24 Hours up to 6 AM 04/24/21 06:00 Intake Total 1210 ml Output Total 0 ml Balance 1210 ml CHE LOPEZ DO Apr 24, 2021 13:46 STARR HUNG MD Apr 25, 2021 07:54
[2021-04-24] MEDS: ATORVASTATIN 20 MG TAB PO SCH (21:05)
[2021-04-25 00:16] VITALS: O2SAT 93
[2021-04-25 04:00] VITALS: BP 103/53
[2021-04-25 08:17] LABS: HEMATOCRIT 37.9 % (36.0-47.0); HEMOGLOBIN 11.8 g/dl (12.0-15.5); MEAN CORPUSCULAR HEMOGLOBIN 29.4 pg (27.0-33.0); MEAN CORPUSCULAR HGB CONC 31.1 g/dl (32.0-36.5); MEAN CORPUSCULAR VOLUME 94.5 fl (80.0-96.0); PLATELET COUNT, AUTOMATED 193 10^3/uL (150-450); RED BLOOD COUNT 4.01 10^6/uL (4.00-5.40); WHITE BLOOD COUNT 12.1 10^3/uL (4.0-10.0)
[2021-04-25 08:40] LABS: INR 2.33; PROTHROMBIN TIME 25.9 SECONDS (12.7-14.5)
[2021-04-25 08:46] LABS: BLOOD UREA NITROGEN 41 MG/DL (7-18); CALCIUM LEVEL 8.5 MG/DL (8.8-10.2); CARBON DIOXIDE LEVEL 32 MEQ/L (21-32); CHLORIDE LEVEL 112 MEQ/L (98-107); CREATININE FOR GFR 0.65 MG/DL (0.55-1.30); GLOMERULAR FILTRATION RATE > 60.0 (>45); GLUCOSE, FASTING 156 MG/DL (70-100); POTASSIUM SERUM 4.1 MEQ/L (3.5-5.1); SODIUM LEVEL 147 MEQ/L (136-145)
[2021-04-25] MEDS: ASPIRIN 81MG ENTERIC TABLET PO SCH (10:02)
[2021-04-25] MEDS: dexameTHASONE 4 MG/ML 1ML VIAL (J1100 PER 1MG) IV SCH (10:02)
[2021-04-25] MEDS: FERROUS SULFATE 325MG TAB PO SCH ×2 (10:03→20:15)
[2021-04-25] MEDS: CARVedilol 3.125 MG TAB PO SCH ×2 (10:03→20:15)
--- NOTE | 2021-04-25 12:04 | IPNPDOC ---
Text Note Date of Service The patient was seen on 04/25/21. NOTE Subjective: -Currently on 11L high flow NC. -Afebrile. had some bordeline soft BPs requiring 500c bolus yesterday -Otherwise without complaint at this time and is fully oriented Objective: Vitals: See below General: NAD, AOx3 HEENT: PERRLA, EOMI, mucous membranes are moist and pink, no lymphadenopathy. Cardiovascular: rate is controlled at 82, regular paced rhythm. No murmurs or gallops. Pulmonary: Equal air intake bilaterally but diminished, No rhonchi, wheezes, or rales. Abdomen: soft, nontender to palpation, no organomegaly, no suprapubic tenderness, positive bowel sounds. Extremities: no edema noted. Varicose veins seen on bilateral lower extremities. Neurology: Patient has slight facial asymmetry at baseline. Has a mild right facial droop. Otherwise with clear speech, and full strength. Skin: warm and dry Psych: alert and oriented x 4. Labs: WBC 12.1 Hgb 11.8 platelets 192 INR pending BMP pending Assessment: 60 year old W with a past medical history of coronary artery disease, ischemic cardiomyopathy, chronic systolic and diastolic heart failure, atrial flutter on warfarin, hypertension, peripheral vascular disease, sick sinus syndrome s/p AICD, history of NSTEMI, hyperlipidemia, and COPD who presented to the ED for weakness, fatigue, cough, and loss of appetite for the last three days and was admitted for acute respiratory failure in the setting of COVID 19 PNA. Plan: Metabolic encephalopathy i/s/o covid-19 PNA with hypoxia- resolved -CT negative for acute hemorrhage, midline shift, mass effect -facial droop is no longer accentuated, patient has slight facial asymmetry at baseline. -speech evaluation ordered -patient on high flow cannula with oxygen saturation of 95% on 11 L HFNC -will continue to monitor patient Supratherapeutic INR -Holding warfarin, gave 5mg Vit K yesterday, pending INR today, target INR range is 2-3 -No evidence of actively bleeding, H/H stable -may give more Vit K today Pneumonia: Has covid-19 PNA but with c/f superimposed bacterial PNA as well -Chest x ray demonstrated new patchy airspace opacity in the left lung mid and lower lung zones with dense opacification and procalcitonin was elevated, so she was placed on ceftriaxone and doxycycline, this is day #3 of 7 for antibiotics. -s/p 5d of remdesevir, is on dexamethasone Acute hypoxemic hypercapnic respiratory failure secondary to COVID and presumed superimposed CAP -94% on 11LNC -s/p 5d of remdesivir -decadron -Incentive spirometry -Albuterol PRN Hyperkalemia: resolved -will continue to monitor Hypotensive -carvedilol was restarted at lower dose 3.125 BID with hold parameter for SBP <120 -continue to hold other antihypertensives -s/p fluids Chronic systolic and diastolic congestive heart failure -Patient follows with Dr. Núñez outpatient -Echocardiogram in 2017 states patient had EF 25% s/p AICD -patient drinks <1500cc fluid per day -continue 2 gram sodium diet -patient does not appear fluid overloaded on PE -BNP is 6427 which is around baseline -Chest x-ray: chronic cardiomegaly Atrial flutter -rate controlled 95 BPM -continue telemetry -continue coreg -holding warfarin while supratherapeutic Coronary artery disease -s/p NSTEMI 2016 with unsuccessful PCI -continue aspirin, coreg Peripheral vascular disease -holding coumadin while supratherapeutic Hx of sick sinus syndrome -s/p AICD placement 2016 -rate controlled at 95 Elevated troponin 2/2 demand ischemia -presented with troponin of 0.15, repeat troponin 0.08 DVT prophylaxis: -holding warfarin today as patient is supratherapeutic, checking INR VS,Fishbone, I+O VS, Fishbone, I+O Laboratory Tests 04/25/21 07:46 Vital Signs Date Time Temp Pulse Resp B/P (MAP) Pulse Ox O2 Delivery O2 Flow Rate FiO2 04/25/21 04:00 97.2 79 20 103/53 (70) 95 High Flow Cannula 11.0 I&O- Last 24 Hours up to 6 AM 04/25/21 06:00 Intake Total 1130 ml Balance 1130 ml STARR HUNG MD Apr 25, 2021 08:39
[2021-04-25] MEDS: DOXYCYCLINE HYCLATE 100 MG in D5W MINI-BAG PLUS 100 ML IV SCH (12:46)
[2021-04-25 14:00] VITALS: BP 126/79
[2021-04-25] MEDS: cefTRIAXone SOD 1 GM in D5W MINI-BAG PLUS 50 ML IV SCH (14:08)
[2021-04-25 20:00] VITALS: O2SAT 95
[2021-04-25] MEDS: ATORVASTATIN 20 MG TAB PO SCH (20:15)
[2021-04-25 20:22] VITALS: BP 190/76
[2021-04-25] MEDS ORDERED: ACETAMINOPHEN TAB 650MG DOSE (2X325MG) PO PRN (20:30)
[2021-04-26] VITALS: O2SAT 96
[2021-04-26] MEDS: DOXYCYCLINE HYCLATE 100 MG in D5W MINI-BAG PLUS 100 ML IV SCH (00:56)
[2021-04-26 02:00] VITALS: O2SAT 95
[2021-04-26 04:00] VITALS: BP 120/58
[2021-04-26 08:15] LABS: HEMATOCRIT 38.3 % (36.0-47.0); HEMOGLOBIN 12.1 g/dl (12.0-15.5); MEAN CORPUSCULAR HGB CONC 31.6 g/dl (32.0-36.5); MEAN CORPUSCULAR VOLUME 91.8 fl (80.0-96.0); PLATELET COUNT, AUTOMATED 216 10^3/uL (150-450); RED BLOOD COUNT 4.17 10^6/uL (4.00-5.40); WHITE BLOOD COUNT 12.3 10^3/uL (4.0-10.0)
[2021-04-26 08:26] LABS: INR 1.65; PROTHROMBIN TIME 19.9 SECONDS (12.7-14.5)
[2021-04-26 08:27] LABS: PARTIAL THROMBOPLASTIN TIME 44.1 SECONDS (25.9-37.0)
[2021-04-26] MEDS: dexameTHASONE 4 MG/ML 1ML VIAL (J1100 PER 1MG) IV SCH (08:31)
[2021-04-26] MEDS: FERROUS SULFATE 325MG TAB PO SCH ×2 (08:31→16:57)
[2021-04-26] MEDS: CARVedilol 3.125 MG TAB PO SCH ×2 (08:31→21:42)
[2021-04-26] MEDS: ASPIRIN 81MG ENTERIC TABLET PO SCH (08:31)
[2021-04-26 08:45] LABS: ALBUMIN 1.8 GM/DL (3.2-5.2); ALT/SGPT 46 U/L (12-78); BILIRUBIN,DIRECT 0.2 MG/DL (0.0-0.2); BILIRUBIN,TOTAL 0.5 MG/DL (0.2-1.0); BLOOD UREA NITROGEN 37 MG/DL (7-18); CALCIUM LEVEL 8.7 MG/DL (8.8-10.2); CARBON DIOXIDE LEVEL 31 MEQ/L (21-32); CHLORIDE LEVEL 111 MEQ/L (98-107); CPK CREATINE PHOSPHOKINASE 101 U/L (26-192); CREATININE FOR GFR 0.68 MG/DL (0.55-1.30); FERRITIN 1624 NG/ML (8-252); GLOMERULAR FILTRATION RATE > 60.0 (>45); GLUCOSE, FASTING 140 MG/DL (70-100); LDH LACTATE DEHYDROGENASE 346 U/L (84-246); NT-PRO BNP 9701 PG/ML (<125); POTASSIUM SERUM 3.9 MEQ/L (3.5-5.1); SODIUM LEVEL 145 MEQ/L (136-145); TOTAL PROTEIN 5.7 GM/DL (6.4-8.2); TROPONIN I 0.02 NG/ML (< 0.10)
[2021-04-26] MEDS ORDERED: DOXYCYCLINE HYCLATE 100MG TABLET PO SCH (09:00)
[2021-04-26 14:00] VITALS: BP 157/70
[2021-04-26] MEDS: cefTRIAXone SOD 1 GM in D5W MINI-BAG PLUS 50 ML IV SCH (14:02)
[2021-04-26] MEDS ORDERED: WARFARIN SOD 2MG TAB PO SCH (17:00)
[2021-04-26] MEDS ORDERED: WARFARIN SOD 4MG TAB PO SCH (17:00)
[2021-04-26 17:09] LABS: BODY FLUID CULTURE Not indicated. (.); LEGIONELLA ANTIGEN URINE Negative (Negative); ORGANISM ID Not indicated. (.); SPECIMEN SOURCE Urine (.); URINE STREP PNEUMONIAE ANTIGEN Negative (Negative)
--- NOTE | 2021-04-26 17:09 | IPNPDOC ---
Text Note Date of Service The patient was seen on 04/26/21. NOTE Subjective: -No acute events overnight, patient states she is feeling well. Denies any fever, chills, chest pain, dyspnea, abdominal pain, nausea, vomiting. Objective: Vitals: See below General: NAD, AOx3 HEENT: EOMI, mucous membranes are moist and pink, no lymphadenopathy. Cardiovascular: Regular rate, regular paced rhythm. No murmurs or gallops. Pulmonary: Diminished breath sounds bilaterally, No rhonchi, wheezes, or rales. Abdomen: soft, non-tender to palpation, no organomegaly, no suprapubic tenderness, positive bowel sounds. Extremities: No edema noted. Varicose veins seen on bilateral lower extremities. Neurology: Patient has slight facial asymmetry at baseline. Has a mild right facial droop. Otherwise with clear speech, and full strength. Skin: warm and dry Psych: alert and oriented x 4. Assessment: 60 year old female with a past medical history of coronary artery disease, ischemic cardiomyopathy, chronic systolic and diastolic heart failure, atrial flutter on warfarin, hypertension, peripheral vascular disease, sick sinus syndrome s/p AICD, history of NSTEMI, hyperlipidemia, and COPD who presented to the ED for weakness, fatigue, cough, and loss of appetite for the last three days and was admitted for acute respiratory failure in the setting of COVID 19 PNA. Plan: #. Acute hypoxemic hypercapnic respiratory failure secondary to COVID and pr esumed superimposed CAP -94% on 6 L NC -s/p 5d of remdesivir -decadron -Emphasized importance of proning. -Incentive spirometry -Albuterol PRN #. Superimposed bacterial PNA -Procal 0.30 down from 1.33, she is s/p 3 days rocephin and doxy. DC'ing abx -Chest x ray demonstrated new patchy airspace opacity in the left lung mid and lower lung zones with dense opacification and procalcitonin was elevated, so she was placed on ceftriaxone and doxycycline. -s/p 5d of remdesevir, is on dexamethasone #. Encephalopathy 2/2 Covid-19 PNA with hypoxia -CT negative for acute hemorrhage, midline shift, mass effect -facial droop is no longer accentuated, patient has slight facial asymmetry at baseline. -speech evaluation ordered -patient on high flow cannula with oxygen saturation of 95% on 6L NC -will continue to monitor patient #. Subtherapeutic INR -Warfarin restarted at lower dose, will recheck tomorrow to see if she should resume home dose. -INR previously supratherapeutic s/p 5mg Vit K, target INR range is 2-3 -No evidence of actively bleeding, H/H stable #. Hyperkalemia -Resolved #. Hypotensive -Resolved #. Chronic systolic and diastolic congestive heart failure -Follows with Dr. Núñez outpatient -2016 echo states patient had EF 25% s/p AICD -patient drinks <1500cc fluid per day -continue 2 gram sodium diet -patient does not appear fluid overloaded on PE -Chest x-ray: chronic cardiomegaly #. Atrial flutter -rate controlled 95 BPM -continue telemetry -continue coreg -holding warfarin while supratherapeutic #. Coronary artery disease -S/p NSTEMI 2016 with unsuccessful PCI -Continue aspirin, coreg #. Peripheral vascular disease -holding coumadin while supratherapeutic #. Hx of sick sinus syndrome -s/p AICD placement 2015 -rate controlled at 95 #. Elevated troponin 2/2 demand ischemia -presented with troponin of 0.15, repeat troponin 0.08 DVT prophylaxis: -holding warfarin today as patient is supratherapeutic, checking INR CODE STATUS: FULL CODE VS,Fishbone, I+O VS, Fishbone, I+O Laboratory Tests 04/26/21 07:39 Vital Signs Date Time Temp Pulse Resp B/P (MAP) Pulse Ox O2 Delivery O2 Flow Rate FiO2 04/26/21 14:00 96.1 86 18 157/70 (99) 94 High Flow Cannula 4.0 I&O- Last 24 Hours up to 6 AM 04/26/21 06:00 Intake Total 580 ml Balance 580 ml GME ATTESTATION GME ATTESTATION My faculty preceptor for this patient encounter was physically present during the encounter and was fully available. All aspects of the patient interview, examination, medical decision making process, and medical care plan development were reviewed and approved by the faculty preceptor. The faculty preceptor is aware and concurs with the plan as stated in the body of this note and will attest to such by his/her cosignature. ATTENDING NOTE I personally examined the patient and discussed her interval history, findings, lab and imaging findings with the resident team and I agree with the above noted findings, assessment and plan as thoroughly detailed by the resident physician above. ALFREDO MONZON DO Apr 26, 2021 17:09 STARR HUNG MD Apr 27, 2021 10:09
[2021-04-26] MEDS: ATORVASTATIN 20 MG TAB PO SCH (21:42)
[2021-04-26 22:00] VITALS: BP 164/77
[2021-04-27 05:59] VITALS: BP 144/68
[2021-04-27] MEDS: FERROUS SULFATE 325MG TAB PO SCH (06:24)
[2021-04-27 08:08] LABS: HEMOGLOBIN 12.1 g/dl (12.0-15.5); MEAN CORPUSCULAR HEMOGLOBIN 29.9 pg (27.0-33.0); MEAN CORPUSCULAR HGB CONC 32.7 g/dl (32.0-36.5); MEAN CORPUSCULAR VOLUME 91.4 fl (80.0-96.0); PLATELET COUNT, AUTOMATED 180 10^3/uL (150-450); RED BLOOD COUNT 4.05 10^6/uL (4.00-5.40); WHITE BLOOD COUNT 9.6 10^3/uL (4.0-10.0)
[2021-04-27 08:24] LABS: BLOOD UREA NITROGEN 33 MG/DL (7-18); CALCIUM LEVEL 8.8 MG/DL (8.8-10.2); CARBON DIOXIDE LEVEL 32 MEQ/L (21-32); CHLORIDE LEVEL 108 MEQ/L (98-107); CREATININE FOR GFR 0.59 MG/DL (0.55-1.30); GLOMERULAR FILTRATION RATE > 60.0 (>45); GLUCOSE, FASTING 125 MG/DL (70-100); SODIUM LEVEL 143 MEQ/L (136-145)
[2021-04-27] MEDS: ASPIRIN 81MG ENTERIC TABLET PO SCH (08:28)
[2021-04-27 08:29] VITALS: BP 144/68
[2021-04-27] MEDS: CARVedilol 3.125 MG TAB PO SCH (08:29)
[2021-04-27] MEDS: dexameTHASONE 4 MG/ML 1ML VIAL (J1100 PER 1MG) IV SCH (08:29)
[2021-04-27 08:35] LABS: INR 1.74; PROTHROMBIN TIME 20.8 SECONDS (12.7-14.5)
[2021-04-27] MEDS ORDERED: DOXY100C3 PO (10:28)
[2021-04-27] MEDS ORDERED: PRED10TA2 PO (10:28)
[2021-04-27] MEDS ORDERED: CEFD1CAP8 PO (10:28)
[2021-04-27 14:00] VITALS: BP 150/89
--- NOTE | 2021-04-27 19:35 | DS.PDOC ---
Discharge Summary General Date of Admission Apr 20, 2021 at 03:28 Date of Discharge 04/27/21 Attending Physician: EFFIE CARROLL MD Discharge Summary PROCEDURES PERFORMED DURING STAY: None. ADMITTING/DISCHARGE DIAGNOSES: COVID-19 pneumonia Superimposed bacterial pneumonia Encephalopathy in the setting of Covid pneumonia Chronic systolic and diastolic CHF Coronary artery disease History of VT COPD Paroxysmal a flutter Hypertension Peripheral vascular disease History of sick sinus syndrome COMPLICATIONS/CHIEF COMPLAINT: Shortness of breath HISTORY OF PRESENT ILLNESS/HOSPITAL COURSE: Celina Vallejo is a 60-year-old female with significant history of CHF, VT, COPD, paroxysmal a flutter on Coumadin and hypertension who presents with complaints of shortness of breath. Patient endor ses malaise, fatigue, weakness cough, shortness of breath and dizziness x3 days. Patient reports today her shortness of breath and dizziness worsened acutely and she felt she was going to pass out. EMS was called by someone she had visiting at her house. EMS reportedly found patient wheezing with SPO2 in the 70s. Asked patient regarding timeline of symptoms as varying report from EMS and ED. When asked if it was 6 days or 3 days patient reports 3 days of symptoms. She denies sick contacts. Documented in ED patient room air SPO2 76%. Patient satting 99% on 5 L nasal cannula. She reports much improvement on oxygen. Initial work-up chest x-ray small pleural effusion, without focal infiltrates. Initial metabolic work-up unremarkable. PCR positive for Covid. ABG shows pH 7.34, PO2 138.3, PCO2 65.3. Pt denies palpitations, chest pain, n/v/d, abdominal pain, or sensory changes. Patient does report that she is not vaccinated. Patient will be admitted for further evaluation management of present concerns. Plan: #. Acute hypoxemic hypercapnic respiratory failure secondary to COVID and pres umed superimposed CAP - satting 92% on 1 L nasal cannula on discharge. -s/p 5d of remdesivir -decadron -Emphasized importance of proning. -Incentive spirometry -Albuterol PRN #. Superimposed bacterial PNA -Procal 0.30 down from 1.33, she is s/p 3 days rocephin and doxy. Discharged home with 4 more days of cefdinir and doxycycline. -Chest x ray demonstrated new patchy airspace opacity in the left lung mid and lower lung zones with dense opacification and procalcitonin was elevated, so she was placed on ceftriaxone and doxycycline. -s/p 5d of remdesevir, is on dexamethasone, discharged home with prednisone taper. #. Encephalopathy 2/2 Covid-19 PNA with hypoxia -CT negative for acute hemorrhage, midline shift, mass effect -facial droop is no longer accentuated, patient has slight facial asymmetry at baseline. -speech evaluation ordered -will continue to monitor patient #. Subtherapeutic INR -Warfarin restarted at lower dose, trending upward on discharge, but still subtherapeutic, patient informed of this and to follow up with PCP on discharge for repeat INR -INR previously supratherapeutic s/p 5mg Vit K, target INR range is 2-3 -No evidence of actively bleeding, H/H stable #. Hyperkalemia -Resolved #. Hypotensive -Resolved #. Chronic systolic and diastolic congestive heart failure -Follows with Dr. Núñez outpatient -2017 echo states patient had EF 25% s/p AICD -patient drinks <1500cc fluid per day -continue 2 gram sodium diet -patient does not appear fluid overloaded on PE -Chest x-ray: chronic cardiomegaly #. Atrial flutter -rate controlled 95 BPM -continue telemetry -continue coreg -On coumadin #. Coronary artery disease -S/p NSTEMI 2016 with unsuccessful PCI -Continue aspirin, coreg #. Peripheral vascular disease -On coumadin #. Hx of sick sinus syndrome -s/p AICD placement 2016 -rate controlled #. Elevated troponin 2/2 demand ischemia -presented with troponin of 0.15, repeat troponin 0.08 DVT prophylaxis: -Warfarin dose lowered as patient was supratherapeutic initially CODE STATUS: FULL CODE DISCHARGE MEDICATIONS: Please see below. ALLERGIES: Please see below. PHYSICAL EXAMINATION ON DISCHARGE: VITAL SIGNS: Please see below. LABORATORY DATA: Please see below. IMAGIN04/20/2021 chest x-ray: "IMPRESSION: 1. Borderline cardiomegaly with pacemaker from the left. 2. Small left pleural effusion." 04/23/[address]: IMPRESSION: "No acute infarct, intracranial hemorrhage, mass or mass effect. Ventricular size and position normal. Some mild cortical atrophy temporal and frontal lobes. Brainstem and cerebellum in the posterior fossa unremarkable. Sinus disease as described with mastoids, skull base and calvarium otherwise unremarkable." 04/23/2021 chest x-ray: "IMPRESSION: New left lung field opacity as described above consistent with pneumonia." ACTIVITY: As tolerated DIET: As tolerated DISCHARGE PLAN: Home DISPOSITION: 01 Home, Self-Care. DISCHARGE INSTRUCTIONS: 1. Please return to hospital if symptoms worsen 2. Please comply with public health guidelines regarding your quarantine and date, he became symptomatic on 04/17 per your report from bleeding after hospital stay 3. Please use your home oxygen ITEMS TO FOLLOWUP ON ON OUTPATIENT: 1. INR DISCHARGE CONDITION: Stable TIME SPENT ON DISCHARGE: 33 minutes. Vital Signs/I&Os Vital Signs Date Time Temp Pulse Resp B/P (MAP) Pulse Ox O2 Delivery O2 Flow Rate FiO2 04/27/21 14:00 95.1 70 18 150/89 (109) 92 Nasal Cannula 1.0 I&O- Last 24 Hours up to 6 AM 04/27/21 06:00 Intake Total 480 ml Balance 480 ml Laboratory Data Labs 24H Laboratory Tests 2 04/27/21 06:51: Nucleated Red Blood Cells % (auto) 0.0, Prothrombin Time 20.8H, Prothromb Time International Ratio 1.74, Anion Gap 3L, Glomerular Filtration Rate > 60.0, Calcium Level 8.8 CBC/BMP Laboratory Tests 04/27/21 06:51 Microbiology Microbiology 04/21/21 Blood Culture - Final, Complete NO GROWTH AFTER 5 DAYS 04/21/21 Blood Culture - Final, Complete NO GROWTH AFTER 5 DAYS 04/20/21 Respiratory Virus Panel (PCR) ([facility]) - Final, Complete SARS-CoV-2 (COVID 19) Discharge Medications Scheduled Aspirin (Aspirin EC) 81 Mg Tablet.dr, 81 MG PO DAILY, (Reported) Atorvastatin Calcium (Atorvastatin Calcium) 80 Mg Tab, 80 MG PO QHS, (Reported) Carvedilol (Carvedilol) 25 Mg Tablet, 25 MG PO BID, (Reported) Cefdinir (Cefdinir) 300 Mg Capsule, 1 CAP PO BID Doxycycline Hyclate (Doxycycline Hyclate) 100 Mg Capsule, 1 CAP PO BID Ferrous Sulfate (Ferrous Sulfate) 325 Mg Tab, 325 MG PO BID, (Reported) Furosemide (Furosemide) 20 Mg Tablet, 20 MG PO BID, (Reported) Prednisone (Prednisone) 10 Mg Tablet, 10 MG PO TAPER Take 4 tabs daily x 3 days, then 3 tabs daily x 3 days, then 2 tabs daily x 3 days, then 1 tab daily x 3 days and stop Sacubitril/Valsartan (Entresto 97 mg-103 mg Tablet) 1 Each Tablet, 1 TAB PO BID, (Reported) Warfarin Sodium (Warfarin Sodium) 3 Mg Tab, 3 MG PO QPM, (Reported) TAKES WITH 1MG FOR 4MG TOTAL Warfarin Sodium (Warfarin Sodium) 1 Mg Tablet, 1 MG PO QPM, (Reported) TAKES WITH 3MG FOR 4MG TOTAL Scheduled PRN Nitroglycerin (Nitroglycerin) 0.4 Mg Sub, 0.4 MG SL NITRO PRN for CHEST PAIN, (Reported) Allergies Coded Allergies: No Known Allergies (Unverified , 05/07/17) GME ATTESTATION GME ATTESTATION My faculty preceptor for this patient encounter was physically present during the encounter and was fully available. All aspects of the patient interview, ex amination, medical decision making process, and medical care plan development were reviewed and approved by the faculty preceptor. The faculty preceptor is aware and concurs with the plan as stated in the body of this note and will attest to such by his/her cosignature. ATTENDING NOTE I, Effie Carroll, have independently examined this patient and performed my own p hysical exam, as well as reviewed the documentation and edited where necessary with the resident. For medical students we have performed the physical exam together and discussed medical decision making and I have verified the history. I have discussed in detail with the resident / student the findings and plan of treatment as documented by the resident / student and edited their note. I agree with their findings and treatment plan and have edited their documentation. I will continue to follow the patient during this hospital stay. Time spent on discharge 35 minutes ALFREDO MONZON DO Apr 27, 2021 19:35 EFFIE CARROLL MD Apr 28, 2021 18:30
--- NOTE | 2021-04-28 16:30 | DS.PDOC ---
Discharge Summary General Date of Admission Apr 20, 2021 at 03:28 Date of Discharge 04/28/21 Discharge Medications Scheduled Aspirin (Aspirin EC) 81 Mg Tablet.dr, 81 MG PO DAILY, (Reported) Atorvastatin Calcium (Atorvastatin Calcium) 80 Mg Tab, 80 MG PO QHS, (Reported) Carvedilol (Carvedilol) 25 Mg Tablet, 25 MG PO BID, (Reported) Cefdinir (Cefdinir) 300 Mg Capsule, 1 CAP PO BID Doxycycline Hyclate (Doxycycline Hyclate) 100 Mg Capsule, 1 CAP PO BID Ferrous Sulfate (Ferrous Sulfate) 325 Mg Tab, 325 MG PO BID, (Reported) Furosemide (Furosemide) 20 Mg Tablet, 20 MG PO BID, (Reported) Prednisone (Prednisone) 10 Mg Tablet, 10 MG PO TAPER Take 4 tabs daily x 3 days, then 3 tabs daily x 3 days, then 2 tabs daily x 3 days, then 1 tab daily x 3 days and stop Sacubitril/Valsartan (Entresto 97 mg-103 mg Tablet) 1 Each Tablet, 1 TAB PO BID, (Reported) Warfarin Sodium (Warfarin Sodium) 3 Mg Tab, 3 MG PO QPM, (Reported) TAKES WITH 1MG FOR 4MG TOTAL Warfarin Sodium (Warfarin Sodium) 1 Mg Tablet, 1 MG PO QPM, (Reported) TAKES WITH 3MG FOR 4MG TOTAL Scheduled PRN Nitroglycerin (Nitroglycerin) 0.4 Mg Sub, 0.4 MG SL NITRO PRN for CHEST PAIN, (Reported) Allergies Coded Allergies: No Known Allergies (Unverified , 05/07/17) GME ATTESTATION GME ATTESTATION My faculty preceptor for this patient encounter was physically present during the encounter and was fully available. All aspects of the patient interview, examination, medical decision making process, and medical care plan development were reviewed and approved by the faculty preceptor. The faculty preceptor is aware and concurs with the plan as stated in the body of this note and will attest to such by his/her cosignature. ALFREDO MONZON DO Apr 28, 2021 16:30
[2021-04-28 17:07] LABS: CHLAMYDIA PNEUMONIAE IgM < 1:10 (< 1:10); CHLAMYDIA PSITTACI IgM < 1:10 (< 1:10); CHLAMYDIA TRACHOMATIS IgM < 1:10 (< 1:10); MYCOPLASMA PNEUMONIAE IgG 1282 U/mL (0-99); MYCOPLASMA PNEUMONIAE IgM <770 U/mL (0-769)
== END 2021-04-27 16:15 | disposition home health service (06) | DRG 177 ==
LOC: M ED 23:47 → M ED INP 04-20 03:28 → M 4MAIN 04-20 06:00
PROVIDERS: ADMIT Family Medicine; ATTEND Internal Medicine
DX: U07.1 COVID-19 (principal); J96.01 Acute respiratory failure with hypoxia; J96.02 Acute respiratory failure with hypercapnia; I21.A1 Myocardial infarction type 2; G93.41 Metabolic encephalopathy; J15.9 Unspecified bacterial pneumonia; J12.82 Pneumonia due to coronavirus disease 2019; I48.92 Unspecified atrial flutter; I50.42 Chronic combined systolic (congestive) and diastolic (congestive) heart failure; J44.9 Chronic obstructive pulmonary disease, unspecified; I11.0 Hypertensive heart disease with heart failure; I95.9 Hypotension, unspecified; E87.5 Hyperkalemia; I25.10 Atherosclerotic heart disease of native coronary artery without angina pectoris; I73.9 Peripheral vascular disease, unspecified; Z79.899 Other long term (current) drug therapy; Z79.82 Long term (current) use of aspirin; Z87.891 Personal history of nicotine dependence; Z95.0 Presence of cardiac pacemaker

== ENCOUNTER → 2021-05-04 | Outpatient (REF) | payer MEDICARE, MEDICAID ==
[~2021-05-04] MED LIST changes: +ASPI-161 PO; +CARV25TA PO; +CEFD1CAP8 PO; +DOXY100C3 PO; +ENTR1TAB4 PO; +PRED10TA2 PO; +WARF4TAB52 PO
[2021-05-04 16:51] LABS: PROTHROMBIN TIME 54.5 SECONDS (12.7-14.5)
[2021-05-04 16:52] LABS: INR 6.16
== END ==
LOC: M SHH 16:40
PROVIDERS: ATTEND Physician Assistant
DX: I48.0 Paroxysmal atrial fibrillation (principal); Z79.01 Long term (current) use of anticoagulants

== ENCOUNTER → 2021-05-10 | Outpatient (REF) | payer MEDICARE, MEDICAID ==
[~2021-05-10] MED LIST changes: -AMIO200T3 PO; +AMIO200T49 PO; -CEFD1CAP8 PO; +CEFD300C41 PO; -LISI-898 PO; +LISI5TAB11 PO
[2021-05-10 12:30] LABS: PROTHROMBIN TIME 49.5 SECONDS (12.7-14.5)
[2021-05-10 12:49] LABS: INR 5.43
== END ==
LOC: M SHH 11:46
PROVIDERS: ATTEND Physician Assistant
DX: Z51.81 Encounter for therapeutic drug level monitoring (principal); I48.0 Paroxysmal atrial fibrillation; Z79.01 Long term (current) use of anticoagulants

== ENCOUNTER → 2021-06-23 | Outpatient (CLI) | payer MEDICARE, MEDICAID | LOC: M RAD 08:47 | PROVIDERS: ATTEND Family Medicine Addiction Medicine | DX: R05.9 Cough, unspecified (principal) ==

== ENCOUNTER → 2021-08-30 | Outpatient (CLI) | payer MEDICARE, MEDICAID | LOC: M RAD 08:32 | PROVIDERS: ATTEND Surgery Vascular Surgery | DX: I70.6 Atherosclerosis of nonbiological bypass graft(s) of the extremities (principal); Z95.820 Peripheral vascular angioplasty status with implants and grafts ==

== ENCOUNTER → 2022-03-03 | Outpatient (CLI) | payer MEDICARE, MEDICAID | LOC: M RAD 11:59 | PROVIDERS: ATTEND Physician Assistant | DX: Z48.812 Encounter for surgical aftercare following surgery on the circulatory system (principal); I70.613 Atherosclerosis of nonbiological bypass graft(s) of the extremities with intermittent claudication, bilateral legs ==

== ENCOUNTER → 2022-11-01 | Outpatient (CLI) | payer MEDICARE, MEDICAID | LOC: M RAD 08:33 | PROVIDERS: ATTEND Physician Assistant | DX: I65.23 Occlusion and stenosis of bilateral carotid arteries (principal) ==

== ENCOUNTER → 2023-06-16 | Outpatient (CLI) | payer MEDICARE, MEDICAID ==
[~2023-06-16] MED LIST changes: +CEFD1CAP9 PO; -CEFD300C41 PO
== END ==
LOC: M RAD 09:07
PROVIDERS: ATTEND Physician Assistant
DX: I70.613 Atherosclerosis of nonbiological bypass graft(s) of the extremities with intermittent claudication, bilateral legs (principal)

== ENCOUNTER 2023-06-26 19:00 | Emergency (ER) | payer MEDICARE, MEDICAID ==
[2023-06-26] MEDS ORDERED: EPINEPHrine 1MG/10ML SYRINGE 1.5IN ONE (19:01)
[2023-06-26] MEDS ORDERED: EPINEPHrine 1MG/10ML SYRINGE 1.5IN IV STA ×3 (19:48)
== END 2023-06-27 01:35 | disposition expired ==
LOC: M ED 19:00 → MERGE 19:00 → EDBD 19:00 → M ED 06-27 01:35
DX: I46.9 Cardiac arrest, cause unspecified (principal); I25.2 Old myocardial infarction; I10 Essential (primary) hypertension; Z86.79 Personal history of other diseases of the circulatory system
CPT/HCPCS: 31500; 92950; 96365; 99285; J0171